=== PATIENT | male | born 1950 | race Caucasian/White ===

== ENCOUNTER 2020-01-06 12:51 | Inpatient (IN) ==
--- OUTSIDE RECORDS SUMMARY | 2020-01-06 12:53 | External Medical Summary | Continuity of Care Document ---
:1950 Author Name Bebeto Singh Address Unavailable Unavailable , Care Team Providers Name Role Phone Bebeto Singh Unavailable [email or web address] Unavailable Unavailable Problems Active medical history not documented Allergies and Adverse Reactions Allergy history not documented Medications Medications not documented Procedures Procedures not documented Immunizations Immunizations not documented Plan of Treatment Planned Observations Planned Goals not documented Results No Known Results Results not documented
[2020-01-06] MEDS ORDERED: SODIUM CHLORIDE 0.9% 500 ML IV SCH (13:15)
[2020-01-06 13:34] LABS: Basophils # (auto) 0.04 K/uL (0-0.2); Basophils % (auto) 0.6 %; Eosinophils # (auto) 0.07 K/uL (0-0.5); Hematocrit (blood only) 43.4 % (42-52); Hemoglobin 14.8 g/dL (14.0-18.0); Immature Granulocytes # (auto) 0.02 K/uL (0.00-0.02); Immature Granulocytes % (auto) 0.3 %; Mean Corpuscular Hemoglobin 28.7 pg (25-34); Mean Corpuscular Hgb Conc 34.1 g/dL (32-36); Mean Corpuscular Volume 84.1 fL (80-100); Mean Platelet Volume 10.2 fL (7.4-10.4); Monocytes # (auto) 0.59 K/uL (0.11-0.59); Monocytes % (auto) 8.2 %; Neutrophils # (auto) 5.95 K/uL (1.4-6.5); Neutrophils % (auto) 82.9 %; Platelet Count 230 K/uL (130-400); RDW Coefficient of Variation 13.4 % (11.5-14.5); RDW Standard Deviation 40.4 fL (36.4-46.3); Red Blood Count 5.16 M/uL (4.7-6.1); White Blood Count 7.17 K/uL (4.8-10.8)
--- NOTE | 2020-01-06 13:46 | Emergency Department Note ---
History of Present Illness General Chief complaint: Weakness Stated complaint: WEAKNESS Time Seen by Provider: 01/06/20 12:58 Source: patient Mode of arrival: ambulatory Limitations: no limitations History of Present Illness Provider complaint: Weakness Maximum Pain Intensity: 0 This is a 69-year-old male who presents to the ED with a chief complaint of feeling weak and tired. The patient states that he also has a nonproductive cough for the past 3 days. He states that he felt fine this morning around 8 AM. He states by noon he felt very weak and tired. The patient denies any shortness of breath, chest pains, nausea, vomiting or diarrhea. He has no other complaints at this time. Home Medications Home Medications Medication Instructions Recorded Confirmed Type acetaminophen [Tylenol Extra 1,000 mg PO Q6H PRN 03/11/18 03/11/18 History Strength] carbidopa-levodopa [Sinemet] 1 tab PO TID 03/11/18 03/11/18 History magnesium hydroxide [Milk of 0 ml PO DAILY PRN 03/11/18 03/11/18 History Magnesia] polyethylene glycol 3350 [Miralax] 17 g PO DAILY PRN 03/11/18 03/11/18 History Allergies Allergy/AdvReac Type Severity Reaction Status Date / Time No Known Allergies Allergy Unverified 02/15/18 12:52 Past Med/Surg History Medical History (Updated 01/06/20 @ 14:40 by Terence Shipley DO) Alcoholism /alcohol abuse Cholecystitis GERD (gastroesophageal reflux disease) No history of diabetes mellitus Parkinsons disease Renal insufficiency acutely elevated creatinine level Surgical History History of inguinal hernia repair Left History of tonsillectomy S/P laparoscopic cholecystectomy Family History Other No significant family history Social History Smoking Status: Never smoker Hx Alcohol Use: Yes Alcohol type: beer Hx Substance Use: No Preferred Language: Icelandic Communication Ability: Effective Visual Impairment: No Limitations Soybean [employer]er Required: No Beliefs That Will Affect Care: None marital status: / Current Living Situation: Family Feels Safe at Home: Yes Assistive Devices: Walker Review of Systems A total of 10 systems reviewed and were otherwise negative Physical Exam Vital Signs Vital Signs - 24 hr 01/06/20 12:54 01/06/20 13:04 01/06/20 13:07 Temperature 37.6 C H Temperature Source Oral Pulse Rate 127 H 125 H 123 H Pulse Rate from SpO2 Sensor 127 H 124 H Respiratory Rate 20 16 27 H Blood Pressure 117/79 127/95 Blood Pressure Mean 91 105 Pulse Oximetry 92 95 Oxygen Delivery Method Room Air Sepsis Recent Fever Within 48 Hours No Sepsis New/Unexplained Change in Mental Status N/A Sepsis Action Taken by Nursing No Action Required 01/06/20 13:28 01/06/20 13:30 01/06/20 14:00 Temperature Temperature Source Pulse Rate 106 H 96 H Pulse Rate from SpO2 Sensor 106 H 97 H Respiratory Rate 14 Blood Pressure 130/82 Blood Pressure Mean 88 Pulse Oximetry 92 89 L 91 Oxygen Delivery Method Room Air Sepsis Recent Fever Within 48 Hours Sepsis New/Unexplained Change in Mental Status Sepsis Action Taken by Nursing 01/06/20 14:30 Temperature Temperature Source Pulse Rate 93 H Pulse Rate from SpO2 Sensor Respiratory Rate 14 Blood Pressure Blood Pressure Mean Pulse Oximetry Oxygen Delivery Method Sepsis Recent Fever Within 48 Hours Sepsis New/Unexplained Change in Mental Status Sepsis Action Taken by Nursing CONSTITUTIONAL/VITAL SIGNS: Reviewed / noted above. GENERAL: Non-toxic in appearance. INTEGUMENTARY: Warm, dry, and [place]. HEAD: Normocephalic. EYES: without scleral icterus or trauma. ENT/OROPHARYNX: clear and moist. LYMPHADENOPATHY/NECK: Is supple without lymphadenopathy or meningismus. RESPIRATORY: Lungs clear and equal. CARDIOVASCULAR: Tachycardic rate and mostly regular rhythm. GI/ABDOMEN: Soft and nontender. No organomegaly or pulsatile mass. No rebound or guarding. Normal bowel sounds. EXTREMITIES: Warm and well perfused. BACK: No CVA tenderness. NEUROLOGICAL: Intact without focal deficits. PSYCHIATRIC: normal affect. MUSCULOSKELETAL: Normally developed with good muscle tone. Resting tremor from chronic Parkinson's. TRIAGE NURSING DOCUMENTATION REVIEWED. Course Administered Medications Discontinued Medications Sodium Chloride (Nss) 500 mls @ 999 mls/hr IV .Q31M CHIKI Stop: 01/06/20 13:45 Last Infusion: 01/06/20 14:06 Dose: 0 mls/hr Documented by: [id number] Admin: 01/06/20 13:31 Dose: 999 mls/hr Documented by: [id number] Medical Decision Making Differential Diagnosis Differential includes acute coronary syndrome, myocardial infarction, CVA, TIA, anemia, infection, pneumonia, UTI, pyelonephritis, poor nutrition, dehydration, electrolyte disturbance,hypoglycemia. Medical Records Attestation: I reviewed the patient's medical records. Home Medications Current Medication List: was personally reviewed by me Laboratory Data Result diagrams: 01/06/20 13:26 01/06/20 13:26 Lab Results 01/06/20 01/06/20 01/06/20 Range/Units 13:26 13:26 13:26 WBC 7.17 (4.8-10.8) K/uL RBC 5.16 (4.7-6.1) M/uL Hgb 14.8 (14.0-18.0) g/dL Hct 43.4 (42-52) % MCV 84.1 (80-100) fL MCH 28.7 (25-34) pg MCHC 34.1 (32-36) g/dL RDW Std Deviation 40.4 (36.4-46.3) fL RDW Coeff of Cordell 13.4 (11.5-14.5) % Plt Count 230 (130-400) K/uL MPV 10.2 (7.4-10.4) fL Immature Gran % (Auto) 0.3 % Neut % (Auto) 82.9 % Lymph % (Auto) 7.0 % [place] % (Auto) 8.2 % Eos % (Auto) 1.0 % Baso % (Auto) 0.6 % Neut # (Auto) 5.95 (1.4-6.5) K/uL Lymph # (Auto) 0.50 L (1.2-3.4) K/uL [place] # (Auto) 0.59 (0.11-0.59) K/uL Eos # (Auto) 0.07 (0-0.5) K/uL Baso # (Auto) 0.04 (0-0.2) K/uL Immature Gran # (Auto) 0.02 (0.00-0.02) K/uL Sodium 139 (136-145) mmol/L Potassium 4.7 (3.5-5.1) mmol/L Chloride 107 (98-107) mmol/L Carbon Dioxide 29 (21-32) mmol/L Anion Gap 3.0 (3-11) BUN 11 (7-18) mg/dl Creatinine 1.17 (0.6-1.4) mg/dl Est Cr Clr Drug Dosing 59.6 ml/min Est GFR ( Amer) 73.3 Est GFR (Non-Af Amer) 63.2 BUN/Creatinine Ratio 9.6 L (10-20) Glucose 89 (70-99) mg/dl Calcium 9.0 (8.5-10.1) mg/dl Magnesium 2.0 (1.8-2.4) mg/dl Total Bilirubin 1.1 H (0.2-1) mg/dl AST 29 (15-37) U/L ALT 50 (12-78) U/L Alkaline Phosphatase 217 H (45-117) U/L Total Creatine Kinase 38 L (39-308) U/L Troponin I < 0.015 (0-0.045) ng/ml Total Protein 7.1 (6.4-8.2) gm/dl Albumin 3.4 (3.4-5.0) gm/dl Globulin 3.7 (2.5-4.0) gm/dl Albumin/Globulin Ratio 0.9 (0.9-2) TSH 1.180 (0.300-4.500) uIu/ml Urine Color Yellow Urine Appearance Clear (Clear) Urine pH 8.0 H (4.5-7.5) Ur Specific [place] 1.018 (1.000-1.030) Urine Protein Negative (Negative) Urine Glucose (UA) Negative (Negative) Urine Ketones Negative (Negative) Urine Blood 1+ H (Negative) Urine Nitrite Negative (Negative) Urine Bilirubin Negative (Negative) Urine Urobilinogen Positive H (Negative) Ur Leukocyte Esterase Trace H (Negative) Urine WBC (Auto) 1-5 (0-5) /hpf Urine RBC (Auto) 10-30 H (0-4) /hpf U Hyaline Cast (Auto) 1-5 (0-5) /lpf U Epithel Cells (Auto) 20-30 H (0-5) /lpf Urine Bacteria (Auto) 1+ H (Negative) Imaging Data Attestation: I personally reviewed and interpreted this imaging study as follows: My Impression: Chest x-ray: Per my interpretation there is no pneumonia or pneum othorax or other acute abnormality. ECG Data Attestation: I personally reviewed and interpreted this ECG as follows: Indication: + weakness Rate (beats per minute): 112 Rhythm: + sinus rhythm ECG ST segments: no ST elevation ECG Findings: no PVCs MDM Narrative This is a 69-year-old male who presents to the ED with a chief complaint of feeling weak and tired. The patient states that he also has a nonproductive cough for the past 3 days. He states that he felt fine this morning around 8 AM. He states by noon he felt very weak and tired. Patient's vital signs reveal normal blood pressure, tachycardia and a slightly low pulse ox. The patient's urine dip did not show obvious infection. Chest x-ray did not show pneumonia. The blood work was relatively unremarkable with a normal CBC and metabolic panel. Troponin and TSH were normal. The patient presented with incontinence. He was incontinent of urine and feces when he came in. He complains of generalized weakness to the point he was unable to walk or get himself to the bathroom. He was found to be tachycardic when he first arrived. His test results did not show a clear cause for his weakness. He will need to be evaluated by PT and OT for possible placement. I will speak to the hospitalist about this patient. Impression & Plan Generalized weakness, Bladder incontinence, Bowel incontinence, Cough Discharge Plan Visit Data Chief Complaint: Weakness Stated Complaint: WEAKNESS ED Provider: Terence Shipley Discharge Problem: Generalized weakness, Bladder incontinence, Bowel incontinence, Cough Patient Disposition: Being Evaluated by Hospitalist Forms Stand Alone Forms: My [facility] Prescriptions Prescriptions: No Action polyethylene glycol 3350 [Miralax] 17 gram Powder In Packet 17 g PO DAILY PRN (Reason: Constipation) RF: 0 acetaminophen [Tylenol Extra Strength] 500 mg Tablet 1,000 mg PO Q6H PRN (Reason: Pain) RF: 0 magnesium hydroxide [Milk of Magnesia] 400 mg/5 mL Suspension 0 ml PO DAILY PRN (Reason: Constipation) RF: 0 carbidopa-levodopa [Sinemet] 25-100 mg Tablet 1 tab PO TID RF: 0 Referrals Referrals: Elio Hester MD [Primary Care Provider] - Discharge Problem: Bladder incontinence Qualifiers: Urinary Incontinence type: other incontinence Qualified Code(s): N39.498 - O ther specified urinary incontinence Bowel incontinence Qualifiers: Fecal incontinence type: unspecified Qualified Code(s): R15.9 - Full incontinence of feces
[2020-01-06 13:52] LABS: Alanine Aminotransferase 50 U/L (12-78); Albumin Level 3.4 gm/dl (3.4-5.0); Aspartate Aminotransferase 29 U/L (15-37); BUN Creatinine Ratio 9.6 (10-20); Blood Urea Nitrogen 11 mg/dl (7-18); Carbon Dioxide 29 mmol/L (21-32); Chloride 107 mmol/L (98-107); Creatinine Clr Calc Pharmacy 59.6 ml/min; Est GFR (African American) 73.3; Est GFR (Non-African American) 63.2; Glucose 89 mg/dl (70-99); Potassium 4.7 mmol/L (3.5-5.1); Sodium 139 mmol/L (136-145)
[2020-01-06 14:02] LABS: Albumin Globulin Ratio 0.9 (0.9-2); Alkaline Phosphatase 217 U/L (45-117); Bilirubin,Total 1.1 mg/dl (0.2-1); Creatine Kinase 38 U/L (39-308); Globulin 3.7 gm/dl (2.5-4.0); Total Protein 7.1 gm/dl (6.4-8.2); Troponin I < 0.015 ng/ml (0-0.045)
[2020-01-06 14:42] LABS: Appearance Urine Clear (Clear); Bacteria Urine Automated 1+ (Negative); Bilirubin Urine Negative (Negative); Blood Urine 1+ (Negative); Color Urine Yellow; Epithelial Cell Urine Auto 20-30 /lpf (0-5); Glucose Urine UA Negative (Negative); Ketones Urine Negative (Negative); Leukocyte Esterase Urine Trace (Negative); Nitrite Urine Negative (Negative); Protein Urine Negative (Negative); Specific Gravity Urine 1.018 (1.000-1.030); Urobilinogen Urine Positive (Negative)
--- NOTE | 2020-01-06 14:44 | XRay Report ---
XR chest 1V portable HISTORY: weakness COMPARISON: Chest 02/15/2018. FINDINGS: There are low lung volumes. No focal lung consolidations to suggest pneumonia. No evidence for pulmonary edema. The heart remains borderline enlarged. Prior cholecystectomy. No pleural effusio ns. No pneumothorax. IMPRESSION: No acute process. ACT 112: Negative or not required by law. Electronically signed by: Marc Anthony M.D. 01/06/2020 2:43 PM
[2020-01-06] MEDS ORDERED: MAGNESIUM HYDROXIDE SUSP 30 ML UDC PO PRN (15:14)
[2020-01-06] MEDS ORDERED: ALUMINUM/MAGNESIUM SUSP 30 ML UDC PO PRN (15:14)
[2020-01-06] MEDS ORDERED: ONDANSETRON INJ 2 MG/ML 2 ML VIAL IV PRN (15:14)
[2020-01-06] MEDS ORDERED: ACETAMINOPHEN 325 MG TAB PO PRN (15:14)
--- NOTE | 2020-01-06 15:19 | History & Physical Report ---
Date of Service January 06, 2020 Assessment & Plan (1) Generalized weakness: generalized weakness , hx of parkinson's disease -not on any meds progressive ambulatory dysfunction , hx of fall symptoms worse this AM unable to get out of chair CT head non contrast : no acute change , acute paranasal sinusitis IV fluid -as pt appears to be dehydrated /CT head no CVA PT/OT eval fall precaution fever/cough : chest xray no infiltrate CT chest : paranasal sinusitis COVID 19 PCR -Negative on Rocephin for possible UTI added Doxycycline for possible bronchitis Parkinson's disease: pt stopped taking Sinemet -since 2018 /was admitted with pancreatitis -pt thinks Sinemet caused it progressive weakness, gait disturbance could be due to Parkinson's disease Neurology consulted for recommendation of antiparkinson's meds (2) Bladder incontinence: rule out Seizure EEG ordered Possible UTI : UA positive check urine culture started on IV Rocephin empirically CODE STATUS : FULL CODE DVT PROPHYLAXIS: sub q heparin DISPOSITION : lives at home , presents with ambulatory dysfunction PT/OT eval prior to discharge social service consulted for discharge planing (3) Parkinsons disease: cont sinemet History of Present Illness Chief Complaint: generalized weakness , cough , unable to walk Primary Care Provider: Elio Hester MD This is a 69 yo Male with medical hx of Parkinson's disease -stopped taking Sinemet few years back / Brought o ER by his son -as pt was unable to walk to bathroom at baseline pt able to walk around with minimum assistance , started to experi ence worsening of fatigue , weakness , gait disturbance Fell few days back this morning he was not able to get up chair , had bowel and bladder incontinence , so seizure like activity , no syncope , having cough with productive sputum for past few days , no fever or chills , no shortness of breath in the ER labs and vitals stable pt appears to be very dehydrated CT head shows no acute change -paransal sinusiitis Allergies Allergy/AdvReac Type Severity Reaction Status Date / Time No Known Allergies Allergy Unverified 01/06/20 15:14 Home Medications Home Medications Medication Instructions Recorded Confirmed Type No Known Home Medications 01/06/20 01/06/20 History Past Med/Surg History Medical History Alcoholism /alcohol abuse Cholecystitis GERD (gastroesophageal reflux disease) No history of diabetes mellitus Parkinsons disease Renal insufficiency acutely elevated creatinine level Surgical History History of inguinal hernia repair Left History of tonsillectomy S/P laparoscopic cholecystectomy Family History Other No significant family history Social History Smoking Status: Never smoker Hx Alcohol Use: No Hx Substance Use: No Preferred Language: Maltese Communication Ability: Effective Visual Impairment: No Limitations [employer] Supervisor Required: No Beliefs That Will Affect Care: None marital status: / Current Living Situation: Family Other Information That Helps Us Care for You: No Feels Safe at Home: Yes Safety Concerns: Feels Safe At This Time Assistive Devices: None Review of Systems Review of Systems: All systems reviewed & are unremarkable except as noted in HPI & below Constitutional: + fatigue and + weakness; no fever and no chills Respiratory: + cough; no dyspnea and no wheezing Cardiovascular: + lightheadedness; no syncope Neurologic: + gait abnormality, + unsteadiness, + falls, + generalized w eakness, + tremor(s) and + dizziness Physical Exam Constitutional: WD/WN, vitals as above no acute distress Eyes: PERRL, conjunctivae normal, anicteric sclerae ENMT: external ear and nose normal, oropharynx normal Neck: trachea midline, no thyromegaly Respiratory: no respiratory distress and no cough Auscultation: + crackles, + rales and + rhonchi Gastrointestinal (Abdomen): normal bowel sounds, soft, nontender, no hepatosplenomegaly Musculoskeletal: Extremities: extremities normal to inspection resting tremors on hands Neurologic: PERRL, EOMI, accommodation nl, no face palsy, no dysarthria no focal motor deficits Motor/Sensory: + tremor (resting tremors of hands ) Results & Data Results & Data ([facility]) Vital Signs (Past 12 Hours) Vital Signs Temp Pulse Resp BP Pulse Ox 01/06/20 15:00 92 H 19 116/84 01/06/20 14:30 93 H 14 01/06/20 14:00 96 H 130/82 91 01/06/20 13:30 106 H 14 89 L 11/14/20 13:28 92 01/06/20 13:07 123 H 27 H 01/06/20 13:04 125 H 16 127/95 95 01/06/20 12:54 37.6 C H 127 H 20 117/[address] HEAD NON CONTRAST : Impression: No acute abnormality. Acute paranasal sinusitis. CHEST XRAY : no acute process (1) Bladder incontinence Urinary Incontinence type: other incontinence Qualified Code(s): N39.498 - Other specified urinary incontinence
[2020-01-06] MEDS ORDERED: cefTRIAXone SODIUM 2,000 MG/70 ML BAG IV STA (15:20)
--- NOTE | 2020-01-06 15:49 | CT Scan Report ---
HEAD CT NONCONTRAST CT DOSE: 1228.53 mGy.cm HISTORY: weakness TECHNIQUE: Multiaxial CT images of the head were performed without the use of intravenous contrast. A utomated exposure control was utilized for this study. A dose lowering technique was utilized adheri ng to the principles of ALARA. Comparison: Head CT 07/18/2015. Findings: Fluid levels within the bilateral maxillary sinuses and ethmoid air cells consistent with a cute sinusitis. The mastoid air cells are clear. The calvarium and skull base are intact. There is no mass, hematoma, midline shift, acute infarct. White matter hypodensity is nonspecific but suggestive of microvascular ischemic change. The ventricles and sulci demonstrate mild age-related involutional changes. Impression: No acute abnormality. Acute paranasal sinusitis. ACT 112: Negative or not required by law. Electronically signed by: Marc Anthony M.D. 01/06/2020 3:47 PM
[2020-01-06] MEDS ORDERED: SODIUM CHLORIDE 0.9% 1000ML 1,000 ML IV SCH (17:08)
[2020-01-06] MEDS: DOXYCYCLINE HYCLATE 100 MG CAP PO SCH (19:32)
[2020-01-06] MEDS ORDERED: CARBIDOPA/LEVODOPA 25/100MG EXT REL TAB PO SCH (21:00)
--- NOTE | 2020-01-07 06:55 | Electrocardiogram Report ---
Test Reason : Blood Pressure : / mmHG Vent. Rate : 112 BPM Atrial Rate : 112 BPM P-R Int : 168 ms QRS Dur : 088 ms QT Int : 322 ms P-R-T Axes : 042 -54 036 degrees QTc Int : 439 ms Poor data quality, interpretation may be adversely affected Sinus tachycardia Left axis deviation Inferior infarct , age undetermined Abnormal ECG When compared with ECG of 15-FEB-2018 13:33, Vent. rate has increased BY 54 BPM Confirmed by Curtis Weinberg ([id number]) on 01/07/2020 6:55:19 AM Referred By: REFERRED SELF Confirmed By:Curtis Weinberg
[2020-01-07] MEDS: DOXYCYCLINE HYCLATE 100 MG CAP PO SCH ×2 (08:01→21:36)
[2020-01-07] MEDS ORDERED: INFLUENZA VIRUS QUAD VACCINE 0.5 ML SYR IM ONE (09:00)
[2020-01-07] MEDS ORDERED: INFLUENZA ADMINISTRATION CHARGE ONE (09:00)
--- NOTE | 2020-01-07 10:40 | Hospitalist Progress Note ---
Date of Service January 07, 2020 Assessment & Plan (1) Generalized weakness: -hospital presentation on 01/06/2020 and initial assessment and plans by hospitalist Dr. Guevara -on my evaluation, Dr Sheridan, hospitalist on 01/07/2020: Patient seen and examined after being seen by physical and occupational therapy who questions patient's ambulatory function. Patient's son Anthony by telephone [phone] affirms that patient had a fall at home but it was around 1 week ago prior to hospital presentation on 01/06/2020. Patient was sent to hospital by family members because he did not appear to be walking well at home since and also because all the family members patient and 2 sons with respiratory symptoms. Patient is COVID-19 negative on 01/06/2020 by testing and 01/06/2020 with no pneumonia and no pulmonary edema. CT head with no evidence of acute stroke but there is Acute paranasal sinusitis for which he was started on doxycycline with the ceftriaxone Patient's son also affirms that patient with Parkinson's Disease and not taking any medications for 2 years, Patient also has not been following with primary care doctor in that span of time. Patient's son is leaning against discharge to physical rehabilitation facility and prefers discharge to home when possible. Hospitalist discussed with patient's son that there remains neurology consult evaluation as requested by admitting hospitalist who also ordered EEG which may be of questionable utility but will defer this to neurology consult doctor. As per the 01/06/2020 ED notes that "The patient presented with incontinence. He was incontinent of urine and feces when he came in. He complains of generalized weakness to the point he was unable to walk or get himself to the bathroom" In addition, that there is 1+ bacteria on presentation UA which may indicate UTI and patient empirically on IV ceftriaxone. Overall, patient does not appear likely to have acute infectious process as his WBC counts are within normal ranges. Awaiting urine culture results while on antibiotics. Continue PT/OT evaluations while patient in the hospital (2) Parkinsons disease: -continue PT/OT while in hospital as above -defer to neurology on dosing of Parkinson medications -defer to neurology on need or utility of EEG as requested initially by initial hospitalist Dr. Guevara. Seizure appears unlikely by history (3) Bladder incontinence: Possible UTI -As per the 01/06/2020 ED notes that "The patient presented with incontinence. He was incontinent of urine and feces when he came in. He complains of generalized weakness to the point he was unable to walk or get himself to the bathroom" -there is 1+ bacteria on presentation UA which may indicate UTI and patient empirically on IV ceftriaxone. Overall, patient does not appear likely to have a cute infectious process as his WBC counts are within normal ranges. Awaiting urine culture results while on antibiotics. continue IV ceftriaxone (4) Bowel incontinence: -ED status on 01/06/2020 as above -monitor if any recurrent episodes while in the hospital (5) Acute sinusitis: -Patient is COVID-19 negative on 01/06/2020 by testing and 01/06/2020 with no pneumonia and no pulmonary edema. CT head with no evidence of acute stroke but there is Acute paranasal sinusitis for which he was started on doxycycline w ith the ceftriaxone -no actual febrile temperatures on hospital presentation as body temperatures below 100.8 F -can continue the doxycycline -supportive care if cough DVT prophylaxis: heparin subcutaneous 5000 units q12 hours Admission and Anticipated Discharge Date Admission Date: January 06, 2020 Subjective Patient seen and examined after being seen by physical and occupational therapy who questions patient's ambulatory function. Patient's son Anthony by telephone [phone] affirms that patient had a fall at home but it was around 1 week ago prior to hospital presentation on 01/06/2020. Patient was sent to hospital by family members because he did not appear to be walking well at home since and also because all the family members patient and 2 sons with respiratory symptoms. Patient is COVID-19 negative on 01/06/2020 by testing and 01/06/2020 with no pneumonia and no pulmonary edema. CT head with no evidence of acute stroke but there is Acute paranasal sinusitis for which he was started on doxycycline with the ceftriaxone Patient's son also affirms that patient with Parkinson's Disease and not taking any medications for 2 years, Patient also has not been following with primary care doctor in that span of time. Patient's son is leaning against discharge to physical rehabilitation facility and prefers discharge to home when possible. Hospitalist discussed with patient's son that there remains neurology consult evaluation as requested by admitting hospitalist who also ordered EEG which may be of questionable utility but will defer this to neurology consult doctor. As per the 01/06/2020 ED notes that "The patient presented with incontinence. He was incontinent of urine and feces when he came in. He complains of generalized weakness to the point he was unable to walk or get himself to the bathroom" In addition, that there is 1+ bacteria on presentation UA which may indicate UTI and patient empirically on IV ceftriaxone. Overall, patient does not appear likely to have acute infectious process as his WBC counts are within normal ranges. Awaiting urine culture results while on antibiotics. Continue PT/OT evaluations while patient in the hospital On review of systems , patient is a poor historian. He denies other symptoms. not in acute pain or distress. breathing comfortably on room air. Review of Systems Review of Systems: All systems reviewed & are unremarkable except as noted in Subjective Physical Exam Constitutional: comfortable Eyes: PERRL, conjunctivae normal, anicteric sclerae EOM intact bilaterally ENMT: external ear and nose normal, oropharynx normal Neck: normal visual inspection Respiratory: normal respiratory effort, lungs clear to auscultation Cardiovascular: Rate/Rhythm: regular rate and regular rhythm Gastrointestinal (Abdomen): normal bowel sounds, soft, nontender, no hepatosplenomegaly Musculoskeletal: Head/Neck/Chest: normocephalic and head atraumatic some hand tremors Neurologic: moves all extremities Psychiatric: Orientation: alert, oriented x 3 and cooperative Results & Data Results & Data ([facility]) Vital Signs (Past 12 Hours) Vital Signs Temp Pulse Pulse Resp BP Pulse Ox 01/07/20 07:57 37.0 C 71 18 148/69 H 95 01/07/20 07:37 56 L 01/07/20 04:00 36.6 C 67 16 139/84 93 01/07/20 00:16 75 (1) Bladder incontinence Urinary Incontinence type: other incontinence Qualified Code(s): N39.498 - Other specified urinary incontinence (2) Bowel incontinence Fecal incontinence type: unspecified Qualified Code(s): R15.9 - Full incontinence of feces
[2020-01-07] MEDS ORDERED: ACETAMINOPHEN 325 MG TAB PO PRN (11:12)
[2020-01-07] MEDS ORDERED: guaiFENesin SUGAR FREE 100 MG/5 ML UDC PO PRN (11:14)
--- NOTE | 2020-01-07 12:52 | History and Physical Report ---
DATE OF ADMISSION: 01/07/2020 NEUROLOGY CONSULTATION NOTE CHIEF COMPLAINT: Generalized weakness, cough. HISTORY OF PRESENT ILLNESS: A 69-year-old male with history of Parkinson disease, currently no longer on Sinemet. He has stopped this medication several years ago, brought to the Emergency Department yesterday by the patient's son as the patient was unable to walk to the bathroom or unable to walk without minimal assistance. He is also noted to start experiencing worsening fatigue, weakness, gait disturbance. He did fall a few days ago. He was unable to get up from his chair yesterday morning. He had a bowel and bladder incontinence. He did not have any loss of consciousness. He has been having a productive cough over the last several days, although denies any fever or chills. No shortness of breath noted. In the Emergency Department, he was stable and appeared to be very dehydrated. CT head was performed and showed paranasal sinusitis. The patient was admitted yesterday from the Emergency Department due to concern for generalized weakness and difficulty ambulating. He was given IV fluids as well as ordered for PT, OT evaluation. On admission, Neurology was consulted due to his history of Parkinson's disease. ALLERGIES: No known drug allergies. HOME MEDICATIONS: No home medications. PAST MEDICAL HISTORY: Alcoholism, cholecystitis, gastroesophageal reflux disease, Parkinson's disease, renal insufficiency. PAST SURGICAL HISTORY: History of inguinal hernia, tonsillectomy, laparoscopic cholecystectomy. FAMILY HISTORY: Reviewed. No pertinent family history. SOCIAL HISTORY: Nonsmoker. He is . Does have a history of prior alcohol use. REVIEW OF SYSTEMS: All systems were reviewed and negative except as noted: Positive for fatigue, weakness, cough, lightheadedness, gait abnormality, unsteadiness, falls, generalized weakness, tremor, dizziness. PHYSICAL EXAMINATION: VITAL SIGNS: Blood pressure 148/69, pulse is 71, respiratory rate 18, temperature is 37.0, oxygen saturation is 95% on room air. GENERAL: Appears stated age, no distress. HEENT: Normocephalic and atraumatic. Eyelids are normal. Conjunctivae are normal. NECK: Supple. LUNGS: Normal respiratory effort. CARDIOVASCULAR: Normal cardiac pulses. ABDOMEN: Nondistended. SKIN: No skin rash. PSYCHIATRIC: Normal mood and normal affect. NEUROLOGIC: He is awake, alert, oriented to person, place and time. His attention is normal. His knowledge is appropriate. Comprehension is intact. Speech is clear. Eyes are midline. Extraocular muscles are intact. Pupils are symmetric. Facial sensation is intact. Face is symmetric. Hearing is intact. Palate is symmetric. Shoulder shrug is normal. Tongue is midline. Gait examination deferred. The patient is tremulous with intention tremor on [id number] testing intact to light touch in terms of sensation, muscle tone shows cogwheel rigidity, diffuse weakness, no ankle clonus. DIAGNOSTIC TESTING AND LABORATORY VALUES: WBC 7.17, hemoglobin 14.8, platelet count is 230. Sodium is 139, potassium 4.7, chloride is 107, carbon dioxide is 29, BUN is 11, creatinine 1.17, glucose is 89, AST is 29, ALT is 50. Total creatine kinase is 38, which is low. Troponin is negative. TSH is normal at 1.18. Chest x-ray showed no acute process. Head CT noncontrast performed on 01/06/2020 showed no acute abnormality. There was acute paranasal sinusitis. ASSESSMENT AND PLAN: A 69-year-old male with a history of tremor predominant Parkinson disease, last seen by Yvrose Medley in 01/2018, currently admitted with generalized weakness and gait difficulty. Hospital workup to date showing no evidence of an underlying infection or metabolic abnormality. CK is normal or low ruling out an inflammatory myopathy. Dehydration may be contributing versus deconditioning. Agree with PT, OT for rehabilitation. For now, we will defer on starting Sinemet. We will need to arrange followup after rehab for discussion or review of Parkinson's medications. Please contact me with any additional questions or concerns. Follow up with Neurology in 8 - weeks. JOHANNE
[2020-01-07] MEDS ORDERED: cefTRIAXone SODIUM 2,000 MG in DEXTROSE 5% 50 ML IV SCH (16:00)
[2020-01-07] MEDS: HEPARIN SOD 5,000 UNIT/0.5 ML VIAL SQ SCH (21:37)
[2020-01-08] MEDS: HEPARIN SOD 5,000 UNIT/0.5 ML VIAL SQ SCH (08:45)
[2020-01-08] MEDS: DOXYCYCLINE HYCLATE 100 MG CAP PO SCH (08:45)
--- NOTE | 2020-01-08 08:52 | Hospitalist Progress Note ---
Date of Service January 08, 2020 Assessment & Plan (1) Generalized weakness: -hospital presentation on 01/06/2020 and initial assessment and plans by hospitalist Dr. Guevara -on my evaluation, Dr Sheridan, hospitalist on 01/07/2020: Patient seen and examined after being seen by physical and occupational therapy who questions patient's ambulatory function. Patient's son Anthony by telephone [phone] affirms that patient had a fall at home but it was around 1 week ago prior to hospital presentation on 01/06/2020. Patient was sent to hospital by family members because he did not appear to be walking well at home since and also because all the family members patient and 2 sons with respiratory symptoms. Patient is COVID-19 negative on 01/06/2020 by testing and 01/06/2020 with no pneumonia and no pulmonary edema. CT head with no evidence of acute stroke but there is Acute paranasal sinusitis for which he was started on doxycycline with the ceftriaxone Patient's son also affirms that patient with Parkinson's Disease and not taking any medications for 2 years, Patient also has not been following with primary care doctor in that span of time. Patient's son is leaning against discharge to physical rehabilitation facility and prefers discharge to home when possible. Hospitalist discussed with patient's son that there remains neurology consult evaluation as requested by admitting hospitalist who also ordered EEG which may be of questionable utility but will defer this to neurology consult doctor. As per the 01/06/2020 ED notes that "The patient presented with incontinence. He was incontinent of urine and feces when he came in. He complains of generalized weakness to the point he was unable to walk or get himself to the bathroom" (2) Parkinsons disease: -continue PT/OT while in hospital as above -defer to neurology on dosing of Parkinson medications -defer to neurology on need or utility of EEG as requested initially by initial hospitalist Dr. Guevara. Seizure appears unlikely by history (3) Bowel incontinence: -ED status on 01/06/2020 as above -currently no recurrent episodes while in the hospital (4) Bladder incontinence: Possible UTI -As per the 01/06/2020 ED notes that "The patient presented with incontinence. He was incontinent of urine and feces when he came in. He complains of generalized weakness to the point he was unable to walk or get himself to the bathroom" -01/07/2020: there is 1+ bacteria on presentation UA which may indicate UTI and patient empirically on IV ceftriaxone. Overall, patient does not appear likely to have acute infectious process as his WBC counts are within normal ranges. Awaiting urine culture results while on antibiotics. continue IV ceftriaxone -01/08/2020: the urine culture "Three types of organisms present, all low counts probable skin jemal. No further identifications or sensitivities to follow." Will stop ceftriaxone and switch antibiotics to Augmentin, contonue Doxycycline for the sinusitis indications (5) Acute sinusitis: -Patient is COVID-19 negative on 01/06/2020 by testing and 01/06/2020 with no pneumonia and no pulmonary edema. CT head with no evidence of acute stroke but there is Acute paranasal sinusitis for which he was started on doxycycline with the ceftriaxone -no actual febrile temperatures on hospital presentation as body temperatures below 100.8 F -can continue the doxycycline , replace ceftriaxone with Augmentin -supportive care if cough with prn anti-tussives DVT prophylaxis: heparin subcutaneous 5000 units q12 hours while in the hospital Disposition: discussed with patient and patient's son Anthony by phone that currently awaiting neurology evaluation. Their preference are to be discharged to home rather than physical therapy center. Discuss with case management about discharge needs Admission and Anticipated Discharge Date Admission Date: January 06, 2020 Subjective discussed with patient and patient's son Anthony by phone that currently awaiting neurology evaluation. Their preference are to be discharged to home rather than physical therapy center. Discuss with case management about discharge needs no acute telemetry events. patient breathing on room air. no respiratory d istress. no shortness of breath. no dizziness. speaking in full sentences. answering questions appropriately. denies acute pain anywhere of the body. mild tremors of upper extremities continues. denies dysuria. patient denies other symptoms on review of systems. Review of Systems Review of Systems: All systems reviewed & are unremarkable except as noted in Subjective Physical Exam Constitutional: comfortable Eyes: PERRL, conjunctivae normal, anicteric sclerae EOM intact bilaterally ENMT: external ear and nose normal, oropharynx normal Neck: normal visual inspection Respiratory: normal respiratory effort, lungs clear to auscultation Cardiovascular: Rate/Rhythm: regular rate and regular rhythm Gastrointestinal (Abdomen): normal bowel sounds, soft, nontender, no hepatosplenomegaly Musculoskeletal: Head/Neck/Chest: normocephalic and head atraumatic Neurologic: moves all extremities Psychiatric: Orientation: alert, oriented x 3 and cooperative Results & Data Results & Data ([facility]) Vital Signs (Past 12 Hours) Vital Signs Temp Pulse Pulse Resp BP Pulse Ox 01/08/20 07:29 51 L 01/08/20 06:07 36.5 C 57 L 16 137/88 96 01/08/20 03:00 36.4 C L 54 L 20 143/90 H 95 01/07/20 23:27 55 L 01/07/20 22:00 36.6 C 53 L 16 132/81 94 (1) Bladder incontinence Urinary Incontinence type: other incontinence Qualified Code(s): N39.498 - Other specified urinary incontinence (2) Bowel incontinence Fecal incontinence type: unspecified Qualified Code(s): R15.9 - Full incontinence of feces
--- NOTE | 2020-01-08 15:33 | Discharge Summary ---
Date of Service January 08, 2020 Admission HPI Per Admitting Provider This is a 69 yo Male with medical hx of Parkinson's disease -stopped taking Sinemet few years back / Brought o ER by his son -as pt was unable to walk to bathroom at baseline pt able to walk around with minimum assistance , started to experience worsening of fatigue , weakness , gait disturbance Fell few days back this morning he was not able to get up chair , had bowel and bladder incontinence , so seizure like activity , no syncope , having cough with productive sputum for past few days , no fever or chills , no shortness of breath in the ER labs and vitals stable pt appears to be very dehydrated CT head shows no acute change -paransal sinusiitis Admission Exam (Per Admitting) Constitutional comfortable Eyes PERRL, conjunctivae normal, anicteric sclerae EOM intact bilaterally ENMT external ear and nose normal, oropharynx normal Neck normal visual inspection Respiratory normal respiratory effort, lungs clear to auscultation Cardiovascular Rate/Rhythm: regular rate and regular rhythm Gastrointestinal (Abdomen) normal bowel sounds, soft, nontender, no hepatosplenomegaly Musculoskeletal Head/Neck/Chest: normocephalic and head atraumatic Neurologic moves all extremities Psychiatric Orientation: alert, oriented x 3 and cooperative Discharge Data Consultations 01/06/20 14:59 ED Decision to Admit Stat 01/06/20 15:16 Consult Case Management - Discharge Planning Routine 01/06/20 20:49 Consult Neurology Routine 01/08/20 06:56 Consult Neurology Routine Hospital Course (1) Generalized weakness: -hospital presentation on 01/06/2020 and initial assessment and plans by hospitalist Dr. Guevara -on my evaluation, Dr Sheridan, hospitalist on 01/07/2020: Patient seen and examined after being seen by physical and occupational therapy who questions patient's ambulatory function. Patient's son Anthony by telephone [phone] affirms that patient had a fall at home but it was around 1 week ago prior to hospital presentation on 01/06/2020. Patient was sent to hospital by family members because he did not appear to be walking well at home since and also because all the family members patient and 2 sons with respiratory symptoms. Patient is COVID-19 negative on 01/06/2020 by testing and 01/06/2020 with no pneumonia and no pulmonary edema. CT head with no evidence of acute stroke but there is Acute paranasal sinusitis for which he was started on doxycycline with the ceftriaxone Patient's son also affirms that patient with Parkinson's Disease and not taking any medications for 2 years, Patient also has not been following with primary care doctor in that span of time. Patient's son is leaning against discharge to physical rehabilitation facility and prefers discharge to home when possible. Hospitalist discussed with patient's son that there remains neurology consult evaluation as requested by admitting hospitalist who also ordered EEG which may be of questionable utility but will defer this to neurology consult doctor. As per the 01/06/2020 ED notes that "The patient presented with incontinence. He was incontinent of urine and feces when he came in. He complains of generalized weakness to the point he was unable to walk or get himself to the bathroom" (2) Parkinsons disease: -continue PT/OT while in hospital as above -defer to neurology on dosing of Parkinson medications -defer to neurology on need or utility of EEG as requested initially by initial hospitalist Dr. Guevara. Seizure appears unlikely by history (3) Bowel incontinence: -ED status on 01/06/2020 as above -currently no recurrent episodes while in the hospital (4) Bladder incontinence: Possible UTI -As per the 01/06/2020 ED notes that "The patient presented with incontinence. He was incontinent of urine and feces when he came in. He complains of generalized weakness to the point he was unable to walk or get himself to the bathroom" -01/07/2020: there is 1+ bacteria on presentation UA which may indicate UTI and patient empirically on IV ceftriaxone. Overall, patient does not appear likely to have acute infectious process as his WBC counts are within normal ranges. Awaiting urine culture results while on antibiotics. continue IV ceftriaxone -01/08/2020: the urine culture "Three types of organisms present, all low counts probable skin jemal. No further identifications or sensitivities to follow." Will stop ceftriaxone and switch antibiotics to Augmentin, contonue Doxycycline for the sinusitis indications (5) Acute sinusitis: -Patient is COVID-19 negative on 01/06/2020 by testing and 01/06/2020 with no pneumonia and no pulmonary edema. CT head with no evidence of acute stroke but there is Acute paranasal sinusitis for which he was started on doxycycline with the ceftriaxone -no actual febrile temperatures on hospital presentation as body temperatures below 100.8 F -can continue the doxycycline , replace ceftriaxone with Augmentin -supportive care if cough with prn anti-tussives Disposition: discharge to home under care of his sons after case mgr made referrals for [facility]. patient also give prescription for walker but he denies wanting one discharge [place] [address] of Augmentin 500 mg twice a day for 5 days, and Doxycycline 100 mg for 5 days for acute sinusitis and also Guaifenesin every 6 hours as needed for cough from the sinus itis discharge primary care doctor appointment: 01/12/2020 3:00 PM Provider Elio Hester MD Department [facility] discharge neurology appointment: 01/30/2020 11:20 AM Provider Kyung Geiger PA-C Department Neurology [facility] Discharge Diagnosis: Acute sinusitis Parkinson's disease Time Spent on Discharge: 40 Minutes
[2020-01-08] MEDS ORDERED: AMOXICILLIN/CLAVULANATE 500 MG TAB PO SCH (17:00)
--- NOTE | 2020-01-10 14:59 | Electroencephalogram ---
EEG Procedure Note Date of Service January 10, 2020 Start / End Times Start Time: 06:22 End Time: 06:[address] Guevara History A 69-year-old male with Parkinson's disease admitted with possible syncopal episode. EEG performed for evaluation epileptiform activity. Home Medication List Medication Instructions Recorded Confirmed Type No Known Home Medications 01/06/20 01/06/20 History amoxicillin-pot clavulanate 1 tab PO BIDM 5 Days #10 tab 01/08/20 Rx doxycycline hyclate 100 mg PO BID 5 Days #10 cap 01/08/20 Rx guaifenesin 100 mg PO Q6H PRN 5 Days #473 ml 01/08/20 Rx Inpatient Medication List Discontinued Medications Doxycycline Hyclate (Doxycycline Hyclate 100 Mg Cap) 100 mg PO BID CHIKI Stop: 01/13/20 17:59 Last Admin: 01/08/20 08:45 Dose: 100 mg Documented by: [id number] Admin: 01/07/20 21:36 Dose: 100 mg Documented by: [id number] Admin: 01/07/20 08:01 Dose: 100 mg Documented by: [id number] Admin: 01/06/20 19:32 Dose: 100 mg Documented by: [id number] Heparin Sodium (Porcine) (Heparin Sod 5,000 Unit/0.5 Ml Vial) 5,000 units SQ Q12 CHIKI Stop: 02/06/20 20:59 Last Admin: 01/08/20 08:45 Dose: 5,000 units Documented by: [id number] Admin: 01/07/20 21:37 Dose: 5,000 units Documented by: [id number] Sodium Chloride (Nss) 500 mls @ 999 mls/hr IV .Q31M CHIKI Stop: 01/06/20 13:45 Last Infusion: 01/06/20 14:06 Dose: 0 mls/hr Documented by: [id number] Admin: 01/06/20 13:31 Dose: 999 mls/hr Documented by: [id number] Ceftriaxone Sodium (Rocephin) 2,000 mg in 70 mls @ 140 mls/hr IV NOW STA Stop: 01/06/20 15:49 Last Infusion: 01/06/20 16:38 Dose: 0 mls/hr Documented by: [id number] Admin: 01/06/20 15:58 Dose: 140 mls/hr Documented by: [id number] Ceftriaxone Sodium 2,000 mg/ (Dextrose) 70 mls @ 100 mls/hr IV Q24H CHIKI; Protocol Stop: 01/10/20 16:41 Last Infusion: 01/07/20 17:02 Dose: 0 mls/hr Documented by: [id number] Admin: 01/07/20 16:19 Dose: 100 mls/hr Documented by: [id number] Sodium Chloride (Nss 1000ml) 1,000 mls @ 100 mls/hr IV .Q10H CHIKI Stop: 01/07/20 03:07 Last Infusion: 01/07/20 04:13 Dose: 0 mls/hr Documented by: [id number] Admin: 01/06/20 18:13 Dose: 100 mls/hr Documented by: [id number] Influenza Virus Vaccine Quadrival (Influenza Virus Quad Vaccine 0.5 Ml Syr) 0.5 ml IM .ONCE ONE Stop: 01/07/20 09:01 Last Admin: 01/07/20 10:00 Dose: 0.5 ml Documented by: [id number] Description This is a 21 electrode EEG with a single channel dedicated to limited EKG. The electrodes were placed in accordance with the International 10-20 system. Report: At the onset of the EEG the patient is awake. The posterior dominant rhythm is 9-10 Hz. The background is symmetric and well organized. Anteriorly there is low amplitude indeterminate faster activity. Drowsiness is characte rized by increased theta activity, reduced blink rate, and decreased myogenic artifact. No stage 2 sleep transients are recorded. Photic stimulation does not induce any abnormalities. Impression: This is a normal awake and drowsy routine EEG. There is no evidence of focal slowing or epileptiform activity.
== END 2020-01-08 16:10 | disposition home health service (06) | DRG 57 ==
LOC: ED 12:51 → SUATTDRO 15:15 → 2N 15:15

== ENCOUNTER 2020-03-23 04:15 | Inpatient (IN) ==
[2020-03-23] MEDS ORDERED: HYDROCORTISONE HC 2.5% CRM 30GM TUBE EXT ONE (04:59)
[2020-03-23] MEDS ORDERED: SODIUM CHLORIDE 0.9% 500 ML IV ONE (04:59)
[2020-03-23 05:20] LABS: Basophils # (auto) 0.01 K/uL (0-0.2); Basophils % (auto) 0.2 %; Eosinophils # (auto) 0.08 K/uL (0-0.5); Eosinophils % (auto) 1.7 %; Hematocrit (blood only) 48.9 % (42-52); Hemoglobin 16.3 g/dL (14.0-18.0); Immature Granulocytes # (auto) 0.01 K/uL (0.00-0.02); Immature Granulocytes % (auto) 0.2 %; Lymphocytes # (auto) 0.72 K/uL (1.2-3.4); Lymphocytes % (auto) 15.2 %; Mean Corpuscular Hemoglobin 28.6 pg (25-34); Mean Corpuscular Hgb Conc 33.3 g/dL (32-36); Mean Corpuscular Volume 85.9 fL (80-100); Mean Platelet Volume 10.6 fL (7.4-10.4); Monocytes # (auto) 0.46 K/uL (0.11-0.59); Monocytes % (auto) 9.7 %; Neutrophils # (auto) 3.47 K/uL (1.4-6.5); Platelet Count 245 K/uL (130-400); RDW Coefficient of Variation 13.8 % (11.5-14.5); RDW Standard Deviation 42.6 fL (36.4-46.3); Red Blood Count 5.69 M/uL (4.7-6.1); White Blood Count 4.75 K/uL (4.8-10.8)
[2020-03-23 05:37] LABS: Alanine Aminotransferase 41 U/L (12-78); Albumin Level 3.5 gm/dl (3.4-5.0); Anion Gap 0 (3-11); Aspartate Aminotransferase 21 U/L (15-37); BUN Creatinine Ratio 17.2 (10-20); Blood Urea Nitrogen 18 mg/dl (7-18); Calcium 9.1 mg/dl (8.5-10.1); Carbon Dioxide 33 mmol/L (21-32); Chloride 109 mmol/L (98-107); Est GFR (African American) 84.5; Est GFR (Non-African American) 72.9; Glucose 91 mg/dl (70-99); Sodium 142 mmol/L (136-145)
[2020-03-23 05:48] LABS: Albumin Globulin Ratio 0.9 (0.9-2); Alkaline Phosphatase 176 U/L (45-117); Globulin 4.1 gm/dl (2.5-4.0); Total Protein 7.6 gm/dl (6.4-8.2)
--- NOTE | 2020-03-23 06:37 | Emergency Department Note ---
Impression & Plan Adult failure to thrive, Weakness, Depression, Acute hemorrhoid, Nonadherence to medication ED Provider Note NAME: TATI WOOD AGE: 69 SEX: M ARRIVES VIA: Walk-In INFORMANT: Patient and the patient's son ED PROVIDER(S): Ros Roque DO CHIEF COMPLAINT: Patient's not eating PLAN: Disposition: Admitted to the [facility] service Condition: Good MEDICAL DECISION MAKING: This is a 69-year-old male patient who presents to the emergency department with his son explaining that he has not been eating or drinking. The son explains that he is such extreme weakness that he had requested to come to the hospital. The patient has been complaining of hemorrhoid. It appears that the patient has not showered in quite a long time in his not caring for himself. He admits to being significantly depressed. He suffers from Parkinson's disease and is not taking his medications. Patient has a history of alcohol abuse but has not been drinking alcohol in quite some time. [facility] for [facility] management. Triage Nursing notes reviewed and agree them. Additional history obtained from the patient's son who is at the bedside Prior medical records reviewed Vital Signs: reviewed and remarkable for hypertension Differential diagnosis: Depression, medication noncompliance, dehydration, electrolyte abnormality, renal failure, hyperglycemia, hypoglycemia ER treatment provided: Proctosol HC Diagnostics interpreted by me: ECG: Normal sinus rhythm at a rate of [address] segment elevation or signs of ischemia. There is poor baseline with artifact. There is no ST segment clarice vation or signs of ischemia Cardiac Monitoring: Normal sinus rhythm at a rate of 62 Laboratory studies: See below Imaging studies:As per my interpretation Portable chest x-ray: No acute pulmonary infiltrates or consolidation HPI: 69/M arrives for evaluation of complaints of hemorrhoid and decreased oral intake. The patient has become increasingly weak and is not eating or drinking at home according to the patient's son. He suffers from Parkinson's disease and has not been taking his medications. The son is very concerned because he has become so weak and the patient has voiced concern that he may . The son explains that his mother approximately 5 years ago and that it seems that his father may have given up since then. The patient has become extremely depressed and is not eating appropriately. He states that he has only eaten 2 ice cream sandwiches in the past 1 to 2 days. The patient is no longer showering and taking care of himself. ROS: See above HPI for pertinent positives & negatives. A total of 10 systems reviewed and were otherwise negative. PAST MEDICAL HISTORY:See Below PAST SURGICAL HISTORY:See Below FAMILY HISTORY:See Below SOCIAL HISTORY:See Below HOME MEDICATIONS:The patient is not taking any of his medications ALLERGIES:None VITALS:See Below PHYSICAL EXAMINATION: HEENT: Head - normocephalic and atraumatic Pupils are equal, round, and reactive to light. Extraocular eye muscles are intact, and sclera are anicteric. Nose - moist nasal mucosa without discharge. Mouth - moist buccal mucosa. Oropharynx is nonerythematous and there is no tonsillar exudate or edema noted. Neck: Supple; no cervical lymphadenopathy or JVD was noted. Heart: Regular rate and rhythm. There is a normal S1 and S2 with no murmurs, clicks, or gallops appreciated. Lungs: Clear to auscultation bilaterally with no wheezes, rales, or rhonchi. Abdomen: Soft, completely nontender, nondistended, with good bowel sounds. There are no palpable pulsatile masses or hepatosplenomegaly. There is no guarding, rigidity, or rebound noted. Extremities: No evidence of cyanosis, clubbing, or edema. There are easily palpable peripheral pulses. The patient's toenails are extremely long. Skin: warm and dry with good turgor and no rashes. Rectal: The patient is incontinent of stool. There is a mildly thrombosed hemorrhoid. Neuro: The patient is somewhat difficult to understand as his speech is somewhat soft and stuttering. He is tremulous from his Parkinson's. He can easily follow commands. He has equal muscle strength in all 4 extremities. ED COURSE: Times/Reassessments: 0430: Patient was evaluated in room C4. A complete history and physical was performed. Previous electronic medical records were reviewed. An order was placed for continuous cardiac monitoring. The patient was in a nor mal sinus rhythm at a rate of 62. An IV lock was initiated and labs were drawn as above. Chest x-ray was performed as described above. Anusol HC was applied to the patient's hemorrhoid. I helped nursing staff to take off the patient's close which have obviously not been changed in quite some time. He is not caring for himself or bathing. The case was discussed with the [facility] hospitalist and they will evaluate for further management. Ros Roque DO Past Med/Surg History Medical History (Updated 03/24/20 @ 06:43 by Ros Roque DO) Alcoholism /alcohol abuse Bladder incontinence Bowel incontinence Cholecystitis Generalized weakness GERD (gastroesophageal reflux disease) No history of diabetes mellitus Parkinsons disease Renal insufficiency acutely elevated creatinine level Surgical History History of inguinal hernia repair Left History of tonsillectomy S/P laparoscopic cholecystectomy Family History Other No significant family history Social History Smoking Status: Never smoker Hx Alcohol Use: No Hx Substance Use: No Preferred Language: Uzbek Communication Ability: Effective Visual Impairment: No Limitations 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 Required: No Beliefs That Will Affect Care: None marital status: / Current Living Situation: Family How many Children do You have: 2 Other Information That Helps Us Care for You: No Feels Safe at Home: Yes Safety Concerns: Feels Safe At This Time Assistive Devices: Walker Allergies Allergies Allergy/AdvReac Type Severity Reaction Status Date / Time No Known Allergies Allergy Verified 03/23/20 05:05 Home Meds Home Medications Medication Instructions Recorded Confirmed No Known Home Medications 01/06/20 03/23/20 Results & Data (ED) Vital Signs Vital Signs - 24 hr 03/23/20 04:21 03/23/20 05:29 03/23/20 05:31 Temperature 37.1 C Temperature Source Temporal Artery Scan Pulse Rate 99 H 76 78 Respiratory Rate 20 19 20 Blood Pressure 141/105 H 141/83 H 119/88 Blood Pressure Mean 117 102 98 Pulse Oximetry 96 98 98 Oxygen Delivery Method Room Air Sepsis Recent Fever Within 48 Hours No Sepsis New/Unexplained Change in Mental Status N/A Sepsis Action Taken by Nursing No Action Required 03/23/20 06:00 Temperature Temperature Source Pulse Rate 62 Respiratory Rate 20 Blood Pressure 131/88 Blood Pressure Mean 102 Pulse Oximetry 98 Oxygen Delivery Method Sepsis Recent Fever Within 48 Hours Sepsis New/Unexplained Change in Mental Status Sepsis Action Taken by Nursing Laboratory Data Result diagrams: 03/23/20 05:05 03/23/20 05:05 Lab Results 03/23/20 03/23/20 03/23/20 Range/Units 05:05 05:05 06:22 WBC 4.75 L (4.8-10.8) K/uL RBC 5.69 (4.7-6.1) M/uL Hgb 16.3 (14.0-18.0) g/dL Hct 48.9 (42-52) % MCV 85.9 (80-100) fL MCH 28.6 (25-34) pg MCHC 33.3 (32-36) g/dL RDW Std Deviation 42.6 (36.4-46.3) fL RDW Coeff of Cordell 13.8 (11.5-14.5) % Plt Count 245 (130-400) K/uL MPV 10.6 H (7.4-10.4) fL Immature Gran % (Auto) 0.2 % Neut % (Auto) 73.0 % Lymph % (Auto) 15.2 % [place] % (Auto) 9.7 % Eos % (Auto) 1.7 % Baso % (Auto) 0.2 % Neut # (Auto) 3.47 (1.4-6.5) K/uL Lymph # (Auto) 0.72 L (1.2-3.4) K/uL [place] # (Auto) 0.46 (0.11-0.59) K/uL Eos # (Auto) 0.08 (0-0.5) K/uL Baso # (Auto) 0.01 (0-0.2) K/uL Immature Gran # (Auto) 0.01 (0.00-0.02) K/uL Sodium 142 (136-145) mmol/L Potassium 4.0 (3.5-5.1) mmol/L Chloride 109 H (98-107) mmol/L Carbon Dioxide 33 H (21-32) mmol/L Anion Gap 0 L (3-11) BUN 18 (7-18) mg/dl Creatinine 1.04 (0.6-1.4) mg/dl Est Cr Clr Drug Dosing Not Reportable Est GFR ( Amer) 84.5 Est GFR (Non-Af Amer) 72.9 BUN/Creatinine Ratio 17.2 (10-20) Glucose 91 (70-99) mg/dl Calcium 9.1 (8.5-10.1) mg/dl Magnesium 2.7 H (1.8-2.4) mg/dl Total Bilirubin 1.0 (0.2-1) mg/dl AST 21 (15-37) U/L ALT 41 (12-78) U/L Alkaline Phosphatase 176 H (45-117) U/L Total Protein 7.6 (6.4-8.2) gm/dl Albumin 3.5 (3.4-5.0) gm/dl Globulin 4.1 H (2.5-4.0) gm/dl Albumin/Globulin Ratio 0.9 (0.9-2) TSH 1.820 (0.300-4.500) uIu/ml COVID-19 [facility] SARS-CoV-2, RNA, NAAT (NEGATIVE) 03/23/20 Range/Units 06:22 WBC (4.8-10.8) K/uL RBC (4.7-6.1) M/uL Hgb (14.0-18.0) g/dL Hct (42-52) % MCV (80-100) fL MCH (25-34) pg MCHC (32-36) g/dL RDW Std Deviation (36.4-46.3) fL RDW Coeff of Cordell (11.5-14.5) % Plt Count (130-400) K/uL MPV (7.4-10.4) fL Immature Gran % (Auto) % Neut % (Auto) % Lymph % (Auto) % [place] % (Auto) % Eos % (Auto) % Baso % (Auto) % Neut # (Auto) (1.4-6.5) K/uL Lymph # (Auto) (1.2-3.4) K/uL [place] # (Auto) (0.11-0.59) K/uL Eos # (Auto) (0-0.5) K/uL Baso # (Auto) (0-0.2) K/uL Immature Gran # (Auto) (0.00-0.02) K/uL Sodium (136-145) mmol/L Potassium (3.5-5.1) mmol/L Chloride (98-107) mmol/L Carbon Dioxide (21-32) mmol/L Anion Gap (3-11) BUN (7-18) mg/dl Creatinine (0.6-1.4) mg/dl Est Cr Clr Drug Dosing Est GFR ( Amer) Est GFR (Non-Af Amer) BUN/Creatinine Ratio (10-20) Glucose (70-99) mg/dl Calcium (8.5-10.1) mg/dl Magnesium (1.8-2.4) mg/dl Total Bilirubin (0.2-1) mg/dl AST (15-37) U/L ALT (12-78) U/L Alkaline Phosphatase (45-117) U/L Total Protein (6.4-8.2) gm/dl Albumin (3.4-5.0) gm/dl Globulin (2.5-4.0) gm/dl Albumin/Globulin Ratio (0.9-2) TSH (0.300-4.500) uIu/ml COVID-19 Eval Order SARS-CoV-2, RNA, NAAT NEGATIVE (NEGATIVE) Administered Medications Carbidopa/Levodopa (Carbidopa/Levodopa 25/100mg Tab) 0.5 tab PO DAILYBB CHIKI Stop: 04/23/20 06:29 Last Admin: 03/24/20 05:31 Dose: 0.5 tab Documented by: [id number] Heparin Sodium (Porcine) (Heparin Sod 5,000 Unit/0.5 Ml Vial) 5,000 units SQ Q8 CHIKI Stop: 04/22/20 13:59 Last Admin: 03/24/20 05:32 Dose: 5,000 units Documented by: [id number] Admin: 03/23/20 21:19 Dose: 5,000 units Documented by: [id number] Admin: 03/23/20 14:26 Dose: 5,000 units Documented by: [id number] Promethazine HCl 6.25 mg/ (Sodium Chloride) 50.25 mls @ 201 mls/hr IV Q6H PRN PRN Reason: Nausea And Vomiting Stop: 04/22/20 08:56 Last Infusion: 03/23/20 18:07 Dose: 0 mls/hr Documented by: [id number] Admin: 03/23/20 17:49 Dose: 201 mls/hr Documented by: [id number] Mirtazapine (Mirtazapine Soltab 15 Mg) 15 mg PO HS CHIKI Stop: 04/22/20 20:59 Last Admin: 03/23/20 21:16 Dose: 15 mg Documented by: [id number] Discontinued Medications Hydrocortisone (Hydrocortisone Hc 2.5% Crm 30gm Tube) 1 appln EXT NOW ONE Stop: 03/23/20 05:00 Last Admin: 03/23/20 05:35 Dose: 1 appln Documented by: [id number] Sodium Chloride (Nss) 500 mls @ 999 mls/hr IV .Q31M ONE Stop: 03/23/20 05:29 Last Infusion: 03/23/20 05:51 Dose: 0 mls/hr Documented by: [id number] Admin: 03/23/20 05:20 Dose: 999 mls/hr Documented by: [id number] Discharge Plan Visit Data Chief Complaint: Weakness Stated Complaint: WEAKNESS ED Provider: Ros Roque Discharge Problem: Adult failure to thrive, Weakness, Depression, Acute hemorrhoid, Nonadherence to medication Patient Disposition: Admitted As Inpatient Discharge Instructions Interventions: ED Discharge Assessment Last Done: 03/23/20 08:03 Discharge Problem: Depression Qualifiers: Depression Type: major depressive disorder Major depression recurrence: unspecified whether recurrent Active/Remission status: currently active Major depression episode severity: moderate Qualified Code(s): F32.1 - Major depressive disorder, single episode, moderate
--- NOTE | 2020-03-23 06:38 | History & Physical Report ---
Date of Service March 23, 2020 Assessment & Plan (1) Generalized weakness: Multifactorial : Deconditioning Parkinson's disease, medication noncompliance Severe depression Rule out UTI Hypertension, stable, currently not on medications OBS GMF Follow UA Neurology consult Re: Follow-up eval for Parkinson's disease (Patient willing to take medications again.) Psychiatry consult Re: Severe depression PT OT eval Social service RE discharge planning DVT prophylaxis. Lovenox subcu Full code Patient son requesting for updates from providers. Mr. Bienvenido CashJr. contact #[phone] Text document was generated using [employer] recognition software. It may contain grammatical or spelling errors. Kindly contact undersigned for clarification of any documentation item in question. Allergies History of Present Illness Chief Complaint: Generalized weakness, want to get better as per patient Primary Care Provider: Dr. Diane (Although patient has not met her.) History obtained from patient, family, and records. Medical history significant for hypertension, Parkinson's disease, medication noncompliance. Patient stopped taking Sinemet for Parkinson's disease a few years back. Last PCP visit Jun, 2018. Son attributes patient apathy to depression after 4 years ago. About 60 pound weight loss in the last year as per patient family. Poor appetite. Last confinement December 2019 for generalized weakness. Patient noted to be increasingly weak this week. Having trouble moving around. Patient denies chest pain, S OB, headache, abdominal pain symptoms. Bothered by hemorrhoids. Although depressed, patient denies suicidality. Patient requested to be brought to the ER. He told his son that he wants to get better and is open to taking medications again. 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 Allergies Allergy/AdvReac Type Severity Reaction Status Date / Time No Known Allergies Allergy Verified 03/23/20 05:05 Home Medications Medication Instructions Recorded Confirmed Type No Known Home Medications 01/06/20 03/23/20 History Past Med/Surg History Medical History (Updated 03/23/20 @ 08:38 by Anthony Sanchez MD) Alcoholism /alcohol abuse Bladder incontinence Bowel incontinence Cholecystitis Generalized weakness GERD (gastroesophageal reflux disease) No history of diabetes mellitus Parkinsons disease Renal insufficiency acutely elevated creatinine level Surgical History History of inguinal hernia repair Left History of tonsillectomy S/P laparoscopic cholecystectomy Family History Other No significant family history Social History Smoking Status: Never smoker Hx Alcohol Use: No Hx Substance Use: No Preferred Language: Somali Communication Ability: Effective Visual Impairment: No Limitations Instrument Fitter Required: No Beliefs That Will Affect Care: None marital status: / Current Living Situation: Family How many Children do You have: 2 Other Information That Helps Us Care for You: No Feels Safe at Home: Yes Safety Concerns: Feels Safe At This Time Assistive Devices: Cane Review of Systems Review of Systems: As per HPI, all 10 systems reviewed, all other ROS negative Physical Exam Physical Exam: GENERAL: Comfortable, flat affect, no respiratory distress SKIN: Normal color, warm HEENT: [place] palpebral conjunctivae, no ptosis, dry buccal mucosa, edentulous NECK : Supple, no tenderness CHEST : CTA, no tenderness HEART : Bradycardic , no obvious murmurs ABDOMEN: Some distention, nontender EXTREMITIES : No LE swelling/tenderness, no other conspicuous deformities noted, dirty and untrim toenails NEUROLOGIC : Coherent, no facial asymmetry, rest tremors, gait and stance not assessed Results & Data Results & Data ([facility]) Vital Signs (Past 12 Hours) Vital Signs Temp Pulse Resp BP Pulse Ox 03/23/20 06:00 62 20 131/88 98 03/23/20 05:31 78 20 119/88 98 03/23/20 05:29 76 19 141/83 H 98 03/23/20 04:21 37.1 C 99 H 20 141/105 H 96 Laboratory Results Laboratory Results WBC 4.75 K/uL (4.8-10.8) L 03/23/20 05:05 RBC 5.69 M/uL (4.7-6.1) 03/23/20 05:05 Hgb 16.3 g/dL (14.0-18.0) 03/23/20 05:05 Hct 48.9 % (42-52) 03/23/20 05:05 MCV 85.9 fL (80-100) 03/23/20 05:05 MCH 28.6 pg (25-34) 03/23/20 05:05 MCHC 33.3 g/dL (32-36) 03/23/20 05:05 RDW Std Deviation 42.6 fL (36.4-46.3) 03/23/20 05:05 RDW Coeff of Cordell 13.8 % (11.5-14.5) 03/23/20 05:05 Plt Count 245 K/uL (130-400) 03/23/20 05:05 MPV 10.6 fL (7.4-10.4) H 03/23/20 05:05 Immature Gran % (Auto) 0.2 % 03/23/20 05:05 Neut % (Auto) 73.0 % 03/23/20 05:05 Lymph % (Auto) 15.2 % 03/23/20 05:05 [place] % (Auto) 9.7 % 03/23/20 05:05 Eos % (Auto) 1.7 % 03/23/20 05:05 Baso % (Auto) 0.2 % 03/23/20 05:05 Neut # (Auto) 3.47 K/uL (1.4-6.5) 03/23/20 05:05 Lymph # (Auto) 0.72 K/uL (1.2-3.4) L 03/23/20 05:05 [place] # (Auto) 0.46 K/uL (0.11-0.59) 03/23/20 05:05 Eos # (Auto) 0.08 K/uL (0-0.5) 03/23/20 05:05 Baso # (Auto) 0.01 K/uL (0-0.2) 03/23/20 05:05 Immature Gran # (Auto) 0.01 K/uL (0.00-0.02) 03/23/20 05:05 Sodium 142 mmol/L (136-145) 03/23/20 05:05 Potassium 4.0 mmol/L (3.5-5.1) 03/23/20 05:05 Chloride 109 mmol/L (98-107) H 03/23/20 05:05 Carbon Dioxide 33 mmol/L (21-32) H 03/23/20 05:05 Anion Gap 0 (3-11) L 03/23/20 05:05 BUN 18 mg/dl (7-18) 03/23/20 05:05 Creatinine 1.04 mg/dl (0.6-1.4) 03/23/20 05:05 Est Cr Clr Drug Dosing Not Reportable 03/23/20 05:05 Est GFR ( Amer) 84.5 03/23/20 05:05 Est GFR (Non-Af Amer) 72.9 03/23/20 05:05 BUN/Creatinine Ratio 17.2 (10-20) 03/23/20 05:05 Glucose 91 mg/dl (70-99) 03/23/20 05:05 Calcium 9.1 mg/dl (8.5-10.1) 03/23/20 05:05 Total Bilirubin 1.0 mg/dl (0.2-1) 03/23/20 05:05 AST 21 U/L (15-37) 03/23/20 05:05 ALT 41 U/L (12-78) 03/23/20 05:05 Alkaline Phosphatase 176 U/L (45-117) H 03/23/20 05:05 Total Protein 7.6 gm/dl (6.4-8.2) 03/23/20 05:05 Albumin 3.5 gm/dl (3.4-5.0) 03/23/20 05:05 Globulin 4.1 gm/dl (2.5-4.0) H 03/23/20 05:05 Albumin/Globulin Ratio 0.9 (0.9-2) 03/23/20 05:05 TSH 1.820 uIu/ml (0.300-4.500) 03/23/20 05:05 COVID-19 Eval Order Covid19 IDNow [facility] 03/23/20 06:22 Diagnostic Findings Chest x-ray as per my interpretation no infiltrate EKG as per my interpretation : Rate 75, NSR, LAD, LAFB, no ischemia
[2020-03-23 06:55] LABS: Magnesium 2.7 mg/dl (1.8-2.4)
--- NOTE | 2020-03-23 08:09 | XRay Report ---
XR chest 1V portable CLINICAL HISTORY: weakness COMPARISON STUDY: 01/06/2020 FINDINGS: The cardiac and mediastinal contours are normal. There is no evidence of focal pulmonary co nsolidation. There is no evidence of failure. No pleural effusions are visualized.[ IMPRESSION: No active disease in the chest. ACT 112: Negative or not required by law. Electronically signed by: Sathish Power M.D. 03/23/2020 8:07 AM
[2020-03-23] MEDS ORDERED: PROMETHAZINE HCL 6.25 MG in SODIUM CHLORIDE 0.9% 50 ML IV PRN (08:57)
--- NOTE | 2020-03-23 12:42 | Hospitalist Progress Note ---
Date of Service March 23, 2020 Assessment & Plan (1) Generalized weakness: Generalized weakness and deconditioning Secondary to comorbidities Negative COVID screen CXR: No acute Process Negative COVID Screen TSH: Normal UA pending Encourage increased oral intake PT/OT Parkinson's disease Medication noncompliance Not taking any medication currently Consulted Neurology Dysphagia Edentulous Request Speech therapy eval Consider GI eval if needed Severe depression Hypertension Not on meds Monitor BP-Variable Consulted Psychiatry H/O hemorrhoids Currently denies bleeding Follow up as outpatient Code Status Full Code DVT Px: Lovenox SQ Code Status Full code Admission and Anticipated Discharge Date Admission Date: March 23, 2020 Subjective Patient is seen and examined at bedside Reports generalized weakness, poor appetite, weight loss Denies suicidal thoughts Also states having intermittent dysphagia to solids/Inability to chew due to poor dentition Denies chest pain, SOB, dizziness, nausea, abd pain Review of Systems Review of Systems: All systems reviewed & are unremarkable except as noted in HPI & below Physical Exam Physical Exam: Physical Exam: Vitals signs as noted above General Appearance:Thin, no apparent distress Head: normocephalic, Atraumatic, +Edentulous Eyes: normal inspection, EOMI Neck: supple, Trachea midline Respiratory/Chest: Normal breath sounds, CTA Cardiovascular: S1, S2, No murmur Abdomen/GI:Soft, Non tender, Bowel sounds present Extremities/Musculoskelatal:normal inspection, no edema Neurologic/Psych:AAOX3, grossly no focal neurological deficits, +Resting tremor Skin: normal color, warm Results & Data Results & Data ([facility]) Vital Signs (Past 12 Hours) Vital Signs Temp Pulse Pulse Resp BP BP Pulse Ox 03/23/20 08:35 36.5 C 63 16 146/88 H 98 03/23/20 06:30 62 23 123/81 98 03/23/20 06:00 62 20 131/88 98 03/23/20 05:31 78 20 119/88 98 03/23/20 05:29 76 19 141/83 H 98 03/23/20 04:21 37.1 C 99 H 20 141/105 H 96 Laboratory Results Short CBC 03/23/20 Range/Units 05:05 WBC 4.75 L (4.8-10.8) K/uL Hgb 16.3 (14.0-18.0) g/dL Hct 48.9 (42-52) % Plt Count 245 (130-400) K/uL BMP 03/23/20 05:05 Sodium 142 Potassium 4.0 Chloride 109 H Carbon Dioxide 33 H BUN 18 Creatinine 1.04 Glucose 91 Calcium 9.1 Liver Function 03/23/20 Range/Units 05:05 Total Bilirubin 1.0 (0.2-1) mg/dl AST 21 (15-37) U/L ALT 41 (12-78) U/L Alkaline Phosphatase 176 H (45-117) U/L Albumin 3.5 (3.4-5.0) gm/dl
--- NOTE | 2020-03-23 13:20 | Electrocardiogram Report ---
Test Reason : Blood Pressure : / mmHG Vent. Rate : 075 BPM Atrial Rate : 075 BPM P-R Int : 144 ms QRS Dur : 086 ms QT Int : 400 ms P-R-T Axes : 027 -41 033 degrees QTc Int : 446 ms Poor data quality, interpretation may be adversely affected Normal sinus rhythm Left axis deviation Abnormal ECG When compared with ECG of 06-JAN-2020 13:17, Vent. rate has decreased BY 37 BPM Criteria for Inferior infarct are no longer Present Confirmed by Suleman Beyer ([id number]) on 03/23/2020 1:20:15 PM Referred By: REFERRED SELF Confirmed By:Suleman Beyer
[2020-03-23 14:01] LABS: Appearance Urine Clear (Clear); Bacteria Urine Automated Negative (Negative); Blood Urine Negative (Negative); Color Urine Dark Yellow; Glucose Urine UA Negative (Negative); Ketones Urine Trace (Negative); Leukocyte Esterase Urine Trace (Negative); Nitrite Urine Negative (Negative); Protein Urine Negative (Negative); RBC Urine Automated 0-4 /hpf (0-4); Specific Gravity Urine 1.031 (1.000-1.030); Urobilinogen Urine Negative (Negative)
[2020-03-23 14:07] LABS: Bilirubin Urine 1+ (Negative)
--- NOTE | 2020-03-23 14:09 | Psychiatric Consultation ---
Date of Consultation March 23, 2020 Impression / Recommendations Impression 69-year-old gentleman without formal psychiatric history who sounds to have demonstrated diminished engagement, apathy, declined appetite, and weight loss for the past few years, possibly associated with bereavement however it is difficult to differentiate presently if we are seeing evidence of pathological bereavement, single episode of major depressive disorder, or mood disorder secondary to Parkinson's disease. Patient does not endorse hopelessness or suicidal ideation and no indication at this time for need of inpatient psychiatric hospitalization. He does not appear psychotic. He does demonstrate slowed mentation which may be a symptom of Parkinson's disease. Risks and benefits of low-dose mirtazapine trial discussed and accepted by patient. This agent may help promote appetite, improved sleep quality, and antidepressant effect for mood elevation. He was advised he is at increased risk for depression secondary to his Parkinson's disease. We would expect improved medical outcomes overall with treatment of depression. (1) Depression: -Start Remeron 15 mg p.o. nightly. Watch for sedation. -will follow Inventory Assets Strengths: Presently help seeking Needs: Treatment for depressive mood symptomatology Risk Factors Assessment Male: Yes : Yes Health Problems: Yes Mental Health Diagnoses: No Substance Use Disorders: No Previous Attempt: No Previous Psychiatric Hospitalization: No Hopelessness: No Protective Factors Assessment : No Responsible for Young Children: No Employed: No Stable Relationships: Yes Supportive Family: Yes CPT Code 24884 Psych History Chief Complaint "I feel down because I feel sick. I do not want to be in the hospital". History of Present Illness Patient presents without known prior psychiatric history. Medical history notable for Parkinson's disease, hypertension, medication noncompliance. Has not seen PCP since June 2018. Reportedly has been noncompliant with Sinemet for Parkinson's disease for a few years. Per admission H&P, patient's son has indicated a belief that patient has been apathetic since his 4 years ago and reported a 60 pound weight loss in the last year with poor appetite. Apparently patient requested to be brought to the ER and he is presently medically admitted. Patient acknowledges feeling down but struggles to characterize his mood and rationalizes depression due to medical illness. Denies feeling lonely or hopeless. Denies suicidal ideation active or passive. He denies ever being treated for depression in the past. Denies feeling anxious. Indicates that he gets along well with his 2 boys with whom he lives. Denies any safety concerns at home. Complains of low appetite, stomach upset, weight loss. He denies hallucinations or other symptoms of psychosis, jones, or confusion. He denies memory loss. He is oriented to circumstances, month and year but not date. He misidentifies the hospital and the floor. Past Psychiatric History Previous Psych History: Denies Outpatient Services: None History of Previous Suicide Attempt: No Past Medication Trials: None Allergies Allergy/AdvReac Type Severity Reaction Status Date / Time No Known Allergies Allergy Verified 03/23/20 05:05 Home Medications Medication Instructions Recorded Confirmed Type No Known Home Medications 01/06/20 03/23/20 History Family History Denies contributory history Substance Abuse History Acknowledges prior alcohol use reportedly heavy at times but never requiring hospitalization or rehab. Reports no alcohol consumed in at least 3 years. Personal History Living Arrangements: Home (Lives with 2 sons) Highest Grade Completed: High School Graduate Employment Status: Retired ([employer]) Marital Status: ( approximately 4 years ago as of 2020) Beliefs That Will Affect Care: None Psychological Trauma History Comment: Denies Patient History Medical History (Updated 03/23/20 @ 14:08 by Dann Bedolla MD) Alcoholism /alcohol abuse Bladder incontinence Bowel incontinence Cholecystitis Generalized weakness GERD (gastroesophageal reflux disease) No history of diabetes mellitus Parkinsons disease Renal insufficiency acutely elevated creatinine level Surgical History History of inguinal hernia repair Left History of tonsillectomy S/P laparoscopic cholecystectomy Family History Other No significant family history Social History Smoking Status: Never smoker Hx Alcohol Use: No Hx Substance Use: No Preferred Language: German Communication Ability: Effective Visual Impairment: No Limitations 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 Required: No Beliefs That Will Affect Care: None marital status: / Current Living Situation: Family How many Children do You have: 2 Other Information That Helps Us Care for You: No Feels Safe at Home: Yes Safety Concerns: Feels Safe At This Time Assistive Devices: Cane Physical Exam Psychiatric: Orientation: cooperative Apperance: appeared stated age Eye Contact: + fair eye contact Motor Behavior: + tremor Speech: normal rate/rhythm/volume of speech Affect: + depressed affect Mood: + depressed mood Thought Process: goal directed thought process No derailment however evidence of slowed mentation Thought Content: + preoccupation (Somatic) Suicidal Thoughts: + reports suicidal thoughts, + reports suicidal plan and + reports suicidal intent Homicidal Thoughts: + reports homicidal thoughts Hallucinations: no auditory hallucinations and no visual hallucinations Cognition: remote memory grossly intact and language grossly intact Insight: good insight Judgement: + fair judgement Vital Signs (Past 24 Hours): Last Vital Signs Temp 36.5 C 03/23/20 08:35 Pulse 63 03/23/20 08:35 Resp 16 03/23/20 08:35 BP 146/88 H 03/23/20 08:35 Pulse Ox 98 03/23/20 08:35 Review of Systems Constitutional: + fatigue, + anorexia and + weight loss Gastrointestinal: + nausea; no constipation Neurologic: as per Subjective / HPI Psychiatric: + depression; no hopelessness, no anhedonia, no suicidal ideation, no anxiety, no confusion, no paranoia, no hallucinations and no substance abuse Results & Data (PSY) Laboratory Results Abnormal lab results 03/23/20 03/23/20 Range/Units 05:05 05:05 WBC 4.75 L (4.8-10.8) K/uL MPV 10.6 H (7.4-10.4) fL Lymph # (Auto) 0.72 L (1.2-3.4) K/uL Chloride 109 H (98-107) mmol/L Carbon Dioxide 33 H (21-32) mmol/L Anion Gap 0 L (3-11) Magnesium 2.7 H (1.8-2.4) mg/dl Alkaline Phosphatase 176 H (45-117) U/L Globulin 4.1 H (2.5-4.0) gm/dl Coding Level of Care Code 58614 [facility] Intl Hosp Care Lvl 3 Diagnoses Depression F32.9
[2020-03-23] MEDS: HEPARIN SOD 5,000 UNIT/0.5 ML VIAL SQ SCH ×2 (14:26→21:19)
--- NOTE | 2020-03-23 15:34 | Communication Note ---
Date of Service: March 23, 2020 Bienvenido Cash is 69 years old, is right-handed, and I am seeing him today at the request of his attending physician Dr. Elliott in neurologic consultation for evaluation of Parkinson's disease which has really not been treated now for nearly 3 years. He was seen actually in December by Dr. Orosco who agreed with the diagnosis of Parkinson's disease but felt that he needed some rehabilitation as he had been admitted to the hospital and it was expected that [facility] and then be seen as an outpatient in neurology. No treatment was advised for his Parkinson's disease at that time Previously he had been seen by ANA Cuevas who obtained a history of a nearly 20-year history of intentional tremor of both hands but then noted some bradykinesia and resting tremor and started him on Sinemet. Records are vague but he recalls being tapered upwards slowly reaching 1 tablet 3 times a day afte r a month but did not feel that it was helping and perhaps it was making him nauseated so he stopped it Is not clear whether he was expecting the tremor to be relieved as not clear how much of a bradykinetic rigid appearance he presented at that time as the note is a little vague in this regard Other problems include what appears to be a reactive depression perhaps in response to the of his several years ago, sinusitis which she had last admission, thrombocytopenia, hypertension, history of ethanol abuse now quiescent for several years, history of a tonsillectomy Medications at home are essentially none although one-point he was on Sinemet 3 times a day but it sounds like he only took it for about a month and may not have even taking it a week at maximum dose He denies any family history of tremor or Parkinson's disease Social history reveals him to be a former ethanol consumer non-smoker to reside at [facility] close to his son and to be He was brought into the hospital because of a generalized failure to thrive and increasing lethargy and fatigue and probably some weight loss although he is a little vague about that but states that he at one point he weighed over 230 pounds and now seems to be down to around 170. He denies any recent fever sweats chills tested negative for COVID-19 he denies any specific complaints referable to the head eyes ears nose and throat cardiovascular pulmonary gastrointestinal genitourinary musculoskeletal dermatologic or hematologic systems other than the generalized weakness and a tremor and he seems unaware of the fact that his gait and general demeanor have become increasingly bradykinetic On exam blood pressure is 146/88 pulse is 63 and regular respirations 16 he appears to be thin with a little muscular wasting with significant soft tissue loss and I do not know his baseline. His speech is somewhat low volume a little tremulous eye movements are normal gross acuity appears to be 20/25, his facial expression is bradykinetic there is no notation of upward gaze he does not hold his head in a retroflexed posture he does not have a lot of spontaneous movements holding his arms flexed and there seems to be some element of resting tremor that has pill-rolling quality but there is also tremor when he reaches out to grasp objects and this has an intentional component. There is no real cerebellar dysmetria on finger-nose or [id number] testing but in general lower extremity movements are bradykinetic and he has a generalized rigidity with cogwheeling in all 4 extremities does not require reinforcement to demonstrate. Reflexes are hypoactive but present toes are downgoing no Louisa signs are seen strength testing is grossly intact and I do not see any atrophy or fasciculations. Sensory examination to primary modalities is intact including vibration light touch and proprioception He has been seen by psychiatry and they feel he does have a significant depression and he is being started on Remeron Basic laboratory studies have not revealed anything of significance and specifically did not show anything for urinary tract infection or pneumonitis CT scan of the head done in December showed some leukoencephalopathy and mild volume loss not inconsistent with his age The diagnosis here is clearly Parkinson's disease likely idiopathic perhaps with a preexisting mild essential tremor without clear-cut family history for same but the major deficits now lie and the bradykinetic rigid component rather than tremor and I think he does need some treatment but we need to move slowly as the history suggests he either could not tolerate the drug due to nausea or his expectations of what the drug was to do were not met and perhaps he was less bradykinetic 3 years ago than he is now so response to Sinemet may be more gratifying I will start him on 1/2 tablet of Sinemet 25/100 at breakfast for 2 days and we will look at him again on Wednesday if he tolerates this without any nausea then I think we can move up every several days by half of the tablet going to 1/2 tablet at breakfast lunch and dinner for about 3 days, reassessing the situation and then adding half tablet every 3 days until he reaches the former goal of 1 full tablet with each meal We will see him periodically was in the hospital and certainly if he tolerates the drug and seems to benefit we may move it up more rapidly I am concerned about his history of nausea with the medication in the past and if this emerges we may have to add some extra carbidopa to each dose or consider alternative dopamine agonist which I really am not in favor of doing I will check back with him on Wednesday after he has had 2 days of low-dose Sinemet each morning If he is discharged to a rehabilitation facility before then which I doubt and he will need to be followed up in neurology clinic Bienvenido West MD
[2020-03-23] MEDS: MIRTAZAPINE SOLTAB 15 MG PO SCH (21:16)
[2020-03-24] MEDS: CARBIDOPA/LEVODOPA 25/100MG TAB PO SCH (05:31)
[2020-03-24] MEDS: HEPARIN SOD 5,000 UNIT/0.5 ML VIAL SQ SCH ×3 (05:32→21:12)
[2020-03-24 08:48] LABS: Basophils # (auto) 0.03 K/uL (0-0.2); Basophils % (auto) 0.6 %; Eosinophils # (auto) 0.09 K/uL (0-0.5); Eosinophils % (auto) 1.7 %; Hematocrit (blood only) 48.4 % (42-52); Hemoglobin 16.2 g/dL (14.0-18.0); Immature Granulocytes # (auto) 0.02 K/uL (0.00-0.02); Immature Granulocytes % (auto) 0.4 %; Lymphocytes # (auto) 0.96 K/uL (1.2-3.4); Lymphocytes % (auto) 18.5 %; Mean Corpuscular Hemoglobin 28.9 pg (25-34); Mean Corpuscular Hgb Conc 33.5 g/dL (32-36); Mean Corpuscular Volume 86.4 fL (80-100); Mean Platelet Volume 10.5 fL (7.4-10.4); Monocytes # (auto) 0.62 K/uL (0.11-0.59); Monocytes % (auto) 11.9 %; Neutrophils # (auto) 3.48 K/uL (1.4-6.5); Neutrophils % (auto) 66.9 %; Platelet Count 283 K/uL (130-400); RDW Coefficient of Variation 14.1 % (11.5-14.5); RDW Standard Deviation 44.3 fL (36.4-46.3)
[2020-03-24 09:16] LABS: BUN Creatinine Ratio 17.5 (10-20); Calcium 9.1 mg/dl (8.5-10.1); Creatinine Clr Calc Pharmacy 72.7 ml/min; Est GFR (African American) 89.7; Est GFR (Non-African American) 77.4; Magnesium 2.5 mg/dl (1.8-2.4); Potassium 3.9 mmol/L (3.5-5.1)
--- NOTE | 2020-03-24 13:05 | Hospitalist Progress Note ---
Date of Service March 24, 2020 Assessment & Plan (1) Generalized weakness: Generalized weakness and deconditioning Secondary to comorbidities Negative COVID screen CXR: No acute Process Negative COVID Screen TSH: Normal UA/Cx: Not suggestive of UTI Encourage increased oral intake Continue PT/OT Parkinson's disease Medication noncompliance Was not taking any medications for at least 3 years Appreciate Neurology Input Continue Sinemet as per Neurology Needs follow-up with neurology upon discharge Dysphagia Edentulous Request Speech therapy eval Consider GI eval if needed Severe depression Hypertension Was not on meds Monitor BP-Variable Appreciate psychiatry input Started on Remeron 15 mg at bedtime Hold Remeron for excess sedation H/O hemorrhoids Currently denies bleeding Follow up as outpatient Code Status Full Code DVT Px: Lovenox SQ Code Status Full code Disposition PT/OT May need Rehab placement Admission and Anticipated Discharge Date Admission Date: March 24, 2020 Subjective Patient is seen and examined at bedside States feeling very weak and tired Tolerating Sinemet so far No new complaints Denies chest pain, SOB, dizziness, nausea, abd pain Review of Systems Review of Systems: As per HPI, all 10 systems reviewed, all other ROS negative Physical Exam Physical Exam: Physical Exam: Vitals signs as noted above General Appearance:Thin, no apparent distress Head: normocephalic, Atraumatic, +Edentulous Eyes: normal inspection, EOMI Neck: supple, Trachea midline Respiratory/Chest: Normal breath sounds, CTA Cardiovascular: S1, S2, No murmur Abdomen/GI:Soft, Non tender, Bowel sounds present Extremities/Musculoskelatal:normal inspection, no edema Neurologic/Psych:AAOX3, grossly no focal neurological deficits, +Resting tremor Skin: normal color, warm Results & Data Results & Data ([facility]) Vital Signs (Past 12 Hours) Vital Signs Temp Pulse Resp BP Pulse Ox 03/24/20 07:33 36.5 C 69 18 126/87 97 Laboratory Results Short CBC 03/24/20 Range/Units 08:29 WBC 5.20 (4.8-10.8) K/uL Hgb 16.2 (14.0-18.0) g/dL Hct 48.4 (42-52) % Plt Count 283 (130-400) K/uL BMP 03/24/20 08:29 Sodium 144 Potassium 3.9 Chloride 109 H Carbon Dioxide 31 BUN 17 Creatinine 0.99 Glucose 84 Calcium 9.1 Urine 03/23/20 Range/Units 13:00 Urine Color Dark Yellow Urine Appearance Clear (Clear) Urine pH 5.0 (4.5-7.5) Ur Specific [place] 1.031 H (1.000-1.030) Urine Protein Negative (Negative) Urine Glucose (UA) Negative (Negative)
[2020-03-24] MEDS: MIRTAZAPINE SOLTAB 15 MG PO SCH (21:12)
[2020-03-25] MEDS: CARBIDOPA/LEVODOPA 25/100MG TAB PO SCH ×2 (05:46→16:40)
[2020-03-25] MEDS: HEPARIN SOD 5,000 UNIT/0.5 ML VIAL SQ SCH ×3 (05:46→21:01)
[2020-03-25] MEDS ORDERED: HYDROCORTISONE HC 2.5% CRM 30GM TUBE EXT PRN (11:28)
--- NOTE | 2020-03-25 12:58 | Hospitalist Progress Note ---
Date of Service March 25, 2020 Assessment & Plan (1) Generalized weakness: Generalized weakness and deconditioning Secondary to comorbidities Negative COVID screen CXR: No acute Process Negative COVID Screen TSH: Normal UA/Cx: Not suggestive of UTI Encourage increased oral intake Continue PT/OT May need Rehab placement Parkinson's disease Medication noncompliance Was not taking any medications for at least 3 years Appreciate Neurology Input Continue Sinemet as per Neurology Needs follow-up with neurology upon discharge Sinemet dose needs to be adjusted--will wait for Neuro to eval today Dysphagia Edentulous Speech therapy eval completed Tolerating easy to chew diet Severe depression Hypertension Was not on meds Monitor BP-Variable Appreciate psychiatry input Started on Remeron 15 mg at bedtime Hold Remeron for excess sedation H/O hemorrhoids Currently denies bleeding Anusol PRN Follow up as outpatient Suspected Severe Protein Calore Malnutrition Reported loss of about 60 pounds BMI: 25 Code Status Full Code DVT Px: Lovenox SQ Code Status Full code Disposition PT/OT May need Rehab placement Admission and Anticipated Discharge Date Admission Date: March 24, 2020 Subjective Patient is seen and examined at bedside Weakness slightly better Had PT earlier today States having discomfort with hemorrhoids Sitting in chair during my encounter Denies chest pain, SOB, dizziness, nausea, abd pain, dysphagia Review of Systems Review of Systems: All systems reviewed & are unremarkable except as noted in HPI & below Physical Exam Physical Exam: Physical Exam: Vitals signs as noted above General Appearance:Thin, no apparent distress Head: normocephalic, Atraumatic, +Edentulous Eyes: normal inspection, EOMI Neck: supple, Trachea midline Respiratory/Chest: Normal breath sounds, CTA Cardiovascular: S1, S2, No murmur Abdomen/GI:Soft, Non tender, Bowel sounds present Extremities/Musculoskelatal:normal inspection, no edema Neurologic/Psych:AAOX3, grossly no focal neurological deficits, +Resting tremor Skin: normal color, warm Results & Data Results & Data ([facility]) Vital Signs (Past 12 Hours) Vital Signs Temp Pulse Resp BP Pulse Ox 03/25/20 06:55 36.6 C 81 18 118/87 96
--- NOTE | 2020-03-25 15:26 | Communication Note ---
Date of Service: March 25, 2020 I saw Bienvenido today in follow-up he is tolerating his low-dose Sinemet with breakfast every morning does not describe any nausea and certainly at this point there is been little or no change in his mild bradykinetic Parkinson's disease with a mixed intentional and resting tremor and cogwheel rigidity. I am going to simply increase the dose to one half of a 25/100 mg Sinemet tablet with each meal and we will check him periodically was in the hospital but on an outpatient basis he will need to increase this to a full tablet 3 times a day and prior to discharge we will set him up with a plan and will then arrange for follow-up in our office I will take a look at him periodically during his hospital stay Bienvenido West MD
[2020-03-25] MEDS ORDERED: CARBIDOPA/LEVODOPA 25/100MG TAB PO SCH (21:00)
[2020-03-25] MEDS ORDERED: CARBIDOPA/LEVODOPA 25-250 1 EA TAB PO SCH (21:00)
[2020-03-25] MEDS: MIRTAZAPINE SOLTAB 15 MG PO SCH (21:00)
[2020-03-26] MEDS: HEPARIN SOD 5,000 UNIT/0.5 ML VIAL SQ SCH ×2 (06:09→13:39)
[2020-03-26] MEDS: IBUPROFEN 200 MG TAB PO PRN ×2 (07:25→18:43)
[2020-03-26] MEDS: CARBIDOPA/LEVODOPA 25/100MG TAB PO SCH ×3 (07:26→15:46)
[2020-03-26] MEDS: ACETAMINOPHEN 325 MG TAB PO PRN (10:47)
--- NOTE | 2020-03-26 13:37 | Hospitalist Progress Note ---
Date of Service March 26, 2020 Assessment & Plan (1) Generalized weakness: Generalized weakness and deconditioning Secondary to comorbidities Negative COVID screen CXR: No acute Process Negative COVID Screen TSH: Normal UA/Cx: Not suggestive of UTI Encourage increased oral intake Continue PT/OT Needs rehab placement as able Parkinson's disease Medication noncompliance Was not taking any medications for at least 3 years Appreciate Neurology Input Continue Sinemet as per Neurology Needs follow-up with neurology upon discharge Continue current medications Dysphagia Edentulous Speech therapy eval completed Tolerating easy to chew diet Severe depression Hypertension Was not on meds Monitor BP-Variable Appreciate psychiatry input Started on Remeron 15 mg at bedtime Hold Remeron for excess sedation H/O hemorrhoids Currently denies bleeding Anusol PRN Follow up as outpatient Suspected Severe Protein Calore Malnutrition Reported loss of about 60 pounds BMI: 25 Code Status Full Code DVT Px: Lovenox SQ Code Status Full code Disposition Rehab as able Admission and Anticipated Discharge Date Admission Date: March 24, 2020 Subjective Patient is seen and examined at bedside States having significant generalized weakness " I do not feel that I am ready to be discharged to rehab facility " Denies chest pain, SOB, dizziness, nausea, abd pain, dysphagia Offers no other complaints Review of Systems Review of Systems: All systems reviewed & are unremarkable except as noted in HPI & below Physical Exam Physical Exam: Physical Exam: Vitals signs as noted above General Appearance:Thin, no apparent distress Head: normocephalic, Atraumatic, +Edentulous Eyes: normal inspection, EOMI Neck: supple, Trachea midline Respiratory/Chest: Normal breath sounds, CTA Cardiovascular: S1, S2, No murmur Abdomen/GI:Soft, Non tender, Bowel sounds present Extremities/Musculoskelatal:normal inspection, no edema Neurologic/Psych:AAOX3, grossly no focal neurological deficits, +Resting tremor Skin: normal color, warm Results & Data Results & Data ([facility]) Vital Signs (Past 12 Hours) Vital Signs Temp Pulse Resp BP Pulse Ox 03/26/20 07:05 36.4 C L 94 H 16 143/100 H 98
--- NOTE | 2020-03-26 15:57 | Communication Note ---
Date of Service: March 26, 2020 I saw Bienvenido at the bedside today. He has had 2 half tablets of the 25/100 Sinemet at breakfast and lunch and was actually getting these an hour or so be fore. He is about to get another tablet an hour before supper. We will see if he can tolerate it as the history suggests he had nausea with his Sinemet trial before but this was of extremely brief duration and I really have no idea how compliant he was with the directions that were given. He still has a bradykinetic global appearance has now a pill-rolling tremor bilaterally in his hands does not have much intention tremor and the low volume monotous speech that was present on admission It appears that he may be going to [facility] after discharge so we may have to follow him up in our office at some point and adjust his medications upward. I will check back with him tomorrow hoping that he will at least tolerate the Sinemet taken an hour before meals. If he does not I will have to have them taken after meals I really want to keep him on the low-dose for another few days in fact may keep him on low-dose for the foreseeable future until we get a reevaluate him in the office after a longer trial of medications I will check back with him tomorrow. Bienvenido West MD
[2020-03-26] MEDS: MIRTAZAPINE SOLTAB 15 MG PO SCH (20:29)
--- NOTE | 2020-03-26 20:30 | Communication Note ---
Date of Service: March 26, 2020 Hematochezia noted by RN. Loose stools as per RN. No abdominal pain as per RN. Stool C. difficile negative. AP LGIB Hemorrhoidal bleed Hold Lovenox subcu for now. Will relay to AM provider.
[2020-03-26 20:50] LABS: Basophils # (auto) 0.03 K/uL (0-0.2); Basophils % (auto) 0.6 %; Eosinophils # (auto) 0.13 K/uL (0-0.5); Eosinophils % (auto) 2.6 %; Hematocrit (blood only) 44.4 % (42-52); Immature Granulocytes # (auto) 0.03 K/uL (0.00-0.02); Immature Granulocytes % (auto) 0.6 %; Lymphocytes # (auto) 0.78 K/uL (1.2-3.4); Lymphocytes % (auto) 15.7 %; Mean Corpuscular Hgb Conc 33.8 g/dL (32-36); Mean Corpuscular Volume 85.7 fL (80-100); Mean Platelet Volume 10.8 fL (7.4-10.4); Monocytes # (auto) 0.61 K/uL (0.11-0.59); Monocytes % (auto) 12.2 %; Neutrophils % (auto) 68.3 %; Platelet Count 235 K/uL (130-400); RDW Coefficient of Variation 14.1 % (11.5-14.5); RDW Standard Deviation 43.8 fL (36.4-46.3); Red Blood Count 5.18 M/uL (4.7-6.1); White Blood Count 4.98 K/uL (4.8-10.8)
[2020-03-27] MEDS: CARBIDOPA/LEVODOPA 25/100MG TAB PO SCH ×3 (07:27→16:21)
[2020-03-27] MEDS: ACETAMINOPHEN 325 MG TAB PO PRN (07:27)
[2020-03-27 07:45] LABS: Hematocrit (blood only) 44.5 % (42-52); Hemoglobin 14.9 g/dL (14.0-18.0); Mean Corpuscular Hemoglobin 28.4 pg (25-34); Mean Corpuscular Hgb Conc 33.5 g/dL (32-36); Mean Corpuscular Volume 84.9 fL (80-100); Platelet Count 257 K/uL (130-400); Red Blood Count 5.24 M/uL (4.7-6.1); White Blood Count 4.37 K/uL (4.8-10.8)
[2020-03-27 07:58] LABS: BUN Creatinine Ratio 15.8 (10-20); Calcium 9.9 mg/dl (8.5-10.1); Creatinine Clr Calc Pharmacy 37.5 ml/min; Est GFR (African American) 40.3; Est GFR (Non-African American) 34.7; Magnesium 2.6 mg/dl (1.8-2.4); Potassium 3.5 mmol/L (3.5-5.1)
[2020-03-27] MEDS: SODIUM CHLORIDE 0.9% 1000ML 1,000 ML IV SCH ×2 (09:44→18:26)
--- NOTE | 2020-03-27 12:54 | Hospitalist Progress Note ---
Date of Service March 27, 2020 Assessment & Plan (1) Generalized weakness: Generalized weakness and deconditioning Secondary to comorbidities Negative COVID screen,CXR: No acute Process TSH: Normal UA/Cx: Not suggestive of UTI Encourage increased oral intake Continue PT/OT and will need basement (2) Bladder incontinence: Noted to have urinary retention with ultrasound evidence of more than 700 mL of urine Mccarthy catheter administered We will start Flomax if the patient is already not on it (3) Adult failure to thrive: Multifactorial causes: Suspected Severe Protein Calore Malnutrition Reported loss of about 60 pounds BMI: 25 Dysphagia Edentulous Speech therapy eval completed Tolerating easy to chew diet (4) Depression: Severe depression Was not on meds Appreciate psychiatry input Started on Remeron 15 mg at bedtime Hold Remeron for excess sedation (5) Parkinsons disease: Parkinson's disease Medication noncompliance Was not taking any medications for at least 3 years Appreciate Neurology Input Continue Sinemet as per Neurology Needs follow-up with neurology upon discharge Continue current medications (6) Hypertension: Blood pressure is controlled H/O hemorrhoids Currently denies bleeding Anusol PRN Follow up as outpatient Code Status Full Code DVT Px: Lovenox SQ Code Status Full code Disposition Rehab as able Admission and Anticipated Discharge Date Admission Date: March 24, 2020 Subjective 03/27/2020 The patient was seen and examined in medical floor He has significant medical history of hypertension, Parkinson's disease was admitted with generalized weakness and has been noncompliant with medications He complains to have hypogastric and suprapubic pain today without any nausea a nd/or vomiting Denies any chest pain and/or palpitation Review of Systems Review of Systems: All systems reviewed and are unremarkable except as noted below Gastrointestinal: Hypogastric discomfort/pain Genitourinary: + urinary incontinence and + decreased urination Physical Exam Physical Exam: Lying in bed with acute distress secondary to lower abdominal discomfort and suprapubic pain Constitutional: well developed, well nourished and + ill appearing Eyes: PERRL, conjunctivae normal, anicteric sclerae ENMT: external ear and nose normal, oropharynx normal Neck: trachea midline, no thyromegaly Respiratory: no respiratory distress Auscultation: lungs clear to auscultation bilaterally Cardiovascular: Rate/Rhythm: regular rate and regular rhythm Heart Sounds: no murmur Extremities: no edema Gastrointestinal (Abdomen): Inspection/Auscultation: + abdomen distended and normal bowel sounds Percussion/Palpation: + abdomen tender (CVA tenderness over hypogastrium with full bladder) and abdomen soft Musculoskeletal: No acute arthritis in any joint Neurologic: Alert, awake and oriented x3. Generally weak and lethargic Lymphatic: no cervical or axillary lymphadenopathy Results & Data Results & Data ([facility]) Vital Signs (Past 12 Hours) Vital Signs Temp Pulse Resp BP Pulse Ox 03/27/20 08:00 36.8 C 86 20 109/78 98 Laboratory Results Short CBC 03/26/20 03/27/20 Range/Units 20:41 07:01 WBC 4.98 4.37 L (4.8-10.8) K/uL Hgb 15.0 14.9 (14.0-18.0) g/dL Hct 44.4 44.5 (42-52) % Plt Count 235 257 (130-400) K/uL BMP 03/27/20 07:01 Sodium 141 Potassium 3.5 Chloride 107 Carbon Dioxide 27 BUN 30 H Creatinine 1.92 H Glucose 85 Calcium 9.9 Medications Administered Current Inpatient Medications Acetaminophen (Acetaminophen 325 Mg Tab) 650 mg PO Q4H PRN PRN Reason: pain/fever Stop: 04/22/20 08:56 Last Admin: 03/27/20 07:27 Dose: 650 mg Documented by: Carbidopa/Levodopa (Carbidopa/Levodopa 25/100mg Tab) 0.5 tab PO AC CHIKI Stop: 04/24/20 16:29 Last Admin: 03/27/20 12:37 Dose: 0.5 tab Documented by: Hydrocortisone (Hydrocortisone Hc 2.5% Crm 30gm Tube) 1 appln EXT BID PRN PRN Reason: Hemorrhoids Stop: 04/24/20 11:27 Promethazine HCl 6.25 mg/ (Sodium Chloride) 50.25 mls @ 201 mls/hr IV Q6H PRN PRN Reason: Nausea And Vomiting Stop: 04/22/20 08:56 Last Infusion: 03/23/20 18:07 Dose: Infused Documented by: Sodium Chloride (Nss 1000ml) 1,000 mls @ 125 mls/hr IV .Q8H CHIKI Stop: 03/28/20 08:44 Last Admin: 03/27/20 09:44 Dose: 125 mls/hr Documented by: Ibuprofen (Ibuprofen 200 Mg Tab) 200 mg PO Q6H PRN PRN Reason: Mild Pain Stop: 04/22/20 08:56 Last Admin: 03/26/20 18:43 Dose: 200 mg Documented by: Mirtazapine (Mirtazapine Soltab 15 Mg) 15 mg PO HS CHIKI Stop: 04/22/20 20:59 Last Admin: 03/26/20 20:29 Dose: 15 mg Documented by: (1) Depression Active/Remission status: currently active Depression Type: major depressive disorder Major depression episode severity: moderate Major depression recurrence: unspecified whether recurrent Qualified Code(s): F32.1 - Major depressive disorder, single episode, moderate (2) Hypertension Hypertension type: essential hypertension Qualified Code(s): I10 - Essential (primary) hypertension (3) Bladder incontinence Urinary Incontinence type: other incontinence Qualified Code(s): N39.498 - Other specified urinary incontinence
--- NOTE | 2020-03-27 16:03 | Communication Note ---
Date of Service: March 27, 2020 Bienvenido so far is tolerating the half of the 25/100 Sinemet tablets given an hour before meals so at this point I think we can simply move up to a full tablet take an hour before meals and see how he does. He still is bradykinetic rigid has resting tremor and I really did not expect this low-dose of Sinemet to do much with as far advances his disease appears to be but I am hoping that a full tablet 3 times a day will help and not increase any of his low-grade confusion. He appears somewhat stunned wants to talk more about his urinary catheter and is really unclear about what his discharge plans might be I will check back with him tomorrow assuming that he is not going off to an extended care facility which seems to be the goal and see how he is tolerated the full Sinemet dosage but again I would not expect any marked improvement in his Parkinson's disease for at least a few more days on his particular dose Orders have been written Bienvenido West MD
[2020-03-27] MEDS: TAMSULOSIN HCL 0.4 MG CAP PO SCH (20:41)
[2020-03-27] MEDS: MIRTAZAPINE SOLTAB 15 MG PO SCH (20:41)
[2020-03-28] MEDS: SODIUM CHLORIDE 0.9% 1000ML 1,000 ML IV SCH ×3 (03:31→19:51)
[2020-03-28 07:42] LABS: Calcium 8.7 mg/dl (8.5-10.1); Creatinine Clr Calc Pharmacy 49.6 ml/min; Est GFR (African American) 56.5; Est GFR (Non-African American) 48.8; Magnesium 2.3 mg/dl (1.8-2.4); Potassium 3.7 mmol/L (3.5-5.1)
[2020-03-28 07:43] LABS: Phosphorus 2.8 mg/dl (2.5-4.9)
[2020-03-28 07:44] LABS: Basophils # (auto) 0.03 K/uL (0-0.2); Basophils % (auto) 0.8 %; Eosinophils # (auto) 0.16 K/uL (0-0.5); Eosinophils % (auto) 4.5 %; Hematocrit (blood only) 36.2 % (42-52); Hemoglobin 11.8 g/dL (14.0-18.0); Immature Granulocytes # (auto) 0.01 K/uL (0.00-0.02); Immature Granulocytes % (auto) 0.3 %; Lymphocytes # (auto) 0.69 K/uL (1.2-3.4); Lymphocytes % (auto) 19.5 %; Mean Corpuscular Hgb Conc 32.6 g/dL (32-36); Mean Platelet Volume 10.8 fL (7.4-10.4); Monocytes # (auto) 0.43 K/uL (0.11-0.59); Monocytes % (auto) 12.2 %; Neutrophils # (auto) 2.21 K/uL (1.4-6.5); Neutrophils % (auto) 62.7 %; Platelet Count 191 K/uL (130-400); RDW Coefficient of Variation 14.3 % (11.5-14.5); RDW Standard Deviation 44.4 fL (36.4-46.3); Red Blood Count 4.21 M/uL (4.7-6.1); White Blood Count 3.53 K/uL (4.8-10.8)
[2020-03-28] MEDS: CARBIDOPA/LEVODOPA 25/100MG TAB PO SCH ×3 (08:51→16:15)
--- NOTE | 2020-03-28 15:17 | Hospitalist Progress Note ---
Date of Service March 28, 2020 Assessment & Plan (1) Generalized weakness: Generalized weakness and deconditioning Secondary to comorbidities Negative COVID screen,CXR: No acute Process TSH: Normal UA/Cx: Not suggestive of UTI Encourage increased oral intake Continue PT/OT and will need basement Awaiting placement (2) Bladder incontinence: Noted to have urinary retention with ultrasound evidence of more than 700 mL of urine Mccarthy catheter administered We will start Flomax if the patient is already not on it Status post Mccarthy catheterization Use of pediatric catheter due to meatal stenosis Plan to keep the catheter for some time and neurology appointment as an outpatient (3) Adult failure to thrive: Multifactorial causes: Suspected Severe Protein Calore Malnutrition Reported loss of about 60 pounds BMI: 25 Dysphagia Edentulous Speech therapy eval completed Tolerating easy to chew diet (4) Depression: Severe depression Was not on meds Appreciate psychiatry input Started on Remeron 15 mg at bedtime Hold Remeron for excess sedation (5) Parkinsons disease: Parkinson's disease Medication noncompliance Was not taking any medications for at least 3 years Appreciate Neurology Input Continue Sinemet as per Neurology Needs follow-up with neurology upon discharge Continue current medications Awaiting placement (6) Hypertension: Blood pressure is controlled H/O hemorrhoids Currently denies bleeding Anusol PRN Follow up as outpatient Code Status Full Code DVT Px: Lovenox SQ Code Status Full code Disposition Rehab as able Likely discharge tomorrow Admission and Anticipated Discharge Date Admission Date: March 24, 2020 Subjective 03/27/2020 The patient was seen and examined in medical floor He has significant medical history of hypertension, Parkinson's disease was admitted with generalized weakness and has been noncompliant with medications He complains to have hypogastric and suprapubic pain today without any nausea and/or vomiting Denies any chest pain and/or palpitation 03/28/2020 The patient was seen and examined in medical floor He has been feeling a lot better today Remains weak and lethargic with resting tremor due to Parkinson's disease Review of Systems Review of Systems: All systems reviewed and are unremarkable except as noted below Gastrointestinal: Hypogastric discomfort/pain-resolved Genitourinary: no urinary incontinence and no decreased urination Physical Exam Physical Exam: Lying in bed comfortably Constitutional: well developed, well nourished and + ill appearing Eyes: PERRL, conjunctivae normal, anicteric sclerae ENMT: external ear and nose normal, oropharynx normal Neck: trachea midline, no thyromegaly Respiratory: no respiratory distress Auscultation: lungs clear to auscultation bilaterally Cardiovascular: Rate/Rhythm: regular rate and regular rhythm Heart Sounds: no murmur Extremities: no edema Gastrointestinal (Abdomen): Inspection/Auscultation: + abdomen distended and normal bowel sounds Percussion/Palpation: + abdomen tender (CVA tenderness over hypogastrium with full bladder) and abdomen soft Musculoskeletal: No acute arthritis in any joint Neurologic: Alert and awake. Slow movement. Resting tremors Psychiatric: Insight: + poor insight Lymphatic: no cervical or axillary lymphadenopathy Results & Data Results & Data ([facility]) Vital Signs (Past 12 Hours) Vital Signs Temp Pulse Pulse Resp BP Pulse Ox 03/28/20 10:30 58 L 03/28/20 07:17 36.3 C L 47 L 18 107/65 97 Laboratory Results Short CBC 03/28/20 Range/Units 06:37 WBC 3.53 L (4.8-10.8) K/uL Hgb 11.8 L D (14.0-18.0) g/dL Hct 36.2 L (42-52) % Plt Count 191 (130-400) K/uL BMP 03/28/20 06:37 Sodium 144 Potassium 3.7 Chloride 112 H Carbon Dioxide 29 BUN 27 H Creatinine 1.45 H D Glucose 81 Calcium 8.7 Medications Administered Current Inpatient Medications Acetaminophen (Acetaminophen 325 Mg Tab) 650 mg PO Q4H PRN PRN Reason: pain/fever Stop: 04/22/20 08:56 Last Admin: 03/27/20 07:27 Dose: 650 mg Documented by: Carbidopa/Levodopa (Carbidopa/Levodopa 25/100mg Tab) 1 tab PO AC CHIKI Stop: 04/26/20 16:29 Last Admin: 03/28/20 11:24 Dose: 1 tab Documented by: Hydrocortisone (Hydrocortisone Hc 2.5% Crm 30gm Tube) 1 appln EXT BID PRN PRN Reason: Hemorrhoids Stop: 04/24/20 11:27 Promethazine HCl 6.25 mg/ (Sodium Chloride) 50.25 mls @ 201 mls/hr IV Q6H PRN PRN Reason: Nausea And Vomiting Stop: 04/22/20 08:56 Last Infusion: 03/23/20 18:07 Dose: Infused Documented by: Sodium Chloride (Nss 1000ml) 1,000 mls @ 125 mls/hr IV .Q8H CHIKI Stop: 03/29/20 10:44 Last Admin: 03/28/20 11:25 Dose: 125 mls/hr Documented by: Ibuprofen (Ibuprofen 200 Mg Tab) 200 mg PO Q6H PRN PRN Reason: Mild Pain Stop: 04/22/20 08:56 Last Admin: 03/26/20 18:43 Dose: 200 mg Documented by: Mirtazapine (Mirtazapine Soltab 15 Mg) 15 mg PO [facility] Stop: 04/22/20 20:59 Last Admin: 03/27/20 20:41 Dose: 15 mg Documented by: Tamsulosin HCl (Tamsulosin Hcl 0.4 Mg Cap) 0.4 mg PO [facility] Stop: 04/26/20 20:59 Last Admin: 03/27/20 20:41 Dose: 0.4 mg Documented by: (1) Bladder incontinence Urinary Incontinence type: other incontinence Qualified Code(s): N39.498 - Other specified urinary incontinence (2) Depression Active/Remission status: currently active Depression Type: major depressive disorder Major depression episode severity: moderate Major depression recurrence: unspecified whether recurrent Qualified Code(s): F32.1 - Major depressive disorder, single episode, moderate (3) Hypertension Hypertension type: essential hypertension Qualified Code(s): I10 - Essential (primary) hypertension
[2020-03-28] MEDS: ACETAMINOPHEN 325 MG TAB PO PRN ×2 (15:44→23:59)
--- NOTE | 2020-03-28 16:08 | Communication Note ---
Date of Service: March 28, 2020 Bienvenido looks slightly better today in terms of his bradykinesia but still has resting tremor a superimposed intentional component at times and cogwheel ri gidity but he is apparently been up moving about a little bit with some assistance and is slated I believe to go off to an extended care/personal care facility within the next day or 2. He does not complain of nausea he is not hallucinating he does not have any reported unusual dreams or activity at night at this point I would simply continue the Sinemet 25/ times a day given just prior to meals We will be happy to see him in the office about a month after discharge Neurology is going to sign off the case at this point Bienvenido West MD
[2020-03-28] MEDS: TAMSULOSIN HCL 0.4 MG CAP PO SCH (21:02)
[2020-03-28] MEDS: MIRTAZAPINE SOLTAB 15 MG PO SCH (21:02)
[2020-03-29] MEDS: SODIUM CHLORIDE 0.9% 1000ML 1,000 ML IV SCH (04:50)
[2020-03-29 07:29] LABS: BUN Creatinine Ratio 21.9 (10-20); Calcium 8.7 mg/dl (8.5-10.1); Creatinine Clr Calc Pharmacy 73.5 ml/min; Est GFR (African American) 90.8; Est GFR (Non-African American) 78.4
[2020-03-29] MEDS: CARBIDOPA/LEVODOPA 25/100MG TAB PO SCH ×2 (07:55→11:41)
--- NOTE | 2020-03-29 11:08 | Hospitalist Progress Note ---
Date of Service March 29, 2020 Assessment & Plan (1) Generalized weakness: Generalized weakness and deconditioning Secondary to comorbidities Negative COVID screen,CXR: No acute Process TSH: Normal UA/Cx: Not suggestive of UTI Encourage increased oral intake Continue PT/OT and will need basement Will be transferred to [facility] this afternoon Acute kidney injury Likely secondary to dehydration Creatinine normalized with intravenous fluid administration Advised to drink more fluid as an outpatient (2) Bladder incontinence: Noted to have urinary retention with ultrasound evidence of more than 700 mL of urine Mccarthy catheter administered We will start Flomax if the patient is already not on it Use of pediatric catheter due to meatal stenosis Plan to keep the catheter for some time and Urology appointment as an outpatient mainly for meatal stenosis (3) Adult failure to thrive: Multifactorial causes: Suspected Severe Protein Calore Malnutrition Reported loss of about 60 pounds BMI: 25 Dysphagia Edentulous Speech therapy eval completed Tolerating easy to chew diet (4) Depression: Severe depression Was not on meds Appreciate psychiatry input Started on Remeron 15 mg at bedtime Hold Remeron for excess sedation (5) Parkinsons disease: Parkinson's disease Medication noncompliance Was not taking any medications for at least 3 years Appreciate Neurology Input Continue Sinemet as per Neurology Needs follow-up with neurology upon discharge Continue current medications Awaiting placement-will be transferred to [facility] this afternoon (6) Hypertension: Blood pressure is controlled H/O hemorrhoids Currently denies bleeding Anusol PRN Follow up as outpatient Code Status Full Code DVT Px: Lovenox SQ Code Status Full code Disposition Rehab as able Will be discharged today Admission and Anticipated Discharge Date Admission Date: March 24, 2020 Subjective 03/27/2020 The patient was seen and examined in medical floor He has significant medical history of hypertension, Parkinson's disease was admitted with generalized weakness and has been noncompliant with medications He complains to have hypogastric and suprapubic pain today without any nausea and/or vomiting Denies any chest pain and/or palpitation 03/28/2020 The patient was seen and examined in medical floor He has been feeling a lot better today Remains weak and lethargic with resting tremor due to Parkinson's disease 03/29/2020 The patient was seen and examined in medical floor He has been feeling much better he denies any abdominal discomfort Remains generally weak He is aware that he will be leaving the hospital around 1:00PM Review of Systems Review of Systems: All systems reviewed and are unremarkable except as noted below Gastrointestinal: Hypogastric discomfort/pain-resolved Physical Exam Physical Exam: Lying in bed comfortably Constitutional: well developed, well nourished and + ill appearing Eyes: PERRL, conjunctivae normal, anicteric sclerae ENMT: external ear and nose normal, oropharynx normal Neck: trachea midline, no thyromegaly Respiratory: no respiratory distress Auscultation: lungs clear to auscultation bilaterally Cardiovascular: Rate/Rhythm: regular rate and regular rhythm Heart Sounds: no murmur Extremities: no edema Gastrointestinal (Abdomen): Inspection/Auscultation: normal bowel sounds; abdomen not distended Percussion/Palpation: abdomen soft; abdomen nontender (CVA tenderness over hypogastrium with full bladder) Musculoskeletal: No acute arthritis in any joint Neurologic: Alert, awake and oriented x3. Has resting tremors bilaterally Psychiatric: Insight: + poor insight Lymphatic: no cervical or axillary lymphadenopathy Results & Data Results & Data ([facility]) Vital Signs (Past 12 Hours) Vital Signs Temp Pulse Resp BP Pulse Ox 03/29/20 07:00 36.3 C L 50 L 16 117/68 96 03/28/20 23:50 36.5 C 51 L 16 108/64 97 Laboratory Results [facility] 03/29/20 06:25 Sodium 144 Potassium 4.0 Chloride 113 H Carbon Dioxide 28 BUN 21 H Creatinine 0.98 D Glucose 83 Calcium 8.7 Medications Administered Current Inpatient Medications Acetaminophen (Acetaminophen 325 Mg Tab) 650 mg PO Q4H PRN PRN Reason: pain/fever Stop: 04/22/20 08:56 Last Admin: 03/28/20 23:59 Dose: 650 mg Documented by: Carbidopa/Levodopa (Carbidopa/Levodopa 25/100mg Tab) 1 tab PO AC CHIKI Stop: 04/26/20 16:29 Last Admin: 03/29/20 07:55 Dose: 1 tab Documented by: Hydrocortisone (Hydrocortisone Hc 2.5% Crm 30gm Tube) 1 appln EXT BID PRN PRN Reason: Hemorrhoids Stop: 04/24/20 11:27 Promethazine HCl 6.25 mg/ (Sodium Chloride) 50.25 mls @ 201 mls/hr IV Q6H PRN PRN Reason: Nausea And Vomiting Stop: 04/22/20 08:56 Last Infusion: 03/23/20 18:07 Dose: Infused Documented by: Ibuprofen (Ibuprofen 200 Mg Tab) 200 mg PO Q6H PRN PRN Reason: Mild Pain Stop: 04/22/20 08:56 Last Admin: 03/26/20 18:43 Dose: 200 mg Documented by: Mirtazapine (Mirtazapine Soltab 15 Mg) 15 mg PO [facility] Stop: 04/22/20 20:59 Last Admin: 03/28/20 21:02 Dose: 15 mg Documented by: Tamsulosin HCl (Tamsulosin Hcl 0.4 Mg Cap) 0.4 mg PO [facility] Stop: 04/26/20 20:59 Last Admin: 03/28/20 21:02 Dose: 0.4 mg Documented by: (1) Bladder incontinence Urinary Incontinence type: other incontinence Qualified Code(s): N39.498 - Other specified urinary incontinence (2) Depression Active/Remission status: currently active Depression Type: major depressive disorder Major depression episode severity: moderate Major depression recurrence: unspecified whether recurrent Qualified Code(s): F32.1 - Major depressive disorder, single episode, moderate (3) Hypertension Hypertension type: essential hypertension Qualified Code(s): I10 - Essential (primary) hypertension
[2020-03-29] MEDS: ACETAMINOPHEN 325 MG TAB PO PRN (14:59)
--- NOTE | 2020-03-30 08:31 | Discharge Summary ---
Date of Service March 30, 2020 Admission HPI Per Admitting Provider History obtained from patient, family, and records. Medical history significant for hypertension, Parkinson's disease, medication noncompliance. Patient stopped taking Sinemet for Parkinson's disease a few years back. Last PCP visit Jun, 2018. Son attributes patient apathy to depression after 4 years ago. About 60 pound weight loss in the last year as per patient family. Poor appetite. Last confinement December 2019 for generalized weakness. Patient noted to be increasingly weak this week. Having trouble moving around. Patient denies chest pain, S OB, headache, abdominal pain symptoms. Bothered by hemorrhoids. Although depressed, patient denies suicidality. Patient requested to be brought to the ER. He told his son that he wants to get better and is open to taking medications again. 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 Admission Exam Per Admitting Provider Physical Exam: GENERAL: Comfortable, flat affect, no respiratory distress SKIN: Normal color, warm HEENT: Parmele palpebral conjunctivae, no ptosis, dry buccal mucosa, edentulous NECK : Supple, no tenderness CHEST : CTA, no tenderness HEART : Bradycardic , no obvious murmurs ABDOMEN: Some distention, nontender EXTREMITIES : No LE swelling/tenderness, no other conspicuous deformities noted, dirty and untrim toenails NEUROLOGIC : Coherent, no facial asymmetry, rest tremors, gait and stance not assessed Principal Diagnosis Generalized weakness, Parkinson disease, meatal stenosis with retention, depression, hypertension Discharge Exam Constitutional well developed, well nourished and + ill appearing Eyes PERRL, conjunctivae normal, anicteric sclerae ENMT external ear and nose normal, oropharynx normal Neck trachea midline, no thyromegaly Respiratory no respiratory distress Auscultation: lungs clear to auscultation bilaterally Cardiovascular Rate/Rhythm: regular rate and regular rhythm Heart Sounds: no murmur Extremities: no edema Gastrointestinal (Abdomen) Inspection/Auscultation: normal bowel sounds; abdomen not distended Percussion/Palpation: abdomen soft; abdomen nontender (CVA tenderness over hypogastrium with full bladder) Psychiatric Insight: + poor insight Lymphatic no cervical or axillary lymphadenopathy Discharge Data Allergies Allergy/AdvReac Type Severity Reaction Status Date / Time No Known Allergies Allergy Verified 03/23/20 05:05 Consultations 03/23/20 05:55 ED Decision to Admit Stat 03/23/20 08:57 Consult Case Management - Discharge Planning Routine Consult Neurology Routine Consult Psychiatry Routine Hospital Course (1) Generalized weakness: Generalized weakness and deconditioning Secondary to comorbidities Negative COVID screen,CXR: No acute Process TSH: Normal UA/Cx: Not suggestive of UTI Encourage increased oral intake Continue PT/OT and will need basement Will be transferred to [facility] this afternoon Acute kidney injury Likely secondary to dehydration Creatinine normalized with intravenous fluid administration Advised to drink more fluid as an outpatient (2) Bladder incontinence: Noted to have urinary retention with ultrasound evidence of more than 700 mL of urine Skaggs catheter administered We will start Flomax if the patient is already not on it Use of pediatric catheter due to meatal stenosis Plan to keep the catheter for some time and Urology appointment as an outpatient mainly for meatal stenosis (3) Adult failure to thrive: Multifactorial causes: Suspected Severe Protein Calore Malnutrition Reported loss of about 60 pounds BMI: 25 Dysphagia Edentulous Speech therapy eval completed Tolerating easy to chew diet (4) Depression: Severe depression Was not on meds Appreciate psychiatry input Started on Remeron 15 mg at bedtime Hold Remeron for excess sedation (5) Parkinsons disease: Parkinson's disease Medication noncompliance Was not taking any medications for at least 3 years Appreciate Neurology Input Continue Sinemet as per Neurology Needs follow-up with neurology upon discharge Continue current medications Awaiting placement-will be transferred to [facility] this afternoon (6) Hypertension: Blood pressure is controlled H/O hemorrhoids Currently denies bleeding Anusol PRN Follow up as outpatient Code Status Full Code DVT Px: Lovenox SQ Code Status Full code Disposition Rehab as able Will be discharged today Total Time Total Time Spent Total Time Spent (In Minutes): 35 minutes Total Time Includes: Examination of the Patient, Discharge Planning, Medication Reconciliation and Communication With Other Providers Discharge Plan Discharge Items Patient Disposition: Transfer Snf Fac Reason For Visit: WEAKNESS Discharge Diagnosis: Generalized weakness, Parkinson disease, meatal stenosis with retention, depression, hypertension Activity: Resume your previous activity Activity Comment: Continue PT and OT Non-emergency contact: Primary Care Provider Call non-emergency contact if: you have any medication questions and your symptoms worsen Follow-up/Referrals: Elio Hester MD [Primary Care Provider] - 04/04/20 11:00 am (Please make an appointment with your primary care physician within 7 days following discharge from the facility) Diet: Regular Diet Texture: Easy to Chew Addtl Attending Provider Instructions: Has had urinary retention of more than 700 mL which required catheterization which was difficult due to meatal stenosis. Pediatric Skaggs catheter was inserted. [facility] Urology will place call to the [facility] with an appointment date for urinary retention/ skaggs. Pending Studies at Discharge: No Stand-Alone Forms: [facility] [address] Skilled Items Patient informed of condition?: Yes DNR: No Discharge Level of Care: Skilled Communicable Disease: No Discharge Prognosis: Stable Lines: None Urinary Catheter: Yes Medications and DC Order Prescriptions: New hydrocortisone [Proctosol HC] 2.5 % Cream With Perineal Applicator 1 applic EXT BID PRN (Reason: hemorrhoids) 30 Days Qty: 30 RF: 0 tamsulosin 0.4 mg Capsule 0.4 mg PO HS 30 Days Qty: 30 RF: 0 mirtazapine 15 mg Tablet,Disintegrating 15 mg PO HS 30 Days Qty: 30 RF: 0 carbidopa-levodopa [Sinemet] 25-100 mg Tablet 1 tab PO AC 30 Days Qty: 90 RF: 0 No Action No Known Home Medications RF: 0 Discharge Orders: Discharge Order (Routine); Ordered 03/29/20 Ordered By: Ora Dietz Admission Data Admit Date/Time: 03/24/20 07:42 Attending Provider: Ora Dietz Admit Provider: Luc Skelton Primary Care Provider: Elio Hester Other Providers: Anthony Sanchez ; Kyung Geiger ; Bienvenido West ; Kyung Rodarte ; Johnnie Orosco ; Christie Torres ; Rosa Isela Craig [place] ; [facility], Other Interventions: Discharge Summary Assessment (RN) Last Done: 03/29/20 16:06
== END 2020-03-29 15:54 | DRG 640 ==
LOC: 3N 04:15 → ED 04:15 → SUATTDRO 07:08 → 3N 08:03 → SUATTDRO 03-24 07:42

== ENCOUNTER 2020-07-14 04:32 | Inpatient (IN) ==
[2020-07-14 04:59] LABS: Basophils # (auto) 0.05 K/uL (0-0.2); Basophils % (auto) 0.6 %; Eosinophils # (auto) 0.26 K/uL (0-0.5); Eosinophils % (auto) 2.9 %; Hemoglobin 14.9 g/dL (14.0-18.0); Immature Granulocytes # (auto) 0.05 K/uL (0.00-0.02); Immature Granulocytes % (auto) 0.6 %; Lymphocytes # (auto) 1.12 K/uL (1.2-3.4); Lymphocytes % (auto) 12.6 %; Mean Corpuscular Hemoglobin 28.9 pg (25-34); Mean Corpuscular Hgb Conc 33.1 g/dL (32-36); Mean Corpuscular Volume 87.2 fL (80-100); Mean Platelet Volume 9.8 fL (7.4-10.4); Monocytes # (auto) 0.61 K/uL (0.11-0.59); Monocytes % (auto) 6.8 %; Neutrophils # (auto) 6.82 K/uL (1.4-6.5); Neutrophils % (auto) 76.5 %; Platelet Count 260 K/uL (130-400); RDW Coefficient of Variation 13.3 % (11.5-14.5); RDW Standard Deviation 42.4 fL (36.4-46.3); Red Blood Count 5.16 M/uL (4.7-6.1); White Blood Count 8.91 K/uL (4.8-10.8)
[2020-07-14] MEDS ORDERED: NITROGLYCERIN SL 0.4 MG/TAB TAB SL STA (04:59)
--- NOTE | 2020-07-14 04:59 | Emergency Department Note ---
Impression & Plan Left-sided chest pain ED Provider Note Name: TATI WOOD Age: 70 Sex: M Arrives Via: Walk-In Informant: Patient, Family ED Provider: Oj Leija MD Chief Complaint: chest pain Impression: Left Sided Chest Pain Medical Decision Makin yr old male with extensive PMH Failure to thrive, depression, thrombocytopenia, parkinsons, htn, etoh abuse though no reported cardiac history arrives with left chest pain. No radiation and exam benign. ASA Prior to arrival. He was given SLNTG with profound hypotension which improved with NSS bolus. IV fentanyl improved pain. Labs unremarkable with negative initial Trop. EKG without acute findings and smilar to previous. CXR clear. No history nor evidence of PE/DVT by examination. Breathing comfortably with normal sats. Given symptoms and history will have hospitalist evaluate for further management and cardiac rule out. Symptoms do not seem consistent with dissection. Prior Medical Record and Triage/Nursing Notes reviewed by Me Additional history obtained from chart Differentials:Cardiac ischemia, aortic dissection, pulmonary embolism, pneumothorax, pneumonia, pericarditis, myocarditis, esophageal rupture, GERD, cholecystitis, pancreatitis, musculoskeletal, as well as other pathologies. Vital Signs: reviewed and remarkable for no significant abnormalities Interventions: saline lock, slntg, fentanyl 50mcg IV Labs:Reviewed and remarkable for no significant abnormalities Imaging:X ray results are stated below per my interpretation: Chest: 1 view: No infiltrate, no effusion, normal cardiac border. EKG:Per My Interpretation: Indication Chest pain: sinus tach 101 bpm, qtc 435. No Ectopy. No Ischemia. Compared to EKG 03/23/20, no significant changes other than mild increase in rate Cardiac/Tele Monitoring: Cardiac Monitoring: An Order was placed for continuous cardiac monitoring. The monitor shows a rate of 80 with a normal sinus rhythm. Consults:Dr Daniel Lees Hospitalist Plan: Disposition:Hospitalization. Condition: Good History of Present Illness:70 yr old male arrives for evaluation of chest pain. Patient without history cardiac issues who arrives with onset left heavy chest pain at 3am this morning. Notes associated mild shortness of breath. No nausea, vomiting, palpitations, syncope, nor other symptoms. No previous cardiac work up. Nothing makes better nor worse. Feeling well the last few days without issues. Took Asa 324mg x 2 without improvement prior to arrival. Notes father with history of CAD. Patient denies PE/DVT history, strokes, nor known cardiovascular disease. Does have history of HTN. ROS: See above HPI for pertinent positives & negatives. A total of 10 systems reviewed and were otherwise negative. Past Medical History:Failure to thrive, depression, thrombocytopenia, parkinsons, htn, etoh abuse Past Surgical History:tonsillectomy Family History:Father with [place] Social History:lives with family/ Home Medications:See Below Allergies:NKDA Vitals:Blood Pressure: 124/86, Pulse 82, RR 23, T 36.9C, O2 95% on RA Physical Exam: GENERAL: Patient is chronically unwell appearing and in mild distress. EYES: No scleral icterus, unremarkable pupils. ENT: Mucous membranes moist, no nasal congestion. NECK: No masses appreciated, nomeningismus, trachea is midline. RESPIRATORY: No dyspnea. Clear to auscultation and equal bilaterally. No wheeze, no rhonchi. CARDIOVASCULAR: Regular rate and rhythm.No murmurs, rubs, gallops appreciated. GASTROINTESTINAL: Abdomen soft, non-tender, no peritonitis.Bowel sounds positive.No masses appreciated. BACK: No midline tenderness, no CVA tenderness EXTREMITIES: Moves upper extremities with significant tremor, no cyanosis, no edema. Cachectic legs. Healing abrasions left anterior betancur. NEUROLOGIC: Alert and oriented, tremor consistent with Parkinsons upper arms, no movement in legs. SKIN: No rash, no jaundice, no diaphoresis. PSYCH: Appropriate GCS: 15 ED Course: Times/Reassessments: hypotension with SLTNG resolved with NSS Bolus. Pain improved with IV fentanyl. Oj Leija MD Past Med/Surg History Medical History (Updated 07/14/20 @ 06:34 by Oj Leija MD) Alcoholism /alcohol abuse Generalized weakness GERD (gastroesophageal reflux disease) Meatal stenosis Parkinsons disease Renal insufficiency Improved Surgical History History of inguinal hernia repair Left History of tonsillectomy S/P laparoscopic cholecystectomy Family History Other No significant family history Social History Smoking Status: Never smoker Second Hand Exposure: No; Hx Alcohol Use: No Hx Substance Use: No Preferred Language: Croatian Communication Ability: Effective Visual Impairment: No Limitations Jboss Developer Required: No Beliefs That Will Affect Care: None marital status: / Current Living Situation: Family How many Children do You have: 2 Feels Safe at Home: Yes Assistive Devices: Glasses and Walker Allergies Allergies Allergy/AdvReac Type Severity Reaction Status Date / Time No Known Allergies Allergy Verified 07/08/20 09:21 Home Meds Home Medications Medication Instructions Recorded Confirmed carbidopa-levodopa 1 tab PO QID 06/24/20 07/08/20 mirtazapine 15 mg PO HS 06/24/20 07/08/20 tamsulosin 0.4 mg PO HS 06/24/20 07/08/20 Previous Rx's Medication Instructions Recorded ciprofloxacin HCl 500 mg tablet 500 mg PO BID 3 Days #6 tab 07/05/20 cephalexin 500 mg PO BID 10 Days #20 cap 07/08/20 oxycodone-acetaminophen [Percocet] 1 tab PO Q8H PRN #7 tab 07/08/20 phenazopyridine [Pyridium] 200 mg PO Q8H PRN #10 tab 07/08/20 Results & Data (ED) Vital Signs Vital Signs - 24 hr 07/14/20 04:33 07/14/20 04:40 07/14/20 04:44 Temperature 36.9 C Temperature Source Temporal Artery Scan Pulse Rate 111 H Pulse Rate from SpO2 Sensor Pulse Rhythm Regular Pulse Strength Normal Respiratory Rate 20 22 19 Respiratory Effort / Characteristics Non-Labored Spontaneous Respiratory Depth Normal Respiratory Pattern Regular Blood Pressure 102/68 155/92 H Blood Pressure Mean 79 113 Blood Pressure Position Sitting Pulse Oximetry 95 Oxygen Delivery Method Room Air Sepsis Recent Fever Within 48 Hours No Sepsis New/Unexplained Change in Mental Status No Sepsis Action Taken by Nursing No Action Required 07/14/20 04:45 07/14/20 04:49 07/14/20 05:00 Temperature Temperature Source Pulse Rate 92 H 86 Pulse Rate from SpO2 Sensor 82 Pulse Rhythm Pulse Strength Respiratory Rate 23 20 Respiratory Effort / Characteristics Respiratory Depth Respiratory Pattern Blood Pressure 124/86 Blood Pressure Mean 98 Blood Pressure Position Pulse Oximetry 95 92 Oxygen Delivery Method Room Air Sepsis Recent Fever Within 48 Hours Sepsis New/Unexplained Change in Mental Status Sepsis Action Taken by Nursing 07/14/20 05:01 07/14/20 05:15 07/14/20 05:16 Temperature Temperature Source Pulse Rate 89 91 H 94 H Pulse Rate from SpO2 Sensor 92 H 92 H Pulse Rhythm Pulse Strength Respiratory Rate 23 22 23 Respiratory Effort / Characteristics Respiratory Depth Respiratory Pattern Blood Pressure 125/86 119/80 Blood Pressure Mean 99 93 Blood Pressure Position Pulse Oximetry 96 96 Oxygen Delivery Method Sepsis Recent Fever Within 48 Hours Sepsis New/Unexplained Change in Mental Status Sepsis Action Taken by Nursing 07/14/20 05:18 07/14/20 05:24 07/14/20 05:26 Temperature Temperature Source Pulse Rate 102 H 90 88 Pulse Rate from SpO2 Sensor 103 H 92 H 89 Pulse Rhythm Pulse Strength Respiratory Rate 22 16 23 Respiratory Effort / Characteristics Respiratory Depth Respiratory Pattern Blood Pressure 127/80 76/56 L 100/68 Blood Pressure Mean 95 62 78 Blood Pressure Position Pulse Oximetry 95 95 90 Oxygen Delivery Method Sepsis Recent Fever Within 48 Hours Sepsis New/Unexplained Change in Mental Status Sepsis Action Taken by Nursing 07/14/20 05:30 07/14/20 05:31 07/14/20 05:45 Temperature Temperature Source Pulse Rate 89 87 102 H Pulse Rate from SpO2 Sensor 183 H 88 87 Pulse Rhythm Pulse Strength Respiratory Rate 21 23 21 Respiratory Effort / Characteristics Respiratory Depth Respiratory Pattern Blood Pressure 106/75 131/72 Blood Pressure Mean 85 91 Blood Pressure Position Pulse Oximetry 90 91 91 Oxygen Delivery Method Sepsis Recent Fever Within 48 Hours Sepsis New/Unexplained Change in Mental Status Sepsis Action Taken by Nursing 07/14/20 05:46 07/14/20 06:00 07/14/20 06:01 Temperature Temperature Source Pulse Rate 158 H 101 H Pulse Rate from SpO2 Sensor 88 296 H Pulse Rhythm Pulse Strength Respiratory Rate 24 24 23 Respiratory Effort / Characteristics Respiratory Depth Respiratory Pattern Blood Pressure 119/74 Blood Pressure Mean 89 Blood Pressure Position Pulse Oximetry 90 80 L Oxygen Delivery Method Sepsis Recent Fever Within 48 Hours Sepsis New/Unexplained Change in Mental Status Sepsis Action Taken by Nursing 07/14/20 06:15 07/14/20 06:16 07/14/20 06:30 Temperature Temperature Source Pulse Rate 69 71 85 Pulse Rate from SpO2 Sensor 72 72 83 Pulse Rhythm Pulse Strength Respiratory Rate 22 20 24 Respiratory Effort / Characteristics Respiratory Depth Respiratory Pattern Blood Pressure 114/70 Blood Pressure Mean 84 Blood Pressure Position Pulse Oximetry 91 93 95 Oxygen Delivery Method Sepsis Recent Fever Within 48 Hours Sepsis New/Unexplained Change in Mental Status Sepsis Action Taken by Nursing 07/14/20 06:31 07/14/20 06:32 Temperature Temperature Source Pulse Rate 83 85 Pulse Rate from SpO2 Sensor 82 85 Pulse Rhythm Pulse Strength Respiratory Rate 18 19 Respiratory Effort / Characteristics Respiratory Depth Respiratory Pattern Blood Pressure 120/86 Blood Pressure Mean 97 Blood Pressure Position Pulse Oximetry 91 90 Oxygen Delivery Method Sepsis Recent Fever Within 48 Hours Sepsis New/Unexplained Change in Mental Status Sepsis Action Taken by Nursing Laboratory Data Result diagrams: 07/14/20 04:50 07/14/20 04:50 Lab Results 07/14/20 07/14/20 07/14/20 Range/Units 04:50 04:50 04:50 WBC 8.91 (4.8-10.8) K/uL RBC 5.16 (4.7-6.1) M/uL Hgb 14.9 (14.0-18.0) g/dL Hct 45.0 (42-52) % MCV 87.2 (80-100) fL MCH 28.9 (25-34) pg MCHC 33.1 (32-36) g/dL RDW Std Deviation 42.4 (36.4-46.3) fL RDW Coeff of Cordell 13.3 (11.5-14.5) % Plt Count 260 (130-400) K/uL MPV 9.8 (7.4-10.4) fL Immature Gran % (Auto) 0.6 % Neut % (Auto) 76.5 % Lymph % (Auto) 12.6 % Randolph % (Auto) 6.8 % Eos % (Auto) 2.9 % Baso % (Auto) 0.6 % Neut # (Auto) 6.82 H (1.4-6.5) K/uL Lymph # (Auto) 1.12 L (1.2-3.4) K/uL Randolph # (Auto) 0.61 H (0.11-0.59) K/uL Eos # (Auto) 0.26 (0-0.5) K/uL Baso # (Auto) 0.05 (0-0.2) K/uL Immature Gran # (Auto) 0.05 H (0.00-0.02) K/uL APTT 25.6 (21.0-31.0) Seconds PTT Ratio 1.0 Sodium 142 (136-145) mmol/L Potassium 3.6 (3.5-5.1) mmol/L Chloride 108 H (98-107) mmol/L Carbon Dioxide 28 (21-32) mmol/L Anion Gap 6.0 (3-11) BUN 9 (7-18) mg/dl Creatinine 1.03 (0.6-1.4) mg/dl Est Cr Clr Drug Dosing 66.7 ml/min Est GFR ( Amer) 84.9 ml/min Est GFR (Non-Af Amer) 73.3 ml/min BUN/Creatinine Ratio 9.2 L (10-20) Glucose 141 H (70-99) mg/dl Calcium 9.2 (8.5-10.1) mg/dl Total Bilirubin 0.7 (0.2-1) mg/dl Direct Bilirubin 0.1 (0-0.2) mg/dl AST 13 L (15-37) U/L ALT 15 (12-78) U/L Alkaline Phosphatase 149 H (45-117) U/L Troponin I < 0.015 (0-0.045) ng/ml Total Protein 7.9 (6.4-8.2) gm/dl Albumin 3.6 (3.4-5.0) gm/dl COVID-19 Eval Order SARS-CoV-2 (PCR) (Negative) 07/14/20 07/14/20 Range/Units 04:56 04:56 WBC (4.8-10.8) K/uL RBC (4.7-6.1) M/uL Hgb (14.0-18.0) g/dL Hct (42-52) % MCV (80-100) fL MCH (25-34) pg MCHC (32-36) g/dL RDW Std Deviation (36.4-46.3) fL RDW Coeff of Cordell (11.5-14.5) % Plt Count (130-400) K/uL MPV (7.4-10.4) fL Immature Gran % (Auto) % Neut % (Auto) % Lymph % (Auto) % Randolph % (Auto) % Eos % (Auto) % Baso % (Auto) % Neut # (Auto) (1.4-6.5) K/uL Lymph # (Auto) (1.2-3.4) K/uL Randolph # (Auto) (0.11-0.59) K/uL Eos # (Auto) (0-0.5) K/uL Baso # (Auto) (0-0.2) K/uL Immature Gran # (Auto) (0.00-0.02) K/uL APTT (21.0-31.0) Seconds PTT Ratio Sodium (136-145) mmol/L Potassium (3.5-5.1) mmol/L Chloride (98-107) mmol/L Carbon Dioxide (21-32) mmol/L Anion Gap (3-11) BUN (7-18) mg/dl Creatinine (0.6-1.4) mg/dl Est Cr Clr Drug Dosing ml/min Est GFR ( Amer) ml/min Est GFR (Non-Af Amer) ml/min BUN/Creatinine Ratio (10-20) Glucose (70-99) mg/dl Calcium (8.5-10.1) mg/dl Total Bilirubin (0.2-1) mg/dl Direct Bilirubin (0-0.2) mg/dl AST (15-37) U/L ALT (12-78) U/L Alkaline Phosphatase (45-117) U/L Troponin I (0-0.045) ng/ml Total Protein (6.4-8.2) gm/dl Albumin (3.4-5.0) gm/dl COVID-19 Eval Order Covid19 at [facility] SARS-CoV-2 (PCR) NEGATIVE (Negative) Administered Medications Discontinued Medications Fentanyl Citrate (Fentanyl Citrate 100 Mcg/2 Ml Vial) 50 mcg IV NOW STA Stop: 07/14/20 05:51 Last Admin: 07/14/20 06:14 Dose: 50 mcg Documented by: [id number] Sodium Chloride (Nss 1000ml) 1,000 mls @ 999 mls/hr IV .Q1H1M ONE Stop: 07/14/20 06:29 Last Infusion: 07/14/20 06:21 Dose: 0 mls/hr Documented by: [id number] Admin: 07/14/20 05:20 Dose: 999 mls/hr Documented by: [id number] Nitroglycerin (Nitroglycerin Sl 0.4 Mg/Tab Tab) 0.4 mg SL NOW STA Stop: 07/14/20 05:00 Last Admin: 07/14/20 05:16 Dose: 0.4 mg Documented by: [id number] Oxycodone HCl (Oxycodone Hcl Ir 5 Mg Tab (Immediate Release)) 5 mg PO NOW STA Stop: 07/14/20 06:45 Last Admin: 07/14/20 06:51 Dose: 5 mg Documented by: [id number] Discharge Plan Visit Data Chief Complaint: Chest Pain Stated Complaint: CHEST PAIN ED Provider: Oj Leija Discharge Problem: Left-sided chest pain Forms Stand Alone Forms: [facility] Prescriptions Prescriptions: No Action ciprofloxacin HCl 500 mg tablet 500 mg PO BID 3 Days Qty: 6 RF: 0 tamsulosin 0.4 mg Capsule 0.4 mg PO HS RF: 0 mirtazapine 15 mg Tablet 15 mg PO HS RF: 0 carbidopa-levodopa 25-100 mg Tablet 1 tab PO QID RF: 0 cephalexin 500 mg capsule 500 mg PO BID 10 Days Qty: 20 RF: 0 oxycodone-acetaminophen [Percocet] 7.5-325 mg tablet 1 tab PO Q8H PRN (Reason: pain) Qty: 7 RF: 0 phenazopyridine [Pyridium] 200 mg tablet 200 mg PO Q8H PRN (Reason: pain) Qty: 10 RF: 0
[2020-07-14 05:22] LABS: Alanine Aminotransferase 15 U/L (12-78); Albumin Level 3.6 gm/dl (3.4-5.0); Aspartate Aminotransferase 13 U/L (15-37); BUN Creatinine Ratio 9.2 (10-20); Bilirubin Direct 0.1 mg/dl (0-0.2); Blood Urea Nitrogen 9 mg/dl (7-18); Calcium 9.2 mg/dl (8.5-10.1); Carbon Dioxide 28 mmol/L (21-32); Chloride 108 mmol/L (98-107); Creatinine Clr Calc Pharmacy 66.7 ml/min; Est GFR (African American) 84.9 ml/min; Est GFR (Non-African American) 73.3 ml/min; Glucose 141 mg/dl (70-99); Potassium 3.6 mmol/L (3.5-5.1); Sodium 142 mmol/L (136-145)
[2020-07-14 05:26] LABS: Alkaline Phosphatase 149 U/L (45-117); Bilirubin,Total 0.7 mg/dl (0.2-1); Total Protein 7.9 gm/dl (6.4-8.2); Troponin I < 0.015 ng/ml (0-0.045)
[2020-07-14] MEDS ORDERED: SODIUM CHLORIDE 0.9% 1000ML 1,000 ML IV ONE (05:29)
[2020-07-14] MEDS ORDERED: fentaNYL citrate 100 MCG/2 ML VIAL IV STA (05:50)
[2020-07-14 06:33] LABS: Partial Thromboplastin Time 25.6 Seconds (21.0-31.0)
--- NOTE | 2020-07-14 06:43 | History & Physical Report ---
Date of Service July 14, 2020 Assessment & Plan (1) Left-sided chest pain: Atypical chest pain No relief with nitro as per patient Rule out PE given pleuritic description Hypertension, not on maintenance medications Drop in blood pressure noted after nitro administration at the ER Parkinson's disease, stable on regimen Mood disorder, much better after Remeron initiation from last confinement. Recent urologic procedure, ongoing postop Keflex course. Hyperglycemia rule out DM Ambulatory function OBS PCU CT chest PE study TTE Trend troponin Further management pending above work-up results Check hemoglobin A1c PT OT eval DVT prophylaxis. Lovenox subcu Full code Patient son requesting for updates from providers. Mr. Bienvenido CashJr. contact #[phone]. Text document was generated using [employer] voice recognition software. It may contain grammatical or spelling errors. Kindly contact undersigned for clarification of any documentation item in question. History of Present Illness , Neurologic procedure Chief Complaint: Chest pain Primary Care Provider: Elio Hester MD History obtained from patient, family, and records. Medical history significant for hypertension, Parkinson's disease, urinary bladder stone/meatal stenosis status post recent surgery, past alcohol abuse. Recent confinement February 2020 for generalized weakness and deconditioning. Patient underwent outpatient cystoscopy with bladder stone extraction at same day surgery last week. Meatoplasty/meatotomy done as well for meatal stricture/stenosis. Patient injured his left leg a few days ago while walking at home. Patient has unstable gait from Parkinson's as per son. This morning, patient roused from sleep by left-sided pleuritic chest pain with some shortness of breath. No cough symptoms. No prior episodes in the past. At the ER, patient given nitroglycerin which made hime almost pass out as per patient. Transient BP drop to the 70s. Chest pain unimproved by nitroglycerin as per patient. 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 Allergies Allergy/AdvReac Type Severity Reaction Status Date / Time No Known Allergies Allergy Verified 07/14/20 07:13 Home Medications Medication Instructions Recorded Confirmed Type carbidopa-levodopa 1 tab PO QID 06/24/20 07/14/20 History mirtazapine 15 mg PO HS 06/24/20 07/14/20 History tamsulosin 0.4 mg PO HS 06/24/20 07/08/20 History oxycodone-acetaminophen [Percocet] 1 tab PO Q8H PRN #7 tab 07/08/20 Rx phenazopyridine [Pyridium] 200 mg PO Q8H PRN #10 tab 07/08/20 Rx aspirin [Aspirin Low Dose] 81 mg PO DAILY 07/14/20 07/14/20 History cephalexin 500 mg PO BID 07/14/20 07/14/20 History hydrocortisone 1 applic TOPICAL DAILY 07/14/20 07/14/20 History Past Med/Surg History Medical History (Updated 07/14/20 @ 06:34 by Oj Leija MD) Alcoholism /alcohol abuse Generalized weakness GERD (gastroesophageal reflux disease) Meatal stenosis Parkinsons disease Renal insufficiency Improved Surgical History History of inguinal hernia repair Left History of tonsillectomy S/P laparoscopic cholecystectomy Family History Other No significant family history Social History Smoking Status: Never smoker Second Hand Exposure: No; Hx Alcohol Use: No Hx Substance Use: No Preferred Language: Citizen Of [place] Communication Ability: Effective Visual Impairment: No Limitations [employer] Required: No Beliefs That Will Affect Care: None marital status: / Current Living Situation: Family How many Children do You have: 2 Feels Safe at Home: Yes Assistive Devices: Glasses and Walker Review of Systems Review of Systems: As per HPI, all 10 systems reviewed, all other ROS negative Physical Exam Physical Exam: GENERAL: Comfortable, masklike stare, no respiratory distress SKIN: Normal color, warm HEENT: [place] palpebral conjunctivae, no ptosis, dry buccal mucosa NECK : Supple, no tenderness CHEST : CTA, no tenderness HEART : RRR, no obvious murmurs ABDOMEN: Some distention, nontender EXTREMITIES : contusion left lower extremity, with minimal tenderness, no other conspicuous deformities noted NEUROLOGIC : Coherent, no facial asymmetry, rest tremors of the legs, no other gross focality Results & Data [facility] Vital Signs (Past 12 Hours) Vital Signs Temp Pulse Resp BP Pulse Ox 07/14/20 06:32 85 19 90 07/14/20 06:31 83 18 120/86 91 07/14/20 06:30 85 24 95 07/14/20 06:16 71 20 93 07/14/20 06:15 69 22 114/70 91 07/14/20 06:01 23 119/74 80 L 07/14/20 06:00 101 H 24 07/14/20 05:46 158 H 24 90 07/14/20 05:45 102 H 21 131/72 91 07/14/20 05:31 87 23 91 07/14/20 05:30 89 21 106/75 90 07/14/20 05:26 88 23 100/68 90 07/14/20 05:24 90 16 76/56 L 95 07/14/20 05:18 102 H 22 127/80 95 07/14/20 05:16 94 H 23 96 07/14/20 05:15 91 H 22 119/80 96 07/14/20 05:01 89 23 125/86 07/14/20 05:00 86 20 92 07/14/20 04:49 95 07/14/20 04:45 92 H 23 124/86 07/14/20 04:44 19 07/14/20 04:40 22 155/92 H 07/14/20 04:33 36.9 C 111 H 20 102/68 95 Laboratory Results Laboratory Results WBC 8.91 K/uL (4.8-10.8) 07/14/20 04:50 RBC 5.16 M/uL (4.7-6.1) 07/14/20 04:50 Hgb 14.9 g/dL (14.0-18.0) 07/14/20 04:50 Hct 45.0 % (42-52) 07/14/20 04:50 MCV 87.2 fL (80-100) 07/14/20 04:50 MCH 28.9 pg (25-34) 07/14/20 04:50 MCHC 33.1 g/dL (32-36) 07/14/20 04:50 RDW Std Deviation 42.4 fL (36.4-46.3) 07/14/20 04:50 RDW Coeff of Cordell 13.3 % (11.5-14.5) 07/14/20 04:50 Plt Count 260 K/uL (130-400) 07/14/20 04:50 MPV 9.8 fL (7.4-10.4) 07/14/20 04:50 Immature Gran % (Auto) 0.6 % 07/14/20 04:50 Neut % (Auto) 76.5 % 07/14/20 04:50 Lymph % (Auto) 12.6 % 07/14/20 04:50 Cooper % (Auto) 6.8 % 07/14/20 04:50 Eos % (Auto) 2.9 % 07/14/20 04:50 Baso % (Auto) 0.6 % 07/14/20 04:50 Neut # (Auto) 6.82 K/uL (1.4-6.5) H 07/14/20 04:50 Lymph # (Auto) 1.12 K/uL (1.2-3.4) L 07/14/20 04:50 Cooper # (Auto) 0.61 K/uL (0.11-0.59) H 07/14/20 04:50 Eos # (Auto) 0.26 K/uL (0-0.5) 07/14/20 04:50 Baso # (Auto) 0.05 K/uL (0-0.2) 07/14/20 04:50 Immature Gran # (Auto) 0.05 K/uL (0.00-0.02) H 07/14/20 04:50 APTT 25.6 Seconds (21.0-31.0) 07/14/20 04:50 PTT Ratio 1.0 07/14/20 04:50 Sodium 142 mmol/L (136-145) 07/14/20 04:50 Potassium 3.6 mmol/L (3.5-5.1) 07/14/20 04:50 Chloride 108 mmol/L (98-107) H 07/14/20 04:50 Carbon Dioxide 28 mmol/L (21-32) 07/14/20 04:50 Anion Gap 6.0 (3-11) 07/14/20 04:50 BUN 9 mg/dl (7-18) 07/14/20 04:50 Creatinine 1.03 mg/dl (0.6-1.4) 07/14/20 04:50 Est Cr Clr Drug Dosing 66.7 ml/min 07/14/20 04:50 Est GFR ( Amer) 84.9 ml/min 07/14/20 04:50 Est GFR (Non-Af Amer) 73.3 ml/min 07/14/20 04:50 BUN/Creatinine Ratio 9.2 (10-20) L 07/14/20 04:50 Glucose 141 mg/dl (70-99) H 07/14/20 04:50 Calcium 9.2 mg/dl (8.5-10.1) 07/14/20 04:50 Total Bilirubin 0.7 mg/dl (0.2-1) 07/14/20 04:50 Direct Bilirubin 0.1 mg/dl (0-0.2) 07/14/20 04:50 AST 13 U/L (15-37) L 07/14/20 04:50 ALT 15 U/L (12-78) 07/14/20 04:50 Alkaline Phosphatase 149 U/L (45-117) H 07/14/20 04:50 Troponin I < 0.015 ng/ml (0-0.045) 07/14/20 04:50 Total Protein 7.9 gm/dl (6.4-8.2) 07/14/20 04:50 Albumin 3.6 gm/dl (3.4-5.0) 07/14/20 04:50 COVID-19 Eval Order Covid19 at [facility] 07/14/20 04:56 SARS-CoV-2 (PCR) NEGATIVE (Negative) 07/14/20 04:56 Diagnostic Findings Chest x-ray as per my interpretation elevated right hemidiaphragm EKG as per my interpretation : Rate 105, sinus tachycardia, LAD, LAFB, no ischemia
[2020-07-14] MEDS ORDERED: oxyCODONE HCL IR 5 MG TAB (IMMEDIATE RELEASE) PO STA (06:44)
[2020-07-14] MEDS ORDERED: POTASSIUM CHLORIDE 40 MEQ in SODIUM CHLORIDE 0.45 % 1,000 ML IV ONE (06:50)
[2020-07-14 07:55] LABS: Lipase 71 U/L (73-393); Troponin I < 0.015 ng/ml (0-0.045)
[2020-07-14] MEDS ORDERED: OPTIRAY 350 500ml IV ONE (07:56)
[2020-07-14] MEDS ORDERED: PHENAZOPYRIDINE HCL 200 MG TAB PO PRN (08:35)
[2020-07-14] MEDS ORDERED: oxyCODONE HCL IR 5 MG TAB (IMMEDIATE RELEASE) PO PRN (08:35)
[2020-07-14] MEDS ORDERED: ACETAMINOPHEN 325 MG TAB PO PRN (08:35)
[2020-07-14] MEDS ORDERED: MoRPHine SULFATE 2 MG/ML CARP IV PRN (08:35)
[2020-07-14] MEDS ORDERED: PROMETHAZINE HCL 6.25 MG in SODIUM CHLORIDE 0.9% 50 ML IV PRN (08:35)
--- NOTE | 2020-07-14 08:48 | CT Scan Report ---
CHEST CTA for PULMONARY ARTERIES CT DOSE: 418.21 mGy.cm HISTORY: Left-sided chest pain. Assess for pulmonary embolus. TECHNIQUE: Multiaxial CT images of the chest were performed following the intravenous administration of contrast to evaluate the pulmonary arteries. Maximal intensity projection images were also obtaine d. A dose lowering technique was utilized adhering to the principles of ALARA. COMPARISON STUDY: Chest CTA 02/15/2018. FINDINGS: Normal caliber thoracic aorta with no evidence for dissection. The heart is normal in size. Trace bilateral pleural effusions. No pericardial effusion. Multiple bilateral scattered pulmonary e mboli involving the majority of the lobar and segmental branches, however, no evidence for right-side d heart strain at this time. Interval development of mediastinal and bilateral hilar lymphadenopathy. Dominant mediastinal lymph node within the left paratracheal location measures 1.7 cm. Dominant mor r lymph node on the right measures 1.2 cm. Limited views of the upper abdomen demonstrate a normal li angie and spleen. Prior cholecystectomy. The visualized adrenal glands are unremarkable. Mild elevation the right hemidiaphragm, unchanged. Normal esophagus. A few prominent bilateral supraclavicular lymp h nodes with the largest on the left measuring 9 mm. These are also new from the prior study. No susp icious lytic or blastic osseous lesions. No pneumothorax. The central airways are patent. A few bibas ilar linear densities favor subsegmental atelectasis. There are 2 adjacent subpleural nodule along th e right minor fissure on image 157 with the largest measuring 4 mm. There is a 6 mm nodule within the right lower lobe in image 149. There are few small subpleural nodular densities within the left janet r fissure on image 153 with the largest measuring 4 mm. A few additional subcentimeter nodules within the left lung base with the largest on image 81 measuring 4 mm. IMPRESSION: 1. Extensive bilateral pulmonary emboli as described above. No evidence for right-sided heart strain. 2. Mild mediastinal and bilateral hilar lymphadenopathy with a few prominent supraclavicular lymph no [place]. This is new from the prior study. [address] follow up recommended to evaluate for resolut ion and exclude the possibility of a lymphoma/neoplasm. 3. A few scattered subcentimeter indeterminate pulmonary nodules with the largest in the right lower lobe measuring 6 mm. Please refer to the chart below for recommended follow-up. 4. Trace bilateral pleural effusions. Please refer to below summary of Fleischner criteria recommendations for follow-up of incidental CT n odules ([place], Guidelines for management of small pulmonary nodules detected on CT scans: A sta tement from the Fleischner Society, Radiology 237: [phone].) SOLID NODULES Solitary nodule size: <6 mm * Low risk patients: no follow-up needed * high risk patients: optional CT at 12 months Solitary nodule size: 6-8 mm * Low risk patients: follow-up at 6-12 months, then consider further follow-up at 18-24 months * high risk patients: initial follow-up CT at 6-12 months and then at 18-24 months if no change Solitary nodule size: >8 mm * either low or high risk patients - consider follow-up CT at 3 months, and/or CT-PET, and/or biopsy Multiple nodules size: <6 mm * Low risk patients: no routine follow-up * high risk patients: optional CT at 12 months Multiple nodules size: 6-8 mm * Low risk patients: follow-up at 3-6 months, then consider further follow-up at 18-24 months * high risk patients: follow-up at 3-6 months, then at 18-24 months if no change Multiple nodules size: >8 mm * Low risk patients: follow-up at 3-6 months, then consider further follow-up at 18-24 months * high risk patients: follow-up at 3-6 months, then at 18-24 months if no change Note: newly detected indeterminate nodule in persons 35 years of age or older. * Low risk patients: minimal or absent history of smoking and/or other known risk factors * high risk patients: history of smoking or of other known risk factors (e.g. first degree relative with lung cancer, or exposure to asbestos, radon, uranium) * if a nodule up to 8 mm is partly solid or is ground glass further follow-up is required after 24 m onths to exclude possible slow growing adenocarcinoma (XIN) SUBSOLID NODULES Solitary pure ground-glass nodule * nodule size <6 mm - no CT follow-up required * nodule size >=6 mm - follow-up CT at 6-12 months, then every 2 years until 5 years Solitary part-solid nodule * nodule size <6 mm - no CT follow-up required * nodule size >=6 mm - follow-up CT at 3-6 months. If unchanged, and solid component remains <6 mm, then annual follow-up for 5 years Multiple subsolid nodules * nodule size <6 mm - follow-up CT at 3-6 months, consider further follow-up at 2 and 4 years if sta ble * nodule size >=6 mm - follow-up CT at 3-6 months, subsequent management based on the most suspiciou s nodule(s) ACT 112: Positive. There are findings on this exam that require communication between the performing entity and the patient following Patient Test Result Information Act ([place] Act 112) guidelines. Electronically signed by: Marc Anthony M.D. 07/14/2020 8:46 AM
[2020-07-14] MEDS ORDERED: ENOXAPARIN INJ 40 MG/0.4 ML SYR SQ SCH (09:00)
--- NOTE | 2020-07-14 09:09 | XRay Report ---
XR chest 1V portable HISTORY: Atypical chest pain COMPARISON: None. FINDINGS: Cardiac silhouette is normal in size. No pleural effusions. No pneumothorax. Prior cholecys tectomy. There is mild elevation of the right hemidiaphragm, unchanged. Bibasilar linear densities fa vor subsegmental atelectasis. No evidence for pulmonary edema. IMPRESSION: No acute process. ACT 112: Negative or not required by law. Electronically signed by: Marc Anthony M.D. 07/14/2020 9:08 AM
[2020-07-14] MEDS ORDERED: Heparin IV Adult Wt-Based Standard *NO* Bolus Protocol IV SCH (09:18)
[2020-07-14] MEDS: HEPARIN 25000 UNIT/500 ML D5W IV ONE ×2 (09:52→10:06)
[2020-07-14] MEDS: HEPARIN SODIUM/DEXTROSE 25,000 UNITS/500 ML BAG IV SCH ×2 (09:53→09:57)
[2020-07-14] MEDS: cephALEXin 500 MG CAP PO SCH ×2 (10:06→20:28)
[2020-07-14] MEDS: CARBIDOPA/LEVODOPA 25/100MG TAB PO SCH ×4 (10:06→20:28)
--- NOTE | 2020-07-14 15:04 | Hospitalist Progress Note ---
Date of Service July 14, 2020 Assessment & Plan (1) Left-sided chest pain: Acute bilateral pulmonary embolism Suspected secondary to malignancy -CTA: Extensive bilateral pulmonary emboli as described above. No evidence for right-sided heart strain. Mild mediastinal and bilateral hilar lymphadenopathy with a few prominent supraclavicular lymph nodes. This is new from the prior study. [address] follow up recommended to evaluate for resolution and exclude the possibility of a lymphoma/neoplasm. A few scattered subcentimeter indeterminate pulmonary nodules with the largest in the right lower lobe measuring 6 mm. Please refer to the chart below for recommended follow-up. Trace bilateral pleural effusions. -No right heart strain on CT Echo pending Started on IV heparin Saturating well on room air Right lower lobe pulmonary nodule Mediastinal, hilar, supraclavicular lymphadenopathy Suspected malignancy We will obtain CT abdomen Consider pulmonary eval for possible bronchoscopy Parkinson's disease Continue home medication Mood disorder On Remeron BPH on Flomax Recent Urologic procedure Continue Keflex course. Ambulatory function PT/OT Fall precautions DVT Px: Lovenox SQ Code Status Full code Admission and Anticipated Discharge Date Admission Date: July 14, 2020 Subjective Patient is seen and examined at bedside Pleuritic chest discomfort much improved Shortness of breath much improved as well Saturating well on room air Denies dizziness, nausea, abdominal pain Offers no other complaints Review of Systems Review of Systems: All systems reviewed & are unremarkable except as noted in HPI & below Physical Exam Physical Exam: Physical Exam: Vitals signs as noted above General Appearance:Moderately built and nourished, no apparent distress Head: normocephalic, Atraumatic Eyes: normal inspection, EOMI Neck: supple, Trachea midline Respiratory/Chest: Normal breath sounds, CTA Cardiovascular: S1, S2, No murmur Abdomen/GI:Soft, Non tender, Bowel sounds present Extremities/Musculoskelatal:normal inspection, 1+ B/L LE edema Neurologic/Psych:AAOX3, grossly no focal neurological deficits, +Resting tremor Skin: normal color, warm Results & Data Results & [facility]) Vital Signs (Past 12 Hours) Vital Signs Temp Pulse Pulse Resp BP BP Pulse Ox 07/14/20 11:49 36.7 C 78 17 110/74 95 07/14/20 08:39 36.8 C 69 18 116/74 94 07/14/20 07:01 82 19 94 07/14/20 07:00 82 20 110/74 93 07/14/20 06:46 81 18 94 07/14/20 06:45 75 17 107/65 93 07/14/20 06:32 85 19 90 07/14/20 06:31 83 18 120/86 91 07/14/20 06:30 85 24 95 07/14/20 06:16 71 20 93 07/14/20 06:15 69 22 114/70 91 07/14/20 06:01 23 119/74 80 L 07/14/20 06:00 101 H 24 07/14/20 05:46 158 H 24 90 07/14/20 05:45 102 H 21 131/72 91 07/14/20 05:31 87 23 91 07/14/20 05:30 89 21 106/75 90 07/14/20 05:26 88 23 100/68 90 07/14/20 05:24 90 16 76/56 L 95 07/14/20 05:18 102 H 22 127/80 95 07/14/20 05:16 94 H 23 96 07/14/20 05:15 91 H 22 119/80 96 07/14/20 05:01 89 23 125/86 07/14/20 05:00 86 20 92 07/14/20 04:49 95 07/14/20 04:45 92 H 23 124/86 07/14/20 04:44 19 07/14/20 04:40 22 155/92 H 07/14/20 04:33 36.9 C 111 H 20 102/68 95 Laboratory Results Short CBC 07/14/20 Range/Units 04:50 WBC 8.91 (4.8-10.8) K/uL Hgb 14.9 (14.0-18.0) g/dL Hct 45.0 (42-52) % Plt Count 260 (130-400) K/uL BMP 07/14/20 04:50 Sodium 142 Potassium 3.6 Chloride 108 H Carbon Dioxide 28 BUN 9 Creatinine 1.03 Glucose 141 H Calcium 9.2 Cardiac Enzymes 07/14/20 07/14/20 Range/Units 04:50 07:22 Troponin I < 0.015 < 0.015 (0-0.045) ng/ml Liver Function 07/14/20 Range/Units 04:50 Total Bilirubin 0.7 (0.2-1) mg/dl Direct Bilirubin 0.1 (0-0.2) mg/dl AST 13 L (15-37) U/L ALT 15 (12-78) U/L Alkaline Phosphatase 149 H (45-117) U/L Albumin 3.6 (3.4-5.0) gm/dl
[2020-07-14 16:40] LABS: Partial Thromboplastin Ratio 2.4
[2020-07-14 16:55] LABS: Partial Thromboplastin Time 63.8 Seconds (21.0-31.0)
[2020-07-14] MEDS: MIRTAZAPINE TAB 15 MG TAB PO SCH (20:28)
[2020-07-14] MEDS: TAMSULOSIN HCL 0.4 MG CAP PO SCH (20:28)
--- NOTE | 2020-07-14 23:26 | Electrocardiogram Report ---
Test Reason : Blood Pressure : / mmHG Vent. Rate : 101 BPM Atrial Rate : 101 BPM P-R Int : 146 ms QRS Dur : 088 ms QT Int : 336 ms P-R-T Axes : 027 -58 057 degrees QTc Int : 435 ms Sinus tachycardia Left anterior fascicular block Cannot rule out Inferior infarct (masked by fascicular block?) , age undetermined Abnormal ECG When compared with ECG of 23-MAR-2020 05:27, No significant change was found Confirmed by Myron Diaz ([id number]) on 07/14/2020 11:25:49 PM Referred By: REFERRED SELF Confirmed By:Myron Diaz
[2020-07-15] MEDS: HEPARIN SODIUM/DEXTROSE 25,000 UNITS/500 ML BAG IV SCH (04:49)
[2020-07-15 07:22] LABS: Estimated Average Glucose 91 mg/dl; Hemoglobin A1C 4.8 % (4.5-5.6)
[2020-07-15 07:30] LABS: Basophils # (auto) 0.04 K/uL (0-0.2); Basophils % (auto) 0.6 %; Eosinophils # (auto) 0.28 K/uL (0-0.5); Eosinophils % (auto) 4.3 %; Hemoglobin 12.2 g/dL (14.0-18.0); Immature Granulocytes # (auto) 0.05 K/uL (0.00-0.02); Immature Granulocytes % (auto) 0.8 %; Lymphocytes # (auto) 0.99 K/uL (1.2-3.4); Lymphocytes % (auto) 15.1 %; Mean Corpuscular Hemoglobin 28.3 pg (25-34); Mean Corpuscular Volume 85.8 fL (80-100); Mean Platelet Volume 10.1 fL (7.4-10.4); Monocytes # (auto) 0.62 K/uL (0.11-0.59); Monocytes % (auto) 9.5 %; Neutrophils # (auto) 4.58 K/uL (1.4-6.5); Neutrophils % (auto) 69.7 %; Platelet Count 200 K/uL (130-400); RDW Coefficient of Variation 13.3 % (11.5-14.5); RDW Standard Deviation 41.9 fL (36.4-46.3); Red Blood Count 4.31 M/uL (4.7-6.1); White Blood Count 6.56 K/uL (4.8-10.8)
[2020-07-15 07:46] LABS: BUN Creatinine Ratio 11.7 (10-20); Calcium 8.7 mg/dl (8.5-10.1); Creatinine Clr Calc Pharmacy 70.1 ml/min; Est GFR (African American) 90.2 ml/min; Est GFR (Non-African American) 77.8 ml/min; Potassium 3.7 mmol/L (3.5-5.1)
[2020-07-15] MEDS ORDERED: SODIUM CHLORIDE 0.9% 1000ML 1,000 ML IV ONE (07:48)
[2020-07-15 07:50] LABS: Partial Thromboplastin Ratio 2.4
[2020-07-15 08:07] LABS: Partial Thromboplastin Time 62.5 Seconds (21.0-31.0)
[2020-07-15] MEDS: CARBIDOPA/LEVODOPA 25/100MG TAB PO SCH ×4 (08:10→20:32)
[2020-07-15] MEDS: cephALEXin 500 MG CAP PO SCH ×2 (08:10→20:32)
[2020-07-15] MEDS ORDERED: OPTIRAY 320 100ml IV ONE (08:35)
--- NOTE | 2020-07-15 09:11 | CT Scan Report ---
CT abd pelvis IV con only CLINICAL HISTORY: Possible metastatic disease. BILATERAL PULMONARY EMBOLI. THORACIC ADENOPATHY. COMPARISON STUDY: CT scan dated 03/11/2018 TECHNIQUE: The patient was scanned in a dynamic helical fashion during intravenous administration of 89 cc of Optiray 320. A dose lowering technique was utilized adhering to the principles of ALARA. CT DOSE: 752.74 mGy.cm FINDINGS: Lower chest: There is a 5 mm right lower lobe pulmonary nodule. There are small bilateral pleural eff usions with associated basilar opacities, likely atelectatic. There are bilateral pulmonary artery fi lling defects consistent with the patient's known pulmonary embolism. Liver: The contrast-enhanced liver is normal in size, contour, and attenuation. There is no intrahepa tic biliary ductal dilatation. The hepatic veins and portal veins are patent. Gallbladder: Surgically absent Spleen: Enlarged measuring 14.5 cm. Pancreas: Unremarkable. Adrenal glands: Unremarkable. Kidneys: There are bilateral renal cysts the largest of which measures 7.7 cm the right common 7.2 cm on the left. Bowel: There are no transition zones indicate bowel obstruction. There is no evidence of acute divert iculitis. There is no evidence of acute appendicitis. There is stable borderline rectal wall thickeni ng. Peritoneum: There is no intraperitoneal free air or abdominal ascites. There are postsurgical changes are prior left inguinal hernia repair. There is a tiny fat-containing right inguinal hernia. Vasculature: The abdominal aorta is normal in course and caliber. Adenopathy: None. Pelvic viscera: There is an indwelling Mccarthy catheter. The prostate is enlarged. Skeletal structures: There is an old left-sided rib fracture. There is bilateral L5 spondylolysis. Is a grade 1-2 spondylolisthesis of L5 and S1. IMPRESSION: 1. Bilateral pulmonary emboli 2. Small bilateral pleural effusions with associated basilar parenchymal opacities likely atelectatic 3. 5 mm right lower lobe pulmonary nodule 4. No evidence of bowel obstruction. No evidence of free air 5. Mild splenomegaly 6. Stable borderline rectal wall thickening 7. No evidence of abdominal lymphadenopathy 8. Bilateral renal cysts ACT 112: Negative or not required by law. Electronically signed by: Sathish Power M.D. 07/15/2020 9:10 AM
--- NOTE | 2020-07-15 09:28 | Ultrasound Report ---
BILATERAL LOWER EXTREMITY VENOUS DOPPLER HISTORY: Bilateral pulmonary emboli. Assess for DVT. COMPARISON STUDY: None. FINDINGS: Near occlusive thrombus seen within the proximal right superficial femoral vein and right d eep femoral vein extending to the junction of the common femoral vein. The right popliteal vein and r ight calf vessels are patent. There is also thrombus identified within the proximal left greater saph enous vein at the junction of the common femoral vein. The left superficial femoral, popliteal, and c mcc vessels are patent. IMPRESSION: 1. Right lower extremity DVT as described above. 2. Thrombus identified within the proximal left greater saphenous vein at the junction of the common femoral vein. Otherwise, no DVT within the left lower extremity. ACT 112: Negative or not required by law. Electronically signed by: Marc Anthony M.D. 07/15/2020 9:27 AM
--- NOTE | 2020-07-15 15:56 | Hospitalist Progress Note ---
Date of Service July 15, 2020 Assessment & Plan (1) Left-sided chest pain: Acute bilateral pulmonary embolism Acute DVT-POA Suspected secondary to malignancy -CTA: Extensive bilateral pulmonary emboli as described above. No evidence for right-sided heart strain. Mild mediastinal and bilateral hilar lymphadenopathy with a few prominent supraclavicular lymph nodes. This is new from the prior study. [address] follow up recommended to evaluate for resolution and exclude the possibility of a lymphoma/neoplasm. A few scattered subcentimeter indeterminate pulmonary nodules with the largest in the right lower lobe measuring 6 mm. Please refer to the chart below for recommended follow-up. Trace bilateral pleural effusions. -Venous Doppler: Right lower extremity DVT as described above. Thrombus identified within the proximal left greater saphenous vein at the junction of the common femoral vein. Otherwise, no DVT within the left lower extremity. -ECHO: Normal left ventricular wall thickness. Left ventricle wall motion is normal. EF 65 to 70%. Grade 1 diastolic dysfunction. Proximal ascending aorta diameter 4.1 cm -No right heart strain on CT Continue IV heparin Saturating well on room air Consulted Pulmonology May need to discharge on Lovenox Right lower lobe pulmonary nodule Mediastinal, hilar, supraclavicular lymphadenopathy Suspected malignancy -CT abdomen:Bilateral pulmonary emboli. Small bilateral pleural effusions with associated basilar parenchymal opacities likely atelectatic. 5 mm right lower lobe pulmonary nodule. . No evidence of bowel obstruction. No evidence of free air. Mild splenomegaly. Stable borderline rectal wall thickening. No evidence of abdominal lymphadenopathy. Bilateral renal cysts. -Consulted Pulmonary eval for possible bronchoscopy Parkinson's disease Continue home medication Renal Cysts Incidental finding on CT Follow-up as outpatient Mood disorder On Remeron BPH on Flomax Recent Urologic procedure Continue Keflex course. Ambulatory function PT/OT Fall precautions DVT Px: Heparin ggt Code Status Full code Admission and Anticipated Discharge Date Admission Date: July 15, 2020 Subjective Patient is seen and examined at bedside States feeling very tired today Reports mild lower back discomfort Poorly slept overnight Pleuritic chest discomfort continues to improve Saturating well on room air On IV heparin drip Denies dyspnea, dizziness, nausea, abdominal pain Review of Systems Review of Systems: All systems reviewed & are unremarkable except as noted in HPI & below Physical Exam Physical Exam: Physical Exam: Vitals signs as noted above General Appearance:Moderately built and nourished, no apparent distress Head: normocephalic, Atraumatic Eyes: normal inspection, EOMI Neck: supple, Trachea midline Respiratory/Chest: Normal breath sounds, CTA Cardiovascular: S1, S2, No murmur Abdomen/GI:Soft, Non tender, Bowel sounds present Extremities/Musculoskelatal:normal inspection, 1+ B/L LE edema Neurologic/Psych:AAOX3, grossly no focal neurological deficits, +Resting tremor Skin: normal color, warm Results & Data Results & Data ([facility]) Vital Signs (Past 12 Hours) Vital Signs Temp Pulse Pulse Resp BP Pulse Ox 07/15/20 15:37 37.2 C 90 18 104/68 95 07/15/20 11:44 36.9 C 61 18 126/80 93 07/15/20 08:34 72 07/15/20 07:05 37.2 C 58 L 19 146/81 H 96 07/15/20 03:51 36.7 C 66 21 122/82 96 Laboratory Results Short CBC 07/15/20 Range/Units 06:55 WBC 6.56 (4.8-10.8) K/uL Hgb 12.2 L (14.0-18.0) g/dL Hct 37.0 L (42-52) % Plt Count 200 (130-400) K/uL BMP 07/15/20 06:55 Sodium 137 Potassium 3.7 Chloride 107 Carbon Dioxide 28 BUN 12 Creatinine 0.98 Glucose 93 Calcium 8.7
--- NOTE | 2020-07-15 15:56 | Pulmonary Consultation ---
Date of Consultation July 15, 2020 Assessment & Plan (1) Pulmonary embolism: CT chest 07/11/2020 personally reviewed: Bilateral pulmonary emboli appreciated. No right heart strain. Dependent atelectasis bilateral lower lobes. Minimal right-sided pleural effusion Mediastinal lymphadenopathy especially at station 4L, NR. Elevated right hemidiaphragm Multiple pulmonary nodules bilaterally less than 6 mm. Left perifissural nodules This was compared to previous CAT scan which was done in 01/2018 --Acute PE with DVT Seems to be provoked from recent surgery as well as immobilization Continue with anticoagulation Given the patient is nonambulatory at home I think consideration to lifelong anticoagulation could be thought of Minimum 3-6 months anticoagulation --Mediastinal lymphadenopathy Nonspecific Patient does have some perifissural nodules as well Possibility of sarcoidosis as well as malignancy does persist. --Multiple pulmonary nodules In a non-smoker Repeat CT chest as per Fleischner's criteria Plan: Patient does have mediastinal lymphadenopathy which is very nonspecific. No lung mass. No abdominal lymphadenopathy. In the light of recent pulmonary emboli which is most likely provoked from recent surgery as well as immobilization from his underlying Parkinson's, would recommend repeat CT chest in 2-3 months. Outpatient pulmonary follow-up. No intervention from pulmonary perspective currently. Case was discussed with Dr. Elliott Pulmonary will follow peripherally. Call directly with any questions Please note the above document was generated using voice recognition software. It may contain grammatical, syntax or spelling errors.Any formal questions or concerns about the content, text or information contained within the body of this dictation should be directly addressed to the provider for clarification. (2) Mediastinal lymphadenopathy due to sarcoidosis: (3) DVT (deep venous thrombosis): History of Present Illness Attending Physician: Zach Elliott MD History of Present Illness 70-year-old male past medical history of Parkinson's disease, hypertension, past heavy alcohol use presented to the hospital with complaints of chest pain was found to have PE Pulmonary consulted for pulmonary embolism as well as mediastinal lymphadenopath y At the time of examination patient was feeling better compared to when he came to the hospital He is on heparin drip currently. Denies any cough. Denies any hemoptysis. Chest pain is much better. Denies any shortness of breath. As per him he does not do much. He mostly is bedbound. No recent travel history. Denies any fever or chills. No night sweats, no weight loss. No personal history of any cancer. 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 History was obtained from previous records, patient as well as ER notes. Allergies Allergy/AdvReac Type Severity Reaction Status Date / Time No Known Allergies Allergy Verified 07/14/20 07:13 Home Medications Medication Instructions Recorded Confirmed Type carbidopa-levodopa 1 tab PO QID 06/24/20 07/14/20 History mirtazapine 15 mg PO HS 06/24/20 07/14/20 History tamsulosin 0.4 mg PO HS 06/24/20 07/14/20 History oxycodone-acetaminophen [Percocet] 1 tab PO Q8H PRN #7 tab 07/08/20 07/14/20 Rx phenazopyridine [Pyridium] 200 mg PO Q8H PRN #10 tab 07/08/20 07/14/20 Rx aspirin [Aspirin Low Dose] 81 mg PO DAILY 07/14/20 07/14/20 History cephalexin 500 mg PO BID 07/14/20 07/14/20 History hydrocortisone 1 applic TOPICAL DAILY 07/14/20 07/14/20 History Patient History Medical History (Updated 07/15/20 @ 15:49 by Gretchen Martel MD) Alcoholism /alcohol abuse Generalized weakness GERD (gastroesophageal reflux disease) Meatal stenosis Parkinsons disease Renal insufficiency Improved Surgical History History of inguinal hernia repair Left History of tonsillectomy S/P laparoscopic cholecystectomy Family History Other No significant family history Social History Smoking Status: Never smoker Second Hand Exposure: No; Hx Alcohol Use: No Hx Substance Use: No Preferred Language: Yoruba Communication Ability: Effective Visual Impairment: No Limitations Tight Rope Walker Required: No Beliefs That Will Affect Care: None marital status: / Current Living Situation: Family How many Children do You have: 2 Other Information That Helps Us Care for You: No Feels Safe at Home: Yes Safety Concerns: Feels Safe At This Time Assistive Devices: Walker Review of Systems Review of Systems: All systems reviewed & are unremarkable except as noted in HPI & below Physical Exam Physical Exam: Constitutional: No acute distress HEENT: EOMI, PERRLA Respiratory system: Decreased air entry bilaterally, no wheeze, no cough, positive crackles bilateral lower lobes CVS: S1-S2 positive, no murmurs or gallops Abdomen: Soft, nontender, nondistended, positive bowel sounds x4 Extremities: +2 pulses bilaterally radialis/ dorsalis pedis, no cyanosis, no edema, onychomycosis bilateral lower extremity Neuro: Awake alert oriented x3 Psych: Normal mood and affect G/U: Positive Mccarthy Musculoskeletal: Resting tremor appreciated Skin: no rashes, warm and dry Lymphatic: no cervical or axillary lymphadenopathy Results & Data Results & Data ([facility]) Vital Signs (Past 12 Hours) Vital Signs Temp Pulse Pulse Resp BP Pulse Ox 07/15/20 15:37 37.2 C 90 18 104/68 95 07/15/20 11:44 36.9 C 61 18 126/80 93 07/15/20 08:34 72 07/15/20 07:05 37.2 C 58 L 19 146/81 H 96 07/15/20 03:51 36.7 C 66 21 122/82 96 07/15/20 06:55 07/15/20 06:55 PG Care Time/CCT Total # of Minutes Spent Total Time Spent with Patient: Total time spent is greater than 50% in coordination of care (as documented) at patient's floor/unit and/or counseling patient: Coding Level of Care Code 68396 Initial Inpt Care Lvl 3 Diagnoses Pulmonary embolism I26.99 Mediastinal 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
[2020-07-15] MEDS: TAMSULOSIN HCL 0.4 MG CAP PO SCH (20:32)
[2020-07-15] MEDS: MIRTAZAPINE TAB 15 MG TAB PO SCH (20:32)
[2020-07-16] MEDS: HEPARIN SODIUM/DEXTROSE 25,000 UNITS/500 ML BAG IV SCH (00:01)
[2020-07-16 06:49] LABS: Hematocrit (blood only) 35.8 % (42-52); Hemoglobin 11.7 g/dL (14.0-18.0); Mean Corpuscular Hemoglobin 27.9 pg (25-34); Mean Corpuscular Hgb Conc 32.7 g/dL (32-36); Mean Corpuscular Volume 85.4 fL (80-100); Mean Platelet Volume 9.6 fL (7.4-10.4); Platelet Count 217 K/uL (130-400); RDW Coefficient of Variation 13.3 % (11.5-14.5); RDW Standard Deviation 41.6 fL (36.4-46.3); Red Blood Count 4.19 M/uL (4.7-6.1); White Blood Count 6.69 K/uL (4.8-10.8)
[2020-07-16 07:12] LABS: Partial Thromboplastin Ratio 2.7
[2020-07-16 07:22] LABS: BUN Creatinine Ratio 14.9 (10-20); Calcium 8.7 mg/dl (8.5-10.1); Est GFR (African American) 105.4 ml/min; Potassium 4.1 mmol/L (3.5-5.1)
[2020-07-16 07:26] LABS: Partial Thromboplastin Time 70.5 Seconds (21.0-31.0)
[2020-07-16] MEDS: CARBIDOPA/LEVODOPA 25/100MG TAB PO SCH ×4 (08:02→20:19)
[2020-07-16] MEDS: cephALEXin 500 MG CAP PO SCH ×2 (08:03→20:20)
--- NOTE | 2020-07-16 09:34 | Pulmonology Progress Note ---
Date of Service July 16, 2020 Assessment & Plan (1) Pulmonary embolism: CT chest 07/11/2020 personally reviewed: Bilateral pulmonary emboli appreciated. No right heart strain. Dependent atelectasis bilateral lower lobes. Minimal right-sided pleural effusion Mediastinal lymphadenopathy especially at station 4L, NR. Elevated right hemidiaphragm Multiple pulmonary nodules bilaterally less than 6 mm. Left perifissural nodules This was compared to previous CAT scan which was done in 01/2018 --Acute PE with DVT Seems to be provoked from recent surgery as well as immobilization Continue with anticoagulation Given the patient is nonambulatory at home I think consideration to lifelong anticoagulation could be thought of Minimum 3-6 months anticoagulation --Mediastinal lymphadenopathy Nonspecific Patient does have some perifissural nodules as well Possibility of sarcoidosis as well as malignancy does persist. --Multiple pulmonary nodules In a non-smoker Repeat CT chest as per Fleischner's criteria Plan: Patient does have mediastinal lymphadenopathy which is very nonspecific. No lung mass. No abdominal lymphadenopathy. In the light of recent pulmonary emboli which is most likely provoked from recent surgery as well as immobilization from his underlying Parkinson's, would recommend repeat CT chest in 2-3 months. Outpatient pulmonary follow-up. Plan was discussed with patient and he understands. All questions inquiries of the patient were answered in depth. No intervention from pulmonary perspective. Pulmonary will follow peripherally. Call directly with any questions Please note the above document was generated using voice recognition software. It may contain grammatical, syntax or spelling errors.Any formal questions or concerns about the content, text or information contained within the body of this dictation should be directly addressed to the provider for clarification. 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 No acute distress. No adverse events overnight. Patient was having breakfast with time of examination. He denies any chest pain, no headache, no nausea, no vomiting. No shortness of breath. Review of Systems Review of Systems: All systems reviewed & are unremarkable except as noted in Subjective Physical Exam Physical Exam: Constitutional: No acute distress HEENT: EOMI, PERRLA Respiratory system: Decreased air entry bilaterally, no wheeze, no cough, positive crackles bilateral lower lobes CVS: S1-S2 positive, no murmurs or gallops Abdomen: Soft, nontender, nondistended, positive bowel sounds x4 Extremities: +2 pulses bilaterally radialis/ dorsalis pedis, no cyanosis, no edema, onychomycosis bilateral lower extremity Neuro: Awake alert oriented x3 Psych: Normal mood and affect G/U: Positive Mccarthy Musculoskeletal: Resting tremor appreciated Skin: no rashes, warm and dry Lymphatic: no cervical or axillary lymphadenopathy Results & Data Results & Data ([facility]) Vital Signs (Past 12 Hours) Vital Signs Temp Pulse Pulse Resp BP Pulse Ox 07/16/20 09:00 59 L 07/16/20 07:07 37.1 C 62 18 120/74 95 07/16/20 03:05 36.5 C 60 16 125/79 94 07/15/20 23:43 36.6 C 57 L 18 124/70 96 07/15/20 23:09 52 L 07/16/20 06:20 07/16/20 06:20 PG Care Time/CCT Total # of Minutes Spent Total Time Spent with Patient: Total time spent is greater than 50% in coordination of care (as documented) at patient's floor/unit and/or counseling patient: Coding Level of Care Code 34018 Subseq Hosp Care Lvl 3 Diagnoses Pulmonary embolism I26.99 Mediastinal 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
[2020-07-16] MEDS: APIXABAN 5 MG TABLET PO SCH ×2 (11:43→20:20)
--- NOTE | 2020-07-16 15:56 | Hospitalist Progress Note ---
Date of Service July 16, 2020 Assessment & Plan (1) Left-sided chest pain: Acute bilateral pulmonary embolism Acute DVT-POA Suspected secondary to malignancy -CTA: Extensive bilateral pulmonary emboli as described above. No evidence for right-sided heart strain. Mild mediastinal and bilateral hilar lymphadenopathy with a few prominent supraclavicular lymph nodes. This is new from the prior study. [address] follow up recommended to evaluate for resolution and exclude the possibility of a lymphoma/neoplasm. A few scattered subcentimeter indeterminate pulmonary nodules with the largest in the right lower lobe measuring 6 mm. Please refer to the chart below for recommended follow-up. Trace bilateral pleural effusions. -Venous Doppler: Right lower extremity DVT as described above. Thrombus identified within the proximal left greater saphenous vein at the junction of the common femoral vein. Otherwise, no DVT within the left lower extremity. -ECHO: Normal left ventricular wall thickness. Left ventricle wall motion is normal. EF 65 to 70%. Grade 1 diastolic dysfunction. Proximal ascending aorta diameter 4.1 cm -No right heart strain on CT Saturating well on room air Appreciate Pulmonology Input IV heparin transition to apixaban--start 10 mg twice daily for 7 days, then transition to 5 mg twice daily Duration of anticoagulation will be determined after hypercoagulable work-up as outpatient Needs follow-up with pulmonology upon discharge Right lower lobe pulmonary nodule Mediastinal, hilar, supraclavicular lymphadenopathy Suspected malignancy DD sarcoidosis -CT abdomen:Bilateral pulmonary emboli. Small bilateral pleural effusions with associated basilar parenchymal opacities likely atelectatic. 5 mm right lower lobe pulmonary nodule. . No evidence of bowel obstruction. No evidence of free air. Mild splenomegaly. Stable borderline rectal wall thickening. No evidence of abdominal lymphadenopathy. Bilateral renal cysts. -Appreciate pulmonology input Needs repeat CT chest in 2 to 3 months Needs follow-up with pulmonology upon discharge Parkinson's disease Continue home medication Renal Cysts Incidental finding on CT Follow-up as outpatient Mood disorder On Remeron BPH on Flomax Recent Urologic procedure Continue Keflex course. Ambulatory function PT/OT Fall precautions DVT Px: Apixaban Code Status Full code Disposition Plan to discharge to rehab facility when accepted Admission and Anticipated Discharge Date Admission Date: July 15, 2020 Subjective Patient is seen and examined at bedside No new complaints today Pleuritic chest discomfort resolved Updated patient's son over the phone Denies any bleeding issues while on IV heparin Denies dyspnea, dizziness, nausea, abdominal pain Review of Systems Review of Systems: All systems reviewed & are unremarkable except as noted in HPI & below Physical Exam Physical Exam: Physical Exam: Vitals signs as noted above General Appearance:Moderately built and nourished, no apparent distress Head: normocephalic, Atraumatic Eyes: normal inspection, EOMI Neck: supple, Trachea midline Respiratory/Chest: Normal breath sounds, CTA Cardiovascular: S1, S2, No murmur Abdomen/GI:Soft, Non tender, Bowel sounds present Extremities/Musculoskelatal:normal inspection, Trace LE edema Neurologic/Psych:AAOX3, grossly no focal neurological deficits, +Resting tremor Skin: normal color, warm Results & Data Results & Data ([facility]) Vital Signs (Past 12 Hours) Vital Signs Temp Pulse Pulse Resp BP BP Pulse Ox 07/16/20 11:50 37.1 C 79 18 131/84 96 07/16/20 09:00 59 L 07/16/20 07:07 37.1 C 62 18 120/74 95 Laboratory Results Short CBC 07/16/20 Range/Units 06:20 WBC 6.69 (4.8-10.8) K/uL Hgb 11.7 L (14.0-18.0) g/dL Hct 35.8 L (42-52) % Plt Count 217 (130-400) K/uL BMP 07/16/20 06:20 Sodium 141 Potassium 4.1 Chloride 108 H Carbon Dioxide 27 BUN 12 Creatinine 0.79 Glucose 81 Calcium 8.7
[2020-07-16] MEDS: TAMSULOSIN HCL 0.4 MG CAP PO SCH (20:19)
[2020-07-16] MEDS: MIRTAZAPINE TAB 15 MG TAB PO SCH (20:19)
[2020-07-17 07:02] LABS: Hematocrit (blood only) 39.6 % (42-52); Hemoglobin 12.7 g/dL (14.0-18.0); Mean Corpuscular Hemoglobin 27.7 pg (25-34); Mean Corpuscular Hgb Conc 32.1 g/dL (32-36); Mean Corpuscular Volume 86.5 fL (80-100); Mean Platelet Volume 9.8 fL (7.4-10.4); Platelet Count 256 K/uL (130-400); RDW Coefficient of Variation 13.3 % (11.5-14.5); RDW Standard Deviation 42.1 fL (36.4-46.3); Red Blood Count 4.58 M/uL (4.7-6.1); White Blood Count 7.74 K/uL (4.8-10.8)
[2020-07-17 07:26] LABS: BUN Creatinine Ratio 14.5 (10-20); Calcium 8.6 mg/dl (8.5-10.1); Creatinine Clr Calc Pharmacy 74.7 ml/min; Est GFR (African American) 97.3 ml/min; Magnesium 2.2 mg/dl (1.8-2.4); Potassium 3.8 mmol/L (3.5-5.1)
[2020-07-17] MEDS: APIXABAN 5 MG TABLET PO SCH ×2 (08:10→20:01)
[2020-07-17] MEDS: cephALEXin 500 MG CAP PO SCH ×2 (08:10→20:01)
[2020-07-17] MEDS: CARBIDOPA/LEVODOPA 25/100MG TAB PO SCH ×4 (08:11→20:01)
--- NOTE | 2020-07-17 10:28 | Hospitalist Progress Note ---
Date of Service July 17, 2020 Assessment & Plan (1) Left-sided chest pain: Acute bilateral pulmonary embolism Acute DVT-POA Suspected secondary to malignancy -CTA: Extensive bilateral pulmonary emboli as described above. No evidence for right-sided heart strain. Mild mediastinal and bilateral hilar lymphadenopathy with a few prominent supraclavicular lymph nodes. This is new from the prior study. [address] follow up recommended to evaluate for resolution and exclude the possibility of a lymphoma/neoplasm. A few scattered subcentimeter indeterminate pulmonary nodules with the largest in the right lower lobe measuring 6 mm. Please refer to the chart below for recommended follow-up. Trace bilateral pleural effusions. -Venous Doppler: Right lower extremity DVT as described above. Thrombus identified within the proximal left greater saphenous vein at the junction of the common femoral vein. Otherwise, no DVT within the left lower extremity. -ECHO: Normal left ventricular wall thickness. Left ventricle wall motion is normal. EF 65 to 70%. Grade 1 diastolic dysfunction. Proximal ascending aorta diameter 4.1 cm -No right heart strain on CT Saturating well on room air Appreciate Pulmonology Input Apixaban--10 mg twice daily for 7 days, then 5 mg twice daily Duration of anticoagulation will be determined after hypercoagulable work-up as outpatient Needs follow-up with pulmonology upon discharge CT 2-3 months Right lower lobe pulmonary nodule Mediastinal, hilar, supraclavicular lymphadenopathy Suspected malignancy DD sarcoidosis -CT abdomen:Bilateral pulmonary emboli. Small bilateral pleural effusions with associated basilar parenchymal opacities likely atelectatic. 5 mm right lower lobe pulmonary nodule. . No evidence of bowel obstruction. No evidence of free air. Mild splenomegaly. Stable borderline rectal wall thickening. No evidence of abdominal lymphadenopathy. Bilateral renal cysts. -Appreciate pulmonology input Needs repeat CT chest in 2 to 3 months Needs follow-up with pulmonology upon discharge Parkinson's disease Continue home medication Renal Cysts Incidental finding on CT Follow-up as outpatient Mood disorder On Remeron BPH on Flomax Recent Urologic procedure Continue Keflex course. Ambulatory function PT/OT Fall precautions DVT Px: Apixaban Code Status Full code Disposition Plan to discharge to rehab facility when accepted, hopefully today ROS-No Headache, No Visual Changes, No Nausea, No Vomiting, No Fever, No Chills, No Neck Pain or Stiffness, No Chest Pain, No Palpitations, No SOB, No ACUNA, No Cough, No Sputum, No Wheezing, No Abdominal Pain, No Diarrhea, No Hematemesis, No Hemoptysis, No Unexpected Weight Loss, No Flank pain, No Melena, No Hematochezia, No Frequency, No Urgency, No Burning, No Hematuria, No Rashes, No Diaphoresis. Appetite is Normal Physical Exam Gen-AAO x 3, NAD, Afebrile Head-NCAT, EOMI, PERRLA, Anicteric Sclera, No Posterior Pharyngeal Erythema Neck-Supple, No JVD, No Thyromegaly, No Masses, No LAD, No Bruits Lungs-Clear to Auscultation Bilaterally, No Rales, No Rhonchi, No Wheezing, No Crepitus Chest-No S4, +S1, +S2, No S3, No Murmurs, No Rubs, No Gallops, No Ectopy Abdomen-Soft, Bowel Sounds Present, Non Tender, Non Distended, No Hepatomegaly, No Splenomegaly, No Palpable Masses, No Rebound, No Rigidity, No Guarding Musculoskeletal-Full Range of Motion Bilaterally, No CVAT Extremities-No Cyanosis, No Clubbing, No Edema Nuero-Cranial Nerves II-XII grossly intact, Motor WNL, DTRs WNL, Strength WNL, Non Focal Psych-Normal Mood Admission and Anticipated Discharge Date Admission Date: July 15, 2020 Results & Data Results & Data ([facility]) Vital Signs (Past 12 Hours) Vital Signs Temp Pulse Resp BP BP Pulse Ox 07/17/20 07:21 36.7 C 66 18 116/75 96 07/17/20 03:31 37.0 C 60 18 116/79 96 07/16/20 22:51 36.8 C 79 16 107/70 94
[2020-07-17] MEDS ORDERED: DICLOFENAC SOD 1% GEL 100 GM TUBE EXT PRN (18:12)
[2020-07-17] MEDS: MIRTAZAPINE TAB 15 MG TAB PO SCH (20:00)
[2020-07-17] MEDS: TAMSULOSIN HCL 0.4 MG CAP PO SCH (20:01)
[2020-07-18 06:07] LABS: Hematocrit (blood only) 36.7 % (42-52); Hemoglobin 11.9 g/dL (14.0-18.0); Mean Corpuscular Hemoglobin 27.7 pg (25-34); Mean Corpuscular Hgb Conc 32.4 g/dL (32-36); Mean Corpuscular Volume 85.3 fL (80-100); Mean Platelet Volume 9.5 fL (7.4-10.4); Platelet Count 239 K/uL (130-400); RDW Coefficient of Variation 13.4 % (11.5-14.5); RDW Standard Deviation 41.2 fL (36.4-46.3); White Blood Count 5.94 K/uL (4.8-10.8)
[2020-07-18 06:52] LABS: BUN Creatinine Ratio 15.6 (10-20); Calcium 8.2 mg/dl (8.5-10.1); Creatinine Clr Calc Pharmacy 78.1 ml/min; Est GFR (African American) 100.9 ml/min
[2020-07-18] MEDS: APIXABAN 5 MG TABLET PO SCH ×2 (08:26→20:43)
[2020-07-18] MEDS: CARBIDOPA/LEVODOPA 25/100MG TAB PO SCH ×4 (08:26→20:43)
--- NOTE | 2020-07-18 11:20 | Discharge Summary ---
Date of Service July 19, 2020 Admission HPI Per Admitting Provider History obtained from patient, family, and records. Medical history significant for hypertension, Parkinson's disease, urinary bladder stone/meatal stenosis status post recent surgery, past alcohol abuse. Recent confinement February 2020 for generalized weakness and deconditioning. Patient underwent outpatient cystoscopy with bladder stone extraction at same day surgery last week. Meatoplasty/meatotomy done as well for meatal stricture/stenosis. Patient injured his left leg a few days ago while walking at home. Patient has unstable gait from Parkinson's as per son. This morning, patient roused from sleep by left-sided pleuritic chest pain with some shortness of breath. No cough symptoms. No prior episodes in the past. At the ER, patient given nitroglycerin which made hime almost pass out as per patient. Transient BP drop to the 70s. Chest pain unimproved by nitroglycerin as per patient. 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 Admission Exam Per Admitting Provider GENERAL: Comfortable, masklike stare, no respiratory distress SKIN: Normal color, warm HEENT: Ivins palpebral conjunctivae, no ptosis, dry buccal mucosa NECK : Supple, no tenderness CHEST : CTA, no tenderness HEART : RRR, no obvious murmurs ABDOMEN: Some distention, nontender EXTREMITIES : contusion left lower extremity, with minimal tenderness, no other conspicuous deformities noted NEUROLOGIC : Coherent, no facial asymmetry, rest tremors of the legs, no other gross focality Principal Diagnosis Left-sided chest pain: Acute bilateral pulmonary embolism Acute DVT Right lower lobe pulmonary nodule Mediastinal, hilar, supraclavicular lymphadenopathy Suspected malignancy DD sarcoidosis Parkinson's disease Renal Cysts Mood disorder BPH Recent Urologic procedure Ambulatory Dysfunction Discharge Exam See below Discharge Data Allergies Allergy/AdvReac Type Severity Reaction Status Date / Time No Known Allergies Allergy Verified 07/14/20 07:13 Consultations 07/14/20 06:28 ED Decision to Admit Stat 07/15/20 07:49 Consult Pulmonology Routine Ordered Studies 07/14/20 06:42 CT angio chest PE protocol Stat 07/15/20 07:46 CT abd pelvis IV con only Routine 07/15/20 07:58 US venous doppler LE BI Routine Current Diagnoses 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) Other pulmonary embolism without acute cor pulmonale (07/15/20) Acute embolism and thrombosis of unspecified deep veins of unspecified lower extremity (07/15/20) Chest pain, unspecified (07/15/20) Localized enlarged lymph nodes (07/15/20) Allergies No Known Allergies Allergy (Verified 07/14/20 07:13) Height/Weight/Isolation Height 5 ft 9 in Weight 78.1 kg Chemistry 07/17/20 07/18/20 06:35 05:52 Sodium 142 143 Potassium 3.8 4.0 Chloride 109 H 111 H Carbon Dioxide 28 30 Anion Gap 5.0 2.0 L BUN 13 14 Creatinine 0.92 0.88 Glucose 99 106 H Hospital Course (1) Left-sided chest pain: Acute bilateral pulmonary embolism Acute DVT-POA Suspected secondary to malignancy -CTA: Extensive bilateral pulmonary emboli as described above. No evidence for right-sided heart strain. Mild mediastinal and bilateral hilar lymphadenopathy with a few prominent supraclavicular lymph nodes. This is new from the prior study. [address] follow up recommended to evaluate for resolution and exclude the possibility of a lymphoma/neoplasm. A few scattered subcentimeter indeterminate pulmonary nodules with the largest in the right lower lobe measuring 6 mm. Please refer to the chart below for recommended follow-up. Trace bilateral pleural effusions. -Venous Doppler: Right lower extremity DVT as described above. Thrombus identified within the proximal left greater saphenous vein at the junction of the common femoral vein. Otherwise, no DVT within the left lower extremity. -ECHO: Normal left ventricular wall thickness. Left ventricle wall motion is normal. EF 65 to 70%. Grade 1 diastolic dysfunction. Proximal ascending aorta diameter 4.1 cm -No right heart strain on CT Saturating well on room air Apixaban--10 mg twice daily for 7 days, then 5 mg twice daily Duration of anticoagulation will be determined after hypercoagulable work-up as outpatient and at least 3-6 months of A/C Needs follow-up with pulmonology upon discharge CT 2-3 months Right lower lobe pulmonary nodule Mediastinal, hilar, supraclavicular lymphadenopathy Suspected malignancy DD sarcoidosis -CT abdomen:Bilateral pulmonary emboli. Small bilateral pleural effusions with associated basilar parenchymal opacities likely atelectatic. 5 mm right lower lobe pulmonary nodule. . No evidence of bowel obstruction. No evidence of free air. Mild splenomegaly. Stable borderline rectal wall thickening. No evidence of abdominal lymphadenopathy. Bilateral renal cysts. Needs repeat CT chest in 2 to 3 months Parkinson's disease Continue home medication Renal Cysts Incidental finding on CT Follow-up as outpatient Mood disorder On Remeron BPH on Flomax Recent Urologic procedure Continue Keflex course. Ambulatory function PT/OT Fall precautions DVT Px: Apixaban Code Status Full code Disposition Plan to discharge to rehab facility when accepted, hopefully today [facility], await auth ROS-No Headache, No Visual Changes, No Nausea, No Vomiting, No Fever, No Chills, No Neck Pain or Stiffness, No Chest Pain, No Palpitations, No SOB, No ACUNA, No Cough, No Sputum, No Wheezing, No Abdominal Pain, No Diarrhea, No Hematemesis, No Hemoptysis, No Unexpected Weight Loss, No Flank pain, No Melena, No Hematochezia, No Frequency, No Urgency, No Burning, No Hematuria, No Rashes, No Diaphoresis. Appetite is Normal Physical Exam Gen-AAO x 3, NAD, Afebrile, Parkinsonian Facies Head-NCAT, EOMI, PERRLA, Anicteric Sclera, No Posterior Pharyngeal Erythema Neck-Supple, No JVD, No Thyromegaly, No Masses, No LAD, No Bruits Lungs-Clear to Auscultation Bilaterally, No Rales, No Rhonchi, No Wheezing, No Crepitus Chest-No S4, +S1, +S2, No S3, No Murmurs, No Rubs, No Gallops, No Ectopy Abdomen-Soft, Bowel Sounds Present, Non Tender, Non Distended, No Hepatomegaly, No Splenomegaly, No Palpable Masses, No Rebound, No Rigidity, No Guarding Musculoskeletal-Full Range of Motion Bilaterally, No CVAT Extremities-No Cyanosis, No Clubbing, No Edema Nuero-Cranial Nerves II-XII grossly intact, Motor WNL, DTRs WNL, Strength WNL, Non Focal Psych-Normal Mood Total Time Total Time Spent Total Time Spent (In Minutes): 45 mins Total Time Includes: Examination of the Patient, Discharge Planning, Medication Reconciliation and Communication With Other Providers Discharge Plan Discharge Items Patient Disposition: Transfer Nursing Home Fac Reason For Visit: CHEST PAIN Discharge Diagnosis: Left-sided chest pain: Acute bilateral pulmonary embolism Acute DVT Right lower lobe pulmonary nodule Mediastinal, hilar, supraclavicular lymphadenopathy Suspected malignancy DD sarcoidosis Parkinson's disease Renal Cysts Mood disorder BPH Recent Urologic procedure Ambulatory Dysfunction Condition on Discharge: Fair Health Concerns: Parkinsonian Activity: Resume your previous activity Lifting: None Bathing: No limitations Exercise/Sports: None Driving/Machine Use: none Weightbearing: Full weightbearing Non-emergency contact: Primary Care Provider and Family Court Counsellor Call non-emergency contact if: you have any medication questions Follow-up/Referrals: Gretchen Martel MD [Physician] - (2-3 weeks) [facility] [Non-Staff] - Elio Hester MD [Primary Care Provider] - Diet: Heart Healthy Diet Texture: Easy to Chew Addtl Attending Provider Instructions: None Pending Studies at Discharge: No Stand-Alone Forms: [employer] Skilled Items Patient informed of condition?: Yes DNR: No Discharge Level of Care: Skilled Communicable Disease: No Discharge Prognosis: Stable Lines: None Urinary Catheter: No Medications and DC Order Prescriptions: New apixaban 5 mg (74 tabs) tablets,dose pack 5 mg PO UD Qty: 74 RF: 0 Eliquis 5 mg Tablet 10 mg PO BID Qty: 90 RF: 0 Continued tamsulosin 0.4 mg Capsule 0.4 mg PO HS RF: 0 mirtazapine 15 mg Tablet 15 mg PO HS RF: 0 carbidopa-levodopa 25-100 mg Tablet 1 tab PO QID RF: 0 hydrocortisone 2.5 % cream with perineal applicator 1 applic topical DAILY RF: 0 Discontinued oxycodone-acetaminophen [Percocet] 7.5-325 mg tablet 1 tab PO Q8H PRN (Reason: pain) Qty: 7 RF: 0 phenazopyridine [Pyridium] 200 mg tablet 200 mg PO Q8H PRN (Reason: pain) Qty: 10 RF: 0 cephalexin 500 mg capsule 500 mg PO BID RF: 0 aspirin [Aspirin Low Dose] 81 mg Tablet,Delayed Release (Dr/Ec) 81 mg PO DAILY RF: 0 Admission Data Admit Date/Time: 07/15/20 08:03 Attending Provider: Sunday Cano Admit Provider: Anthony Sanchez Primary Care Provider: Elio Hester Other Providers: Anthony Sanchez ; Gretchen Martel ; [facility]
--- NOTE | 2020-07-18 16:27 | Hospitalist Progress Note ---
Date of Service July 18, 2020 Assessment & Plan (1) Left-sided chest pain: Acute bilateral pulmonary embolism Acute DVT-POA Suspected secondary to malignancy -CTA: Extensive bilateral pulmonary emboli as described above. No evidence for right-sided heart strain. Mild mediastinal and bilateral hilar lymphadenopathy with a few prominent supraclavicular lymph nodes. This is new from the prior study. [address] follow up recommended to evaluate for resolution and exclude the possibility of a lymphoma/neoplasm. A few scattered subcentimeter indeterminate pulmonary nodules with the largest in the right lower lobe measuring 6 mm. Please refer to the chart below for recommended follow-up. Trace bilateral pleural effusions. -Venous Doppler: Right lower extremity DVT as described above. Thrombus identified within the proximal left greater saphenous vein at the junction of the common femoral vein. Otherwise, no DVT within the left lower extremity. -ECHO: Normal left ventricular wall thickness. Left ventricle wall motion is normal. EF 65 to 70%. Grade 1 diastolic dysfunction. Proximal ascending aorta diameter 4.1 cm -No right heart strain on CT Saturating well on room air Apixaban--10 mg twice daily for 7 days, then 5 mg twice daily Duration of anticoagulation will be determined after hypercoagulable work-up as outpatient and at least 3-6 months of A/C Needs follow-up with pulmonology upon discharge CT 2-3 months Right lower lobe pulmonary nodule Mediastinal, hilar, supraclavicular lymphadenopathy Suspected malignancy DD sarcoidosis -CT abdomen:Bilateral pulmonary emboli. Small bilateral pleural effusions with associated basilar parenchymal opacities likely atelectatic. 5 mm right lower lobe pulmonary nodule. . No evidence of bowel obstruction. No evidence of free air. Mild splenomegaly. Stable borderline rectal wall thickening. No evidence of abdominal lymphadenopathy. Bilateral renal cysts. Needs repeat CT chest in 2 to 3 months Parkinson's disease Continue home medication Renal Cysts Incidental finding on CT Follow-up as outpatient Mood disorder On Remeron BPH on Flomax Recent Urologic procedure Continue Keflex course. Ambulatory function PT/OT Fall precautions DVT Px: Apixaban Code Status Full code Disposition Plan to discharge to rehab facility when accepted, hopefully today [facility], awaiting auth ROS-No Headache, No Visual Changes, No Nausea, No Vomiting, No Fever, No Chills, No Neck Pain or Stiffness, No Chest Pain, No Palpitations, No SOB, No ACUNA, No Cough, No Sputum, No Wheezing, No Abdominal Pain, No Diarrhea, No Hematemesis, No Hemoptysis, No Unexpected Weight Loss, No Flank pain, No Melena, No Hematochezia, No Frequency, No Urgency, No Burning, No Hematuria, No Rashes, No Diaphoresis. Appetite is Normal Physical Exam Gen-AAO x 3, NAD, Afebrile, Parkinsonian Facies Head-NCAT, EOMI, PERRLA, Anicteric Sclera, No Posterior Pharyngeal Erythema Neck-Supple, No JVD, No Thyromegaly, No Masses, No LAD, No Bruits Lungs-Clear to Auscultation Bilaterally, No Rales, No Rhonchi, No Wheezing, No Crepitus Chest-No S4, +S1, +S2, No S3, No Murmurs, No Rubs, No Gallops, No Ectopy Abdomen-Soft, Bowel Sounds Present, Non Tender, Non Distended, No Hepatomegaly, No Splenomegaly, No Palpable Masses, No Rebound, No Rigidity, No Guarding Musculoskeletal-Full Range of Motion Bilaterally, No CVAT Extremities-No Cyanosis, No Clubbing, No Edema Nuero-Cranial Nerves II-XII grossly intact, Motor WNL, DTRs WNL, Strength WNL, Non Focal Psych-Normal Mood Admission and Anticipated Discharge Date Admission Date: July 15, 2020 Results & Data Results & Data ([facility]) Vital Signs (Past 12 Hours) Vital Signs Temp Pulse Pulse Resp BP Pulse Ox 07/18/20 15:16 36.9 C 83 18 112/76 94 07/18/20 11:22 37.1 C 81 19 124/80 96 07/18/20 09:58 72 07/18/20 07:18 36.8 C 68 18 122/83 96
[2020-07-18] MEDS: TAMSULOSIN HCL 0.4 MG CAP PO SCH (20:43)
[2020-07-18] MEDS: MIRTAZAPINE TAB 15 MG TAB PO SCH (20:43)
[2020-07-19] MEDS: CARBIDOPA/LEVODOPA 25/100MG TAB PO SCH (08:34)
[2020-07-19] MEDS: APIXABAN 5 MG TABLET PO SCH (08:34)
--- NOTE | 2020-07-19 08:51 | Hospitalist Progress Note ---
Date of Service July 19, 2020 Assessment & Plan (1) Left-sided chest pain: Acute bilateral pulmonary embolism Acute DVT-POA Suspected secondary to malignancy -CTA: Extensive bilateral pulmonary emboli as described above. No evidence for right-sided heart strain. Mild mediastinal and bilateral hilar lymphadenopathy with a few prominent supraclavicular lymph nodes. This is new from the prior study. [address] follow up recommended to evaluate for resolution and exclude the possibility of a lymphoma/neoplasm. A few scattered subcentimeter indeterminate pulmonary nodules with the largest in the right lower lobe measuring 6 mm. Please refer to the chart below for recommended follow-up. Trace bilateral pleural effusions. -Venous Doppler: Right lower extremity DVT as described above. Thrombus identified within the proximal left greater saphenous vein at the junction of the common femoral vein. Otherwise, no DVT within the left lower extremity. -ECHO: Normal left ventricular wall thickness. Left ventricle wall motion is normal. EF 65 to 70%. Grade 1 diastolic dysfunction. Proximal ascending aorta diameter 4.1 cm -No right heart strain on CT Saturating well on room air Apixaban--10 mg twice daily for 7 days, then 5 mg twice daily Duration of anticoagulation will be determined after hypercoagulable work-up as outpatient and at least 3-6 months of A/C Needs follow-up with pulmonology upon discharge CT 2-3 months Right lower lobe pulmonary nodule Mediastinal, hilar, supraclavicular lymphadenopathy Suspected malignancy DD sarcoidosis -CT abdomen:Bilateral pulmonary emboli. Small bilateral pleural effusions with associated basilar parenchymal opacities likely atelectatic. 5 mm right lower lobe pulmonary nodule. . No evidence of bowel obstruction. No evidence of free air. Mild splenomegaly. Stable borderline rectal wall thickening. No evidence of abdominal lymphadenopathy. Bilateral renal cysts. Needs repeat CT chest in 2 to 3 months Parkinson's disease Continue home medication Renal Cysts Incidental finding on CT Follow-up as outpatient Mood disorder On Remeron BPH on Flomax Recent Urologic procedure Continue Keflex course. Ambulatory function PT/OT Fall precautions DVT Px: Apixaban Code Status Full code Disposition Plan to discharge to rehab facility today [facility] ROS-No Headache, No Visual Changes, No Nausea, No Vomiting, No Fever, No Chills, No Neck Pain or Stiffness, No Chest Pain, No Palpitations, No SOB, No ACUNA, No Cough, No Sputum, No Wheezing, No Abdominal Pain, No Diarrhea, No Hematemesis, No Hemoptysis, No Unexpected Weight Loss, No Flank pain, No Melena, No Hematochezia, No Frequency, No Urgency, No Burning, No Hematuria, No Rashes, No Diaphoresis. Appetite is Normal Physical Exam Gen-AAO x 3, NAD, Afebrile, Parkinsonian Facies Head-NCAT, EOMI, PERRLA, Anicteric Sclera, No Posterior Pharyngeal Erythema Neck-Supple, No JVD, No Thyromegaly, No Masses, No LAD, No Bruits Lungs-Clear to Auscultation Bilaterally, No Rales, No Rhonchi, No Wheezing, No Crepitus Chest-No S4, +S1, +S2, No S3, No Murmurs, No Rubs, No Gallops, No Ectopy Abdomen-Soft, Bowel Sounds Present, Non Tender, Non Distended, No Hepatomegaly, No Splenomegaly, No Palpable Masses, No Rebound, No Rigidity, No Guarding Musculoskeletal-Full Range of Motion Bilaterally, No CVAT Extremities-No Cyanosis, No Clubbing, No Edema Nuero-Cranial Nerves II-XII grossly intact, Motor WNL, DTRs WNL, Strength WNL, Non Focal Psych-Normal Mood Admission and Anticipated Discharge Date Admission Date: July 15, 2020 Results & Data Results & Data ([facility]) Vital Signs (Past 12 Hours) Vital Signs Temp Pulse Pulse Resp BP Pulse Ox 07/19/20 07:09 36.7 C 76 19 126/86 96 07/19/20 03:57 36.8 C 71 16 117/78 96 07/18/20 23:06 36.3 C L 75 23 131/79 98 07/18/20 22:20 72
== END 2020-07-19 11:20 | DRG 843 ==
LOC: 2S 04:32 → ED 04:32 → 2S 07:35 → SUATTDRO 07-15 08:03

== ENCOUNTER 2024-04-02 10:13 | Inpatient (IN) ==
--- OUTSIDE RECORDS SUMMARY | 2024-04-02 10:32 | External Medical Summary | Summary of Care ---
Author Name Unknown Organization [facility] Address [address] [place] [address] Phone [phone] Care Team Providers Care Nurse Epidemiologist Name Role Phone Elio Hester MD Primary Care Provider [phone] Reason for Visit * Reason Onset Date Comments Advice 10/27/2023 Encounter Details Date Type Department Care Team (Late st Contact Info) Description 10/27/2023 Telephone Merged With [facility] [address] [place] [address] Elio Hester MD [address] [place] [address] Advice Allergies No known active allergiesdocumented as of this encounter (statuses as of 11/17/2023) Medications Medication Sig Dispensed Refills Start Date End Date Status Apixaban 5 MG Oral Tablet (Eliquis) Take 1 Tablet by mouth in the morning and 1 Tablet before bedtime. Active Carbidopa-Levodopa 25-100 MG Oral Tablet (Sinemet)Indications:P arkinson's disease, unspecified whether dyskinesia present, unspecified whether manifestations fluctuate (HCC) Take 1 Tablet by mouth in the morning and 1 Tablet at noon and 1 Tablet in the evening and 1 Tablet before bedtime. 360 Tablet 3 10/13/2023 Active Mirtazapine 15 MG Oral Tablet (Remeron)Indications:P arkinson's disease, unspecified whether dyskinesia present, unspecified whether manifestations fluctuate (HCC) Take 1 Tablet by mouth at bedtime. 90 Tablet 3 10/13/2023 Active Tamsulosin HCl 0.4 MG Oral Capsule (Flomax)Indications:BP H without obstruction/lower urinary tract symptoms Take 1 Capsule by mouth at bedtime. 90 Capsule 3 10/13/2023 Active documented as of this encounter (statuses as of 11/17/2023) Active Problems Problem Noted Date Diagnosed Date Gastro-esophageal reflux disease without esophag itis 04/10/2020 Parkinson's disease 02/02/2018 documented as of this encounter (statuses as of 11/17/2023) Resolved Problems Problem Noted Date Diagnosed Date Resolved Date Major depressive disorder, s kelby episode, severe 04/10/2020 09/09/2022 Routine medical exam 02/12/2017 018 Essential hypertension with goal blood pressure less than 140/90 09/02/2016 09/09/2022 Shakiness 09/02/2016 11/04/2016 Elevated blood pressure, situational 06/03/2016 09/02/2016 Lumbar paraspinal muscle spasm 05/18/2016 09/02/2016 Lumbar sprain 05/18/2016 09/02/2016 Screening for cardiovascular condition 05/18/2016 06/03/2016 Obesity, Class I, BMI 30.0-3 4.9 (see actual BMI) 09/23/2015 06/03/2016 Overview: bmi= 30.99 09/23/15 Tick bite 09/23/2015 09/02/2016 Obesity, Class I, BMI 30.0-3 4.9 (see actual BMI) 01/11/2014 06/03/2016 Overview: bmi= 30.86 01/11/14 Abdominal pain, generalized 01/11/2014 06/03/2016 Slow transit constipation 01/11/2014 Abdominal bloating 01/11/2014 7 Left rib fracture 01/11/2014 11/04/2016 Overview: closed 12th OBESITY, BMI= 31.67 03/28/10 03/28/2010 0 06/03/2016 Special screening for malign ant neoplasms, colon 03/28/2010 09/23/2015 Screening for cardiovascular condition 03/28/2010 09/23/2015 Lumbago 03/28/2010 09/23/2015 SCIATICA, RIGHT 03/28/2010 09/23/2015 Spasm of muscle 03/28/2010 09/23/2015 Screening for diabetes mellitus 03/28/2010 09/23/2015 Screening for prostate cancer 03/28/2010 09/23/2015 Routine medical exam 03/28/2010 016 Vaccination not carried out because of patient refusal 03/28/2010 09/23/2015 documented as of this encounter (statuses as of 11/17/2023) Immunizations Name Administration Dates Next Due Pneumococcal Conjugate Vacc, 13 Valent (Prevnar) 02/14/2018 Pneumococcal Conjugate Vaccine, 20-valent (Prevn ar20) 09/09/2022 Seasonal Influenza, PF, 6 M & above, IM , (FluLaval or Fluzone) 01/28/2018 TDAP (age 10 and older)(Boostrix) 12/23/2013 documented as of this encounter Social History Tobacco Use Types Packs/Day Years Used Date Smoking Tobacco: Never Smokeless Tobacco: Never Alcohol Use Standard Drinks/Week Comments Yes 0 (1 standard drink = 0.6 oz pur e alcohol) 12 beers per month PHQ-2 Answer Date Recorded PHQ Adult Total Score 5 10/13/2023 Hunger Vital Sign Answer Date Recorded Within the past 12 months, y ou worried that your food would run out before you got the money to buy more. Never true 10/13/19 24 Within the past 12 months, t he food you bought just didn't last and you didn't have money to get more. Never true 10/13/2023 Childcare Answer Date Recorded Do you feel overwhelmed with taking care of a child, family member or friend? No 10/13/2023 Does your family need help f inding childcare? (Household - for ages 0-17 years) Not on file 10/13/2023 Clothing Answer Date Recorded Have you been unable to get clothing when it was really needed? No 10/13/2023 Is your family able to get c lothes or diapers when needed? (Household - for ages 0-17 years) Not on file 10/13/2023 Personal Safety Answer Date Recorded Do you feel unsafe or have concerns for your saf ety? No 10/13/2023 Do you have concerns for you r family's safety? (Household - for ages 0-17 years) Not on file 10/13/2023 Utilities Answer Date Recorded Do you have trouble paying y our heating, water, or electric bill? No 10/13/2023 Is your family able to pay t he heat, water, or electric bill? (Household - for ages 0-17 years) Not on file 10/13/2023 Does your family have access to good internet? (Household - for ages 0-17 years) Not on file 10/13/2023 Employment Status Answer Date Recorded Are you unemployed or without regular income? No 10/13/2023 Does the household have a re lar source of income? (Household - for ages 0-17 years) Not on file 10/13/2023 Social Connections Answer Date Recorded How often do you feel lonely or isolated from th ose around you? Never 10/13/2023 Financial Resource Strain Answer Date R ecorded Do you have any trouble payi ng for your medications, or do you think you might in the future? No 10/13/2023 Does your family have troubl e paying for medicine? (Household - for ages 0-17 years) Not on file 10/13/2023 Transportation Needs Answer Date Record ed Do you have trouble getting a ride to medical visits or work? (Adult - for ages 18 years and over) Not on file 10/13/2023 Does your family have a hard time getting a ride to doctors visits? (Household - for ages 0-17 years) Not on file 10/13/2023 Has lack of transportation k ept you from medical appointments, meetings, work, or from getting things needed for daily living? Check all that apply. No 10/13/2023 Do you (or your family) have trouble finding or paying for a ride (transportation)? (Household - for ages 0-17 years) Not on file 10/13/2023 Housing Stability Answer Date Recorded Do you currently live in a s helter or have no steady place to sleep at night? No 10/13/2023 Do you think you are at risk of becoming homeless? (Adult - for ages 18 years and over) Not on file 10/13/2023 Does your family worry about paying for your home or becoming homeless? (Household - for ages 0-17 years) Not on file 0 10/13/2023 Are you homeless or worried that you might be in the future? No 10/13/2023 Are you (or your family) krystle eless or worried that you might be in the future? (Household - for ages 0-17 years) Not on file Food Insecurity Answer Date Recorded Do you need food for this week? No 10/13/2023 Are you able to get enough f ood for your family? (Household - for ages 0-17 years) Not on file 10/13/2023 Does your family need food t his week? (Household - for ages 0-17 years) Not on file 10/13/2023 Do you always have enough fo od for your family? (Household - for ages 0-17 years) Not on file 10/13/2023 Sex and Gender Information Value Date Recorded Sex Assigned at Male 09/02/2022 8:06 PM EDT Gender Identity Male 09/02/2022 8:06 PM EDT Sexual Orientation Straight 09/02/2022 8: 06 PM EDT Job Start Date Occupation Industry Not on file Not on file Not on file documented as of this encounter Miscellaneous Notes * Telephone Encounter - Meghan Quevedo LPN - 11/17/2023 4:11 PM EDT Note and order sent to [facility] via fax. * Telephone Encounter - Harshal Garcia MD - 11/16/2023 6:36 PM EDT Note from 10/13/2023 addended and DME order updated. Can we please submit through [facility] vssend to [facility]. Not sure if it needs to go back through insurance at this point. Thanks, Harshal Garcia MD * Telephone Encounter - Carly Gonzalez, MED ASSIST - 11/16/2023 4:05 PM EDT Received fax from [facility] that states as follows: "Per insurance requirements, please have the RX additionally state: "Standard [wheelchair] with cushion."" "Please have the chart notes state: "Patient cannot use a walker or cane safely for long distances."" * Telephone Encounter - Jasmine Pineda LPN - 11/15/2023 12:52 PM EDT I checked the [employer] website and could not find the order. I resubmitted the order online and requested the order be processed through [facility] [place]. The order is currently under review through [employer]. * Telephone Encounter - Sadaf Royal OSA - 11/12/2023 12:48 PM EDT Pt's son called stating he called [facility] and was told they did not receive anything about pt's wheelchair. [facility] * Telephone Encounter - Maryan Mckeon LPN - 10/28/2023 7:12 PM EDT Demographics/insurance, OV notes, and signed DME order was re faxed to [employer]. Pt's son was made aware. He was advised to call us back if he doesn't hear any thing from the company who will be providing the wheelchair. * Telephone Encounter - Kevan Dey OSA - 10/27/2023 11:26 AM EDT Pt son calling in regards to order for pt wheelchair. Asking what DME location it was sent to. Order was placed on 10/13/23. Please advise. documented in this encounter Plan of Treatment Upcoming Encounters Date Type Department Care Team (Late st Contact Info) Description 12/15/2023 10:40 AM EDT Office Visit Neurology Teresa [facility] [place] [address] [place] [address] Anthony Tadeo MD [address] [place] [address] 01/19/2024 2:00 PM EST Office Visit Merged With [facility] [address] [place] [address] June, Harshal Salazar MD [address] [place] [address] Health Maintenance Due Date Last Done Comments Cologuard 1995 Colonoscopy 1995 Fecal Occult Blood Test 1995 Sigmoidoscopy 1995 Adult Wellness Visit 2016 COVID-19 Vaccine ( season) 2023 Influenza Vaccine (FLU shot) (#1) 2023 01/28/2018, 01/28/2018, 02/12/2017 (Refused) DTap/Tdap Vaccines (2 - Td or Tdap) 12/24/2023 12/23/2013 Depression Screening 10/12/2024 10/13/2023, 10/13/19 24 Lipid Panel 10/12/2028 10/13/2023, 01/23, 05/18/2016, Additional history exists RETIRED - COLONOSCOPY-ANNUAL AGES 18-100 Discontinued 09/02/2016 (Refused) Albumin/Creatinine Ratio Discontinued 02/12/2017 Pneumococcal Vaccine: 65+ Years Completed 09/09/2022, 02/14/2018 Colorectal Cancer Screening Discontinued HPV (Gardasil) Vaccine Aged Out No lo nger eligible based on patient's age to complete this topic Hepatitis B Vaccine Aged Out No longe r eligible based on patient's age to complete this topic MENINGOCOCCAL (MENACTRA/MENVEO) Aged Out No longer eligible based on patient's age to complete this topic Zoster Vaccines Discontinued documented as of this encounter Medical Devices Not on filedocumented as of this encounter Care Teams Nurse Epidemiologist Relationship Specialty Start Date End Date Elio Hester MD [address] [facility] [place] [address] PCP - General Family Medicine 05/13/20 documented as of this encounter
--- OUTSIDE RECORDS SUMMARY | 2024-04-02 10:32 | External Medical Summary | Summary of Care ---
Author Name Unknown Organization [facility] Address [address] [place] [address] Phone [phone] Care Team Providers Care Humanities Division Chair Name Role Phone JuneCooper MD Primary Care Provider [phone] Reason for Visit * Reason Onset Date Comments Medication Refill 03/16/2024 Encounter Details Date Type Department Care Team (Late st Contact Info) Description 03/16/2024 Refill [facility] [address] [place] [address] Cooper Lugo MD [address] [place] [address] Parkinson's disease, unspecified whether dyskinesia present, unspecified whether manifestations fluctuate (HCC); BPH without obstruction/lower urinary tract symptoms Allergies No known active allergiesdocumented as of this encounter (statuses as of 03/16/2024) Medications Apixaban 5 MG Oral Tablet (Eliquis) Take 1 Tablet by mouth in the morning and 1 Tablet before bedtime. Active Carbidopa-Levodopa 25-100 MG Oral Tablet (Sinemet)Indicatio ns:Parkinson's disease, unspecified whether dyskinesia present, unspecified whether manifestations fluctuate (HCC) Take 1 Tablet by mouth in the morning and 1 Tablet at noon and 1 Tablet in the evening and 1 Tablet before bedtime. 360 Tablet 1 Active Mirtazapine 15 MG Oral Tablet (Remeron)Indicatio ns:Parkinson's disease, unspecified whether dyskinesia present, unspecified whether manifestations fluctuate (HCC) Take 1 Tablet by mouth at bedtime. 90 Tablet 1 5 Active Tamsulosin HCl 0.4 MG Oral Capsule (Flomax)Indication s:BPH without obstruction/lower urinary tract symptoms Take 1 Capsule by mouth at bedtime. 90 Capsule 1 5 Active Carbidopa-Levodopa 25-100 MG Oral Tablet (Sinemet)Indicatio ns:Parkinson's disease, unspecified whether dyskinesia present, unspecified whether manifestations fluctuate (HCC) Take 1 Tablet by mouth in the morning and 1 Tablet at noon and 1 Tablet in the evening and 1 Tablet before bedtime. 360 Tablet 3 4 03/16/19 25 Discontin ued(Refil l) Mirtazapine 15 MG Oral Tablet (Remeron)Indicatio ns:Parkinson's disease, unspecified whether dyskinesia present, unspecified whether manifestations fluctuate (HCC) Take 1 Tablet by mouth at bedtime. 90 Tablet 3 4 03/16/19 25 Discontin ued(Refil l) Tamsulosin HCl 0.4 MG Oral Capsule (Flomax)Indication s:BPH without obstruction/lower urinary tract symptoms Take 1 Capsule by mouth at bedtime. 90 Capsule 3 4 03/16/19 25 Discontin ued(Refil l) documented as of this encounter (statuses as of 03/16/2024) Active Problems Problem Noted Date Diagnosed Date Gastro-esophageal reflux disease without esophag itis 04/10/2020 Parkinson's disease 02/02/2018 documented as of this encounter (statuses as of 03/16/2024) Resolved Problems Problem Noted Date Diagnosed Date [...] 30.0-3 4.9 (see actual BMI) 09/23/2015 06/03/2016 Overview (09/23/2015): bmi= 30.99 09/23/15 Tick bite 09/23/2015 09/02/2016 Obesity, Class I, BMI 30.0-3 4.9 (see actual BMI) 01/11/2014 06/03/2016 Overview (01/11/2014): bmi= 30.86 01/11/14 Abdominal pain, generalized 01/11/2014 06/03/2016 Slow transit constipation 01/11/2014 Abdominal bloating 01/11/2014 7 Left rib fracture 01/11/2014 11/04/2016 Overview (01/11/2014): closed 12th OBESITY, BMI= 31.67 03/28/10 03/28/2010 [...] as of this encounter (statuses as of 03/16/2024) Immunizations Name Administration Dates Next Due Pneumococcal [...] 10/13/2023 Does the household have a re gular source of income? (Household - for ages [...] Assigned at Male 09/02/2022 8:06 PM EDT Legal Sex Male 5:57 AM EST Gender Identity Male 09/02/2022 8:06 PM EDT Sexual Orientation Straight 09/02/2022 8: 06 PM EDT documented as of this encounter Miscellaneous Notes * Telephone Encounter - Wanda Disla RPh - 03/16/2024 5:28 PM ESTSigned Prescriptions: Disp Refills Carbidopa-Levodopa 25-100 MG Oral Tablet (*360 Ta*1 Sig: Take 1 Tablet by mouth in the morning and 1 Tablet at noon and 1 Tablet in the evening and 1 Tablet before bedtime.Authorizing Provider: COOPER LUGO User: WANDA DISLA Mirtazapine 15 MG Oral Tablet (Remeron) 90 Tab*1 Sig: Take 1 Tablet by mouth at bedtime.Authorizing Provid er: COOPER LUGO User: WANDA DISLA Tamsulosin HCl 0.4 MG Oral Capsule (Flomax)90 Cap*1 Sig: Take 1 Capsule by mouth at bedtime.Authorizing Provider: COOPER LUGO User: WANDA DISLA * Telephone Encounter - Thomas Jaramillo, publishing director - 03/16/2024 3:03 PM EST Please reroute Rx to [id number] Pending Prescriptions: Disp Refills Carbidopa-Levodopa 25-100 MG Oral Tablet *360 Ta*1 Sig: Take 1 Tablet by mouth in the morning and 1 Tablet at noon and 1 Tablet in the evening and 1 Tablet before bedtime. Mirtazapine 15 MG Oral Tablet (Remeron) 90 Tab*1 Sig: Take 1 Tablet by mouth at bedtime. Tamsulosin HCl 0.4 MG Oral Capsule (Floma*90 Cap*1 Sig: Take 1 Capsule by mouth at bedtime. Last Visit: Visit date not found (in office), Visit date not found (telemedicine) Visit date not found If no future appointments scheduled, and last appointment is greater than a year ago, please schedule patient for a follow-up appointment Last date the medication was ordered: 10/13/2023 Patient Phone Numbers Labs: Lab Results Component Value Date/Time CREAT 1.1 10/13/2023 08:39 AM CREAT 1.04 03/11/2018 12:00 AM CREAT 1.2 02/12/2017 09:52 AM POTASSIUM 4.6 10/13/2023 08:39 AM POTASSIUM 4.2 03/11/2018 12:00 AM POTASSIUM 4.9 02/12/2017 09:52 AM LDL 92 10/13/2023 08:39 AM LDL 105 02/12/2017 09:52 AM LDL NOT APPLICABLE 02/12/2017 09:52 AM ALT <5 (L) 10/13/2023 08:39 AM ALT 39 02/25/2018 02:51 PM HGBA1C 4.9 10/13/2023 08:39 AM documented in this encounter Plan of Treatment Health Maintenance Due Date Last Done Comments [...] (Refused) Albumin/Creatinine Ratio Discontinued 02/12/2017 Pneumococcal Vaccine: 50+ Years Completed 09/09/2022, 02/14/2018 Colorectal Cancer Screening [...] Not on filedocumented as of this encounter Visit Diagnoses Diagnosis Parkinson's disease, unspecified whether dyskinesia present, unspecified whether manifestations fluctuate (HCC) BPH without obstruction/lower urinary tract symptoms Hypertrophy of prostate without urinary obstruction and other lower urinary tract symptoms (LUTS) documented in this encounter Care Teams Humanities Division Chair Relationship Specialty Start Date End Date June, Cooper Salazar MD PCP - General Family Medicine 12/15/23 documented as of this encounter
--- OUTSIDE RECORDS SUMMARY | 2024-04-02 10:32 | External Medical Summary | Summary of Care ---
Author Name Unknown Organization [facility] Address [address] [place] [address] Phone [phone] Care Team Providers Care Sagger Maker Name Role Phone Harshal Garcia MD Primary Care Provider [phone] Encounter Details Date Type Department Care Team (Late st Contact Info) Description 03/13/2024 Population Health External Data Unspecified Department Allergies No known active allergiesdocumented as of this encounter (statuses as of 03/13/2024) Medications Apixaban 5 MG Oral Tablet (Eliquis) Take 1 Tablet by mouth in the morning and 1 Tablet before bedtime. Active Carbidopa-Levodopa 25-100 MG Oral Tablet (Sinemet)Indication s:Parkinson's disease, unspecified whether dyskinesia present, unspecified whether manifestations fluctuate (HCC) Take 1 Tablet by mouth in the morning and 1 Tablet at noon and 1 Tablet in the evening and 1 Tablet before bedtime. 360 Tablet 3 4 Active Mirtazapine 15 MG Oral Tablet (Remeron)Indication s:Parkinson's disease, unspecified whether dyskinesia present, unspecified whether manifestations fluctuate (HCC) Take 1 Tablet by mouth at bedtime. 90 Tablet 3 4 Active Tamsulosin HCl 0.4 MG Oral Capsule (Flomax)Indications :BPH without obstruction/lower urinary tract symptoms Take 1 Capsule by mouth at bedtime. 90 Capsule 3 4 Active documented as of this encounter (statuses as of 03/13/2024) Active Problems Problem Noted Date Diagnosed Date Gastro-esophageal reflux disease without esophag itis 04/10/2020 Parkinson's disease 02/02/2018 documented as of this encounter (statuses as of 03/13/2024) Resolved Problems Problem Noted Date Diagnosed Date [...] as of this encounter (statuses as of 03/13/2024) Immunizations Name Administration Dates Next Due Pneumococcal [...] PM EDT documented as of this encounter Plan of Treatment Health Maintenance [...] filedocumented as of this encounter Care Teams Sagger Maker Relationship Specialty Start Date End Date June, Harshal Salazar MD PCP - General Family Medicine 12/15/23 documented as of this encounter
--- OUTSIDE RECORDS SUMMARY | 2024-04-02 10:32 | External Medical Summary | Summary of Care ---
Author Name Unknown Organization [facility] Address [address] [place] [address] Phone [phone] Care Team Providers Care Automatic Wheel Line Operator Name Role Phone Elio Hester MD Primary Care Provider [phone] Reason for Visit * Reason Onset Date Comments Advice 10/27/2023 Encounter Details Date Type Department Care Team (Late st Contact Info) Description 10/27/2023 Telephone [facility] [address] [place] [address] Elio Hester MD [address] [place] [address] Advice Allergies No known active allergiesdocumented as of this encounter (statuses as of 11/16/2023) Medications Medication Sig Dispensed Refills Start Date [...] as of this encounter (statuses as of 11/16/2023) Active Problems Problem Noted Date Diagnosed Date Gastro-esophageal reflux disease without esophag itis 04/10/2020 Parkinson's disease 02/02/2018 documented as of this encounter (statuses as of 11/16/2023) Resolved Problems Problem Noted Date Diagnosed Date [...] as of this encounter (statuses as of 11/16/2023) Immunizations Name Administration Dates Next Due Pneumococcal [...] encounter Miscellaneous Notes * Telephone Encounter - Harshal Garcia MD - 11/16/2023 6:36 PM EDT Note from 10/13/2023 addended and DME order updated. Can we please submit through [employer] [facility]ssend to [facility]. Not sure if it needs to go back through insurance at this point. Thanks, Harshal Garcia MD * Telephone Encounter - Carly Gonzalez MED ASSIST - 11/16/2023 4:05 PM EDT [facility] that states as follows: "Per insurance requirements, please have the RX additionally state: "Standard [wheelchair] with cushion."" "Please have the chart notes state: "Patient cannot use a walker or cane safely for long distances."" * Telephone Encounter - Jasmine Pineda LPN - 11/15/2023 12:52 PM EDT I checked the [employer] website and could not find the order. I resubmitted the order online and requested the order be processed through [facility]. The order is currently under review through [employer]. * Telephone Encounter - Sadaf Royal OSA - 11/12/2023 12:48 PM EDT Pt's son called stating he called [facility] and was told they did not receive anything about pt's wheelchair. [facility] * Telephone Encounter - Maryan Mckeon LPN - 10/28/2023 7:12 PM EDT Demographics/insurance, OV notes, and signed DME order was re faxed to [employer]. Pt's son was made aware. He was [...] AM EDT Office Visit Neurology Teresa Talbot [place] [address] [place] [address] Anthony Tadeo MD [address] [place] [address] 01/19/2024 2:00 PM EST Office Visit [facility] [address] [place] [id number] June, Harshal Salazar MD [address] [place], [place] [id number] Health Maintenance Due Date Last Done Comments [...] filedocumented as of this encounter Care Teams Automatic Wheel Line Operator Relationship Specialty Start Date End Date Elio Hester MD [address] [place], [place] [id number] PCP - General Family Medicine 05/13/20 documented as of this encounter
--- OUTSIDE RECORDS SUMMARY | 2024-04-02 10:33 | External Medical Summary | Summary of Care ---
Author Name Unknown Organization [facility] Address [address] [place] [address] Phone [phone] Care Team Providers Care Superintendent Plant Protection Name Role Phone Elio Hester MD Primary Care Provider [phone] Reason for Visit * Reason Onset Date Comments Advice 10/27/2023 Encounter Details Date Type Department Care Team (Late st Contact Info) Description 10/27/2023 Telephone [facility] [address] [place] [address] Elio Hester MD [address] [place] [address] Advice Allergies No known active [...] encounter Miscellaneous Notes * Telephone Encounter - Carly Gonzalez MED ASSIST - 11/16/2023 4:05 PM EDT Received [facility] that states as follows: "Per insurance requirements, please have the RX additionally state: "Standard [wheelchair] with cushion."" "Please have the chart notes state: "Patient cannot use a walker or cane safely for long distances."" * Telephone Encounter - Jasmine Pineda LPN - 11/15/2023 12:52 PM EDT I checked the [employer] website and could not find the order. I resubmitted the order online and requested the order be processed through [facility] in [facility]. The order is currently under review through [employer]. * Telephone Encounter - Sadaf Royal OSA - 11/12/2023 12:48 PM EDT Pt's son called stating he called [facility] and was told they did not receive anything about pt's wheelchair. [facility] * Telephone Encounter - Maryan Mckeon LPN - 10/28/2023 7:12 PM EDT Demographics/insurance, OV notes, and signed DME order was re faxed to [employer]. Pt's son was made aware. He was [...] 12/15/2023 10:40 AM EDT Office Visit Neurology [facility] [address] [place] [address] Anthony Tadeo MD [address] [place] [address] 01/19/2024 2:00 PM EST Office Visit [facility] [address] [place] [phone] June, Harshal Salazar MD [address], [place] [phone] Health Maintenance Due Date Last Done Comments Cologuard 1995 Colonoscopy 1995 Fecal Occult Blood Test 1995 Sigmoidoscopy 1995 Adult Wellness Visit 2016 COVID-19 Vaccine (1 - 2023- season) 2023 Influenza Vaccine (FLU shot) (#1) 2023 01/28/2018, 01/28/2018, 02/12/2017 (Refused) DTap/Tdap Vaccines (2 - Td or Tdap) 12/24/2023 12/23/2013 Depression Screening 10/12/2024 10/13/2023, 10/13/19 Lipid Panel 10/12/2028 10/13/2023, 01/23, 05/18/2016, Additional [...] filedocumented as of this encounter Care Teams Superintendent Plant Protection Relationship Specialty Start Date End Date Elio Hester MD [address] [place] [address] PCP - General Family Medicine 05/13/20 documented as of this encounter
--- OUTSIDE RECORDS SUMMARY | 2024-04-02 10:33 | External Medical Summary ---
Author Name Unknown Address Unknown Organization [id number][place] [place] [address] [facility] [id number] Laboratory Report Ordering Provider Test Date Status 10/13/2023 08:39:16 Final Observation Date Value Abnormality Reference (Units ) Status Triglyceride 10/13/2023 08:39:16 70 <=174 ( mg/dL) Final Triglyceride Reference Range s (mg/dL):
<150 Acceptable
150-174 Borderline high
175-499 High
>=500 Very high Cholesterol 10/13/2023 08:39:16 166 <200 (mg /dL) Final Total Cholesterol Reference Ranges (mg/dL):
<200 Desirable
200-239 Borderline high
>=240 High HDL 10/13/2023 08:39:16 60 >39 (mg/dL ) Final HDL Cholesterol Reference Ra nges (mg/dL):
>=60 High (Desirable)
<50 Low (Undesirable) For Females
<40 Low (Undesirable) For Males NON-HDL CHOLESTEROL 10/13/2023 08:39:16 106 <=159 (mg/dL) Final Non-HDL Cholesterol Referenc e Range (mg/dL):
<100 Target level for high risk ASCVD patient
<130 Optimal for general population
130-159 Near optimal for general population
160-189 Borderline High
190-219 High
>=220 Very High LDL, (calculated) 10/13/2023 08:39:16 92 <= 129 (mg/dL) Final LDL Cholesterol Reference Ra nges (mg/dL):
<70 Target level for high risk ASCVD patient
<100 Optimal for general population
100-129 Near optimal for general population
130-159 Borderline high
160-189 High
>=190 Very high Performing Location [facility] [place] [address] [facility] [address]
--- OUTSIDE RECORDS SUMMARY | 2024-04-02 10:33 | External Medical Summary | Summary of Care ---
Author Name Unknown Organization [facility] Address [address] [place] [address] Phone [phone] Care Team Providers Care Tavern Keeper Name Role Phone Elio Hester MD Primary Care Provider [phone] Reason for Visit * Reason Onset Date Comments MyCode Nonconsent - Not interested at this time 10/13/2023 Encounter Details Date Type Department Care Team (Late st Contact Info) Description 10/13/2023 Orders Only [facility] [address], [place] [id number] Amy Loyd CHRA MyCode Nonconsent Documentation Allergies No known active allergiesdocumented as of this encounter (statuses as of 10/13/2023) Medications Medication Sig Dispensed Refills Start Date [...] as of this encounter (statuses as of 10/13/2023) Active Problems Problem Noted Date Diagnosed Date Gastro-esophageal reflux disease without esophag itis 04/10/2020 Parkinson's disease 02/02/2018 documented as of this encounter (statuses as of 10/13/2023) Resolved Problems Problem Noted Date Diagnosed Date [...] as of this encounter (statuses as of 10/13/2023) Immunizations Name Administration Dates Next Due Pneumococcal [...] No 10/13/2023 Does the household have a [facility]? (Household - for ages [...] on file documented as of this encounter Progress Notes * Amy Loyd CHRA - 10/13/2023 4:45 PM EDT MyCode Nonconsent Documentation Bienvenido Cash was approached in the clinic regarding participation in the MyCode Project and did not consent. documented in this encounter Plan of Treatment Upcoming Encounters Date Type Department Care Team (Late st Contact Info) Description 12/15/2023 10:40 AM EDT Office Visit Neurology [facility] [address] [place] [address] Anthony Tadeo MD [address] [place] [address] 01/19/2024 2:00 PM EST Office Visit [facility] [address] [place] [phone] Harshal Garcia MD [address], [place] [phone] Health Maintenance Due Date Last Done Comments Cologuard 1995 Colonoscopy 1995 Fecal Occult Blood Test 1995 Sigmoidoscopy 1995 Adult Wellness Visit 2016 Lipid Panel 02/12/2022 02/12/2017, 04/23, 03/28/2010, Additional history exists COVID-19 Vaccine (2022-24 season) 2022 Influenza Vaccine (FLU shot) (#1) 2023 01/28/2018, 01/28/2018, 02/12/2017 (Refused) DTaP,Tdap,and Td Vaccines (2 - Td or Tdap) 12/24/2023 12/23/2013 Depression Screening 10/12/2024 10/13/2023, 10/13/19 24 RETIRED - COLONOSCOPY-ANNUAL AGES 18-100 Discontinued 09/02/2016 [...] filedocumented as of this encounter Care Teams Tavern Keeper Relationship Specialty Start Date End Date Elio Hester MD [address] [place] [address] PCP - General Family Medicine 05/13/20 documented as of this encounter
--- OUTSIDE RECORDS SUMMARY | 2024-04-02 10:33 | External Medical Summary ---
Author Name Unknown Address Unknown Organization K01:[facility]ORY [facility] [place] - [address] [place] [id number] Laboratory Report Ordering Provider Test Date Status 10/13/2023 08:39:16 Final Observation Date Value Abnormality Reference (Units ) Status BUN 10/13/2023 08:39:16 8 6-20 (mg/dL) Final Creatinine 10/13/2023 08:39:16 1.1 0.6-1.2 (mg/dL) Final Glomerular filtration rate/1.73 sq M.predicted [Volume Rate/Area] in Serum, Plasma or Blood by Creatinine-based formula (CKD-EPI) 10/13/2023 08:39:16 72 >=60 (mL/min) Final eGFR is calculated based on the CKD-EPI 2020 equation. Sodium 10/13/2023 08:39:16 140 135-146 (m mol/L) Final Potassium 10/13/2023 08:39:16 4.6 3.5-5.1 (m mol/L) Final Cl 10/13/2023 08:39:16 104 98-107 (mm ol/L) Final CO2 10/13/2023 08:39:16 26 22-32 (mmo l/L) Final Anion gap 10/13/2023 08:39:16 10 7-15 (mmol /L) Final Glucose 10/13/2023 08:39:16 88 70-120 (mg /dL) Final Albumin 10/13/2023 08:39:16 3.8 3.8-5.0 (g /dL) Final AST (Aspartate aminotransferase) 10/13/2023 08:39:16 17 10-50 (U/L) Final Result may be falsely elevat ed due to hemolysis. Alk Phos 10/13/2023 08:39:16 105 35-130 (U/ L) Final Bilirubin, Total 10/13/2023 08:39:16 0.5 <=1 .2 (mg/dL) Final Calcium 10/13/2023 08:39:16 9.5 8.4-10.2 ( mg/dL) Final Protein 10/13/2023 08:39:16 6.6 6.0-8.3 (g /dL) Final ALT (Alanine aminotransferase) 10/13/2023 08:39:16 <5 Below low normal 10-50 (U/L) Final Performing Location [facility] [place] - [address] [facility] [address]
--- OUTSIDE RECORDS SUMMARY | 2024-04-02 10:33 | External Medical Summary | Summary of Care ---
Author Name Unknown Organization [facility] Address [address] [place] [address] Phone [phone] Care Team Providers Care Business Line Manager Name Role Phone Elio Hester MD Primary Care Provider [phone] Reason for Visit * Reason Onset Date Comments Advice 10/27/2023 Encounter Details Date Type Department Care Team (Late st Contact Info) Description 10/27/[address] [facility] [address] [place] [address] Elio Hester MD [address] [place] [address] Advice Allergies No known active allergiesdocumented as of this encounter (statuses as of 11/12/2023) Medications Medication Sig Dispensed Refills Start Date [...] as of this encounter (statuses as of 11/12/2023) Active Problems Problem Noted Date Diagnosed Date Gastro-esophageal reflux disease without esophag itis 04/10/2020 Parkinson's disease 02/02/2018 documented as of this encounter (statuses as of 11/12/2023) Resolved Problems Problem Noted Date Diagnosed Date [...] as of this encounter (statuses as of 11/12/2023) Immunizations Name Administration Dates Next Due Pneumococcal [...] encounter Miscellaneous Notes * Telephone Encounter - Sadaf Royal OSA - 11/12/2023 12:48 PM EDT Pt's son called stating he called [facility] and was told they did not receive anything about pt's wheelchair. [facility] * Telephone Encounter - Maryan Mckeon LPN - 10/28/2023 7:12 PM EDT Demographics/insurance, OV notes, and signed DME order was re faxed to [employer]. Pt's son was made aware. He was [...] 12/15/2023 10:40 AM EDT Office Visit Neurology [facility] [address] [place] [address] Anthony Tadeo MD [address] [place] [address] 01/19/2024 2:00 PM EST Office Visit [facility] [address] [place] [address] June, Harshal Salazar MD [address] [place], [place] [phone] Health Maintenance Due Date Last Done Comments [...] filedocumented as of this encounter Care Teams Business Line Manager Relationship Specialty Start Date End Date Elio Hester MD [address] [place] [address] PCP - General Family Medicine 05/13/20 documented as of this encounter
--- OUTSIDE RECORDS SUMMARY | 2024-04-02 10:33 | External Medical Summary | Summary of Care ---
Author Name Unknown Organization [facility] Address [address] [place] [address] Phone [phone] Care Team Providers Care Weight Count Operator Name Role Phone Elio Hester MD Primary Care Provider [phone] Reason for Visit * Reason Onset Date Comments Advice 10/27/2023 Encounter Details Date Type Department Care Team (Late st Contact Info) Description 10/27/2023 Telephone [facility] [address] [place] [address] Elio Hester MD [address] [place] [address] Advice Allergies No known active allergiesdocumented as of this encounter (statuses as of 10/28/2023) Medications Medication Sig Dispensed Refills Start Date [...] as of this encounter (statuses as of 10/28/2023) Active Problems Problem Noted Date Diagnosed Date Gastro-esophageal reflux disease without esophag itis 04/10/2020 Parkinson's disease 02/02/2018 documented as of this encounter (statuses as of 10/28/2023) Resolved Problems Problem Noted Date Diagnosed Date [...] as of this encounter (statuses as of 10/28/2023) Immunizations Name Administration Dates Next Due Pneumococcal [...] encounter Miscellaneous Notes * Telephone Encounter - Maryan Mckeon LPN - 10/28/2023 7:12 PM EDT Demographics/insurance, OV notes, and signed DME order was re faxed to [employer]. Pt's son was made aware. He was [...] 12/15/2023 10:40 AM EDT Office Visit Neurology [employer] [address] [place] [address] Anthony Tadeo MD [address] [place] [address] 01/19/2024 2:00 PM EST Office Visit [facility] [address] [place] [phone] June, Harshal Salazar MD [address], [place] [phone] Health Maintenance Due Date Last Done Comments [...] filedocumented as of this encounter Care Teams Weight Count Operator Relationship Specialty Start Date End Date Elio Hester MD [address] [address] PCP - General Family Medicine 05/13/20 documented as of this encounter
--- OUTSIDE RECORDS SUMMARY | 2024-04-02 10:33 | External Medical Summary | Summary of Care ---
Author Name Unknown Organization [facility] Address [address] [place] [address] Phone [phone] Care Team Providers Care Bottom Stop Attacher Name Role Phone Elio Hester MD Primary Care Provider [phone] Reason for Visit * Reason Onset Date Comments Advice 10/27/2023 Encounter Details Date Type Department Care Team (Late st Contact Info) Description 10/27/[address] [facility] [address] [place] [address] Elio Hester MD [address] [place] [address] Advice Allergies No known active allergiesdocumented as of this encounter (statuses as of 11/15/2023) Medications Medication Sig Dispensed Refills Start Date [...] as of this encounter (statuses as of 11/15/2023) Active Problems Problem Noted Date Diagnosed Date Gastro-esophageal reflux disease without esophag itis 04/10/2020 Parkinson's disease 02/02/2018 documented as of this encounter (statuses as of 11/15/2023) Resolved Problems Problem Noted Date Diagnosed Date [...] as of this encounter (statuses as of 11/15/2023) Immunizations Name Administration Dates Next Due Pneumococcal [...] encounter Miscellaneous Notes * Telephone Encounter - Jasmine Pineda LPN - 11/15/2023 12:52 PM EDT I checked the [employer] website and could not find the order. I resubmitted the order online and requested the order be processed through [facility] in [facility]. The order is currently under review through [employer]. * Telephone Encounter - Sadaf Royal OSA - 11/12/2023 12:48 PM EDT Pt's son called stating he called [facility] and was told they did not receive anything about pt's wheelchair. [facility] * Telephone Encounter - Maryan Mckeon LPN - 10/28/2023 7:12 PM EDT Demographics/insurance, OV notes, and signed DME order was re faxed to [facility]. Pt's son was made aware. He was [...] 12/15/2023 10:40 AM EDT Office Visit Neurology [facility] [address] [place] [address] Anthony Tadeo MD [address] [place] [address] 01/19/2024 2:00 PM EST Office Visit [facility] [address] [place] [phone] JuneHarshal MD [address] [place] [address] Health Maintenance Due Date Last Done Comments [...] filedocumented as of this encounter Care Teams Bottom Stop Attacher Relationship Specialty Start Date End Date Elio Hester MD [address] [place] [address] PCP - General Family Medicine 05/13/20 documented as of this encounter
--- OUTSIDE RECORDS SUMMARY | 2024-04-02 10:33 | External Medical Summary | Summary of Care ---
Author Name Unknown Organization [facility] Address [address] [place] [address] Phone [phone] Care Team Providers Care Education Teacher Name Role Phone Elio Hester MD Primary Care Provider [phone] Reason for Referral * Evaluate & Treat - Unlimited Visits (Within 10 days (routine)) - Authorized Specialty Diagnoses / Procedures Referred By Contac t Referred To Contact Neurology Diagnoses Parkinson's disease, unspecified whether dyskinesia present, unspecified whether manifestations fluctuate (HCC) Harshal Garcia MD [address] [place] [address] Referral ID Status Reason Start Date Expiration Date Visits Requested Visits Authorized [id number] Authorized Specialty Services Required 10/13/2023 999 999 Question Answer Referral Priority Within 10 days (routine) Where should this appointment be scheduled? [facility] Is this referral being placed for insurance purposes ONLY Yes Comments Parkinsons disease. Reason for Visit * Reason Comments Physical-Exam Pt here for his rout ine yearly physical Encounter Details Date Type Department Care Team (Latest Contact Info) Description 10/13/2023 8:20 AM EDT Office Visit [facility] [address] [place] [address] Harshal Garcia MD [address] [place] [address] Screening for cardiovascular condition*; Parkinson's disease, unspecified whether dyskinesia present, unspecified whether manifestations fluctuate (HCC); Gastro-esophageal reflux disease without esophagitis; BPH without obstruction/lower urinary tract symptoms; History of pulmonary embolism; At risk for falls; Screening for diabetes mellitus; Risk and functional assessment; Encounter for routine preventive care for patient older than 28 days; Protein-calorie malnutrition, unspecified severity (HCC) Allergies No known active allergiesdocumented as of this encounter (statuses as of 10/13/2023) Medications Medication Sig Dispensed Refills Start Date End Date Status Apixaban 5 MG Oral Tablet (Eliquis) Take 1 Tablet by mouth in the morning and 1 Tablet before bedtime. Active Carbidopa-Levodopa 25-100 MG Oral Tablet (Sinemet)Indications :Parkinson's disease, unspecified whether dyskinesia present, unspecified whether manifestations fluctuate (HCC) Take 1 Tablet by mouth in the morning and 1 Tablet at noon and 1 Tablet in the evening and 1 Tablet before bedtime. 360 Tablet 3 10/13/2023 Active Mirtazapine 15 MG Oral Tablet (Remeron)Indications :Parkinson's disease, unspecified whether dyskinesia present, unspecified whether manifestations fluctuate (HCC) Take 1 Tablet by mouth at bedtime. 90 Tablet 3 10/13/2023 Active Tamsulosin HCl 0.4 MG Oral Capsule (Flomax)Indications: BPH without obstruction/lower urinary tract symptoms Take 1 Capsule by mouth at bedtime. 90 Capsule 3 10/13/2023 Active Tamsulosin HCl 0.4 MG Oral Capsule (Flomax) TAKE ONE CAPSULE BY MOUTH AT BEDTIME 90 Capsule 05/16/2021 4 Discontinue d(Patient preference/ discontinua tion) Zoster Vac Recomb Adjuvanted 50 MCG/0.5ML Intramuscular Suspension Reconstituted (Shingrix)Indication s:Immunization due Inject 0.5 mL into a large muscle now and repeat dose in 60 to 180 days 1 Each 1 09/09/2022 4 Discontinue d(Patient preference/ discontinua tion) Mirtazapine 15 MG Oral Tablet (Remeron) TAKE 1 TABLET BY MOUTH AT BEDTIME 90 Tablet 1 03/11/2023 4 Discontinue d(Refill) Tamsulosin HCl 0.4 MG Oral Capsule (Flomax) TAKE 1 CAPSULE BY MOUTH AT BEDTIME 90 Capsule 1 05/18/2023 Discontinue d(Refill) Carbidopa-Levodopa 25-100 MG Oral Tablet (Sinemet) Take 1 Tablet by mouth in the morning and 1 Tablet at noon and 1 Tablet in the evening and 1 Tablet before bedtime. 120 Tablet 1 07/28/2023 4 Discontinue d(Refill) documented as of this encounter (statuses as [...] beers per month PHQ-2 Answer Date Recorded PHQ-2 Score -1 06/28/2018 Hunger Vital Sign Answer Date Recorded Within the past 12 months, y ou worried that your food would run out before you got the money to buy more. Patient declined Within the past 12 months, t he food you bought just didn't last and you didn't have money to get more. Patient declined Childcare Answer Date Recorded Do you feel overwhelmed with taking care of a child, family member or friend? No 09/07/2022 Does your family need help f inding childcare? (Household - for ages 0-17 years) Not on file 09/07/2022 Clothing Answer Date Recorded Have you been unable to get clothing when it was really needed? No 09/07/2022 Is your family able to get c lothes or diapers when needed? (Household - for ages 0-17 years) Not on file 09/07/2022 Personal Safety Answer Date Recorded Do you feel unsafe or have concerns for your saf ety? No 09/07/2022 Do you have concerns for you r family's safety? (Household - for ages 0-17 years) Not on file 09/07/2022 Utilities Answer Date Recorded Do you have trouble paying y our heating, water, or electric bill? (Adult - for ages 18 years and over) Not on file 09/13/2023 Is your family able to pay t he heat, water, or electric bill? (Household - for ages 0-17 years) Not on file 09/13/2023 Does your family have access to good internet? (Household - for ages 0-17 years) Not on file 09/13/2023 Employment Status Answer Date Recorded Are you unemployed or without regular income? No 09/07/2022 Does the household have a re gular source of income? (Household - for ages 0-17 years) Not on file 09/07/2022 Social Connections Answer Date Recorded How often do you feel lonely or isolated from those around you? (Adult - for ages 18 years and over) Not on file 09/13/2023 Financial Resource Strain Answer Date R ecorded Do you have any trouble payi ng for your medications, or do you think you might in the future? No 09/07/2022 Does your family have troubl e paying for medicine? (Household - for ages 0-17 years) Not on file 09/07/2022 Transportation Needs Answer Date Record ed READ ONLY Do you have troubl e getting a ride to medical visits or work? Never True 09/07/2022 Does your family have a hard time getting a ride to doctors visits? (Household - for ages 0-17 years) Not on file 09/07/2022 Has lack of transportation k ept you from medical appointments, meetings, work, or from getting things needed for daily living? Check all that apply. (Adult - for ages 18 years and over) Not on file 09/07/2022 Do you (or your family) have trouble finding or paying for a ride (transportation)? (Household - for ages 0-17 years) Not on file 09/07/2022 Housing Stability Answer Date Recorded Do you currently live in a s helter or have no steady place to sleep at night? No 09/07/2022 READ ONLY Do you think you a re at risk of becoming homeless? No 09/07/2022 Does your family worry about paying for your home or becoming homeless? (Household - for ages 0-17 years) Not on file 0 09/07/2022 Are you homeless or worried that you might be in the future? (Adult - for ages 18 years and over) Not on file Are you (or your family) krystle eless or worried that you might be in the future? (Household - for ages 0-17 years) Not on file Food Insecurity Answer Date Recorded Do you need food for this week? No 09/07/2022 Are you able to get enough f ood for your family? (Household - for ages 0-17 years) Not on file 09/07/2022 Does your family need food t his week? (Household - for ages 0-17 years) Not on file 09/07/2022 Do you always have enough fo od for your family? (Household - for ages 0-17 years) Not on file 09/07/2022 Sex and Gender Information Value Date Recorded Sex Assigned at Male 09/02/2022 8:06 PM EDT Gender Identity Male 09/02/2022 8:06 PM EDT Sexual Orientation Straight 09/02/2022 8: 06 PM EDT Job Start Date Occupation Industry Not on file Not on file Not on file documented as of this encounter Last Filed Vital Signs Vital Sign Reading Time Taken Comments Blood Pressure 122/78 10/13/2023 7:59 AM EDT Pulse 96 10/13/2023 7:59 AM EDT Temperature 36.4 C (97.6 F) 10/13/2023 7 :59 AM EDT Respiratory Rate 18 10/13/2023 7:59 AM EDT Oxygen Saturation 91% 10/13/2023 7:5 9 AM EDT Inhaled Oxygen Concentration - - Weight 68 kg (150 lb) 10/13/2023 7:59 AM EDT Pt wasn't able to stand on scale without holding on to something Height - - Body Mass Index 21.52 09/09/2022 2:30 PM EDT documented in this encounter Patient Instructions * Patient Instructions* Maryan Mckeon LPN - 10/13/2023 8:04 AM EDT Patient Instructions - Fall Prevention (This education is for all patients over 65 regardless of symptoms) Remember to take your current medications as prescribed. In order to prevent falls, you are encouraged to: Exercise Utilize assistive/adaptive devices Avoid multifocal lenses when walking Avoid hazards in home Maintain a regular toileting schedule Any questions please contact our office. Preventing Falls in the Home (This education is for all patients over 65 regardless of symptoms) As you get older, falls are more likely. Thats because your reaction time slows. Your muscles and joints may also get stiffer, making them less flexible. Illness, medications, and vision changes can also affect your balance. A fall could leave you unable to live on your own. To make your home safer, follow these tips: Floors Put nonskid pads under area rugs Remove throw rugs Replace worn floor coverings Tack carpets firmly to each step on carpeted stairs. Put nonskid strips on the edges of uncarpeted stairs Keep floors and stairs free of clutter and cords Arrange furniture so there are clear pathways Clean up any spills right away Bathrooms Install grab bars in the tub or shower Apply nonskid strips or put a nonskid rubber mat in the tub or shower Sit on a bath chair to bathe Use bathmats with nonskid backing Lighting Keep a flashlight in each room Put a nightlight along the pathway between the bedroom and the bathroom [employer] Patient Education Copyright 2008 - 2010 [employer] except where otherwise noted Preventing Falls: Exercises to Improve Balance, Flexibility, Strength, and Staying Power (This education is for all patients over 65 regardless of symptoms) Certain types of exercises may help make you less likely to fall. Try the ones below. Or do other exercises that your healthcare provider suggests. Depending on your health, you may need to start slowly. Dont let that stop you. Even small amounts of exercise can help you. Be sure to talk to yourhealthcare provider before starting any exercise program. Improve Balance Many types of exercise can help improve balance. Oren chi and yoga are good examples. Heres another one to try. You can do it anytime and almost anywhere. Stand next to a counter or solid support. Push yourself up onto your tiptoes. Hold for 5 seconds. If you start to lose your balance, hold on to the counter. Rest and repeat 5 times. Work up to holding for 20 to 30 seconds, if you can. Increase Flexibility Being more flexible makes it easier for you to move around safely. Try exercises like the seated hamstring stretch. Sit in a chair and put one foot on a stool. Straighten your leg and reach with both hands down either side of your leg. Reach as far down your leg as you can. Hold for about 20 seconds. Go back to the starting position. Then repeat 5 times. Switch legs. Build Strength Resistance exercises help build strength. You can do them without equipment. Or you can use weights, elastic bands, or special machines. One such exercise is called the biceps curl. You can hold a 1 pound weight or even a can of soup. Do this exercise at least 3 times a week. Strive for everyday. Sit up straight in a chair. Keep your elbow close to your body and your wrist straight. Bend your arm, moving your hand up to your shoulder. Then slowly lower your arm. Repeat 5 times. Switch to the other arm. Build Your Staying Power Aerobic exercises make your heart and lungs stronger so you can keep moving longer. Walking and swimming are two of the best types of exercises you can do. Using a stationary bike is great, too. Find an aerobic exercise that you enjoy. Start slowly and build up. Even 5 minutes is helpful. Aimfor a goal of 30 minutes, at least 3 times a week. You dont have to do 30 minutes in one session. Break it up and walk a little throughout the day. More Helpful Tips Start easy. Slowly work up to doing more. Talk with your healthcare provider about the best exercises for you. Call senior centers or health clubs about exercise programs. If needed, have a family member watch you walk every so often to check your stability. Exercise with a friend. Choose an activity you both enjoy. Try exercises that you can do anytime, anywhere. Here are two examples. Have someone with you when you first try these: Practice walking by placing one foot right in front of the other. Stand up and sit down 10 times. Repeat this throughout the day. [employer] Patient Education Copyright 2008 - 2010 [employer]) except where otherwise noted. Preventing Falls: Moving Safely Using a Cane or Walker (This education is for all patients over 65 regardless of symptoms) Keep the cane away from your feet so you dont trip. A walking aid, such as a cane or walker, can help you stay more independent and avoid falls. Remember to keep your walking aid within easy reach when youre in a chair or in bed. And learn how to use it safely so you dont injure yourself. Using a Cane If you have a stronger side, hold the cane on that side. Get your balance. Move the cane and your weaker leg forward. Support your weight on both the cane and your weaker side. Step with your stronger leg. Start again from step 1. If youre using a folding walker, be sure you know how to lock it open. Check that its locked open before each use. Using a Walker Roll the walker (or lift it, if youre using one without wheels) forward about 12 inches. Step forward with your weaker leg first. Use the walker to help keep your balance. Bring your other foot forward to the center of the walker. Start again from step 1. Helpful Tips Check with your healthcare provider about the right walking aid to use. Ask about a walker with a seat attached. Check the tips of your cane or walker to make sure they have nonskid covers. Move slowly from room to room. Dont chino. Sit down to get dressed. Use a brandon pack or backpack to keep your hands free. Get help for jobs that mean climbing, even on a stepstool. [employer] Patient Education Copyright 2008 - 2010 [employer] except where otherwise noted. Treating Urinary Incontinence in Men (This education is for all patients over 65 regardless of symptoms) You can't always control the release of urine. You may leak urine. Or you may not be able to hold your urine until you can get to a bathroom. This is called urinary incontinence. The problem can be managed. Talk to your doctor about your treatment options. Taking Medications Prescription medications may help you. They may: Help the sphincter to work better. (This is the muscle that closes to keep urine from leaking out of the bladder.) Help stop the bladder from candida too often to push urine out. Help the bladder muscles contract with more force. Help relax the sphincter muscle and allow urine to flow more freely. Making Changes to Your Routine Certain changes in your daily routine may help. These include: Avoiding caffeine and alcohol. Using timed voiding. This is following a schedule for drinking fluids and urinating. Doing Kegel exercises daily. These exercises involve tightening the muscles in your sphincter and around your bladder to help strengthen them. Your doctor can explain how to do them. Using a Catheter A catheter is a narrow tube that is inserted through the urethra into the bladder. It drains urine.A condom catheter covers the penis. It channels urine into a collection bag. It is worn most of thetime. Intermittent catheterization means inserting a catheter to drain the bladder, then removing it. This is done on a regular schedule. Having Surgery If other options don't work, surgery may be recommended. If surgery is an option, your healthcare provider can discuss it with you and explain its risks and benefits. Healing After Prostate Surgery Surgery on the prostate gland can cause incontinence. Most often, the incontinence is only for a short time. It clears up when healing is complete. Very rarely, prostate surgery can result in permanent incontinence. documented in this encounter Progress Notes * Maryan Mckeon LPN - 10/13/2023 8:04 AM EDT Fall Risk Plan of Care Documentation: - Current medications reconciled Patient encouraged to: - Exercise - Provide education materials for Core strengthening - Utilize assistive/adaptive devices - Provide education materials - Avoid multifocal lenses when walking - Avoid hazards in home - Provide education materials - Maintain a regular toileting schedule Maryan Mckeon LPN 10/13/2023 Urinary Incontinence Plan of Care Documentation: (This education is for all patients over 65 regardless of symptoms) Current medications reconciled. Patient encouraged to: Practice kegal exercises Provide education materials Use the restroom every 2 hours throughout the day Limit caffeine, alcohol, spicy foods and acidic foods Keep a bladder diary Limit fluid intake 3-4 hours before bed Lose weight Prevent constipation Take fluid pills at a time when you can get to the bathroom quickly Control sugar better if diabetic Limit fluid intake to 60 oz. per day Wear support stockings (TEDs)if you have edema Maryan Mckeon LPN 10/13/2023 * Harshal Garcia MD - 10/13/2023 8:03 AM EDT Images from the original note were not included. Assessment and Plan 1. Parkinson's disease, unspecified whether dyskinesia present, unspecified whether manifestations fluctuate (HCC) On sinemet. Refer again to neurology as appt cancelled earlier this year. Significant risk for falls due to ambulatory dysfunction. Wheelchair at home to assist with mobility. - Carbidopa-Levodopa 25-100 MG Oral Tablet (Sinemet); Take 1 Tablet by mouth in the morning and 1 Tablet at noon and 1 Tablet in the evening and 1 Tablet before bedtime. Dispense: 360 Tablet; Refill:3 - Mirtazapine 15 MG Oral Tablet (Remeron); Take 1 Tablet by mouth at bedtime. Dispense: 90 Tablet; Refill: 3 - DURABLE MEDICAL EQUIPMENT - ADULT NEUROLOGY REFERRAL OP 2. Gastro-esophageal reflux disease without esophagitis 3. BPH without obstruction/lower urinary tract symptoms Continue Flomax. - Tamsulosin HCl 0.4 MG Oral Capsule (Flomax); Take 1 Capsule by mouth at bedtime. Dispense: 90 Capsule; Refill: 3 4. History of pulmonary embolism Diagnosed 2020. Following with [facility] heme/onc. Continues anticoagulation on eliquis due to limited mobility per 2020 note. 5. At risk for falls - DURABLE MEDICAL EQUIPMENT 6. Screening for diabetes mellitus - COMPREHENSIVE METABOLIC PANEL; Future - HEMOGLOBIN A1C; Future 7. Screening for cardiovascular condition - LIPID PANEL WITH DIRECT LDL IF TG IS HIGH; Future 8. Risk and functional assessment 9. Encounter for routine preventive care for patient older than 28 days Patient feels well. No changes to medications today. Recommend dentistry and optometry. Sunscreen when exposed. Seatbelts always. 10. Protein-calorie malnutrition, unspecified severity (HCC) Recommended nutrition/director of radio services. Declined at today's visit. Encouraged boost or similar protein drink. Weight check in 3 months. Refer if weight continues to fall. Wrap-Up Follow up in 3 months. History of Present Illness The patient is a 73 year old male with past medical history of GERD, Parkinsons disease, history ofPE, protein-calorie malnutrition who presents for yearly physical. 73-year-old male presents for routine physical. He has a history of Parkinson's diagnosed in 2018 by Neurology. He was started on Sinemet. Recommendation at that time was for 2 month follow up, however, he was yet to follow up 6 years later. We did refer him to Neurology at his last visit with me, however, this appointment was canceled due to weather per his report. Reports being minimally ambulatory at home. This is a change from last year when he was ambulating regularly. Did have a couple offalls in late fall 2022 which resulted in him remaining bed bound much of the time. Using tamsulosin for BPH. Stable. 38 pound weight loss in the last year. On mirtazapine for appetite stimulation. Family reports appropriate appetite. Patient diagnosed with PE in 2020. Followed by [facility] heme/onc. Continues to be anticoagulated with eliquis despite single uncomplicated PE due to limited mobility and risk for future PE per heme/onc notes available in the chart. Has follow up later this year. Up to date health maintenance. Due for basic lab work. Physical Exam Vitals: 10/13/23 0759 Temp: 36.4 C (97.6 F) Pulse: 96 Resp: 18 SpO2: 91% BP: 122/78 Physical Exam Physical Exam Vitals reviewed. Constitutional: General: He is not in acute distress. Comments: Using wheelchair for mobility. Frail appearing. Cardiovascular: Rate and Rhythm: Normal rate and regular rhythm. Heart sounds: No murmur heard. Pulmonary: Effort: Pulmonary effort is normal. No respiratory distress. Breath sounds: Normal breath sounds. Musculoskeletal: Cervical back: Neck supple. Lymphadenopathy: Cervical: No cervical adenopathy. Skin: General: Skin is warm and dry. Neurological: Mental Status: He is alert. Comments: Cogwheel and lead pipe rigidity. Psychiatric: Mood and Affect: Mood normal. Behavior: Behavior normal. This note has been completed in part utilizing [employer] Voice Recognition Software. Due to technical limitations of the software, grammatical errors, random word insertions, prounoun errors, and incomplete sentences may occur. Any formal questions or concerns about the content, text, or information contained within the body of this dictation should be directly addressed to the provider for clarification. documented in this encounter Nursing Notes * Maryan Mckeon LPN - 10/13/2023 7:54 AM EDT Chief Complaint Patient presents with Physical-Exam Pt here for his routine yearly physical documented in this encounter Plan of Treatment Upcoming Encounters Date Type Department Care Team (Latest Contact Info) Description 10/13/2023 9:10 AM EDT Laboratory Laboratory, [place] [address] [place] [address] [facility] [address], [place] [id number] Encounter for long-term (current) use of medications; Screening for cardiovascular condition; Screening for diabetes mellitus 12/15/2023 10:40 AM EDT Office Visit Neurology [facility] [address] [place] [address] Anthony Tadeo MD [address] [place] [address] 01/19/2024 2:00 PM EST Office Visit [facility] [address] [place] [address] JuneHarshal MD [address], [place] [id number] Pending Results Name Type Priority Associated Diagnoses Date /Time LIPID PANEL WITH DIRECT LDL IF TG IS HIGH Lab Routine Screening for cardiovascular condition 10/13/2023 8:39 AM EDT COMPREHENSIVE METABOLIC PANEL Lab Routine Screening for diabetes mellitus 10/13/2023 8:39 AM EDT HEMOGLOBIN A1C Lab Routine Screening for diabetes mellitus 10/13/2023 8:39 AM EDT Scheduled Orders Name Type Priority Associated Diagnoses Orde r Schedule LIPID PANEL WITH DIRECT LDL IF TG IS HIGH Lab Routine Screening for cardiovascular condition Expected: 10/13/2023 (Approximate), Expires: 10/12/2024 COMPREHENSIVE METABOLIC PANEL Lab Routine Screening for diabetes mellitus Expected: 10/13/2023 (Approximate), Expires: 10/12/2024 HEMOGLOBIN A1C Lab Routine Screening for diabetes mellitus Expected: 10/13/2023 (Approximate), Expires: 10/12/2024 Scheduled Referrals Name Type Priority Associated Diagnoses Orde r Schedule ADULT NEUROLOGY REFERRAL OP Referral Within 10 days (routine) Parkinson's disease, unspecified whether dyskinesia present, unspecified whether manifestations fluctuate (HCC) Ordered: 10/13/2023 Health Maintenance Due Date Last Done Comments Cologuard 1995 Colonoscopy 1995 Fecal Occult Blood Test 1995 Sigmoidoscopy 1995 Adult Wellness Visit 2016 Lipid Panel 02/12/2022 02/12/2017, 04/23, 03/28/2010, Additional history exists COVID-19 Vaccine (2022- season) 2022 Influenza Vaccine (FLU shot) (#1) [...] as of this encounter Visit Diagnoses Diagnosis Screening for cardiovascular condition- Primary Screening for other and unspecified cardiovascular conditions Parkinson's disease, unspecified whether dyskinesia present, unspecified whether manifestations fluctuate (HCC) Gastro-esophageal reflux disease without esophagitis Esophageal reflux BPH without obstruction/lower urinary tract symptoms Hypertrophy of prostate without urinary obstruction and other lower urinary tract symptoms (LUTS) History of pulmonary embolism Personal history of pulmonary embolism At risk for falls Personal history of fall Screening for diabetes mellitus Risk and functional assessment Screening for unspecified condition Encounter for routine preventive care for patient older than 28 days Protein-calorie malnutrition, unspecified severity (HCC) Encounter for long-term (current) use of medications Encounter for long-term (current) use of other medications Screening for cardiovascular condition Screening for other and unspecified cardiovascular conditions Screening for diabetes mellitus documented in this encounter Care Teams Education Teacher Relationship Specialty Start Date End Date Elio Hester MD [address] [place] [address] PCP - General Family Medicine 05/13/20 documented as of this encounter
--- OUTSIDE RECORDS SUMMARY | 2024-04-02 10:33 | External Medical Summary | Summary of Care ---
Author Name Unknown Organization [facility] Address [address] [place] [address] Phone [phone] Care Team Providers Care Language And Literature Division Chair Name Role Phone Elio Hester MD Primary Care Provider [phone] Reason for Referral * Evaluate & Treat - Unlimited Visits (Within 10 days (routine)) - Authorized Specialty Diagnoses / Procedures Referred By Contac t Referred To Contact Neurology Diagnoses Parkinson's disease, unspecified whether dyskinesia present, unspecified whether manifestations fluctuate (HCC) Harshal Lugo MD [address] [place] [address] Referral ID Status Reason Start Date Expiration Date Visits Requested Visits Authorized [id number] Authorized Specialty Services Required 10/13/2023 999 999 [...] Description 10/13/2023 8:20 AM EDT Office Visit [facility] [address] [place] [address] Harshal Lugo MD [address] [place] [address] Screening for cardiovascular condition*; Parkinson's [...] 10 times. Repeat this throughout the day. [employer]ant Patient Education Copyright 2008 - 2010 Shant except where otherwise noted. Preventing Falls: Moving [...] on a stepstool. Shant Patient Education Copyright 2009 - 2010 Shant except where otherwise noted. [...] edema Maryan Mckeon LPN 10/13/2023 * Harshal Lugo MD - 10/13/2023 8:03 AM EDT Images [...] of pulmonary embolism Diagnosed 2020. Following with [facility] heme/onc. Continues anticoagulation on eliquis due to [...] 10. Protein-calorie malnutrition, unspecified severity (HCC) Recommended nutrition/parking cashier. Declined at today's visit. Encouraged boost or similar protein drink. Weight check in 3 months. Refer if weight continues to fall. Addendum 11/16/2023: Patient is unable to use cane or walker safely for long distances. Harshal Lugo MD Wrap-Up Follow up in 3 months. History [...] diagnosed with PE in 2020. Followed by [facility] heme/onc. Continues to be anticoagulated with eliquis [...] note has been completed in part utilizing [employer] Speech Voice Recognition Software. Due to technical [...] routine yearly physical documented in this encounter Miscellaneous Notes * Addendum Note - Harshal Lugo MD - 11/16/2023 6:36 PM EDTAddended by: HARSHAL LUGO on: 11/16/2023 06:36 PM Modules accepted: Orders documented in this encounter Plan of Treatment Upcoming Encounters Date Type Department Care Team (Late st Contact Info) Description 12/15/2023 10:40 AM EDT Office Visit Neurology [facility] [address] [place] [address] Anthony Tadeo MD [address] [place] [address] 01/19/2024 2:00 PM EST Office Visit [facility] [address] [place] [address] Harshal Lugo MD [address], [place] [phone] Scheduled Referrals Name Type Priority Associated Diagnoses [...] Not on filedocumented as of this encounter Results * HEMOGLOBIN A1C (10/13/2023 8:39 AM EDT) Hemoglobin A1C 4.9 4.0 - 5.6 % 10/13/2023 5:11 PM EDT [facility] Comment:The use of HbA1c to monitor glycemic status is based on normal hemoglobin and HbA composition. This test should not be used in patients with abnormal hemoglobin that affects the half life of the red blood cell or the in vivo glycation rates. Estimated Average Glucose 94 <126 mg/dL 10/13/2023 5:[address] [facility] Blood Venous blood specimen / Unknown Venipuncture / Unknown 10/13/2023 8:39 AM EDT 10/13/2023 8:39 AM EDT Harshal Lugo MD LAB BLOOD ORDERABLES [facility] [address] [place] [address] * (ABNORMAL) COMPREHENSIVE METABOLIC PANEL (10/13/2023 8:39 AM EDT) BUN 8 6 - 20 mg/dL 10/13/2023 5:19 PM EDT [facility] CREATININE 1.1 0.6 - 1.2 mg/dL 10/13/2023 5:19 PM EDT [facility] EGFR 72 >=60 mL/min 10/13/2023 5:19 PM EDT [facility] Comment:eGFR is calculated b ased on the CKD-EPI 2020 equation. SODIUM 140 135 - 146 mmol/L 10/13/2023 5:19 PM EDT [facility] POTASSIUM 4.6 3.5 - 5.1 mmol/L 10/13/2023 5:19 PM EDT [facility] CHLORIDE 104 98 - 107 mmol/L 10/13/2023 5:19 PM EDT [facility] CO2 26 22 - 32 mmol/L 10/13/2023 5:19 PM EDT [facility] ANION GAP 10 7 - 15 mmol/L 10/13/2023 5:19 PM EDT [facility] GLUCOSE 88 70 - 120 mg/dL 10/13/2023 5:19 PM EDT [facility] Albumin 3.8 3.8 - 5.0 g/dL 10/13/2023 5:19 PM EDT [facility] AST 17 10 - 50 U/L 10/13/2023 5:19 PM EDT [facility] Comment:Result may be falsel y elevated due to hemolysis. Alkaline Phosphatase 105 35 - 130 U/L 10/13/2023 5:19 PM EDT [facility] Bilirubin, Total 0.5 <=1.2 mg/dL 10/13/2023 5:19 PM EDT [facility] CALCIUM 9.5 8.4 - 10.2 mg/dL 10/13/2023 5:19 PM EDT [facility] Protein 6.6 6.0 - 8.3 g/dL 10/13/2023 5:19 PM EDT [facility] ALT <5(L) 10 - 50 U/L 10/13/2023 5:19 PM EDT [facility] Blood Venous blood specimen / Unknown Venipuncture / Unknown 10/13/2023 8:39 AM EDT 10/13/2023 8:39 AM EDT Harshal Lugo MD LAB BLOOD ORDERABLES [facility] [address] [place] [address] * LIPID PANEL WITH DIRECT LDL IF TG IS HIGH (10/13/2023 8:39 AM EDT) Triglycerides 70 <=174 mg/dL 10/13/2023 5:[address] [facility] Comment: Triglyceride Reference Ranges (mg/dL): <150 Acceptable 150-174 Borderline high 175-499 High >=500 Very high Cholesterol 166 <200 mg/dL 10/13/2023 5:[address] [facility] Comment: Total Cholesterol Reference Ranges (mg/dL): <200 Desirable 200-239 Borderline high >=240 High HDL Cholesterol 60 >39 mg/dL 5:[address] [facility] Comment: HDL Cholesterol Reference Ranges (mg/dL): >=60 High (Desirable) <50 Low (Undesirable) For Females <40 Low (Undesirable) For Males Non-HDL Cholesterol 106 <=159 mg/dL 10/13/2023 5:[address] [facility] Comment: Non-HDL Cholesterol Reference Range (mg/dL): <100 Target level for high risk ASCVD patient <130 Optimal for general population 130-159 Near optimal for general population 160-189 Borderline High 190-219 High >=220 Very High LDL Cholesterol 92 <=129 mg/dL 10/13/2023 5:[address] [facility] Comment: LDL Cholesterol Reference Ranges (mg/dL): <70 Target level for high risk ASCVD patient <100 Optimal for general population 100-129 Near optimal for general population 130-159 Borderline high 160-189 High >=190 Very high Blood Venous blood specimen / Unknown Venipuncture / Unknown 10/13/2023 8:39 AM EDT 10/13/2023 8:39 AM EDT Harshal Lugo MD LAB BLOOD ORDERABLES LABORATORY [facility] [address] [place] [address] documented in this encounter Visit Diagnoses Diagnosis Screening for [...] 28 days Protein-calorie malnutrition, unspecified severity (HCC) documented in this encounter Care Teams Language And Literature Division Chair Relationship Specialty Start Date End Date Elio Hester MD [address] [place] [address] PCP - General Family Medicine 05/13/20 documented as of this encounter
--- OUTSIDE RECORDS SUMMARY | 2024-04-02 10:33 | External Medical Summary ---
Author Name Unknown Address Unknown Organization K01:LABORATORY [facility] - [facility] [place] [address] [facility] [address] [facility] [address] Laboratory Report Ordering Provider Test Date Status LOC CAI 10/13/2023 08:39:16 Final Observation Date Value Abnormality Reference (Units ) Status WBC, Total 10/13/2023 08:39:16 6.88 4.00-10.80 (K/uL) Final RBC 10/13/2023 08:39:16 5.13 4.50-5.25 (M/uL) Final Hemoglobin 10/13/2023 08:39:16 15.6 14.0-16.8 (g/dL) Final HCT 10/13/2023 08:39:16 50.4 Above high normal 40.0-48.4 (%) Final MCV 10/13/2023 08:39:16 98.2 82.0-99.5 (fL) Final MCH 10/13/2023 08:39:16 30.4 27.0-34.0 (pg) Final MCHC 10/13/2023 08:39:16 31.0 32.0-36.0 (g/dL) Final RDW 10/13/2023 08:39:16 14.4 11.5-15.5 (%) Final Platelets 10/13/2023 08:39:16 154 140-400 (K/uL) Final MPV 10/13/2023 08:39:16 13.0 6.6-11.1 (fL) Final Nucleated erythrocytes/100 leukocytes [Ratio] in Blood by Automated count 10/13/2023 08:39:16 0 <=0 (/100 WBCs) Final Performing Location [facility]ORY [facility] - [address] [facility] [address]
--- OUTSIDE RECORDS SUMMARY | 2024-04-02 10:33 | External Medical Summary ---
Author Name Unknown Address Unknown Organization K01:[facility]ATORY [facility] - [facility] [place][note 2] [address] [facility] [address] Laboratory Report Ordering Provider Test Date Status 10/13/2023 08:39:16 Final Observation Date Value Abnormality Reference (Units ) Status HbA1C 10/13/2023 08:39:16 4.9 4.0-5.6 (% ) Final The use of HbA1c to monitor glycemic status is based on normal hemoglobin and HbA composition. This test should not be used in patients with abnormal hemoglobin that affects the half life of the red blood cell or the in vivo glycation rates. Glucose, estimated average 10/13/2023 08:39:16 94 <126 (mg/dL) Final Performing Location LABORATORY [facility] - [address] [facility] [address]
--- OUTSIDE RECORDS SUMMARY | 2024-04-02 10:33 | External Medical Summary | Summary of Care ---
Author Name Unknown Organization [facility] Address [address] [place] [address] Phone [phone] Care Team Providers Care Terminal Makeup Operator Name Role Phone Elio Hester MD Primary Care Provider [phone] Reason for Visit * Reason Comments Outpatient Testing Encounter Details Date Type Department Care Team (Late st Contact Info) Description 10/13/2023 9:10 AM EDT Laboratory Laboratory, [place] [address] [place] [address] [place] [address] [place] [address] Encounter for long-term (current) use of medications; Screening for cardiovascular condition; Screening for diabetes mellitus Allergies No known active allergiesdocumented as of [...] on file documented as of this encounter Plan of Treatment Upcoming Encounters Date Type Department Care Team (Late st Contact Info) Description 10/13/2023 9:00 AM EDT Laboratory Laboratory, [place] [address] [place] [address] [place], [facility] [address] [place] [address] 12/15/2023 10:40 AM EDT Office Visit [facility] [place] [address] [facility] [address] Anthony Tadeo MD [address] [facility] [address] 01/19/2024 2:00 PM EST Office Visit Family Practice, [place] [address] [place] [facility] [place] [phone] Harshal Garcia MD [address] [place] [address] Pending Results Name Type Priority Associated Diagnoses Date /Time CBC Lab Routine Encounter for long-term (current) use of medications 10/13/2023 8:39 AM EDT LIPID PANEL WITH DIRECT LDL IF TG IS HIGH Lab Routine Screening for cardiovascular condition 10/13/2023 8:39 AM EDT COMPREHENSIVE METABOLIC PANEL Lab Routine Screening for diabetes mellitus 10/13/2023 8:39 AM EDT HEMOGLOBIN A1C Lab Routine Screening for diabetes mellitus 10/13/2023 8:39 AM EDT Health Maintenance Due Date Last Done Comments [...] as of this encounter Visit Diagnoses Diagnosis Encounter for long-term (current) use of medications Encounter for long-term (current) use of other medications Screening for cardiovascular condition Screening for other and unspecified cardiovascular conditions Screening for diabetes mellitus documented in this encounter Care Teams Terminal Makeup Operator Relationship Specialty Start Date End Date Elio Hester MD [address] [facility] [place] [address] PCP - General Family Medicine 05/13/20 documented as of this encounter
--- NOTE | 2024-04-02 11:27 | XRay Report ---
XR chest 1V portable HISTORY: 73 years-old Male Dyspnea COMPARISON: 11/02/2022 TECHNIQUE: AP view of the chest FINDINGS: Cardiac silhouette is enlarged. Mild right hemidiaphragmatic elevation. Interstitial coarsening with patchy ill-defined bibasilar densities. No pneumothorax, pleural effusion or pulmonary edema. Right u pper quadrant surgical clips. IMPRESSION: 1. Interstitial coarsening with mild patchy bibasilar opacities, likely infectious or inflammatory. 2. Chronic right hemidiaphragmatic elevation. ACT 112: Negative or not required by law. The above report was generated using voice recognition software. It may contain grammatical, syntax o r spelling errors. Electronically signed by: Fran Mckee M.D. 04/02/2024 11:26 AM
[2024-04-02] MEDS ORDERED: VANCOMYCIN CONSULT ACTIVE PRN (11:50)
[2024-04-02 12:09] LABS: Basophils # (auto) 0.05 K/uL (0.00-0.20); Basophils % (auto) 0.3 %; Eosinophils # (auto) 0.02 K/uL (0.00-0.50); Eosinophils % (auto) 0.1 %; Hemoglobin 16.8 g/dl (14.0-18.0); Immature Granulocytes # (auto) 0.09 K/uL (0.01-0.20); Immature Granulocytes % (auto) 0.6 %; Lymphocytes # (auto) 0.63 K/uL (1.20-3.40); Lymphocytes % (auto) 4.3 %; Mean Corpuscular Hemoglobin 28.6 pg (25.0-34.0); Mean Corpuscular Hgb Conc 32.9 g/dL (32.0-36.0); Mean Corpuscular Volume 86.7 fL (80.0-100.0); Mean Platelet Volume 10.8 fL (9.4-12.4); Monocytes # (auto) 0.75 K/uL (0.11-0.59); Monocytes % (auto) 5.1 %; Neutrophils # (auto) 13.08 K/uL (1.40-6.50); Neutrophils % (auto) 89.6 %; Platelet Count 264 K/uL (130-400); RDW Coefficient of Variation 13.2 % (11.5-14.5); RDW Standard Deviation 40.3 fL (36.4-46.3); Red Blood Count 5.88 M/uL (4.70-6.10); White Blood Count 14.62 K/ul (4.8-10.8)
[2024-04-02 12:24] LABS: Alanine Aminotransferase 8 U/L (7-52); Albumin Globulin Ratio 1.1 (0.9-2); Alkaline Phosphatase 85 U/L (34-104); Bilirubin,Total 1.3 mg/dl (0.2-1.0); Blood Urea Nitrogen 14 mg/dl (6-23); Calcium 9.4 mg/dl (8.6-10.3); Carbon Dioxide 27 mmol/L (21-32); Chloride 107 mmol/L (98-107); Creatinine Clr Calc Pharmacy 58.9 ml/min; Globulin 3.6 gm/dl (2.5-4.0); Glucose 111 mg/dl (70-99(Fasting)); Total Protein 7.6 gm/dl (6.0-8.3); Troponin I High Sensitivity 47.4 pg/ml (0-20)
[2024-04-02 12:31] LABS: Adenovirus PCR Not Detected (NotDetected); Bordetella parapertussis PCR Not Detected (NotDetected); Bordetella pertussis PCR Not Detected (NotDetected); Chlamydia pneumoniae PCR Not Detected (NotDetected); Coronavirus 229E PCR Not Detected (NotDetected); Coronavirus CoV-2 (COVID19)PCR Not Detected (NotDetected); Coronavirus HKU1 PCR Not Detected (NotDetected); Coronavirus NL63 PCR Not Detected (NotDetected); Coronavirus OC43PCR Not Detected (NotDetected); Human Metapneumovirus PCR Not Detected (NotDetected); Influenza A PCR Not Detected (NotDetected); Influenza B PCR Not Detected (NotDetected); Mycoplasma pneumoniae PCR Not Detected (NotDetected); Parainfluenza Virus 1 PCR Not Detected (NotDetected); Parainfluenza Virus 2 PCR Not Detected (NotDetected); Parainfluenza Virus 3 PCR Not Detected (NotDetected); Parainfluenza Virus 4 PCR Not Detected (NotDetected); Respiratory Syncytial VirusPCR Not Detected (NotDetected); Rhinovirus/Enterovirus PCR Not Detected (NotDetected)
[2024-04-02] MEDS: VANCOMYCIN HCL 1,250 MG in SODIUM CHLORIDE 0.9% 500 ML IV ONE (12:59)
[2024-04-02] MEDS: SODIUM CHLORIDE 0.9% 1,000 ML IV ONE ×2 (12:59→14:28)
[2024-04-02] MEDS: PIPERACILLIN/TAZOBACTAM 4.5 GM/100 ML BAG IV ONE (13:06)
[2024-04-02 13:27] LABS: Potassium 4.3 mmol/L (3.5-5.1)
[2024-04-02 13:44] LABS: Troponin I High Sensitivity 47.8 pg/ml (0-20)
[2024-04-02] MEDS ORDERED: ACETAMINOPHEN 325 MG TAB PO PRN (14:24)
[2024-04-02] MEDS ORDERED: ALUMINUM/MAGNESIUM SUSP 30 ML UDC PO PRN (14:24)
[2024-04-02] MEDS ORDERED: ONDANSETRON INJ 2 MG/ML 2 ML VIAL IV PRN (14:24)
[2024-04-02] MEDS ORDERED: MAGNESIUM HYDROXIDE SUSP 30 ML UDC PO PRN (14:24)
[2024-04-02] MEDS: SODIUM CHLORIDE 0.9% 1,000 ML IV SCH (14:28)
[2024-04-02] MEDS ORDERED: ALBUT/IPRATROP 3MG/0.5MG NEB 3 ML VIAL NEB PRN (14:45)
--- NOTE | 2024-04-02 14:46 | History & Physical Report ---
Date of Service April 02, 2024 Assessment & Plan (1) Shortness of breath: Plan Pneumonia, likely aspiration versus secondary bacterial pneumonia: Pt's sons state he coughs more after food/water intake. He is high risk for aspiration iso underlying parkinson's dz. Likely recent viral upper respiratory tract infection Severe sepsis: Likely secondary to pneumonia, lactate/Pro-Mg/WBC/heart rate/respiratory rate elevated at presentation. Increase blood lactic acid level Patient is status post 2500 mL fluid bolus in the ED (2L NSS and about 0.5L IV meds), will continue with maintenance fluid at 65 mL an hour. 07/14/2020 echo with EF of 65 to 70%, normal LV systolic function. Admitting CXR with concern for bibasilar pneumonia. Follow admitting blood culture. Send sputum culture, continue with Vanco and Zosyn, add probiotic, speech consult Wean down O2 as kamran. IS if able. Trend lactate until normal. Metabolic encephalopathy: Patient noted to be confused at presentation. Likely secondary to acute infection, see above. Expect to improve with improvement in acute illness. Follow. Delirium precaution. History of blood clot: Per patient's sons ho clot in the lungs and legs. Continue with home Eliquis. Parkinson's DZ: c/w home sinemet DVT prophylaxis: Patient on Eliquis DNR/DNI History of Present Illness Chief Complaint: cough, difficulty breathing Primary Care Provider: Oj Garcia MD 73-year-old male with PMH of Parkinson's disease, GERD, blood clot on Eliquis and has very poor mobility due to underlying severe Parkinson's disease presents to the ED with complaint of difficulty breathing, wheezing that is worsened since today morning. Patient pleasantly confused at bedside, patient's sons [Kal and Bienvenido] at bedside who helped with history taking. they all live together in the same house. They help patient with moving around. Patient is able to stand at the bedside and go back to bed for sitting or lying down. But anything beyond that, help w/ ambulation is provided by patient's sons. They said they recently got him a wheelchair. Per patient's son, they had likely viral gastroenteritis about a week ago. Patient got similar symptoms about 5 days ago and he was better next day. Then he developed coughing about 3 days ago, he started feeling tired and having poor sleep. Today he was noted to be breathing hard and wheezing and hence he was brought to the ED. He also seems little confused today. They state that cough is wet in nature but has not seen him spit out the mucus. Per patient's son, patient does not smoke/use alcohol/use recreational drugs. Medications reviewed with the patient's son at bedside. DNI/DNI per patient's sons Plan of care discussed with patient sons at bedside, they voiced understanding. Allergies Allergy/AdvReac Type Severity Reaction Status Date / Time No Known Allergies Allergy Verified 04/02/24 13:59 Home Medications Medication Instructions Recorded Confirmed Type carbidopa 25 mg-levodopa 100 mg 1 tab PO QID 06/24/20 04/02/24 History tablet mirtazapine 15 mg tablet 15 mg PO HS 06/24/20 04/02/24 History tamsulosin 0.4 mg capsule 0.4 mg PO HS 06/24/20 04/02/24 History apixaban 5 mg tablet (Eliquis) 5 mg PO BID 08/02/22 04/02/24 History Past Med/Surg History Problem List BPH (benign prostatic hyperplasia) GERD (gastroesophageal reflux disease) Parkinsons disease Generalized weakness (Acute) Diarrhea (Acute) Acute dehydration (Acute) Shortness of breath Multiple pulmonary nodules Hx of pulmonary embolus LAD (lymphadenopathy), mediastinal Urinary retention DVT (deep venous thrombosis) Mediastinal lymphadenopathy due to sarcoidosis Pulmonary embolism Encounter for pre-operative examination Meatal stenosis Adult failure to thrive (Acute) Weakness (Acute) Depression (Acute) Acute hemorrhoid (Acute) Nonadherence to medication (Acute) Depression Generalized weakness Acute sinusitis Cough (Acute) Thrombocytopenia Parkinsons disease Hypertension ETOH abuse History of tonsillectomy Medical History (Updated 12/05/22 @ 00:07 by Alicia Hughes) Acute electrocardiogram changes Generalized weakness Renal insufficiency Improved Alcoholism /alcohol abuse Surgical History S/P laparoscopic cholecystectomy History of inguinal hernia repair Left Family History Other No significant family history Social History Smoking Status: Never smoker Second Hand Exposure: No; Do You Dip or Chew Tobacco: No; Hx Alcohol Use: No Hx Substance Use: No Preferred Language: Serbian Communication Ability: Effective Visual Impairment: No Limitations Supervisor Graphite Required: No Beliefs That Will Affect Care: None marital status: / Current Living Situation: Family Current Living Situation Comment: lives with son How many Children do You have: 2 Feels Safe at Home: Yes Assistive Devices: None Review of Systems Review of Systems: Negative otherwise mentioned in HPI. Physical Exam Physical Exam: GENERAL: Pleasantly confused, on 3L NC O2, NAD. Appears ill/frail/weak. HEENT: No pallor, no icterus. Pupils equal, round and reactive to light. Oral mucosa dry. NECK: No JVD, no neck masses. HEART: S1 and S2 heard. Regular rate and rhythm. HR in 110s. No murmur, no gallop. RESPIRATORY SYSTEM: Normal AP diameter. No accessory muscle use. No wheezing, bb crackles. ABDOMEN: Soft, bowel sounds present, no facial grimacing on deep palpation, no distention. CENTRAL NERVOUS SYSTEM: No facial droop. Speech is clear. Obeys simple commands. Moves extremities. EXTREMITIES: No edema, no erythema seen. Unkempt b/l feet/toe nails. Resting tremors b/l UE noted. Results & Data Results & Data Vital Signs (Past 12 Hours) Vital Signs Temp Pulse Pulse Resp BP Pulse Ox O2 Del Method 04/02/24 13:37 123 H 31 H 118/76 93 Nasal Cannula 04/02/24 13:10 88 L Room Air 04/02/24 13:00 36.9 C 126 H 26 H 99/81 L 93 Nasal Cannula 04/02/24 11:27 96 Room Air 04/02/24 11:27 126 H 24 116/63 96 Room Air 04/02/24 11:18 125 H 04/02/24 10:21 36.9 C 63 16 98 Room Air O2 Flow Rate 04/02/24 13:37 3 04/02/24 13:10 04/02/24 13:00 3 04/02/24 11:27 04/02/24 11:27 04/02/24 11:18 04/02/24 10:21 Code Status & VTE Plan VTE Prophylaxis Plan VTE Prophylaxis will be ordered: Yes
--- NOTE | 2024-04-02 16:34 | Emergency Department Note ---
Impression & Plan Pneumonia, Parkinsons disease, Sepsis ED Provider Note NAME: TATI WOOD AGE: 73 SEX: Male INFORMANT: Patient and family ED PROVIDER(S): Tati Pérez MD CHIEF COMPLAINT: Cough PLAN: Disposition: Admitted Outpatient prescription management: none Referral: None MEDICAL DECISION MAKING: Patient presented because of a cough and weakness. X-ray was concerning for pneumonia. His ECG showed a tachycardia without ischemia. Patient had a leukocytosis, elevated procalcitonin, elevated lactate, and elevated troponin. Patient was treated with sepsis fluids and broad-spectrum antibiotics. Patient was reassessed and was doing better. No hypotension. Patient was still having some mild tachycardia. He had clearance of his lactate. Troponin was slightly worse on reassessment. Further management in the hospital will be necessary. Family updated. [facility] Patient was evaluated in the ER and admitted for further management. 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 Vital Signs: reviewed and remarkable for tachycardia Additional History obtained from: Patient's family regarding recent illness in the family Chronic Medical/Social Conditions affecting care: Parkinson's disease Prior/ Outside/ External records reviewed: none Differential Diagnosis: Infection, dehydration, metabolic abnormality, hypo/hyperglycemia, electrolyte disturbance, anemia, hypoxia, cardiac sources, intracerebral event, toxicologic, neurologic, as well as other pathologies. Diagnostics, independently interpreted by me: ECG: Twelve-lead ECG was sinus tachycardia at 123 bpm. Left anterior fascicular block present. Anterior Q waves present. No ST elevation. Cardiac Monitoring: Cardiac monitoring ordered by me: The patient was placed on continuous cardiac monitoring and observed. It revealed a sinus tachycardic rhythm at 113 beats per minute without ectopy or evidence of dysrhythmia. Medical decision rules: none Imaging studies: Chest x-ray concerning for pneumonia. I refer you to the EMR for further details. HPI: 73 year old Male arrives for evaluation of cough. This started over the last few days and is noted to worsen today. The patient also notes the following associated symptoms, feeling weak, breathing difficulties . Family is present helps with history. They thought that he was more weak than usual and also seemed somewhat off but not himself. Family notes having GI illness at the beginning of the week but that passed. They denied any vomiting for the patient but he did have diarrhea. Patient does have a history of Parkinson's. The patient has been given no medication for relieving factors. Current pain is rated as 0/10. Pt denies LOC, headache, fevers, chills, diaphoresis, visual changes, neck pain, chest pain, nausea, vomiting, abdominal pain, back pain, melena, hematochezia, urinary symptoms, numbness, lymphadenopathy, rash, or other complaints.. PAST MEDICAL HISTORY: See Below, Parkinson's disease, anticoagulated PAST SURGICAL HISTORY: See Below, SOCIAL HISTORY: See Below, lives with family HOME MEDICATIONS: See Below ALLERGIES: See Below VITALS: See Below PHYSICAL EXAMINATION: GENERAL: Awake, mildly ill-appearing, in no distress HENT: Normocephalic, atraumatic. Oropharynx unremarkable. EYES: Normal conjunctiva. Sclera non-icteric. NECK: Inspection normal. Non-tender. Supple. No nuchal rigidity. FROM. No masses. RESPIRATORY: No wheezes but scattered rhonchi noted. Moderate wet cough present. Mildly increased respiratory effort. CARDIAC: Borderline tachycardic rate. Normal rhythm. No murmurs. No rubs. Extremities warm and well perfused. Pulses equal. No JVD. GI: Soft, non-distended. No tenderness to palpation. No rebound or guarding. No masses. RECTAL: Deferred. MUSCULOSKELETAL: Atraumatic. Chest examination reveals no tenderness. There is no CVA tenderness to palpation. No joint edema. LOWER EXTREMITIES: Calves are equal size bilaterally and non-tender. 1+ edema. No discoloration. Unkempt NEURO: Relatively normal sensorium. No sensory deficits noted. Resting tremor noted. Patient was generally weak. SKIN: No rash or jaundice noted. PROCEDURES: none CRITICAL CARE: I have personally spent 30 minutes of critical care time in the direct management of this patient. This includes bedside care, interpretation of diagnostic studies, and testing, discussion with consultants, patient, and family members, and other required patient management activities. These minutes are in excess of all separately billable procedures. OBSERVATION NOTE: none Past Med/Surg History Problem List Sepsis (Acute) Pneumonia (Acute) BPH (benign prostatic hyperplasia) GERD (gastroesophageal reflux disease) Parkinsons disease Generalized weakness (Acute) Diarrhea (Acute) Acute dehydration (Acute) Shortness of breath Multiple pulmonary nodules Hx of pulmonary embolus LAD (lymphadenopathy), mediastinal Urinary retention DVT (deep venous thrombosis) Mediastinal lymphadenopathy due to sarcoidosis Pulmonary embolism Encounter for pre-operative examination Meatal stenosis Adult failure to thrive (Acute) Weakness (Acute) Depression (Acute) Acute hemorrhoid (Acute) Nonadherence to medication (Acute) Depression Generalized weakness Acute sinusitis Cough (Acute) Thrombocytopenia Parkinsons disease (Acute) Hypertension ETOH abuse History of tonsillectomy Medical History (Updated 04/02/24 @ 16:34 by Tati Pérez MD) Acute electrocardiogram changes Generalized weakness Renal insufficiency Improved Alcoholism /alcohol abuse Surgical History S/P laparoscopic cholecystectomy History of inguinal hernia repair Left Family History Other No significant family history Social History Smoking Status: Never smoker Second Hand Exposure: No; Do You Dip or Chew Tobacco: No; Hx Alcohol Use: No Hx Substance Use: No Preferred Language: Yakut Communication Ability: Effective Visual Impairment: No Limitations Assistant Center Manager Required: No Beliefs That Will Affect Care: None marital status: / Current Living Situation: Family Current Living Situation Comment: lives with son How many Children do You have: 2 Feels Safe at Home: Yes Assistive Devices: None Allergies Allergies Allergy/AdvReac Type Severity Reaction Status Date / Time No Known Allergies Allergy Verified 04/02/24 13:59 Home Meds Home Medications Medication Instructions Recorded Confirmed carbidopa 25 mg-levodopa 100 mg 1 tab PO QID 06/24/20 04/02/24 tablet mirtazapine 15 mg tablet 15 mg PO HS 06/24/20 04/02/24 tamsulosin 0.4 mg capsule 0.4 mg PO HS 06/24/20 04/02/24 apixaban 5 mg tablet (Eliquis) 5 mg PO BID 08/02/22 04/02/24 Results & Data (ED) Vital Signs Vital Signs - 24 hr 04/02/24 10:21 04/02/24 11:18 04/02/24 11:27 Temperature 36.9 C Temperature Source Oral Pulse Rate 63 125 H Pulse Rate [Apical] 126 H Pulse Rhythm [Apical] Respiratory Rate 16 24 Respiratory Effort / Characteristics Non-Labored Respiratory Depth Normal Respiratory Pattern Blood Pressure [Left Arm] 116/63 Blood Pressure Mean [Left Arm] 80 Pulse Oximetry 98 96 Oxygen Delivery Method Room Air Room Air Oxygen Flow Rate Sepsis Recent Fever Within 48 Hours No Sepsis New/Unexplained Change in Mental Status N/A Sepsis Action Taken by Nursing No Action Required Oxygen Flow Rate - Titration Pulse Oximetry Post Tiitration 04/02/24 11:27 04/02/24 13:00 04/02/24 13:10 Temperature 36.9 C Temperature Source Oral Pulse Rate Pulse Rate [Apical] 126 H Pulse Rhythm [Apical] Respiratory Rate 26 H Respiratory Effort / Characteristics Respiratory Depth Respiratory Pattern Blood Pressure [Left Arm] 99/81 L Blood Pressure Mean [Left Arm] 87 Pulse Oximetry 96 93 88 L Oxygen Delivery Method Room Air Nasal Cannula Room Air Oxygen Flow Rate 3 Sepsis Recent Fever Within 48 Hours Sepsis New/Unexplained Change in Mental Status Sepsis Action Taken by Nursing Oxygen Flow Rate - Titration 3 Pulse Oximetry Post Tiitration 93 04/02/24 13:37 04/02/24 14:30 Temperature Temperature Source Pulse Rate Pulse Rate [Apical] 123 H 113 H Pulse Rhythm [Apical] Regular Respiratory Rate 31 H 28 H Respiratory Effort / Characteristics Spontaneous Spontaneous Respiratory Depth Shallow Respiratory Pattern Regular Blood Pressure [Left Arm] 118/76 108/79 Blood Pressure Mean [Left Arm] 90 88 Pulse Oximetry 93 97 Oxygen Delivery Method Nasal Cannula Oxygen Flow Rate 3 Sepsis Recent Fever Within 48 Hours Sepsis New/Unexplained Change in Mental Status Sepsis Action Taken by Nursing Oxygen Flow Rate - Titration Pulse Oximetry Post Tiitration Laboratory Data 04/02/24 11:30 04/02/24 12:52 Lab Results 04/02/24 04/02/24 04/02/24 Range/Units 11:30 11:36 11:50 WBC 14.62 H (4.8-10.8) K/ul RBC 5.88 (4.70-6.10) M/uL Hgb 16.8 (14.0-18.0) g/dl Hct 51.0 (42.0-52.0) % MCV 86.7 (80.0-100.0) fL MCH 28.6 (25.0-34.0) pg MCHC 32.9 (32.0-36.0) g/dL RDW Std Deviation 40.3 (36.4-46.3) fL RDW Coeff of Cordell 13.2 (11.5-14.5) % Plt Count 264 (130-400) K/uL MPV 10.8 (9.4-12.4) fL Immature Gran % (Auto) 0.6 % Neut % (Auto) 89.6 % Lymph % (Auto) 4.3 % Simpson % (Auto) 5.1 % Eos % (Auto) 0.1 % Baso % (Auto) 0.3 % Neut # (Auto) 13.08 H (1.40-6.50) K/uL Lymph # (Auto) 0.63 L (1.20-3.40) K/uL Simpson # (Auto) 0.75 H (0.11-0.59) K/uL Eos # (Auto) 0.02 (0.00-0.50) K/uL Baso # (Auto) 0.05 (0.00-0.20) K/uL Immature Gran # (Auto) 0.09 (0.01-0.20) K/uL Sodium TNP Potassium TNP Chloride 107 (98-107) mmol/L Carbon Dioxide 27 (21-32) mmol/L Anion Gap TNP BUN 14 (6-23) mg/dl Creatinine 1.08 (0.6-1.4) mg/dl Est Cr Clr Drug Dosing 58.9 ml/min eGFR 72.46 BUN/Creatinine Ratio 13.0 (10-20) Glucose 111 H (70-99(Fasting)) mg/dl Lactate (0.4-2.0) mmol/L Calcium 9.4 (8.6-10.3) mg/dl Magnesium TNP Total Bilirubin 1.3 H (0.2-1.0) mg/dl AST TNP ALT 8 (7-52) U/L Alkaline Phosphatase 85 (34-104) U/L Troponin I High Sens 47.4 H (0-20) pg/ml B-Natriuretic Peptide (0-100) pg/ml Total Protein 7.6 (6.0-8.3) gm/dl Albumin 4.0 (3.4-5.0) gm/dl Globulin 3.6 (2.5-4.0) gm/dl Albumin/Globulin Ratio 1.1 (0.9-2) Procalcitonin Cancelled Adenovirus (PCR) Not Detected (NotDetected) B. pertussis DNA (PCR) Not Detected (NotDetected) B.parapertussis DNA PCR Not Detected (NotDetected) C. pneumoniae DNA (PCR) Not Detected (NotDetected) Coronavirus OC43 (PCR) Not Detected (NotDetected) Coronavirus HKU1 (PCR) Not Detected (NotDetected) Coronavirus 229E (PCR) Not Detected (NotDetected) SARS-CoV-2 (PCR) Not Detected (NotDetected) Coronavirus NL63 (PCR) Not Detected (NotDetected) Human Metapneumovir PCR Not Detected (NotDetected) Influenza Type A (PCR) Not Detected (NotDetected) Influenza Type B (PCR) Not Detected (NotDetected) M. pneumoniae (PCR) Not Detected (NotDetected) Parainfluenza 1 (PCR) Not Detected (NotDetected) Parainfluenza 2 (PCR) Not Detected (NotDetected) Parainfluenza 3 (PCR) Not Detected (NotDetected) Parainfluenza 4 (PCR) Not Detected (NotDetected) RSV (PCR) Not Detected (NotDetected) Entero/Rhino (PCR) Not Detected (NotDetected) 04/02/24 04/02/24 04/02/24 Range/Units 12:18 12:52 14:30 WBC (4.8-10.8) K/ul RBC (4.70-6.10) M/uL Hgb (14.0-18.0) g/dl Hct (42.0-52.0) % MCV (80.0-100.0) fL MCH (25.0-34.0) pg MCHC (32.0-36.0) g/dL RDW Std Deviation (36.4-46.3) fL RDW Coeff of Cordell (11.5-14.5) % Plt Count (130-400) K/uL MPV (9.4-12.4) fL Immature Gran % (Auto) % Neut % (Auto) % Lymph % (Auto) % Simpson % (Auto) % Eos % (Auto) % Baso % (Auto) % Neut # (Auto) (1.40-6.50) K/uL Lymph # (Auto) (1.20-3.40) K/uL Simpson # (Auto) (0.11-0.59) K/uL Eos # (Auto) (0.00-0.50) K/uL Baso # (Auto) (0.00-0.20) K/uL Immature Gran # (Auto) (0.01-0.20) K/uL Sodium 142 Potassium 4.3 Chloride (98-107) mmol/L Carbon Dioxide (21-32) mmol/L Anion Gap BUN (6-23) mg/dl Creatinine (0.6-1.4) mg/dl Est Cr Clr Drug Dosing ml/min eGFR BUN/Creatinine Ratio (10-20) Glucose (70-99(Fasting)) mg/dl Lactate 2.6 H* 1.8 (0.4-2.0) mmol/L Calcium (8.6-10.3) mg/dl Magnesium 2.0 Total Bilirubin (0.2-1.0) mg/dl AST 16 ALT (7-52) U/L Alkaline Phosphatase (34-104) U/L Troponin I High Sens 47.8 H (0-20) pg/ml B-Natriuretic Peptide 72 (0-100) pg/ml Total Protein (6.0-8.3) gm/dl Albumin (3.4-5.0) gm/dl Globulin (2.5-4.0) gm/dl Albumin/Globulin Ratio (0.9-2) Procalcitonin 1.03 H Adenovirus (PCR) (NotDetected) B. pertussis DNA (PCR) (NotDetected) B.parapertussis DNA PCR (NotDetected) C. pneumoniae DNA (PCR) (NotDetected) Coronavirus OC43 (PCR) (NotDetected) Coronavirus HKU1 (PCR) (NotDetected) Coronavirus 229E (PCR) (NotDetected) SARS-CoV-2 (PCR) (NotDetected) Coronavirus NL63 (PCR) (NotDetected) Human Metapneumovir PCR (NotDetected) Influenza Type A (PCR) (NotDetected) Influenza Type B (PCR) (NotDetected) M. pneumoniae (PCR) (NotDetected) Parainfluenza 1 (PCR) (NotDetected) Parainfluenza 2 (PCR) (NotDetected) Parainfluenza 3 (PCR) (NotDetected) Parainfluenza 4 (PCR) (NotDetected) RSV (PCR) (NotDetected) Entero/Rhino (PCR) (NotDetected) 04/02/24 Range/Units 15:26 WBC (4.8-10.8) K/ul RBC (4.70-6.10) M/uL Hgb (14.0-18.0) g/dl Hct (42.0-52.0) % MCV (80.0-100.0) fL MCH (25.0-34.0) pg MCHC (32.0-36.0) g/dL RDW Std Deviation (36.4-46.3) fL RDW Coeff of Cordell (11.5-14.5) % Plt Count (130-400) K/uL MPV (9.4-12.4) fL Immature Gran % (Auto) % Neut % (Auto) % Lymph % (Auto) % Simpson % (Auto) % Eos % (Auto) % Baso % (Auto) % Neut # (Auto) (1.40-6.50) K/uL Lymph # (Auto) (1.20-3.40) K/uL Simpson # (Auto) (0.11-0.59) K/uL Eos # (Auto) (0.00-0.50) K/uL Baso # (Auto) (0.00-0.20) K/uL Immature Gran # (Auto) (0.01-0.20) K/uL Sodium Potassium Chloride (98-107) mmol/L Carbon Dioxide (21-32) mmol/L Anion Gap BUN (6-23) mg/dl Creatinine (0.6-1.4) mg/dl Est Cr Clr Drug Dosing ml/min eGFR BUN/Creatinine Ratio (10-20) Glucose (70-99(Fasting)) mg/dl Lactate (0.4-2.0) mmol/L Calcium (8.6-10.3) mg/dl Magnesium Total Bilirubin (0.2-1.0) mg/dl AST ALT (7-52) U/L Alkaline Phosphatase (34-104) U/L Troponin I High Sens 68.7 H* D (0-20) pg/ml B-Natriuretic Peptide (0-100) pg/ml Total Protein (6.0-8.3) gm/dl Albumin (3.4-5.0) gm/dl Globulin (2.5-4.0) gm/dl Albumin/Globulin Ratio (0.9-2) Procalcitonin Adenovirus (PCR) (NotDetected) B. pertussis DNA (PCR) (NotDetected) B.parapertussis DNA PCR (NotDetected) C. pneumoniae DNA (PCR) (NotDetected) Coronavirus OC43 (PCR) (NotDetected) Coronavirus HKU1 (PCR) (NotDetected) Coronavirus 229E (PCR) (NotDetected) SARS-CoV-2 (PCR) (NotDetected) Coronavirus NL63 (PCR) (NotDetected) Human Metapneumovir PCR (NotDetected) Influenza Type A (PCR) (NotDetected) Influenza Type B (PCR) (NotDetected) M. pneumoniae (PCR) (NotDetected) Parainfluenza 1 (PCR) (NotDetected) Parainfluenza 2 (PCR) (NotDetected) Parainfluenza 3 (PCR) (NotDetected) Parainfluenza 4 (PCR) (NotDetected) RSV (PCR) (NotDetected) Entero/Rhino (PCR) (NotDetected) Administered Medications Sodium Chloride (Nss) 1,000 mls @ 65 mls/hr IV .[id number] CHIKI Stop: 04/03/24 11:59 Last Admin: 04/02/24 14:28 Dose: Not Given Documented By: GLORIA Discontinued Medications Sodium Chloride (Nss) 1,000 mls @ 999 mls/hr IV .Q1H1M ONE Stop: 04/02/24 12:50 Last Infusion: 04/02/24 14:13 Dose: Infused Documented By: Admin: 04/02/24 12:59 Dose: 999 mls/hr Documented By: GLORIA Piperacillin Sod/Tazobactam Sod (Zosyn) 4.5 gm in 100 mls @ 200 mls/hr IV NOW ONE; Protocol Stop: 04/02/24 12:19 Last Infusion: 04/02/24 13:40 Dose: Infused Documented By: Admin: 04/02/24 13:06 Dose: 200 mls/hr Documented By: GLORIA Vancomycin HCl 1,250 mg/ (Sodium Chloride) 525 mls @ 200 mls/hr IV NOW ONE Stop: 04/02/24 14:27 Last Admin: 04/02/24 12:59 Dose: 200 mls/hr Documented By: GLORIA Sodium Chloride (Nss) 1,000 mls @ 999 mls/hr IV .Q1H1M ONE Stop: 04/02/24 14:43 Last Admin: 04/02/24 14:28 Dose: 999 mls/hr Documented By: GLORIA Imaging Data Radiologist's Impression: Chest X-Ray 04/02/24 11:06 XR chest 1V portable HISTORY: 73 years-old Male Dyspnea COMPARISON: 11/02/2022 TECHNIQUE: AP view of the chest FINDINGS: Cardiac silhouette is enlarged. Mild right hemidiaphragmatic elevation. Interstitial coarsening with patchy ill-defined bibasilar densities. No pneumothorax, pleural effusion or pulmonary edema. Right upper quadrant surgical clips. IMPRESSION: 1. Interstitial coarsening with mild patchy bibasilar opacities, likely infectious or inflammatory. 2. Chronic right hemidiaphragmatic elevation. ACT 112: Negative or not required by law. The above report was generated using voice recognition software. It may contain grammatical, syntax or spelling errors. Electronically signed by: Fran Mckee M.D. 04/02/2024 11:26 AM Discharge Plan Visit Data Chief Complaint: Cough Stated Complaint: WHEEZING, COUGH, NO STRENGTH ED Provider: Tati Pérez Discharge Problem: Pneumonia, Parkinsons disease, Sepsis Forms Stand Alone Forms: My [facility] Prescriptions Prescriptions: No Action tamsulosin 0.4 mg Capsule 0.4 mg PO HS mirtazapine 15 mg Tablet 15 mg PO HS Rx Instructions: take at 8pm carbidopa-levodopa 25-100 mg Tablet 1 tab PO QID Eliquis 5 mg tablet 5 mg PO BID Rx Instructions: 10 mg (2 tabs) BID until July 22, then 5 mg (1TAB) BID for 3-6 month TBD Referrals Referrals: Oj Garcia MD [Primary Care Provider] -
[2024-04-02] MEDS: PIPERACILLIN/TAZOBACTAM 4.5 GM/100 ML BAG IV SCH (18:21)
[2024-04-02] MEDS: CARBIDOPA/LEVODOPA 25/100MG TAB PO SCH (18:37)
[2024-04-02] MEDS ORDERED: PNEUMOCOCCAL VACCINE (PCV20) 20-VAL CONJ-DIP CRM/PF 0.5 ML SYR IM ONE (20:00)
[2024-04-02] MEDS ORDERED: INFLUENZA VACC TS2024-25(65y+)/PF (IIV3) 0.5mL Syr IM ONE (20:00)
[2024-04-02] MEDS: TAMSULOSIN HCL 0.4 MG CAP PO SCH (22:22)
[2024-04-02] MEDS: MIRTAZAPINE TAB 15 MG TAB PO SCH (22:22)
[2024-04-02] MEDS: APIXABAN 5 MG TABLET PO SCH (22:22)
[2024-04-02 22:52] LABS: Appearance Urine Cloudy (Clear); Bacteria Urine Automated None Seen (None Seen); Bilirubin Urine Negative (Negative); Blood Urine Negative (Negative); Cast Urine Automated 0-2 /lpf (0-2); Color Urine Dark Yellow; Epithelial Cell Urine Auto 0-2 /hpf (0-2); Glucose Urine UA Negative (Negative); Ketones Urine Trace (Negative); Leukocyte Esterase Urine Negative (Negative); Nitrite Urine Negative (Negative); Protein Urine Negative (Negative); RBC Urine Automated 0-2 /hpf (0-2); Specific Gravity Urine 1.035 (1.000-1.030); Urobilinogen Urine Negative (Negative); WBC Urine Automated 0-5 /hpf (0-5)
[2024-04-03 07:07] LABS: BUN Creatinine Ratio 15.9 (10-20); Calcium 8.2 mg/dl (8.6-10.3); Creatinine Clr Calc Pharmacy 72.3 ml/min; Magnesium 1.9 mg/dl (1.7-2.4); Phosphorus 2.2 mg/dl (2.5-4.9); Potassium 3.7 mmol/L (3.5-5.1)
[2024-04-03 07:14] LABS: Hematocrit (blood only) 40.1 % (42.0-52.0); Hemoglobin 13.1 g/dl (14.0-18.0); Mean Corpuscular Hemoglobin 28.6 pg (25.0-34.0); Mean Corpuscular Hgb Conc 32.7 g/dL (32.0-36.0); Mean Corpuscular Volume 87.6 fL (80.0-100.0); Mean Platelet Volume 10.8 fL (9.4-12.4); Platelet Count 169 K/uL (130-400); RDW Coefficient of Variation 13.2 % (11.5-14.5); RDW Standard Deviation 41.8 fL (36.4-46.3); Red Blood Count 4.58 M/uL (4.70-6.10); White Blood Count 6.11 K/ul (4.8-10.8)
[2024-04-03] MEDS ORDERED: VANCOMYCIN HCL 1,000 MG/270 ML BAG IV SCH (08:00)
[2024-04-03] MEDS ORDERED: POTASSIUM PHOS 3 MMOL/1 ML INFUSION IV ONE (08:09)
[2024-04-03] MEDS: ADVANCED PROBIOTIC 625 MG CAPSULE PO SCH (08:38)
[2024-04-03] MEDS: POT PHOSPHATE MONOBASIC W/ SOD TAB PO SCH (10:17)
[2024-04-03] MEDS: DOXYCYCLINE HYCLATE 100 MG CAP PO SCH (11:23)
--- NOTE | 2024-04-03 12:53 | Hospitalist Progress Note ---
Date of Service April 03, 2024 Assessment & Plan (1) Shortness of breath: Plan Severe Sepsis Pneumonia, likely aspiration Vs CAP Hypoxia due to above Pt's sons state he coughs more after food/water intake Generalized weakness secondary to above Lactic acidosis --CXR: Interstitial coarsening with mild patchy bibasilar opacities, likely infectious or inflammatory. Chronic right hemidiaphragmatic elevation. -- MRSA nasal screen negative -- BioFire negative -- Procalcitonin 1.0 -- Received IV fluids --Continue doxycycline, Zosyn -- Aspiration precautions, speech eval PT OT as able Weaned off of supplemental oxygen Acute metabolic encephalopathy Secondary to above Mental status seem to be much improved Reorient frequently to minimize delirium Mild troponin elevation Likely demand ischemia secondary to sepsis Monitor Hypophosphatemia Replace and monitor Parkinson's disease Continue home medications H/O DVT/PE per Family Continue home Eliquis DVT Px: Eliquis Code Status DNR/DNI Disposition PT OT prior to discharge Admission and Anticipated Discharge Date Admission Date: April 02, 2024 Subjective Patient is seen and examined at bedside States feeling a lot better today Sitting in chair during my encounter Cough, dyspnea improving Discussed with patient's family at bedside Saturating well on room air Denies any chest pain, nausea, vomiting, abdominal pain No other complaints Review of Systems Review of Systems: All systems reviewed & are unremarkable except as noted in Subjective Physical Exam Physical Exam: Physical Exam: Vitals signs as noted above General Appearance: Thin, frail, no apparent distress, chronic ill appearing Head: normocephalic, Atraumatic Eyes: normal inspection, EOMI Neck: supple, Trachea midline Respiratory/Chest: Normal breath sounds, minimal right basal crackles, No accessory muscle use Cardiovascular: S1, S2, No murmur Abdomen/GI:Soft, Non tender, Bowel sounds present Extremities/Musculoskeletal:normal inspection, no edema Neurologic/Psych:AAOX3, grossly no focal neurological deficits Skin: normal color, warm Results & Data Results & Data Vital Signs (Past 12 Hours) Vital Signs Temp Pulse Pulse Resp BP Pulse Ox O2 Del Method 04/03/24 12:18 36.6 C 79 18 115/77 96 Room Air 04/03/24 08:48 36.5 C 91 H 17 123/79 94 Room Air 04/03/24 08:14 Room Air 04/03/24 08:13 58 L 04/03/24 03:26 36.5 C 55 L 18 98/64 L 99 Nasal Cannula O2 Flow Rate 04/03/24 12:18 04/03/24 08:48 04/03/24 08:14 04/03/24 08:13 04/03/24 03:26 2 Laboratory Results Short CBC 04/03/24 Range/Units 06:30 WBC 6.11 (4.8-10.8) K/ul Hgb 13.1 L D (14.0-18.0) g/dl Hct 40.1 L (42.0-52.0) % Plt Count 169 (130-400) K/uL BMP 04/02/24 04/03/24 12:52 06:30 Sodium 142 143 Potassium 4.3 3.7 Chloride 114 H Carbon Dioxide 25 BUN 14 Creatinine 0.88 Glucose 78 Calcium 8.2 L Liver Function 04/02/24 Range/Units 12:52 AST 16 (13-39) U/L Urine 04/02/24 Range/Units Unknown Urine Color Dark Yellow Urine Appearance Cloudy A (Clear) Urine pH 5.0 (4.5-7.5) Ur Specific [place] 1.035 H (1.000-1.030) Urine Protein Negative (Negative) Urine Glucose (UA) Negative (Negative)
[2024-04-03] MEDS: SODIUM CHLORIDE 0.9% 1,000 ML IV ONE (15:02)
[2024-04-03] MEDS: SODIUM CHLORIDE 0.9% 1,000 ML IV SCH (15:34)
[2024-04-04 05:41] LABS: Hematocrit (blood only) 35.6 % (42.0-52.0); Hemoglobin 11.7 g/dl (14.0-18.0); Mean Corpuscular Hemoglobin 28.6 pg (25.0-34.0); Mean Corpuscular Hgb Conc 32.9 g/dL (32.0-36.0); Mean Platelet Volume 10.6 fL (9.4-12.4); Platelet Count 173 K/uL (130-400); RDW Coefficient of Variation 13.2 % (11.5-14.5); Red Blood Count 4.09 M/uL (4.70-6.10); White Blood Count 4.29 K/ul (4.8-10.8)
[2024-04-04 05:57] LABS: BUN Creatinine Ratio 11.9 (10-20); Calcium 7.6 mg/dl (8.6-10.3); Creatinine Clr Calc Pharmacy 75.8 ml/min; Phosphorus 2.2 mg/dl (2.5-4.9); Potassium 3.2 mmol/L (3.5-5.1)
[2024-04-04] MEDS ORDERED: POTASSIUM PHOS 3 MMOL/1 ML INFUSION IV ONE (09:17)
[2024-04-04] MEDS: POTASSIUM CHLORIDE / WTR 10 MEQ/100 ML PLCT IV SCH (09:32)
[2024-04-04] MEDS: POTASSIUM PHOSPHATE 21 MMOL in SODIUM CHLORIDE 0.9% 500 ML IV ONE (10:00)
--- NOTE | 2024-04-04 11:18 | Fluoroscopy Report ---
FL video swallow CLINICAL HISTORY: 73 years-old Male with r/o aspiration. Dysphagia. TECHNIQUE: Video fluoroscopic evaluation of swallowing was performed in the AP and lateral projection s by the speech pathology staff. The patient is fed varying consistencies of barium. FLUOROSCOPY TIME: 1.27 minutes. 2519 images. 9.72 mGy. COMPARISON STUDY: None. FINDINGS: There is slightly abnormal hyoid excursion and epiglottic deflection. Silent aspiration wit h thin liquid barium. No additional consistencies showed penetration or aspiration. IMPRESSION: 1. Aspiration with thin liquid barium. 2. Please see the speech pathologist report for detailed findings and recommendations. ACT 112: Negative or not required by law. Electronically signed by: Fran Mckee M.D. 04/04/2024 11:17 AM
--- NOTE | 2024-04-04 15:43 | Hospitalist Progress Note ---
Date of Service April 04, 2024 Assessment & Plan (1) Shortness of breath: Plan Severe Sepsis Pneumonia, likely aspiration Vs CAP Hypoxia due to above Pt's sons state he coughs more after food/water intake Generalized weakness secondary to above Lactic acidosis --CXR: Interstitial coarsening with mild patchy bibasilar opacities, likely infectious or inflammatory. Chronic right hemidiaphragmatic elevation. -- MRSA nasal screen negative -- BioFire negative -- Procalcitonin 1.0 --Blood cultures negative to date --Video Swallow:Aspiration with thin liquid barium. -- Received IV fluids --Continue doxycycline, Zosyn -- Aspiration precautions, speech eval PT OT prior to discharge Continue diet as recommended by speech therapy If tolerates diet today, likely discharge in 1 to 2 days Acute metabolic encephalopathy Secondary to above Reorient frequently to minimize delirium Resolved Mild troponin elevation Likely demand ischemia secondary to sepsis Monitor Hypophosphatemia Hypokalemia Replace and monitor Parkinson's disease Continue home medications H/O DVT/PE per Family Continue home Eliquis DVT Px: Eliquis Code Status DNR/DNI Disposition PT OT prior to discharge Admission and Anticipated Discharge Date Admission Date: April 02, 2024 Subjective Patient is seen and examined at bedside States feeling well today Had video swallow study earlier today No new complaints Denies any chest pain, nausea, vomiting, abdominal pain Eager to get discharged Review of Systems Review of Systems: All systems reviewed & are unremarkable except as noted in Subjective Physical Exam Physical Exam: Physical Exam: Vitals signs as noted above General Appearance: Thin, frail, no apparent distress, chronic ill appearing Head: normocephalic, Atraumatic Eyes: normal inspection, EOMI Neck: supple, Trachea midline Respiratory/Chest: Normal breath sounds, CTA, No accessory muscle use Cardiovascular: S1, S2, No murmur Abdomen/GI:Soft, Non tender, Bowel sounds present Extremities/Musculoskeletal:normal inspection, no edema Neurologic/Psych:AAOX3, grossly no focal neurological deficits Skin: normal color, warm Results & Data Results & Data Vital Signs (Past 12 Hours) Vital Signs Temp Pulse Pulse Resp BP Pulse Ox O2 Del Method 04/04/24 14:17 78 04/04/24 11:11 36.6 C 64 18 116/71 96 Room Air 04/04/24 10:08 Room Air 04/04/24 07:35 36.7 C 59 L 20 120/63 96 Room Air 04/04/24 07:05 56 L Laboratory Results Short CBC 04/04/24 Range/Units 05:06 WBC 4.29 L (4.8-10.8) K/ul Hgb 11.7 L (14.0-18.0) g/dl Hct 35.6 L (42.0-52.0) % Plt Count 173 (130-400) K/uL BMP 04/04/24 05:06 Sodium 144 Potassium 3.2 L Chloride 115 H Carbon Dioxide 25 BUN 10 Creatinine 0.84 Glucose 96 Calcium 7.6 L
[2024-04-05] MEDS: COUGH DROP (SUGAR FREE) LOZ 24 LOZ/1 BOX BUCCAL PRN (00:04)
--- NOTE | 2024-04-05 05:53 | Electrocardiogram Report ---
Test Reason : Blood Pressure : */* mmHG Vent. Rate : 123 BPM Atrial Rate : 123 BPM P-R Int : 164 ms QRS Dur : 76 ms QT Int : 294 ms P-R-T Axes : 39 -68 66 degrees QTcB Int : 420 ms Poor data quality, interpretation may be adversely affected Sinus tachycardia Left anterior fascicular block Possible Inferior infarct Poor R wave progression, consider anterior GA vs. lead placement vs. LVH Nonspecific T wave abnormality Abnormal ECG When compared with ECG of 17-Nov-2022 16:12, Nonspecific T wave abnormality now evident in Anterior leads Confirmed by Myron Diaz ([id number]) on 04/05/2024 5:53:12 AM Referred By: Confirmed By: Myron Diaz
[2024-04-05 06:38] LABS: Hematocrit (blood only) 40.1 % (42.0-52.0); Hemoglobin 13.4 g/dl (14.0-18.0); Mean Corpuscular Hemoglobin 29.2 pg (25.0-34.0); Mean Corpuscular Hgb Conc 33.4 g/dL (32.0-36.0); Mean Corpuscular Volume 87.4 fL (80.0-100.0); Mean Platelet Volume 10.1 fL (9.4-12.4); Platelet Count 220 K/uL (130-400); RDW Coefficient of Variation 13.4 % (11.5-14.5); RDW Standard Deviation 42.4 fL (36.4-46.3); Red Blood Count 4.59 M/uL (4.70-6.10); White Blood Count 4.29 K/ul (4.8-10.8)
[2024-04-05 07:11] LABS: Calcium 8.1 mg/dl (8.6-10.3); Creatinine Clr Calc Pharmacy 75.8 ml/min; Magnesium 1.7 mg/dl (1.7-2.4); Phosphorus 2.7 mg/dl (2.5-4.9); Potassium 3.7 mmol/L (3.5-5.1)
--- NOTE | 2024-04-05 12:48 | Hospitalist Progress Note ---
Date of Service April 05, 2024 Assessment & Plan (1) Shortness of breath: Plan Severe Sepsis Pneumonia, likely aspiration Vs CAP Hypoxia due to above Pt's sons reported he coughs more after food/water intake Generalized weakness secondary to above Lactic acidosis --CXR: Interstitial coarsening with mild patchy bibasilar opacities, likely infectious or inflammatory. Chronic right hemidiaphragmatic elevation. -- MRSA nasal screen negative -- BioFire negative -- Procalcitonin 1.0 --Blood cultures negative to date --Video Swallow:Aspiration with thin liquid barium. Will continue zosyn and doxycycline to complete 5 day therapy tomorrow Hypoxia resolved. 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 Notified RN to get him a different diet that is easier to chew Denied any other complaints at this time Physical Exam Constitutional: + well hydrated; no acute distress Eyes: PERRL, conjunctivae normal, anicteric sclerae ENMT: external ear and nose normal, oropharynx normal Respiratory: normal respiratory effort, lungs clear to auscultation Cardiovascular: Rate/Rhythm: regular rate and regular rhythm Gastrointestinal (Abdomen): normal bowel sounds, soft, nontender, no hepatosplenomegaly Musculoskeletal: No pedal edema Neurologic: PERRL, EOMI, accommodation nl, no face palsy, no dysarthria Psychiatric: A+Ox3, euthymic affect Results & Data Results & Data Vital Signs (Past 12 Hours) Vital Signs Temp Pulse Pulse Resp BP Pulse Ox O2 Del Method 04/05/24 12:07 36.7 C 66 18 134/85 93 Room Air 04/05/24 08:12 36.6 C 59 L 20 147/73 H 95 Room Air 04/05/24 07:21 Room Air 04/05/24 07:02 65 04/05/24 03:12 36.5 C 90 18 122/78 93 Room Air Laboratory Results Abnormal lab results 04/05/24 Range/Units 06:08 WBC 4.29 L (4.8-10.8) K/ul RBC 4.59 L (4.70-6.10) M/uL Hgb 13.4 L (14.0-18.0) g/dl Hct 40.1 L (42.0-52.0) % Sodium 146 H (136-145) mmol/L Chloride 116 H (98-107) mmol/L BUN 5 L (6-23) mg/dl BUN/Creatinine Ratio 6.0 L (10-20) Calcium 8.1 L (8.6-10.3) mg/dl
[2024-04-06 06:46] LABS: Hematocrit (blood only) 35.4 % (42.0-52.0); Hemoglobin 11.7 g/dl (14.0-18.0); Mean Corpuscular Hemoglobin 28.7 pg (25.0-34.0); Mean Corpuscular Hgb Conc 33.1 g/dL (32.0-36.0); Mean Corpuscular Volume 86.8 fL (80.0-100.0); Mean Platelet Volume 10.3 fL (9.4-12.4); Platelet Count 208 K/uL (130-400); RDW Coefficient of Variation 13.2 % (11.5-14.5); RDW Standard Deviation 41.6 fL (36.4-46.3); Red Blood Count 4.08 M/uL (4.70-6.10)
[2024-04-06 07:20] LABS: BUN Creatinine Ratio 5.1 (10-20); Calcium 7.7 mg/dl (8.6-10.3); Creatinine Clr Calc Pharmacy 80.6 ml/min; Magnesium 1.7 mg/dl (1.7-2.4); Phosphorus 2.2 mg/dl (2.5-4.9); Potassium 3.3 mmol/L (3.5-5.1)
[2024-04-06] MEDS ORDERED: POTASSIUM PHOS 3 MMOL/1 ML INFUSION IV STA (07:57)
[2024-04-06] MEDS: POTASSIUM PHOSPHATE 21 MMOL in SODIUM CHLORIDE 0.9% 500 ML IV ONE (08:16)
--- NOTE | 2024-04-06 14:17 | Hospitalist Progress Note ---
Date of Service April 06, 2024 Assessment & Plan (1) Shortness of breath: Plan Severe Sepsis Pneumonia, likely aspiration Vs CAP Hypoxia due to above Pt's sons reported he coughs more after food/water intake Generalized weakness secondary to above Lactic acidosis --CXR: Interstitial coarsening with mild patchy bibasilar opacities, likely infectious or inflammatory. Chronic right hemidiaphragmatic elevation. -- MRSA nasal screen negative -- BioFire negative -- Procalcitonin 1.0 --Blood cultures negative to date --Video Swallow:Aspiration with thin liquid barium. Complete zosyn and doxycycline 5 day therapy today Hypoxia resolved. 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 Stated he did not think much of it yesterday RN reports multiple loose BM yesterday evening and today Denied abd pain, nausea, dizziness, chest pain. Reports no cough today Denied any other complaints at this time Physical Exam Constitutional: + well hydrated; no acute distress Eyes: PERRL, conjunctivae normal, anicteric sclerae ENMT: external ear and nose normal, oropharynx normal Respiratory: normal respiratory effort, lungs clear to auscultation Cardiovascular: Rate/Rhythm: regular rate and regular rhythm Gastrointestinal (Abdomen): normal bowel sounds, soft, nontender, no hepatosplenomegaly Musculoskeletal: NO pedal edema Neurologic: PERRL, EOMI, accommodation nl, no face palsy, no dysarthria Psychiatric: A+Ox3, euthymic affect Genitourinary: concentrated urine in skaggs Results & Data Results & Data Vital Signs (Past 12 Hours) Vital Signs Temp Pulse Pulse Resp BP Pulse Ox O2 Del Method 04/06/24 11:40 36.7 C 75 18 135/84 94 Room Air 04/06/24 09:09 Room Air 04/06/24 08:16 36.7 C 90 18 136/77 92 Room Air 04/06/24 06:56 47 L Laboratory Results Abnormal lab results 04/06/24 04/06/24 Range/Units 06:01 Unknown WBC 3.70 L (4.8-10.8) K/ul RBC 4.08 L (4.70-6.10) M/uL Hgb 11.7 L (14.0-18.0) g/dl Hct 35.4 L (42.0-52.0) % Potassium 3.3 L (3.5-5.1) mmol/L Chloride 117 H (98-107) mmol/L BUN 4 L (6-23) mg/dl BUN/Creatinine Ratio 5.1 L (10-20) Calcium 7.7 L (8.6-10.3) mg/dl Phosphorus 2.2 L (2.5-4.9) mg/dl Stl C. diff Tox B Gene Positive Cdiff Gene H (Neg)
[2024-04-06 14:31] LABS: Cdiff Toxin B Gene (2yr or >) Positive Cdiff Gene (Neg)
--- NOTE | 2024-04-06 15:26 | Electrocardiogram Report ---
Test Reason : Blood Pressure : */* mmHG Vent. Rate : 58 BPM Atrial Rate : 57 BPM P-R Int : 152 ms QRS Dur : 104 ms QT Int : 450 ms P-R-T Axes : * -42 23 degrees QTcB Int : 441 ms Sinus bradycardia with Premature atrial complexes Left axis deviation Abnormal ECG When compared with ECG of 02-Apr-2024 11:22, Premature atrial complexes are now Present Vent. rate has decreased by 65 bpm Questionable change in QRS duration Confirmed by Suleman Beyer ([id number]) on 04/06/2024 3:25:56 PM Referred By: REFERRED SELF Confirmed By: Suleman Beyer
[2024-04-06 15:50] LABS: Cdiff Antigen Positive; Cdiff Toxin A+B Negative Cdiff Toxin (Negative)
[2024-04-06] MEDS: VANCOMYCIN HCL 125 MG/2.5ML SOLN PO SCH (17:08)
[2024-04-06] MEDS: CHERRY SYRUP 5 ML UDP PO SCH (17:08)
[2024-04-07 07:28] LABS: Hematocrit (blood only) 39.8 % (42.0-52.0); Hemoglobin 13.1 g/dl (14.0-18.0); Mean Corpuscular Hemoglobin 28.3 pg (25.0-34.0); Mean Corpuscular Hgb Conc 32.9 g/dL (32.0-36.0); Platelet Count 242 K/uL (130-400); RDW Coefficient of Variation 13.4 % (11.5-14.5); Red Blood Count 4.63 M/uL (4.70-6.10); White Blood Count 4.86 K/ul (4.8-10.8)
[2024-04-07 07:46] LABS: BUN Creatinine Ratio 5.3 (10-20); Calcium 8.3 mg/dl (8.6-10.3); Creatinine Clr Calc Pharmacy 83.8 ml/min; Magnesium 1.9 mg/dl (1.7-2.4); Phosphorus 2.4 mg/dl (2.5-4.9); Potassium 3.4 mmol/L (3.5-5.1)
[2024-04-07] MEDS: POT PHOSPHATE MONOBASIC W/ SOD TAB PO SCH (13:54)
--- NOTE | 2024-04-07 15:03 | Discharge Summary ---
Date of Service April 07, 2024 Admission HPI Per Admitting Provider 73-year-old male with PMH of Parkinson's disease, GERD, blood clot on Eliquis and has very poor mobility due to underlying severe Parkinson's disease presents to the ED with complaint of difficulty breathing, wheezing that is worsened since today morning. Patient pleasantly confused at bedside, patient's sons [Kal and Bienvenido] at bedside who helped with history taking. they all live together in the same house. T maurice help patient with moving around. Patient is able to stand at the bedside and go back to bed for sitting or lying down. But anything beyond that, help w/ ambulation is provided by patient's sons. They said they recently got him a wheelchair. Per patient's son, they had likely viral gastroenteritis about a week ago. Patient got similar symptoms about 5 days ago and he was better next day. Then he developed coughing about 3 days ago, he started feeling tired and having poor sleep. Today he was noted to be breathing hard and wheezing and hence he was brought to the ED. He also seems little confused today. They state that cough is wet in nature but has not seen him spit out the mucus. Per patient's son, patient does not smoke/use alcohol/use recreational drugs. Medications reviewed with the patient's son at bedside. DNI/DNI per patient's sons Plan of care discussed with patient sons at bedside, they voiced understanding. Admission Exam Per Admitting Provider GENERAL: Pleasantly confused, on 3L NC O2, NAD. Appears ill/frail/weak. HEENT: No pallor, no icterus. Pupils equal, round and reactive to light. Oral mucosa dry. NECK: No JVD, no neck masses. HEART: S1 and S2 heard. Regular rate and rhythm. HR in 110s. No murmur, no gallop. RESPIRATORY SYSTEM: Normal AP diameter. No accessory muscle use. No wheezing, bb crackles. ABDOMEN: Soft, bowel sounds present, no facial grimacing on deep palpation, no distention. CENTRAL NERVOUS SYSTEM: No facial droop. Speech is clear. Obeys simple commands. Moves extremities. EXTREMITIES: No edema, no erythema seen. Unkempt b/l feet/toe nails. Resting tremors b/l UE noted. Principal Diagnosis Sepsis Pneumonia C diff diarrhea Discharge Exam Constitutional + well hydrated; no acute distress Eyes PERRL, conjunctivae normal, anicteric sclerae ENMT external ear and nose normal, oropharynx normal Respiratory normal respiratory effort, lungs clear to auscultation Cardiovascular Rate/Rhythm: regular rate and regular rhythm Gastrointestinal (Abdomen) normal bowel sounds, soft, nontender, no hepatosplenomegaly Musculoskeletal No pedal edema Neurologic PERRL, EOMI, accommodation nl, no face palsy, no dysarthria Psychiatric A+Ox3, euthymic affect Discharge Data Allergies Allergy/AdvReac Type Severity Reaction Status Date / Time No Known Allergies Allergy Verified 04/02/24 13:59 Consultations 04/02/24 14:09 ED Decision to Admit Stat Ordered Studies 04/04/24 10:30 FL video swallow Routine Hospital Course (1) Shortness of breath: Plan Severe Sepsis Pneumonia, likely aspiration Hypoxia due to above Pt's sons reported he coughs more after food/water intake Generalized weakness secondary to above Lactic acidosis --CXR: Interstitial coarsening with mild patchy bibasilar opacities, likely infectious or inflammatory. Chronic right hemidiaphragmatic elevation. -- MRSA nasal screen negative -- BioFire negative -- Procalcitonin 1.0 --Blood cultures negative to date --Video Swallow:Aspiration with thin liquid barium. Complete zosyn and doxycycline 5 day therapy inpatient Hypoxia resolved. Now on room air Diarrhea H/o C diff C diff test showed +C diff gene and negative toxin Considering significant frequent watery diarrhea, patient was started on po vanc. He reports frequency is improving. 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 They stated they will be able to take care of him at home Patient discharged home to follow up with PCP Total Time Total Time Spent Total Time Spent (In Minutes): 45 Total Time Includes: Examination of the Patient, Discharge Planning, Medication Reconciliation and Other Discharge Plan Discharge Items Patient Disposition: Home - Self-Care Reason For Visit: HARD TO BREATH, COUGH Discharge Diagnosis: Sepsis Pneumonia C diff diarrhea Activity: Resume your previous activity Non-emergency contact: Primary Care Provider Call non-emergency contact if: you have any medication questions Follow-up/Referrals: Oj Garcia MD [Primary Care Provider] - (Date & Time 04/11/2024 1:00 PM Provider: Harshal Garcia MD [facility], [facility] ) Diet: Regular Addtl Attending Provider Instructions: Mr Shreya Santos were hospitalized and managed for the above listed diagnoses. You are being discharged on oral vancomycin to complete treatment. Please ensure follow up with your Primary Doctor. It was a pleasure taking care of you. Pending Studies at Discharge: No Stand-Alone Forms: My [facility] [employer], Smoking Cessation Medications and DC Order Prescriptions: New vancomycin 125 mg capsule 125 mg PO Q6H 9 Days Qty: 36 0RF potassium chloride 10 mEq capsule, extended release 10 meq PO DAILY Qty: 5 0RF Continued tamsulosin 0.4 mg Capsule 0.4 mg PO HS mirtazapine 15 mg Tablet 15 mg PO HS Rx Instructions: take at 8pm carbidopa-levodopa 25-100 mg Tablet 1 tab PO QID Eliquis 5 mg tablet 5 mg PO BID Rx Instructions: 10 mg (2 tabs) BID until July 22, then 5 mg (1TAB) BID for 3-6 month TBD Discharge Orders: Discharge Order (Routine); Ordered 04/07/24 Ordered By: Mery Vásquez Admission Data Admit Date/Time: 04/02/24 14:24 Attending Provider: Mery Vásquez I. Admit Provider: Katie Funes Primary Care Provider: Oj Garcia Other Providers: Katie Funes; [facility]; Zach Elliott Other Interventions: Discharge Summary Assessment (RN) Last Done: 04/07/24 15:44
[2024-04-07 15:56] VITALS: BP 123/81; PULSE 75; RESP 20; TEMP 97.9; O2SAT 96
== END 2024-04-07 16:52 | disposition home or self-care (01) | DRG 871 ==
LOC: ED 10:13 → 4W 14:24 → SUATTDRO 14:24 → 4W 16:55

== ENCOUNTER 2024-11-18 14:19 | Inpatient (IN) ==
--- NOTE | 2024-11-18 15:08 | Emergency Department Note ---
Impression & Plan Tachycardia, Chills, Elevated lactic acid level, Rhinovirus infection, Tachypnea ED Provider Note NAME: TATI WOOD AGE: 74 SEX: M : 1950 ARRIVES VIA: Walk-In INFORMANT: [Patient][sons] ED PROVIDER(S): [Bam Quijano MD] CHIEF COMPLAINT: Illness HISTORY OF PRESENT ILLNESS: The patient is a 74-year-old male who presents to the ER with 2 days of cough and now wheezing. He also complains of being chilled. The patient has not had vomiting, he denies shortness of breath or chest pain. No abdominal pain. He denies urinary complaints or diarrhea. As per his sons, the patient likely caught the cold that they had earlier, the patient though has had pneumonia in the past and with how he was doing, they felt he should be seen in the ED. Earlier this year, he was septic from pneumonia. PMHx/PSHx/Social Hx: See Below PHYSICAL EXAM: GENERAL: Patient is in no acute distress. Shivering. HEENT: No acute trauma, normocephalic atraumatic, mucous membranes moist, no nasal congestion. NECK: No stridor, no adenopathy, no meningismus, trachea is midline. LUNGS: Clear to auscultation bilaterally when listening anterior, no wheeze, no rhonchi, breath sounds equal. Respiratory rate is increased but there is no respiratory distress. HEART: No obvious murmur, mildly tachycardic with a regular rhythm. ABDOMEN: Soft, nontender, no peritonitis. EXTREMITIES: No cyanosis, full range of motion of all the joints without pain or difficulty. NEUROLOGIC: Awake and alert, answers questions, no speech slur. SKIN: No jaundice, no diaphoresis. DIFFERENTIAL DIAGNOSIS: Bacteremia or sepsis, viral illness, pneumonia, UTI, among others. EMERGENCY DEPARTMENT PROCEDURES: MEDICAL DECISION MAKING: There is no leukocytosis or concerning anemia. There is a normal platelet count. INR slightly elevated at 1.2. There is no renal failure or significant electrolyte abnormality. Lactic acid level is elevated at 3, consistent with dehydration and/or infection. No worrisome liver enzyme elevation. ECG shows a sinus tachycardia, no obvious acute ischemia. Cardiac enzyme testing x 1 is not consistent with acute cardiac injury. Urinalysis shows some dehydration, no infection. Respiratory bio fire is positive for rhinovirus. Chest x-ray does not show any focal pneumonia. On exam, the patient was tachypneic, tachycardic and seemed to be chilled. The patient was given IV saline, 1 L. He was given IV cefepime, a DuoNeb and IV Tylenol. The patient has rhinovirus. He is tachypneic, tachycardic, he is dehydrated. His lactic acid level is elevated. He seemed short of breath earlier as per his sons. Given the circumstances, given his presentation and findings, I do think a hospital stay is warranted. I spoke with the patient and his family, I spoke with the vocational case manager. The on- call hospitalist was consulted. Prior/Outside records/notes reviewed: None ECG per my interpretation: Indication was tachycardia and possible sepsis. The ECG shows a sinus tachycardia with a rate of 121. There is diffuse artifact, no obvious ST elevation. No PVCs. There is an old inferior infarct. QTc is 434. Continuous Cardiac Monitoring per my interpretation: An order was placed for continuous cardiac monitoring. The monitor shows a rate of 102 with sinus tachycardia. Imaging/x-ray results per my interpretation: Chest x-ray shows a poor inspiratory effort, no focal pneumonia or CHF. Chronic Medical/Social conditions affecting care: Advanced age, history of sepsis earlier this year. Care/Management discussed with: Case management, the on-call hospitalist. Level of care consideration(s): After review of the information above and other included data: --I believe the patient requires escalation of care to admission DISPOSITION: Admission Past Med/Surg History Problem List (Updated 05/08/24 @ 00:07 by Background Saul) Tachypnea (Acute) Rhinovirus infection (Acute) Elevated lactic acid level (Acute) Chills (Acute) Tachycardia (Acute) Sepsis (Acute) Pneumonia (Acute) BPH (benign prostatic hyperplasia) GERD (gastroesophageal reflux disease) Parkinsons disease Generalized weakness (Acute) Diarrhea (Acute) Acute dehydration (Acute) Shortness of breath Multiple pulmonary nodules Hx of pulmonary embolus LAD (lymphadenopathy), mediastinal Urinary retention DVT (deep venous thrombosis) Mediastinal lymphadenopathy due to sarcoidosis Pulmonary embolism Encounter for pre-operative examination Meatal stenosis Adult failure to thrive (Acute) Weakness (Acute) Depression (Acute) Acute hemorrhoid (Acute) Nonadherence to medication (Acute) Depression Generalized weakness Acute sinusitis Cough (Acute) Thrombocytopenia Parkinsons disease (Acute) Hypertension ETOH abuse History of tonsillectomy Medical History Acute electrocardiogram changes Generalized weakness Renal insufficiency Improved Alcoholism /alcohol abuse Surgical History (Updated 05/08/24 @ 00:07 by Alicia Hughes) S/P laparoscopic cholecystectomy History of inguinal hernia repair Left Family History Other No significant family history Social History Smoking Status: Never smoker Second Hand Exposure: No; Do You Dip or Chew Tobacco: No; Hx Alcohol Use: No Hx Substance Use: No Preferred Language: Slovenian Communication Ability: Impaired Visual Impairment: No Limitations Code And Test Clerk Required: No Beliefs That Will Affect Care: None marital status: / Current Living Situation: Family Current Living Situation Comment: lives with son How many Children do You have: 2 Feels Safe at Home: Yes Assistive Devices: Walker Allergies Allergies Allergy/AdvReac Type Severity Reaction Status Date / Time No Known Allergies Allergy Verified 04/02/24 13:59 Home Meds Home Medications Medication Instructions Recorded Confirmed carbidopa 25 mg-levodopa 100 mg 1 tab PO QID 06/24/20 04/02/24 tablet mirtazapine 15 mg tablet 15 mg PO HS 06/24/20 04/02/24 tamsulosin 0.4 mg capsule 0.4 mg PO HS 06/24/20 04/02/24 apixaban 5 mg tablet (Eliquis) 5 mg PO BID 08/02/22 04/02/24 Previous Rx's Medication Instructions Recorded potassium chloride 10 mEq 10 meq PO DAILY #5 caps 04/07/24 capsule,extended release Results & Data (ED) Vital Signs Vital Signs - 24 hr 11/18/24 14:24 11/18/24 15:01 11/18/24 15:09 Temperature 37.1 C Temperature Source Temporal Artery Scan Pulse Rate 102 H 99 H Pulse Rate from SpO2 Sensor 101 H Respiratory Rate 18 23 Respiratory Effort / Characteristics Non-Labored Respiratory Depth Normal Respiratory Pattern Regular Blood Pressure 113/80 Blood Pressure Mean 91 Pulse Oximetry 97 94 94 Oxygen Delivery Method Room Air Room Air Sepsis Recent Fever Within 48 Hours No Sepsis New/Unexplained Change in Mental Status N/A Sepsis Action Taken by Nursing No Action Required 11/18/24 15:43 11/18/24 16:01 Temperature Temperature Source Pulse Rate 105 H 105 H Pulse Rate from SpO2 Sensor Respiratory Rate 26 H Respiratory Effort / Characteristics Respiratory Depth Respiratory Pattern Blood Pressure 133/75 Blood Pressure Mean 110 Pulse Oximetry 95 Oxygen Delivery Method Sepsis Recent Fever Within 48 Hours Sepsis New/Unexplained Change in Mental Status Sepsis Action Taken by Assisted Medications Current Medication List: was personally reviewed by me Laboratory Data Attestation: I reviewed the patient's lab results. 11/18/24 15:15 11/18/24 15:15 Lab Results 11/18/24 11/18/24 11/18/24 Range/Units 15:15 15:55 Unknown WBC 8.51 (4.8-10.8) K/ul RBC 5.21 (4.70-6.10) M/uL Hgb 14.5 (14.0-18.0) g/dl Hct 45.6 (42.0-52.0) % MCV 87.5 (80.0-100.0) fL MCH 27.8 (25.0-34.0) pg MCHC 31.8 L (32.0-36.0) g/dL RDW Std Deviation 42.8 (36.4-46.3) fL RDW Coeff of Cordell 13.7 (11.5-14.5) % Plt Count 186 (130-400) K/uL MPV 10.7 (9.4-12.4) fL Immature Gran % (Auto) 0.4 % Neut % (Auto) 88.4 % Lymph % (Auto) 4.0 % [place] % (Auto) 6.0 % Eos % (Auto) 0.4 % Baso % (Auto) 0.8 % Neut # (Auto) 7.53 H (1.40-6.50) K/uL Lymph # (Auto) 0.34 L (1.20-3.40) K/uL [place] # (Auto) 0.51 (0.11-0.59) K/uL Eos # (Auto) 0.03 (0.00-0.50) K/uL Baso # (Auto) 0.07 (0.00-0.20) K/uL Immature Gran # (Auto) 0.03 (0.01-0.20) K/uL PT 12.4 H (9.0-12.0) Seconds INR 1.2 H (0.9-1.1) APTT 33 H (21-31) Seconds PTT Ratio 1.2 Sodium 141 (136-145) mmol/L Potassium 5.0 (3.5-5.1) mmol/L Chloride 107 (98-107) mmol/L Carbon Dioxide 27 (21-32) mmol/L Anion Gap 7 (3-11) BUN 10 (6-23) mg/dl Creatinine 1.04 (0.6-1.4) mg/dl Est Cr Clr Drug Dosing 62.3 ml/min eGFR 75.35 BUN/Creatinine Ratio 9.6 L (10-20) Glucose 99 (70-99(Fasting)) mg/dl Lactate 3.0 H* (0.4-2.0) mmol/L Calcium 9.0 (8.6-10.3) mg/dl Magnesium 1.7 (1.7-2.4) mg/dl Total Bilirubin 1.2 H (0.2-1.0) mg/dl Direct Bilirubin TNP AST 11 L (13-39) U/L ALT 3 L (7-52) U/L Alkaline Phosphatase 90 (34-104) U/L Troponin I High Sens 4.7 (0-20) pg/ml Total Protein 7.0 (6.0-8.3) gm/dl Albumin 3.9 (3.4-5.0) gm/dl Procalcitonin 0.44 (0-0.5) ng/ml Urine Color Yellow Urine Appearance Clear (Clear) Urine pH 5.5 (4.5-7.5) Ur Specific [place] 1.021 (1.000-1.030) Urine Protein Negative (Negative) Urine Glucose (UA) Negative (Negative) Urine Ketones Trace H (Negative) Urine Blood Negative (Negative) Urine Nitrite Negative (Negative) Urine Bilirubin Negative (Negative) Urine Urobilinogen Negative (Negative) Ur Leukocyte Esterase Negative (Negative) Urine Comment Adenovirus (PCR) Not Detected (NotDetected) B. pertussis DNA (PCR) Not Detected (NotDetected) B.parapertussis DNA PCR Not Detected (NotDetected) C. pneumoniae DNA (PCR) Not Detected (NotDetected) Coronavirus OC43 (PCR) Not Detected (NotDetected) Coronavirus HKU1 (PCR) Not Detected (NotDetected) Coronavirus 229E (PCR) Not Detected (NotDetected) SARS-CoV-2 (PCR) Not Detected (NotDetected) Coronavirus NL63 (PCR) Not Detected (NotDetected) Human Metapneumovir PCR Not Detected (NotDetected) Influenza Type A (PCR) Not Detected (NotDetected) Influenza Type B (PCR) Not Detected (NotDetected) M. pneumoniae (PCR) Not Detected (NotDetected) Parainfluenza 1 (PCR) Not Detected (NotDetected) Parainfluenza 2 (PCR) Not Detected (NotDetected) Parainfluenza 3 (PCR) Not Detected (NotDetected) Parainfluenza 4 (PCR) Not Detected (NotDetected) RSV (PCR) Not Detected (NotDetected) Entero/Rhino (PCR) DETECTED A (NotDetected) Administered Medications Discontinued Medications Albuterol (Albut/Ipratrop 3mg/0.5mg Neb 3 Ml Vial) 3 ml NEB NOW STA; Protocol Stop: 11/18/24 15:03 Last Admin: 11/18/24 15:23 Dose: 3 ml Documented By: NRZach Sodium Chloride (Nss) 1,000 mls @ 999 mls/hr IV .Q1H1M CHIKI Stop: 11/18/24 16:15 Last Admin: 11/18/24 15:23 Dose: 999 mls/hr Documented By: NRB Cefepime HCl (Maxipime 2000mg) 2,000 mg in 20 mls @ 5 mls/min IV NOW STA; Protocol Stop: 11/18/24 15:04 Last Admin: 11/18/24 15:59 Dose: 5 mls/min Documented By: NRB Acetaminophen (Ofirmev) 1,000 mg in 100 mls @ 400 mls/hr IV NOW STA Stop: 11/18/24 15:15 Last Infusion: 11/18/24 15:45 Dose: Infused Documented By: NRZach Admin: 11/18/24 15:23 Dose: 400 mls/hr Documented By: MELVA Imaging Data Radiologist's Impression: Chest X-Ray 11/18/24 15:01 COMPARISON: 04/02/2024 FINDINGS: HEART: Normal in size. LUNGS: Hypoinflated lungs. No focal consolidations. No pneumothorax MEEDIASTINUM: Unremarkable. BONES: Intact. OTHER: Mild elevation of the right hemidiaphragm. IMPRESSION: No acute disease. Electronically signed by Pepper Castillo 11-18-2024 4:10 PM Discharge Plan Visit Data Chief Complaint: Illness Stated Complaint: COUGH CHEST CONGESTION BRONCITIES ED Provider: Bam Quijano Discharge Problem: Tachycardia, Chills, Elevated lactic acid level, Rhinovirus infection, Tachypnea Patient Disposition: Admitted As Inpatient Condition: Fair Forms Stand Alone Forms: My [facility] Informaat Prescriptions Prescriptions: No Action tamsulosin 0.4 mg Capsule 0.4 mg PO HS mirtazapine 15 mg Tablet 15 mg PO HS Rx Instructions: take at 8pm carbidopa-levodopa 25-100 mg Tablet 1 tab PO QID Eliquis 5 mg tablet 5 mg PO BID Rx Instructions: 10 mg (2 tabs) BID until July 22, then 5 mg (1TAB) BID for 3-6 month TBD potassium chloride 10 mEq capsule, extended release 10 meq PO DAILY Qty: 5 0RF Referrals Referrals: Oj Garcia MD [Primary Care Provider] -
[2024-11-18] MEDS: ALBUT/IPRATROP 3MG/0.5MG NEB 3 ML VIAL NEB STA (15:23)
[2024-11-18] MEDS: ACETAMINOPHEN 1,000 MG/100 ML VIAL IV STA (15:23)
[2024-11-18] MEDS: SODIUM CHLORIDE 0.9% 1,000 ML IV SCH (15:23)
[2024-11-18 15:40] LABS: Hematocrit (blood only) 45.6 % (42.0-52.0); Hemoglobin 14.5 g/dl (14.0-18.0); Immature Granulocytes # (auto) 0.03 K/uL (0.01-0.20); Immature Granulocytes % (auto) 0.4 %; Mean Corpuscular Hemoglobin 27.8 pg (25.0-34.0); Mean Corpuscular Volume 87.5 fL (80.0-100.0); Platelet Count 186 K/uL (130-400); RDW Standard Deviation 42.8 fL (36.4-46.3); Red Blood Count 5.21 M/uL (4.70-6.10); White Blood Count 8.51 K/ul (4.8-10.8)
[2024-11-18 15:59] LABS: Chlamydia pneumoniae PCR Not Detected (NotDetected); Coronavirus 229E PCR Not Detected (NotDetected); Coronavirus CoV-2 (COVID19)PCR Not Detected (NotDetected); Coronavirus HKU1 PCR Not Detected (NotDetected); Coronavirus NL63 PCR Not Detected (NotDetected); Coronavirus OC43PCR Not Detected (NotDetected); Human Metapneumovirus PCR Not Detected (NotDetected); Parainfluenza Virus 1 PCR Not Detected (NotDetected); Parainfluenza Virus 2 PCR Not Detected (NotDetected); Parainfluenza Virus 3 PCR Not Detected (NotDetected); Parainfluenza Virus 4 PCR Not Detected (NotDetected); Respiratory Syncytial VirusPCR Not Detected (NotDetected); Rhinovirus/Enterovirus PCR DETECTED (NotDetected)
[2024-11-18] MEDS: CEFEPIME 2000MG 2,000 MG/20 ML SYR IV STA (15:59)
--- NOTE | 2024-11-18 16:10 | XRay Report ---
COMPARISON: 04/02/2024 FINDINGS: HEART: Normal in size. LUNGS: Hypoinflated lungs. No focal consolidations. No pneumothorax MEEDIASTINUM: Unremarkable. BONES: Intact. OTHER: Mild elevation of the right hemidiaphragm. IMPRESSION: No acute disease. Electronically signed by Pepper Castillo 11-18-2024 4:10 PM
[2024-11-18 16:11] LABS: INR 1.2 (0.9-1.1); Partial Thromboplastin Time 33 Seconds (21-31); Prothrombin Time 12.4 Seconds (9.0-12.0)
[2024-11-18 16:12] LABS: Alanine Aminotransferase 3 U/L (7-52); Albumin Level 3.9 gm/dl (3.4-5.0); Alkaline Phosphatase 90 U/L (34-104); Anion Gap 7 (3-11); Bilirubin,Total 1.2 mg/dl (0.2-1.0); Blood Urea Nitrogen 10 mg/dl (6-23); Calcium 9.0 mg/dl (8.6-10.3); Carbon Dioxide 27 mmol/L (21-32); Chloride 107 mmol/L (98-107); Creatinine Clr Calc Pharmacy 62.3 ml/min; Glucose 99 mg/dl (70-99(Fasting)); Magnesium 1.7 mg/dl (1.7-2.4); Potassium 5.0 mmol/L (3.5-5.1); Sodium 141 mmol/L (136-145); Total Protein 7.0 gm/dl (6.0-8.3)
[2024-11-18 16:16] LABS: Appearance Urine Clear (Clear); Glucose Urine UA Negative (Negative)
--- NOTE | 2024-11-18 17:36 | History & Physical Report ---
Date of Service November 18, 2024 Assessment & Plan (1) Rhinovirus infection: (2) Elevated lactic acid level: (3) Tachycardia: (4) Parkinsons disease: (5) Hx of pulmonary embolus: Plan 73-year-old male with PMH of Parkinson's disease, GERD, PE on Eliquis, poor mobility due to underlying severe Parkinson's disease presents to the ED with complaint of shortness of breath and cough Labs notable for lactate of 3 improved to 1.9 with IVF Resp PCR was positive for rhinovirus CXR did not show any acute abnormalities Has tachycardia and tachypnea in ER. Hence has 2 SIRS Elevated lactate. All concerning for possible Sepsis Got IV Cefepime in ER My suspicion for bacterial infection is low considering no fever, no leukocytosis, normal procalcitonin, unremarkable chest XR Will continue empirical antibiotics with Ceftriaxone and doxycycline for now until further assessment in AM. 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 eliquis, potassium and tamsulosin DVT ppx- Eliquis Code status - Full I spent a total of 75 minutes coordinating, documenting and providing care for this patient excluding time spent in performance of separately billed services History of Present Illness Chief Complaint: Cough and shortness of breath Primary Care Provider: Oj Garcia MD 73-year-old male with PMH of Parkinson's disease, GERD, PE on Eliquis, poor mobility due to underlying severe Parkinson's disease presents to the ED with complaint of shortness of breath and cough Reports change in voice, cough, some rhinorrhea, congestion and shortness of breath for the past few days Reports generalized weakness Reports sick contacts at home Denied chest pain, dizziness, nausea, vomiting, abd pain, diarrhea, constipation Denied fever, chills He has Parkinson's and resting tremors. Usually ambulates with wheelchair Denied smoking, alcohol use or illicit drug use Denied oxygen use Was noted to be tachypneic and tachycardic in ER HR is currently 99, RR is 20 Allergies Allergy/AdvReac Type Severity Reaction Status Date / Time No Known Allergies Allergy Verified 11/18/24 16:42 Home Medications Medication Instructions Recorded Confirmed Type carbidopa 25 mg-levodopa 100 mg 1 tab PO QID 06/24/20 11/18/24 History tablet mirtazapine 15 mg tablet 15 mg PO HS 06/24/20 11/18/24 History tamsulosin 0.4 mg capsule 0.4 mg PO HS 06/24/20 11/18/24 History apixaban 5 mg tablet (Eliquis) 5 mg PO BID 08/02/22 11/18/24 History potassium chloride 10 mEq 10 meq PO HS 11/18/24 11/18/24 History capsule,extended release Past Med/Surg History Problem List (Updated 05/08/24 @ 00:07 by Background Daemon) Tachypnea (Acute) Rhinovirus infection (Acute) Elevated lactic acid level (Acute) Chills (Acute) Tachycardia (Acute) Sepsis (Acute) Pneumonia (Acute) BPH (benign prostatic hyperplasia) GERD (gastroesophageal reflux disease) Parkinsons disease Generalized weakness (Acute) Diarrhea (Acute) Acute dehydration (Acute) Shortness of breath Multiple pulmonary nodules Hx of pulmonary embolus LAD (lymphadenopathy), mediastinal Urinary retention DVT (deep venous thrombosis) Mediastinal lymphadenopathy due to sarcoidosis Pulmonary embolism Encounter for pre-operative examination Meatal stenosis Adult failure to thrive (Acute) Weakness (Acute) Depression (Acute) Acute hemorrhoid (Acute) Nonadherence to medication (Acute) Depression Generalized weakness Acute sinusitis Cough (Acute) Thrombocytopenia Parkinsons disease (Acute) Hypertension ETOH abuse History of tonsillectomy Medical History Acute electrocardiogram changes Generalized weakness Renal insufficiency Improved Alcoholism /alcohol abuse Surgical History (Updated 05/08/24 @ 00:07 by Background Dajose) S/P laparoscopic cholecystectomy History of inguinal hernia repair Left Family History Other No significant family history Social History Smoking Status: Never smoker Second Hand Exposure: No; Do You Dip or Chew Tobacco: No; Hx Alcohol Use: No Hx Substance Use: No Preferred Language: Pashto Communication Ability: Impaired Visual Impairment: No Limitations Legal Archivist Required: No Beliefs That Will Affect Care: None marital status: / Current Living Situation: Family Current Living Situation Comment: lives with son How many Children do You have: 2 Feels Safe at Home: Yes Assistive Devices: Walker Review of Systems Review of Systems: All systems reviewed & are unremarkable except as noted in HPI & below Physical Exam Constitutional: Elderly man in no distress Eyes: PERRL, conjunctivae normal, anicteric sclerae ENMT: external ear and nose normal, oropharynx normal Respiratory: Not in resp distress, on room air, +wheezing Cardiovascular: Rate/Rhythm: regular rate and regular rhythm Gastrointestinal (Abdomen): normal bowel sounds, soft, nontender, no hepatosplenomegaly Musculoskeletal: No pedal edema Neurologic: PERRL EOMI Alert and oriented to person, place and time Fine resting tremors in UE Results & Data Results & Data Vital Signs (Past 12 Hours) Vital Signs Temp Pulse Resp BP Pulse Ox O2 Del Method 11/18/24 16:01 105 H 26 H 133/75 95 11/18/24 15:43 105 H 11/18/24 15:09 99 H 23 94 11/18/24 15:01 94 Room Air 11/18/24 14:24 37.1 C 102 H 18 113/80 97 Room Air Laboratory Results Abnormal lab results 11/18/24 11/18/24 11/18/24 Range/Units 15:15 15:55 Unknown MCHC 31.8 L (32.0-36.0) g/dL Neut # (Auto) 7.53 H (1.40-6.50) K/uL Lymph # (Auto) 0.34 L (1.20-3.40) K/uL PT 12.4 H (9.0-12.0) Seconds INR 1.2 H (0.9-1.1) APTT 33 H (21-31) Seconds BUN/Creatinine Ratio 9.6 L (10-20) Lactate 3.0 H* (0.4-2.0) mmol/L Total Bilirubin 1.2 H (0.2-1.0) mg/dl AST 11 L (13-39) U/L ALT 3 L (7-52) U/L Urine Ketones Trace H (Negative) Entero/Rhino (PCR) DETECTED A (NotDetected) Diagnostic Findings CXR FINDINGS: HEART: Normal in size. LUNGS: Hypoinflated lungs. No focal consolidations. No pneumothorax MEEDIASTINUM: Unremarkable. BONES: Intact. OTHER: Mild elevation of the right hemidiaphragm. IMPRESSION: No acute disease. Code Status & VTE Plan Code Status Full Code
[2024-11-18] MEDS ORDERED: ALBUTEROL 0.083% NEBU SOLN 3 ML VIAL NEB PRN (20:14)
[2024-11-18] MEDS: MIRTAZAPINE TAB 15 MG TAB PO SCH (20:50)
[2024-11-18] MEDS: DOXYCYCLINE HYCLATE 100 MG CAP PO SCH (20:50)
[2024-11-18] MEDS: LORATADINE 10 MG TAB PO SCH (20:50)
[2024-11-18] MEDS: guaiFENesin 600 MG TABCR PO SCH (20:51)
[2024-11-18] MEDS: TAMSULOSIN HCL 0.4 MG CAP PO SCH (20:51)
[2024-11-18] MEDS: POTASSIUM CHLORIDE 10 MEQ TABCR PO SCH (20:51)
[2024-11-18] MEDS: APIXABAN 5 MG TABLET PO SCH (20:52)
[2024-11-18] MEDS: CARBIDOPA/LEVODOPA 25/100MG TAB PO SCH (20:52)
[2024-11-18] MEDS: cefTRIAXone SODIUM 1,000 MG/50 ML BAG IV SCH (20:52)
[2024-11-19 06:48] LABS: Hematocrit (blood only) 43.8 % (42.0-52.0); Hemoglobin 13.8 g/dl (14.0-18.0); Mean Corpuscular Hemoglobin 28.0 pg (25.0-34.0); Mean Corpuscular Volume 88.8 fL (80.0-100.0); Platelet Count 153 K/uL (130-400); RDW Standard Deviation 44.2 fL (36.4-46.3); Red Blood Count 4.93 M/uL (4.70-6.10); White Blood Count 6.61 K/ul (4.8-10.8)
[2024-11-19 07:04] LABS: Anion Gap 6.0 (3-11); Blood Urea Nitrogen 13.0 mg/dl (6-23); Calcium 8.5 mg/dl (8.6-10.3); Carbon Dioxide 26.0 mmol/L (21-32); Chloride 108.0 mmol/L (98-107); Creatinine Clr Calc Pharmacy 62.9 ml/min; Glucose 74.0 mg/dl (70-99(Fasting)); Magnesium 1.9 mg/dl (1.7-2.4); Potassium 4.3 mmol/L (3.5-5.1); Sodium 140.0 mmol/L (136-145)
[2024-11-19] MEDS: BENZONATATE 100 MG CAPSULE PO PRN (07:51)
[2024-11-19] MEDS: COUGH DROP (SUGAR FREE) LOZ 24 LOZ/1 BOX BUCCAL PRN (07:51)
--- NOTE | 2024-11-19 11:31 | Hospitalist Progress Note ---
Date of Service November 19, 2024 Assessment & Plan (1) Rhinovirus infection: (2) Elevated lactic acid level: (3) Parkinsons disease: (4) Hx of pulmonary embolus: Plan Patient is a 74y/o M with PMHx significant for Parkinson's disease, history of PE anticoagulated on Eliquis, BPH and GERD who presented to the ED on 11/18/24 with complaints of cough, congestion, rhinorrhea and SOB x few days. Found to have entero-/rhinovirus on admission. #Rhinovirus infection Initially tachycardic and tachypneic in the ED with elevated lactate c/f sepsis S/p IV cefepime in ED Lactic acidosis resolved s/p IVF No fever or leukocytosis, procalcitonin normal Unremarkable CXR VS improving this morning, still with some mild tachycardia Not requiring any supplemental O2 this admission so far Continue empiric IV Rocephin and p.o. doxycycline pending blood culture results De-escalate as appropriate Continue Mucinex, nebs Continue loratadine #Parkinson's disease Significant risk for falls 2/2 baseline ambulatory dysfunction ISO underlying disease Typically utilizes wheelchair for getting around at home Lives with his 2 sons Continue carbidopa-levodopa, mirtazapine Continue fall precautions #History of mild-moderate oropharyngeal dysphagia Previously evaluated by TRAINMASTER in March 2024 -Recommended easy to chew diet with thin liquids, no straws (silent aspiration seen on sequential swallows of thins by straw) RN reported inconsistent difficulty with swallowing meds in pudding this morning, c/f aspiration Appreciate TRAINMASTER reevaluation Recommending soft bite-size diet with thin liquids *NO STRAWS* -- diet order changed Safe swallow strategies (small bites, small sips, slow right) Continue aspiration precautions Supervision/assistance with intake 2/2 difficulty with self-feeding VFSS ordered and pending given history of silent aspiration and current respiratory status #History of PE Continue Eliquis #BPH Continue Flomax DVT Prophylaxis: Eliquis Code Status: FULL CODE PCP: Harshal Garcia MD Disposition: DC plans uncertain at this time Possible DC home in 1-2 days depending on clinic course Patient seen in collaboration with Dr. Church. Please see addendum. I spent a total of 42 minutes coordinating, documenting, and providing care for this patient excluding time spent in the performance of separately billed services or time spent by another provider/QHP. This included personally review ing all current laboratories and imaging studies, medical reconciliation, outpatient chart review and discussion with specialists. This chart was completed in part utilizing Speech Voice Recognition Software. Grammatical errors, random word insertions, pronoun errors, and incomplete sentences are an occasional consequence of this system due to software limitations, ambient noise, and hardware issues. Any formal questions or concerns about the content, text, or information contained within the body of this dictation should be directly addressed to the provider for clarification. Admission and Anticipated Discharge Date Admission Date: November 18, 2024 Supervising Physician Co-Signing Physician Notes Patient seen and examined at bedside. He reports that he is feeling better overall today. He is not quite back to his baseline. Symptoms appear to be well-controlled and he is saturating well on room air. VFSS ordered. Possible discharge in a couple of days if he is back to his baseline. I have reviewed the advanced practitioner's documentation, and I agree with, and take responsibility for the plan of care I spent a total of 20 minutes coordinating, documenting, and providing care for this patient excluding time spent in the performance of separately billed services. All of the aforementioned completed while collaborating with the assigned advanced practitioner for a full treatment plan Subjective Patient seen and examined in room 252-1. History of Parkinson's disease. Tremors present in bilateral upper extremities at baseline. Reports ongoing cough, d enies any SOB. No reported chest pain. Had some difficulty taking pills and drinking with straw this morning TRAINMASTER consult pending. Review of Systems Review of Systems: At least ten systems reviewed and negative, except as noted in the subjective section. Physical Exam Physical Exam: General: Elderly M, NAD, sitting up in bed, A&Ox3, BUE resting tremors at baseline HEENT: Normocephalic, atraumatic, dry mucous membranes Respiratory: Normal respiratory effort, mild expiratory wheezing, on RA, no accessory muscle use Cardiovascular: RRR, normal peripheral pulses, no BLE edema Abdomen/GI: Active bowel sounds, soft, nontender to palpation in all quadrants : + condom catheter in place with clear yellow urine output Extremities/Musculoskeletal: No cyanosis or clubbing, moves all extremities Neurologic: CN's II-XI not formally tested but appear grossly intact bilaterally Results & Data Results & Data Vital Signs (Past 12 Hours) Vital Signs Temp Pulse Pulse Resp BP Pulse Ox O2 Del Method 11/19/24 10:54 37.3 C 94 H 20 118/76 93 Room Air 11/19/24 08:03 37.6 C H 86 20 116/72 93 Room Air 11/19/24 07:45 Room Air 11/19/24 07:03 72 11/19/24 04:19 36.6 C 85 18 131/82 92 Room Air 11/18/24 23:44 37.1 C 86 20 118/70 94 Room Air Laboratory Results Short CBC 11/18/24 11/19/24 Range/Units 15:15 05:27 WBC 8.51 6.61 (4.8-10.8) K/ul Hgb 14.5 13.8 L (14.0-18.0) g/dl Hct 45.6 43.8 (42.0-52.0) % Plt Count 186 153 (130-400) K/uL BMP 11/18/24 11/19/24 15:15 05:27 Sodium 141 140 Potassium 5.0 4.3 Chloride 107 108 H Carbon Dioxide 27 26 BUN 10 13 Creatinine 1.04 1.03 Glucose 99 74 Calcium 9.0 8.5 L Liver Function 11/18/24 11/18/24 Range/Units 15:15 16:41 Total Bilirubin 1.2 H (0.2-1.0) mg/dl Direct Bilirubin TNP 0.2 AST 11 L (13-39) U/L ALT 3 L (7-52) U/L Alkaline Phosphatase 90 (34-104) U/L Albumin 3.9 (3.4-5.0) gm/dl Urine 11/18/24 Range/Units 15:55 Urine Color Yellow Urine Appearance Clear (Clear) Urine pH 5.5 (4.5-7.5) Ur Specific [place] 1.021 (1.000-1.030) Urine Protein Negative (Negative) Urine Glucose (UA) Negative (Negative) (3) Parkinsons disease Dyskinesia presence: unspecified whether dyskinesia Fluctuating manifestations: unspecified whether manifestations fluctuate Qualified Code(s): G20.A1 - Parkinson's disease without dyskinesia, without mention of fluctuations
--- NOTE | 2024-11-19 21:12 | Electrocardiogram Report ---
Test Reason : Blood Pressure : */* mmHG Vent. Rate : 121 BPM Atrial Rate : 121 BPM P-R Int : 180 ms QRS Dur : 80 ms QT Int : 306 ms P-R-T Axes : 66 -61 76 degrees QTcB Int : 434 ms Sinus tachycardia Left axis deviation Inferior infarct , age undetermined Abnormal ECG When compared with ECG of 06-Apr-2024 08:06, Premature atrial complexes are no longer Present Vent. rate has increased by 63 bpm Nonspecific T wave abnormality no longer evident in Inferior leads T wave amplitude has increased in Anterior leads Confirmed by Myron Diaz ([id number]) on 11/19/2024 9:12:15 PM Referred By: REFERRED SELF Confirmed By: Myron Diaz
[2024-11-19] MEDS ORDERED: PHA DELIRIUM CONSULT PRN (22:33)
[2024-11-20 07:18] LABS: Hematocrit (blood only) 39.6 % (42.0-52.0); Hemoglobin 12.6 g/dl (14.0-18.0); Mean Corpuscular Hemoglobin 27.8 pg (25.0-34.0); Mean Corpuscular Volume 87.4 fL (80.0-100.0); Platelet Count 150 K/uL (130-400); RDW Standard Deviation 43.8 fL (36.4-46.3); Red Blood Count 4.53 M/uL (4.70-6.10); White Blood Count 4.18 K/ul (4.8-10.8)
[2024-11-20 07:53] LABS: Anion Gap 4.0 (3-11); Blood Urea Nitrogen 15.0 mg/dl (6-23); Calcium 8.4 mg/dl (8.6-10.3); Carbon Dioxide 28.0 mmol/L (21-32); Chloride 108.0 mmol/L (98-107); Creatinine Clr Calc Pharmacy 64.8 ml/min; Glucose 72.0 mg/dl (70-99(Fasting)); Potassium 3.8 mmol/L (3.5-5.1); Sodium 140.0 mmol/L (136-145)
--- NOTE | 2024-11-20 08:42 | Hospitalist Progress Note ---
Date of Service November 20, 2024 Assessment & Plan (1) Rhinovirus infection: (2) Elevated lactic acid level: (3) Parkinsons disease: (4) Hx of pulmonary embolus: Plan 74 year old male with PMH significant for Parkinson's disease, history of PE anticoagulated on Eliquis, BPH and GERD who presented to the ED on 11/18/24 with complaints of cough, congestion, rhinorrhea and SOB x few days. Found to have entero-/rhinovirus on admission. Rhinovirus infection Initially tachycardic and tachypneic in the ED No fever or leukocytosis, procalcitonin normal Elevated lactate on admission resolved after IVF suspect due to dehydration Unremarkable CXR Blood cultures NGTD Discontinued empiric rocephin and doxycycline given low suspicion for sepsis/CAP Continue Mucinex and nebs Parkinson's disease Significant risk for falls 2/2 baseline ambulatory dysfunction ISO underlying disease Typically utilizes wheelchair for getting around at home and lives with his 2 sons Continue carbidopa-levodopa and mirtazapine Fall precautions PT/OT consults pending History of mild-moderate oropharyngeal dysphagia Video swallow study on 11/20/2024 with recommendations: * Soft bite-size diet with thin liquids *NO STRAWS* * Safe swallow strategies (small bites, small sips, slow right) * Aspiration and reflux precautions * Supervision/assistance with intake 2/2 difficulty with self-feeding * Mouth care - clean all surfaces of oral cavity to reduce amount of oral bacteria that can be aspirated in the saliva History of PE Continue Eliquis BPH Continue Flomax DVT Prophylaxis: Eliquis Code Status: FULL CODE PCP: Harshal Garcia MD Disposition: dc likely tomorrow Patient seen in collaboration with Dr. Church. Please see addendum. I spent a total of 60 minutes coordinating, documenting and providing care for this patient excluding time spent in the performance of separately billed services or time spent by another provider/QHP. Admission and Anticipated Discharge Date Admission Date: November 18, 2024 Supervising Physician Co-Signing Physician Notes Patient seen and examined at bedside. Patient continues to report that he is feeling better PT/OT is still pending. Plan for VFSS today I have reviewed the advanced practitioner's documentation, and I agree with, and take responsibility for the plan of care I spent a total of 20 minutes coordinating, documenting, and providing care for this patient excluding time spent in the performance of separately billed services. All of the aforementioned completed while collaborating with the assigned advanced practitioner for a full treatment plan Subjective Patient seen resting in bed Reports his cough is improved Denies dizziness, chest pain, SOB, abdominal pain, N/V Review of Systems Review of Systems: All systems reviewed & are unremarkable except as noted in HPI & below Physical Exam Physical Exam: General/Psych: WD/WN, sitting up in bed, NAD, conversing easily Head: normocephalic, atraumatic Eyes: normal inspection, PERRL, conjunctivae pink ENT: external ear and nose normal, oropharynx normal Neck: normal visual inspection, trachea midline Respiratory: normal respiratory effort, lungs with crackles appreciated in right base, no accessory muscle use Cardiovascular: regular rate and rhythm, no murmur/rub/gallop, no JVD Extremities: no cyanosis or clubbing, normal peripheral pulses, no BLE edema Abdomen/GI: normal bowel sounds, soft, nontender Neurologic/MSK: A+Ox3, motor strength 5/5, moves all extremities Skin: no rashes, normal color, warm and dry Results & Data Results & Data Vital Signs (Past 12 Hours) Vital Signs Temp Pulse Pulse Resp BP Pulse Ox O2 Del Method 11/20/24 07:45 36.6 C 77 16 124/83 96 Room Air 11/20/24 07:23 69 11/20/24 02:55 36.6 C 79 18 119/73 93 Room Air 11/20/24 01:02 83 11/19/24 22:22 Room Air 11/19/24 22:12 37.3 C 86 18 109/75 91 Room Air Laboratory Results Short CBC 11/20/24 Range/Units 06:53 WBC 4.18 L (4.8-10.8) K/ul Hgb 12.6 L (14.0-18.0) g/dl Hct 39.6 L (42.0-52.0) % Plt Count 150 (130-400) K/uL BMP 11/20/24 06:53 Sodium 140 Potassium 3.8 Chloride 108 H Carbon Dioxide 28 BUN 15 Creatinine 1.00 Glucose 72 Calcium 8.4 L I have independently reviewed and interpreted patient's labs including CBC, BMP Medications Administered Current Inpatient Medications Albuterol (Albuterol 0.083% Nebu Soln 3 Ml Vial) 2.5 mg NEB Q6H PRN; Protocol PRN Reason: Shortness Of Breath Or Wheezing Stop: 12/18/24 20:13 Apixaban (Apixaban 5 Mg Tablet) 5 mg PO BID [facility] Stop: 12/18/24 20:59 Last Admin: 11/20/24 09:08 Dose: 5 mg Benzonatate (Benzonatate 100 Mg Capsule) 100 mg PO TID PRN PRN Reason: Cough Stop: 12/18/24 20:13 Last Admin: 11/19/24 07:51 Dose: 100 mg Carbidopa/Levodopa (Carbidopa/Levodopa 25/100mg Tab) 1 tab PO QID CHIKI Stop: 12/18/24 20:59 Last Admin: 11/20/24 12:38 Dose: 1 tab Guaifenesin (Guaifenesin 600 Mg Tabcr) 600 mg PO Q12 [facility] Stop: 12/18/24 20:59 Last Admin: 11/20/24 09:08 Dose: 600 mg Loratadine (Loratadine 10 Mg Tab) 10 mg PO QAM [facility] Stop: 12/18/24 20:13 Last Admin: 11/20/24 09:08 Dose: 10 mg Menthol (Cough Drop (Sugar Free) Clayton 24 Clayton/1 Box) 1 clayton BUCCAL Q2H PRN PRN Reason: Sore Throat Stop: 12/19/24 06:18 Mirtazapine (Mirtazapine Tab 15 Mg Tab) 15 mg PO HS [facility] Stop: 12/18/24 20:59 Last Admin: 11/19/24 21:21 Dose: 15 mg Potassium Chloride (Potassium Chloride 10 Meq Tabcr) 10 meq PO HS [facility] Stop: 12/18/24 20:59 Last Admin: 11/19/24 21:25 Dose: 10 meq Tamsulosin HCl (Tamsulosin Hcl 0.4 Mg Cap) 0.4 mg PO HS [facility] Stop: 12/18/24 20:59 Last Admin: 11/19/24 21:21 Dose: 0.4 mg (3) Parkinsons disease Dyskinesia presence: unspecified whether dyskinesia Fluctuating manifestations: unspecified whether manifestations fluctuate Qualified Code(s): G20.A1 - Parkinson's disease without dyskinesia, without mention of fluctuations
--- NOTE | 2024-11-20 12:04 | Fluoroscopy Report ---
FL video swallow CLINICAL HISTORY: r/o aspiration. TECHNIQUE: Video fluoroscopic evaluation of swallowing was performed in the AP and lateral projection s by the speech pathology staff. The patient is fed nectar-thick and thin liquid barium, a barium coa jaclyn wafer, and barium pudding. FLUOROSCOPY TIME: 2 minutes 12 seconds. COMPARISON: None FINDINGS: There is penetration with liquid. No aspiration seen with any barium consistency. IMPRESSION: No aspiration seen. ACT 112: Negative or not required by law. Electronically signed by: Martin Graf M.D. 11/20/2024 12:03 PM
[2024-11-20] MEDS: LOPERAMIDE HCL 2 MG CAP PO STA (12:38)
[2024-11-20] MEDS ORDERED: PHA DELIRIUM CONSULT PRN (23:34)
[2024-11-21 07:09] LABS: Hematocrit (blood only) 41.9 % (42.0-52.0); Hemoglobin 14.1 g/dl (14.0-18.0); Mean Corpuscular Hemoglobin 29.4 pg (25.0-34.0); Mean Corpuscular Volume 87.5 fL (80.0-100.0); Platelet Count 174 K/uL (130-400); RDW Standard Deviation 43.1 fL (36.4-46.3); Red Blood Count 4.79 M/uL (4.70-6.10); White Blood Count 3.71 K/ul (4.8-10.8)
[2024-11-21 07:28] LABS: Anion Gap 5.0 (3-11); Blood Urea Nitrogen 14.0 mg/dl (6-23); Calcium 8.5 mg/dl (8.6-10.3); Carbon Dioxide 28.0 mmol/L (21-32); Chloride 107.0 mmol/L (98-107); Creatinine Clr Calc Pharmacy 71.2 ml/min; Glucose 72.0 mg/dl (70-99(Fasting)); Potassium 4.0 mmol/L (3.5-5.1); Sodium 140.0 mmol/L (136-145)
--- NOTE | 2024-11-21 11:13 | Discharge Summary ---
Discharge Summary Date of Service November 21, 2024 Principal Dx & Hospital Course #1 = Principal Diagnosis (1) Rhinovirus infection: (2) Parkinsons disease: (3) Oropharyngeal dysphagia: (4) Hx of pulmonary embolus: (5) BPH (benign prostatic hyperplasia): Plan 74 year old male with PMH significant for Parkinson's disease, history of mild to moderate oropharyngeal dysphagia, history of PE anticoagulated on Eliquis, and BPH who presented to the ED on 11/18/24 with complaints of cough, congestion, rhinorrhea and SOB x few days. Found to have entero-/rhinovirus on admission. 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 Church. Please see addendum. Notes For Next Care Provider 74 year old male with significant PMH who was admitted at [facility] from 11/18- 11/21/2024 with URI symptoms found to have rhinovirus. No concern for sepsis or pneumonia. Symptoms resolved with supportive care. Had swallow study due to difficulty swallowing pills which revealed no aspiration. Recommendations from speech therapy given to patient and his sons who he lives with. Medication Changes From Visit None Admission HPI Per Admitting Provider 73-year-old male with PMH of Parkinson's disease, GERD, PE on Eliquis, poor mobility due to underlying severe Parkinson's disease presents to the ED with complaint of shortness of breath and cough Reports change in voice, cough, some rhinorrhea, congestion and shortness of breath for the past few days Reports generalized weakness Reports sick contacts at home Denied chest pain, dizziness, nausea, vomiting, abd pain, diarrhea, constipation Denied fever, chills He has Parkinson's and resting tremors. Usually ambulates with wheelchair Denied smoking, alcohol use or illicit drug use Denied oxygen use Was noted to be tachypneic and tachycardic in ER HR is currently 99, RR is 20 Admission Exam Per Admitting Provider Constitutional: Elderly man in no distress Eyes: PERRL, conjunctivae normal, anicteric sclerae ENMT: external ear and nose normal, oropharynx normal Respiratory: Not in resp distress, on room air, +wheezing Cardiovascular: Rate/Rhythm: regular rate and regular rhythm Gastrointestinal (Abdomen): normal bowel sounds, soft, nontender, no hepatosplenomegaly Musculoskeletal: No pedal edema Neurologic: PERRL EOMI Alert and oriented to person, place and time Fine resting tremors in UE Discharge Exam General/Psych: WD/WN, sitting up in bed, NAD, conversing easily Head: normocephalic, atraumatic Eyes: normal inspection, PERRL, conjunctivae pink ENT: external ear and nose normal, oropharynx normal Neck: normal visual inspection, trachea midline Respiratory: normal respiratory effort, lungs with crackles appreciated in right base, no accessory muscle use Cardiovascular: regular rate and rhythm, no murmur/rub/gallop, no JVD Extremities: no cyanosis or clubbing, normal peripheral pulses, no BLE edema Abdomen/GI: normal bowel sounds, soft, nontender Neurologic/MSK: A+Ox3, motor strength 5/5, moves all extremities Skin: no rashes, normal color, warm and dry Updated Medication List Medication Instructions Recorded Confirmed Type carbidopa 25 mg-levodopa 100 mg 1 tab PO QID 06/24/20 11/18/24 History tablet mirtazapine 15 mg tablet 15 mg PO HS 06/24/20 11/18/24 History tamsulosin 0.4 mg capsule 0.4 mg PO HS 06/24/20 11/18/24 History apixaban 5 mg tablet (Eliquis) 5 mg PO BID 08/02/22 11/18/24 History potassium chloride 10 mEq 10 meq PO HS 11/18/24 11/18/24 History capsule,extended release Hospital Stay Data Consultations 11/18/24 16:52 ED Decision to Admit Stat Diagnostic Imagining Performed Chest X-Ray 11/18/24 15:01 COMPARISON: 04/02/2024 FINDINGS: HEART: Normal in size. LUNGS: Hypoinflated lungs. No focal consolidations. No pneumothorax MEEDIASTINUM: Unremarkable. BONES: Intact. OTHER: Mild elevation of the right hemidiaphragm. IMPRESSION: No acute disease. Electronically signed by Pepper Castillo 11-18-2024 4:10 PM Videofluoroscopic Swallow 11/20/24 00:01 FL video swallow CLINICAL HISTORY: r/o aspiration. TECHNIQUE: Video fluoroscopic evaluation of swallowing was performed in the AP and lateral projections by the speech pathology staff. The patient is fed nectar-thick and thin liquid barium, a barium coated wafer, and barium pudding. FLUOROSCOPY TIME: 2 minutes 12 seconds. COMPARISON: None FINDINGS: There is penetration with liquid. No aspiration seen with any barium consistency. IMPRESSION: No aspiration seen. ACT 112: Negative or not required by law. Electronically signed by: Martin Graf M.D. 11/20/2024 12:03 PM Pending Results Patient Have Any Pending Studies at Discharge: Yes Discharge Instructions Given to Patient (Per Discharging Provider) You presented to the hospital with cough, congestion, runny nose, and difficulty breathing. You were found to have rhinovirus, which is a strain of the common cold. Your chest x-ray did not show any pneumonia and your blood cultures remained negative. You were given mucinex and your symptoms improved. While in the hospital, you had some difficulty with swallowing pills. You underwent a swallow study with speech therapy which showed no aspiration, or inhalation of food or liquid into the lungs. They are recommending that you eat an easy to chew diet with thin liquids where you take small bites and small sips. Your meals should be supervised by your sons. You should be fully awake and sitting upright during meals. You should remain upright for 30 minutes after meals as well. MEDICATION CHANGES: None SUMMARY OF TEST RESULTS: See above PENDING TEST RESULTS: Blood culture final result - preliminary negative RECOMMENDATIONS FOR FOLLOW-UP: Please follow up with your PCP after being in the hospital on 11/29/2024 at 12:40pm OTHER INSTRUCTIONS: Seek medical attention if you have: * temperature above 101 * chest pain or trouble breathing * abdominal pain, nausea, vomiting * diarrhea, dark stools or bloody stools * any unanswered questions or concerns Call 911 if symptoms are severe. It has been a pleasure taking care of you. Please take care of yourself. If you have any questions regarding your recent hospitalization please contact [facility] and request Yoana Chen @ [phone]. Total Time Total Time Spent Total Time Spent (In Minutes): I spent a total of 35 minutes coordinating, documenting and providing care for this patient excluding time spent in the performance of separately billed services or time spent by another provider/QHP. Supervising Physician Co-Signing Physician Notes Patient seen and examined at bedside. Patient continues to report that he is feeling better He feels he is at his baseline and would like to go home Patient discharged home with instructions to follow-up with PCP I have reviewed the advanced practitioner's documentation, and I agree with, and take responsibility for the plan of care I spent a total of 20 minutes coordinating, documenting, and providing care for this patient excluding time spent in the performance of separately billed services. All of the aforementioned completed while collaborating with the assigned advanced practitioner for a full treatment plan
[2024-11-21 11:20] VITALS: BP 120/81; PULSE 77; RESP 16; TEMP 97.9; O2SAT 95
== END 2024-11-21 13:39 | disposition home or self-care (01) | DRG 153 ==
LOC: ED 14:19 → SUATTDRO 18:46 → EDINP 18:46 → 2W 20:15